=== PATIENT | male | born 1960 | race Caucasian/White ===

== ENCOUNTER → 2020-04-05 10:37 | Outpatient (BNVA) | payer OTHER, SELFPAY | PROVIDERS: PCP Internal Medicine; Referring Provider Internal Medicine; Visit Provider Internal Medicine Gastroenterology | DX: Z76.89 Persons encountering health services in other specified circumstances (principal) ==

== ENCOUNTER → 2020-06-30 15:49 | Outpatient (BNVA) | payer OTHER, SELFPAY | PROVIDERS: PCP Internal Medicine; Visit Provider Internal Medicine Gastroenterology ==

== ENCOUNTER 2020-07-12 06:58 | Outpatient (REF) | payer OTHER, SELFPAY | END 2020-07-12 06:59 | disposition home or self-care (01) | LOC: HO.LAB 06:58 | PROVIDERS: Visit Provider Internal Medicine | DX: Z20.822 Contact with and (suspected) exposure to COVID-19 (principal) | CPT/HCPCS: 36415; C9803; U0003; U0005 ==

== ENCOUNTER → 2020-09-10 09:32 | Outpatient (BNVA) | payer OTHER, SELFPAY | PROVIDERS: PCP Internal Medicine; Visit Provider Internal Medicine Cardiovascular Disease ==

== ENCOUNTER → 2020-09-28 07:09 | Outpatient (REF) | payer OTHER, SELFPAY ==
--- NOTE | ~2020-09-28 | NM_ITS ---
Lexiscan Myocardial perfusion study Indication: Coronary disease, atrial fibrillation, chest pain, assess for ischemia Technique: The patient was brought in for a Lexiscan perfusion study on 09/28/2020 and was injected 0.4 mg of Lexiscan intravenously. Within a minute of this injection 35 mCi of sestamibi was given intravenously. Images were obtained using the SPECT gamma camera interlaced with the gating device. Images were obtained in supine position. Resting perfusion study was performed on 09/29/2020. Patient was administered 35 mCi of sestamibi intravenously at rest. Images were then obtained in supine position. Total DLP 90mGy-cm. Images were processed with the software and compared side to side in short axis, horizontal long axis and vertical long axis views. Findings: Raw acquisition was reviewed. The stress perfusion study showed no significant perfusion abnormality. Both uncorrected as well as CT attenuation corrected images were reviewed. The gated study shows normal LV systolic function with calculated LVEF of 71%. LV cavity is normal in size. The gated study shows normal wall thickening and contraction of segments. Resting study shows mildly diminished tracer uptake in the basal to mid inferior septum but that improves with CT attenuation correction and hence suggesting diaphragmatic attenuation artifact. Gating at rest reveals normal wall motion with ejection fraction at 68%. The findings are consistent with no reversible or fixed perfusion abnormality. NM/NM calvin perf SPECT rest & str Impression: 1. Myocardial perfusion imaging study shows likely normal perfusion. No definitive evidence of any ischemia or infarction. 2. Gated LVEF is 71% during stress and 68% during rest. 3. Transient ischemic dilatation not present. EKG component of the test reported separately.
--- NOTE | 2020-09-28 07:14 | CA_ITS ---
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 The visually estimated ejection fraction is between 60-65%. - There is moderate septal asymmetric hypertrophy. - There is mild calcification of the aortic valve. - No obvious valvular pathology seen on this study. Findings Left Ventricle Normal left ventricular cavity size. The left ventricular systolic function is normal. The visually estimated ejection fraction is between 60-65%. There is no evidence of regional wall motion abnormalities. There is paradoxical septal motion consistent with a left bundle branch block. E/E prime ratio is <8, consistent with normal filling pressures. Evidence suggests grade I (mild) diastolic dysfunction. There is moderate septal asymmetric hypertrophy. Right Ventricle Normal right ventricular cavity size and systolic function. Atria Top normal atrial size. The right atrium is normal in size. Aortic Valve There is mild calcification of the aortic valve. There is no aortic valve stenosis. There is no aortic valve regurgitation. Mitral Valve The mitral valve appears normal. There is trace mitral valve regurgitation. There is no mitral valve stenosis. Pulmonic Valve The pulmonic valve was not well visualized. Tricuspid Valve Normal tricuspid valve structure. There is trace tricuspid valve regurgitation. The pulmonary artery systolic pressure is normal. Great Vessels The aortic annulus, sinuses of valsalva, and asc aorta are normal in size. Venous The inferior vena cava is normal in size and collapses greater than 50% with inspiration. Pericardium/Pleural There is no evidence of pericardial effusion. Prior Study Comparison No significant change compared to prior study dated: 11/14/2017. Recommendations, Care & Conclusions No obvious valvular pathology seen on this study. Measurements 2D Linear Measurements IVSd: 1.73 0.6-0.9/0.6-1.0 cm LVIDd: 3.71 3.9-5.3/4.2-5.9 cm LVIDs: 2.37 2.0-3.6 cm LVPWd: 1.74 0.7-1.1 cm LA Diam: 3.10 2.7-3.8/3.0-4.0 cm LV Mass: 331.84 67-162/88-224 g Mitral Valve MV Pk E: 0.55 MV PK A: 0.91 MV Decel Time: 127.00 E/A: 0.60 E'Lateral: 8.99 E'Medial: 5.03 E/E' Med: 10.90 E/E' Lat: 6.10 PHT: 37.00 MVA PHT: 5.95 Decel Alfalfa: 4.32 Aortic Valve AoV Pk Eduardo: 1.32 AoV Mn Eduardo: 0.95 AoV VTI: 0.26 AoV Pk Grad: 7.00 Aov Mn Grad: 4.00 LVOT LVOT Pk Eduardo: 1.01 LVOT Mn Eduardo: 0.68 LVOT VTI: 0.24 LVOT Pk Grad: 4.00 LVOT Mn Grad: 2.00 Diastolic Function MV Pk E: 0.55 MV Pk A: 0.91 E/A: 0.60 E'Medial: 5.03 E/E' Med: 10.90 E' Laterial: 8.99 E/E' Lat: 6.10 Tricuspid Valve TR Pk Eduardo: 2.15 TR Pk Grad: 18.00 Updated in Other Vendor System with Status of Final Steven Willingham MD electronically signed on 09/29/2020 4:28:00 PM with status of Final
--- NOTE | 2020-09-28 07:14 | CA_ITS ---
Acquisition Time: 2020-09-28 08:20:33 Total Exercise Time: 00:02:00 Test Indications: Angina Pectoris Medications: Protocol: LEXISCAN Max HR: 101 BPM 62% of Pred: 161 BPM Max BP: 124/080 mmHG Max Work Load: 1.0 METS Pharmacological stress test using Lexiscan while sitting. Denies any anginal sx. EKG with LBBB, non-diagnostic for ischemia. Sx of lighheadedness reversed with Aminophyline 75 mg IV. Nuclear images to follow. Normotensive response to test. Test reviewed with Dr. Willingham. Referred By: Chay Guzmán Overread By: Rosie Moore NP
== END ==
LOC: HO.CARD 07:09
PROVIDERS: Visit Provider Internal Medicine Cardiovascular Disease
DX: I20.8 Other forms of angina pectoris (principal)
CPT/HCPCS: 78452; 93005; 93017; 93306; A9500; J0280; J2785

== ENCOUNTER → 2020-09-28 09:55 | Outpatient (REF) | payer OTHER, SELFPAY | LOC: HO.NUCMED 09:55 | PROVIDERS: PCP Internal Medicine; Visit Provider Internal Medicine Cardiovascular Disease | DX: Z13.89 Encounter for screening for other disorder (principal) ==

== ENCOUNTER → 2020-10-11 10:15 | Outpatient (BNVA) | payer OTHER, SELFPAY | PROVIDERS: PCP Internal Medicine; Referring Provider Internal Medicine; Visit Provider Internal Medicine Cardiovascular Disease ==

== ENCOUNTER → 2020-10-29 13:39 | Outpatient (REF) | payer OTHER, SELFPAY ==
--- NOTE | 2020-10-29 13:42 | HM_ITS ---
INDICATION FOR TEST: Paroxysmal atrial fibrillation. ENROLLMENT PERIOD: 10/29/2020 to 11/09/2020 for total period of 11 days. INTERPRETATION: Baseline rhythm was normal sinus rhythm. There were no episodes of atrial fibrillation noted. Baseline bundle-branch block noted. The patient reported no symptoms. CONCLUSION: 1. Baseline normal sinus rhythm with no arrhythmias. 2. No patient reported events. Chay Guzmán MD NRS/MODL / [id number]
== END ==
LOC: HO.CARD 13:39
PROVIDERS: Visit Provider Internal Medicine Cardiovascular Disease
DX: I48.0 Paroxysmal atrial fibrillation (principal)
CPT/HCPCS: 93270

== ENCOUNTER 2020-10-30 04:23 | Inpatient (IN) | payer OTHER, SELFPAY ==
[2020-10-30] VITALS (12 sets, daily range): BP systolic 110–148; BP diastolic 63–93; PULSE 67–86; RESP 16–20; TEMP 36.1–36.8; O2SAT 96–98; BMI 30.4
--- NOTE | ~2020-10-30 | CT_ITS ---
EXAMINATION: CT ABDOMEN AND PELVIS WITH CONTRAST CLINICAL INFORMATION: Abdominal pain, history of Crohn's COMPARISON: 01/12/2020 TECHNIQUE: Multidetector volumetric images were obtained from the superior aspect of the liver through the pubic symphysis following administration 85 mL of Omnipaque 350 intravenous contrast. Sagittal and coronal reformatted images were obtained on the technologist's workstation. Oral contrast: No This CT examination was performed using dose optimization techniques as appropriate, variously including the following: *Automated exposure control *Adjustment of mA and/or kV according to patient size (this includes techniques or standardized protocols for targeted exams where dose is matched to indication/reason for exam; i.e. extremities or head) *Use of iterative reconstruction technique DLP: 699 mGy-cm FINDINGS: LUNG BASES: The visualized lung bases are unremarkable. Coronary artery calcifications are present. LIVER, GALLBLADDER, AND BILIARY TREE: The liver is normal in size, shape, and attenuation. No suspicious hepatic lesion or biliary ductal dilatation is present. The gallbladder is unremarkable with no evidence of radiopaque gallstones, gallbladder wall thickening, or obvious pericholecystic inflammatory changes. PANCREAS: Unremarkable. SPLEEN: Unremarkable. ADRENAL GLANDS: Unremarkable. KIDNEYS AND URETERS: The kidneys are normal in size, shape, and attenuation. Small hypodensities in the right kidney favor cysts. No hydronephrosis, hydroureter, or obstructing calculi seen. No perinephric stranding. BLADDER: Unremarkable. GASTROINTESTINAL TRACT: There are multiple dilated fluid-filled loops of small bowel throughout the abdomen. These lead to a segment of fecalized small bowel in the right pelvis which is followed by abrupt luminal collapse. Appearance is consistent with small bowel obstruction which may be due to stricturing in the setting of Crohn's disease. Colonic diverticulosis is noted. The appendix is unremarkable. Small amount of free fluid is present in the pelvis. ABDOMINAL WALL: No significant hernia is appreciated. LYMPH NODES: Mildly prominent subcentimeter mesenteric lymph nodes are present, which may be reactive. VASCULAR: There is atherosclerotic calcification along the aorta. PELVIC VISCERA: The prostate gland is enlarged, measuring 5.3 cm in transverse diameter. OSSEOUS STRUCTURES: Mild degenerative changes noted in the spine. CT/CT abdomen pelvis w con IMPRESSION: 1. Small bowel obstruction with transition point in the right pelvis. This may be secondary to stricturing in the setting of Crohn's disease. 2. Coronary artery calcifications. Correlation with cardiac risk factors is recommended.
--- NOTE | 2020-10-30 04:39 | PC.NURSE ---
IV established, labs obtained. Awaiting primary MD pitts.
[2020-10-30 04:45] LABS: Basophils Percent Auto 0.1 % (0-2); Eosinophils Percent Auto 0.1 % (0-4); Hematocrit 43.7 % (42-52); Hemoglobin 15.2 g/dl (14.0-18.0); Imm Gran Abs Auto 0.04 X10*3/uL (0.00-0.03); Imm Gran Pct Auto 0.3 % (0.0-0.4); Lymphocytes Absolute Auto 0.9 X10*3/uL (1.2-4.9); Lymphocytes Percent Auto 6.6 % (20-40); MANUAL DIFF FLAG NO; Mean Corpuscular HGB Conc 34.8 g/dl (31.0-36.0); Mean Corpuscular Hemoglobin 32.5 pg (27.0-33.0); Mean Corpuscular Volume 93.4 fL (80-98); Mean Platelet Volume 8.9 fL (9.4-12.4); Monocytes Absolute Auto 0.7 X10*3/uL (0.1-1.2); Monocytes Percent Auto 5.4 % (2-11); Neutrophils Absolute Auto 11.7 X10*3/uL (2.0-8.3); Neutrophils Percent Auto 87.5 % (45-73); Platelet Count 241 X10*3/uL (160-400); Red Blood Count 4.68 X10*6/uL (4.60-5.80); Red Cell Distribution Width 12.4 % (11.0-16.0); White Blood Count 13.4 X10*3/uL (4.8-10.8)
[2020-10-30 05:15] LABS: Alanine Aminotransferase 27 U/L (0-40); Albumin Level 4.5 g/dL (3.5-5.0); Alkaline Phosphatase 64 U/L (39-117); Anion Gap 15 (12-20); Aspartate Amino Transferase 24 U/L (5-37); Bilirubin Total 1.2 mg/dL (0.0-1.0); Blood Urea Nitrogen 19 mg/dL (9-16); Calcium 9.3 mg/dL (8.4-10.2); Carbon Dioxide 24 mmol/L (22-29); Chloride 104 mmol/L (96-108); Creatinine Clr Calc Pharmacy 112.9; Estimated Glomerular Filt Rate > 60; Glucose Random 125 mg/dL (60-115); Lipase 25 U/L (8-78); Potassium 3.8 mmol/L (3.3-5.1); Sodium 139 mmol/L (135-145); Total Protein 7.2 g/dL (6.5-8.0)
[2020-10-30] MEDS: ondansetron HCL 4 MG/2 ML VIAL IVPUSH ×2 (05:24→10:37)
[2020-10-30] MEDS: Morphine Sulfate 4 MG/ML CARTRIDGE IVPUSH (05:24)
--- NOTE | 2020-10-30 05:25 | PC.NURSE ---
Pt medicated per MAR.
--- NOTE | 2020-10-30 05:44 | PC.NURSE ---
Med Rec complete at this time.
--- NOTE | 2020-10-30 06:00 | PC.NURSE ---
at bedside for primary eval.
--- NOTE | 2020-10-30 06:05 | ED.ABDPAIN ---
HPI - Abdominal Pain General Chief Complaint: Abdominal Pain Stated Complaint: crohns disease Time Seen by Provider: 10/30/20 04:36 Source: patient Mode of arrival: ambulatory History of Present Illness HPI narrative: 60-year-old male with history of Crohn's for who presents with having eaten fried fish dinner and then developed abdominal discomfort with multiple episodes of nausea and vomiting and states that he is no longer passing flatus and feels distended. Otherwise, he denies any fever or chills as well as denies any urinary symptoms, shortness of breath, chest pain. Patient states that his Crohn's has been relatively well controlled with the weekly Humira shots. Related Data Home Medications Medication Instructions Recorded Confirmed metoprolol succinate 100 mg PO QAM 10/30/20 10/30/20 metoprolol succinate [Toprol XL] 50 mg PO BEDTIME 10/30/20 10/30/20 Previous Rx's Medication Instructions Recorded nitroglycerin 0.4 mg sublingual 0.4 mg SUBLINGUAL Q5M PRN #25 tab 05/24/20 tablet adalimumab 40 mg/0.4 mL 40 mg SUBCUT QWEEK #4 ea 06/02/20 subcutaneous pen kit omeprazole 40 mg capsule,delayed 40 mg PO DAILY #90 cap 08/20/20 release zolpidem 10 mg tablet 10 mg PO BEDTIME PRN 30 Days #30 09/08/20 tab amlodipine 5 mg tablet 5 mg PO DAILY #30 tab 10/11/20 promethazine 25 mg tablet 25 mg PO DAILY PRN #30 tab 10/25/20 tramadol 50 mg tablet 50 mg PO BID 30 Days #60 tab 10/25/20 atorvastatin 80 mg tablet 80 mg PO DAILY #90 tab 10/27/20 Allergies Allergy/AdvReac Type Severity Reaction Status Date / Time No Known Allergies Allergy Mild none Verified 05/04/20 09:42 Review of Systems Review of Systems Pertinent positives and negatives as stated in HPI 10 point review of systems is otherwise negative. Physical Exam Vital Signs: Vital Signs: Last Vital Signs Temp 97.8 F 10/30/20 04:30 Pulse 78 10/30/20 05:26 Resp 20 10/30/20 05:26 BP 120/78 10/30/20 05:26 Pulse Ox 96 10/30/20 04:30 Body Mass Index 30.4 VITAL SIGNS: Reviewed. GENERAL: Well developed, well nourished, in no acute distress. HEAD: Normocephalic/atraumatic, EYES: PERRLA, EOMI EARS: Ext canals without abnormality NOSE: Nares patent bilateral OROPHARYNX: no oral lesions noted, posterior pharynx clear NECK: Supple, no adenopathy LUNGS: Normal breath sounds. No adventitious sounds or accessory muscle use. SpO2<96> CARDIOVASCULAR: Regular rate and rhythm without noted murmurs ABDOMEN: Soft, mild tenderness on palpation without rebound, non-distended with bowel sounds. NEUROLOGIC: Alert and oriented x 4. Course Course Course Narrative: This is a 60-year-old male with history and clinic mentation consistent with SBO secondary to Crohn flare. Review of all investigations demonstrates a leukocytosis which was treated with antibiotics, IV fluids, pain medication, lactate and blood cultures. At this time there is no evidence of sepsis. On re-evaluation patient has had good resolution of his pain and CT findings are consistent with SBO. Discussed this case with the inpatient hospitalist team who is agreeable for admission. MDM - Abdominal Pain Lab Data Result diagrams: 10/30/20 04:39 10/30/20 04:39 Labs: Lab Results 10/30/20 10/30/20 10/30/20 Range/Units 04:39 04:39 04:39 WBC 13.4 H (4.8-10.8) X10*3/uL RBC 4.68 (4.60-5.80) X10*6/uL Hgb 15.2 (14.0-18.0) g/dl Hct 43.7 (42-52) % MCV 93.4 (80-98) fL MCH 32.5 (27.0-33.0) pg MCHC 34.8 (31.0-36.0) g/dl RDW 12.4 (11.0-16.0) % Plt Count 241 (160-400) X10*3/uL MPV 8.9 L (9.4-12.4) fL Immature Gran % (Auto) 0.3 (0.0-0.4) % Neut % (Auto) 87.5 H (45-73) % Lymph % (Auto) 6.6 L (20-40) % [place] % (Auto) 5.4 (2-11) % Eos % (Auto) 0.1 (0-4) % Baso % (Auto) 0.1 (0-2) % Lymph # (Auto) 0.9 L (1.2-4.9) X10*3/uL [place] # (Auto) 0.7 (0.1-1.2) X10*3/uL Eos # (Auto) 0.0 (0.0-0.4) X10*3/uL Baso # (Auto) 0.0 (0.0-0.2) X10*3/uL Abs Immat Gran (auto) 0.04 H (0.00-0.03) X10*3/uL Absolute Neuts (auto) 11.7 H (2.0-8.3) X10*3/uL Absolute Nucleated RBC 0.000 (0.0-0.012) X10*3/uL Nucleated RBC % (auto) 0.0 (0.0-0.2) /100WBC Hold Blue Top SEE NOTE Sodium 139 (135-145) mmol/L Potassium 3.8 (3.3-5.1) mmol/L Chloride 104 (96-108) mmol/L Carbon Dioxide 24 (22-29) mmol/L Anion Gap 15 (12-20) BUN 19 H (9-16) mg/dL Creatinine 0.77 (0.5-1.4) mg/dL Estim Creat Clear Calc 112.9 Estimated GFR > 60 Random Glucose 125 H (60-115) mg/dL Lactic Acid (0.5-2.0) mmol/L Calcium 9.3 (8.4-10.2) mg/dL Total Bilirubin 1.2 H (0.0-1.0) mg/dL AST 24 (5-37) U/L ALT 27 (0-40) U/L Alkaline Phosphatase 64 (39-117) U/L Total Protein 7.2 (6.5-8.0) g/dL Albumin 4.5 (3.5-5.0) g/dL Lipase 25 (8-78) U/L COVID-19 (BOGDAN) (Negative) COVID-19 Clin Com 10/30/20 10/30/20 Range/Units 06:33 06:33 WBC (4.8-10.8) X10*3/uL RBC (4.60-5.80) X10*6/uL Hgb (14.0-18.0) g/dl Hct (42-52) % MCV (80-98) fL MCH (27.0-33.0) pg MCHC (31.0-36.0) g/dl RDW (11.0-16.0) % Plt Count (160-400) X10*3/uL MPV (9.4-12.4) fL Immature Gran % (Auto) (0.0-0.4) % Neut % (Auto) (45-73) % Lymph % (Auto) (20-40) % [place] % (Auto) (2-11) % Eos % (Auto) (0-4) % Baso % (Auto) (0-2) % Lymph # (Auto) (1.2-4.9) X10*3/uL [place] # (Auto) (0.1-1.2) X10*3/uL Eos # (Auto) (0.0-0.4) X10*3/uL Baso # (Auto) (0.0-0.2) X10*3/uL Abs Immat Gran (auto) (0.00-0.03) X10*3/uL Absolute Neuts (auto) (2.0-8.3) X10*3/uL Absolute Nucleated RBC (0.0-0.012) X10*3/uL Nucleated RBC % (auto) (0.0-0.2) /100WBC Hold Blue Top Sodium (135-145) mmol/L Potassium (3.3-5.1) mmol/L Chloride (96-108) mmol/L Carbon Dioxide (22-29) mmol/L Anion Gap (12-20) BUN (9-16) mg/dL Creatinine (0.5-1.4) mg/dL Estim Creat Clear Calc Estimated GFR Random Glucose (60-115) mg/dL Lactic Acid 1.5 (0.5-2.0) mmol/L Calcium (8.4-10.2) mg/dL Total Bilirubin (0.0-1.0) mg/dL AST (5-37) U/L ALT (0-40) U/L Alkaline Phosphatase (39-117) U/L Total Protein (6.5-8.0) g/dL Albumin (3.5-5.0) g/dL Lipase (8-78) U/L COVID-19 (BOGDAN) Negative (Negative) COVID-19 Clin Com See Note ECG Data Attestation: I personally reviewed and interpreted this ECG as follows: Prior ECG tracings: available for review (08/07/2019 no acute changes on comparison) Interpretation: Normal sinus rhythm, HR -80, LBBB, no evidence of acute ischemia Discharge Plan Discharge Clinical Impression: SBO (small bowel obstruction), Crohn's disease Patient Disposition: Admitted As Inpatient [facility] Past Medical History Source: nursing notes reviewed Medical History CAD (coronary artery disease) Crohn's disease Crohn's disease GERD without esophagitis History of paroxysmal atrial tachycardia Hyperlipidemia Hypertension LBBB (left bundle branch block) Paroxysmal atrial fibrillation Surgical History History of colonoscopy Hx of endoscopy Stented coronary artery Family History Family History Father Family history unknown Mother Hx of Crohn's disease Social History Social History Alcohol intake: never Smoking Status: Never smoker Advance Directives: No Advance Directives Information Provided: No
[2020-10-30] MEDS: 0.9 % Sodium Chloride 1,000 ML 999 ML IV (06:08)
--- NOTE | 2020-10-30 06:08 | ECG_ITS ---
Test Reason : ABD PAIN Blood Pressure : / mmHG Vent. Rate : 080 BPM Atrial Rate : 080 BPM P-R Int : 194 ms QRS Dur : 172 ms QT Int : 436 ms P-R-T Axes : 045 -22 135 degrees QTc Int : 502 ms Normal sinus rhythm Possible Left atrial enlargement Left bundle branch block Abnormal ECG When compared with ECG of 07-AUG-2019 09:24, No significant change was found Referred By: Heidi Terry Electronically Signed By:SARAH PARADA MD
--- NOTE | 2020-10-30 06:15 | PC.NURSE ---
EKG obtained by this RN. Pt off to CT on hospital bed.
--- NOTE | 2020-10-30 06:25 | PC.NURSE ---
Pt returns from CT, converting technician at bedside for BCX and lactic.
[2020-10-30] MEDS: iohexoL 350 MG/ML 100 ML INFUS..BTL 85 ML IV (06:26)
[2020-10-30] MEDS: Piperacillin Sodium/Tazobactam 3.375 GM in 0.9 % Sodium Chloride 50 ML IV (06:44)
--- NOTE | 2020-10-30 06:46 | PC.NURSE ---
Zosyn infusing per MAR, awaiting CT results.
[2020-10-30 06:55] LABS: COVID-19 Test Negative (Negative)
[2020-10-30 07:01] LABS: Lactic Acid 1.5 mmol/L (0.5-2.0)
--- NOTE | 2020-10-30 07:45 | PC.NURSE ---
PT REFUSING NG TUBE. STATES 'I WILL HAVE A HEART ATTACK'.
[2020-10-30 08:20] LABS: C Reactive Protein 0.47 mg/dL (< or = 0.50); Magnesium 1.9 mg/dL (1.6-2.6)
--- NOTE | 2020-10-30 09:24 | PM.IMHP ---
History of Present Illness Date of Service: 10/30/20 Chief Complaint: Abdominal discomfort, distention This is a 60-year-old male patient of Dr. Oscra Blanton [PCP] and Dr. Donya Cain [GI] with Crohn's disease, usually well controlled on weekly Humira injections, but with history of several admissions in the past for small bowel obstruction related to stricture. He was in his usual state of health until he had a fried fish dinner from [employer] last night. Afterwards he developed abdominal discomfort and distention with nausea and several episodes of nonbloody, nonbilious emesis, typical of his prior episodes of SBO. He had a normal nonbloody bowel movement yesterday morning. He denies fever, chills, shortness of breath, or chest pain. Medical history notable for atrial fibrillation on beta-giancarlo and not on anticoagulation due to history of GI bleeding, coronary artery disease status post 2 coronary stents, left bundle-branch block, and hypertension. In the ED, CT of the abdomen and pelvis showed small bowel obstruction with transition point in the right pelvis, and reactive mesenteric lymph nodes. He was given IV fluids and piperacillin/tazobactam. Review of Systems Review of Systems: Yes all other systems are reviewed and are negative [facility] Medical History CAD (coronary artery disease) Crohn's disease Crohn's disease GERD without esophagitis History of paroxysmal atrial tachycardia Hyperlipidemia Hypertension LBBB (left bundle branch block) Paroxysmal atrial fibrillation Family History Father Family history unknown Mother Hx of Crohn's disease Surgical History History of colonoscopy Hx of endoscopy Stented coronary artery Social History Alcohol intake: never Smoking Status: Never smoker Advance Directives: No Advance Directives Information Provided: No Meds Allergies Allergy/AdvReac Type Severity Reaction Status Date / Time No Known Allergies Allergy Mild none Verified 05/04/20 09:42 Active Medications: Current Medications Generic Name Dose Route Start Last Admin Trade Name Freq PRN Reason Stop Dose Admin Amlodipine Besylate 5 mg 10/30/20 09:00 Amlodipine Besylate 5 Mg Tablet PO DAILY [facility] Protocol Atorvastatin Calcium 80 mg 10/30/20 09:00 Atorvastatin Calcium 80 Mg Tablet PO DAILY [facility] Methylprednisolone Sodium Succinate 40 mg 10/30/20 09:00 Methylprednisolone Sod Succ 40 Mg/Ml Vial IVPUSH Q12H [facility] Metoprolol Succinate 50 mg 10/30/20 21:00 Metoprolol Succinate Er 50 Mg Tab.Er.24h PO BEDTIME [facility] Protocol Metoprolol Succinate 100 mg 10/30/20 09:00 Metoprolol Succinate Er 100 Mg Tab.Er.24h PO DAILY [facility] Protocol Nitroglycerin 0.4 mg 10/30/20 08:00 Nitroglycerin 0.4 Mg Tab.Subl SUBLINGUAL Q5M PRN chest pain Non-Formulary Medication 40 mg 10/30/20 08:00 Adalimumab [Humira(Cf) Pen] SUBCUT Q7D [facility] Omeprazole 40 mg 10/30/20 08:30 Omeprazole 40 Mg Capsule.Dr PO DAILY@0600 [facility] Promethazine HCl 25 mg 10/30/20 08:00 Promethazine Hcl 25 Mg Tablet PO DAILY PRN for nausea/vomiting Zolpidem Tartrate 5 mg 10/30/20 08:00 Zolpidem Tartrate 5 Mg Tablet PO BEDTIME PRN sleep Home Medications Medication Instructions Recorded Confirmed Last Taken Type metoprolol succinate 100 mg PO QAM 10/30/20 10/30/20 10/29/20 09:00 History metoprolol succinate [Toprol XL] 50 mg PO BEDTIME 10/30/20 10/30/20 10/29/20 18:00 History Physical Exam Vital Signs and Narrative: Vital Signs: Last Vital Signs Temp 97.8 F 10/30/20 04:30 Pulse 86 10/30/20 07:51 Resp 16 10/30/20 07:51 BP 110/63 10/30/20 07:51 Pulse Ox 98 10/30/20 07:51 Body Mass Index 30.4 Gen: in no acute distress, well-nourished HEENT: sclera anicteric, moist mucus membranes, no ulcers Neck: supple, no lymphadenopathy Lungs: clear to auscultation bilaterally Heart: regular rate and rhythm, no murmurs Abd: mildly distended but nontender, no bowel sounds audible Ext: no edema Skin: warm/well-perfused Neuro: alert and oriented x3, no focal findings Psych: appropriate affect Results Labs CBC and Chem 7: 10/30/20 04:39 10/30/20 04:39 Labs: Laboratory Results - last 24 hr 10/30/20 10/30/20 10/30/20 04:39 04:39 04:39 MCV 93.4 MCH 32.5 MCHC 34.8 RDW 12.4 Plt Count 241 MPV 8.9 L Immature Gran % (Auto) 0.3 Neut % (Auto) 87.5 H Lymph % (Auto) 6.6 L [place] % (Auto) 5.4 Eos % (Auto) 0.1 Baso % (Auto) 0.1 Lymph # (Auto) 0.9 L [place] # (Auto) 0.7 Eos # (Auto) 0.0 Baso # (Auto) 0.0 Abs Immat Gran (auto) 0.04 H Absolute Neuts (auto) 11.7 H Absolute Nucleated RBC 0.000 Nucleated RBC % (auto) 0.0 Hold Blue Top SEE NOTE Anion Gap 15 Estim Creat Clear Calc 112.9 Estimated GFR > 60 Random Glucose 125 H Lactic Acid Calcium 9.3 Magnesium 1.9 Total Bilirubin 1.2 H AST 24 ALT 27 Alkaline Phosphatase 64 C-Reactive Protein 0.47 Total Protein 7.2 Albumin 4.5 Lipase 25 COVID-19 (BOGDAN) COVID-19 Clin Com 10/30/20 10/30/20 06:33 06:33 MCV MCH MCHC RDW Plt Count MPV Immature Gran % (Auto) Neut % (Auto) Lymph % (Auto) [place] % (Auto) Eos % (Auto) Baso % (Auto) Lymph # (Auto) [place] # (Auto) Eos # (Auto) Baso # (Auto) Abs Immat Gran (auto) Absolute Neuts (auto) Absolute Nucleated RBC Nucleated RBC % (auto) Hold Blue Top Anion Gap Estim Creat Clear Calc Estimated GFR Random Glucose Lactic Acid 1.5 Calcium Magnesium Total Bilirubin AST ALT Alkaline Phosphatase C-Reactive Protein Total Protein Albumin Lipase COVID-19 (BOGDAN) Negative COVID-19 Clin Com See Note Imaging Radiologist's Impressions: Impressions Abdomen/Pelvis CT 10/30/20 06:04 IMPRESSION: 1. Small bowel obstruction with transition point in the right pelvis. This may be secondary to stricturing in the setting of Crohn's disease. 2. Coronary artery calcifications. Correlation with cardiac risk factors is recommended. Assessment and Plan (1) SBO (small bowel obstruction): Status: Acute (2) Crohn's disease: Status: Acute 60-year-old male with Crohn's disease on weekly Humira injections presenting with acute onset of nausea, vomiting, abdominal distension with small-bowel obstruction likely due to stricture in setting of Crohn's flare. # SBO - admit to med/surg. patient declines NG tube. Surgery + GI consults. give IV fluids and replete electrolytes as necessary # Crohn's flare - IV steroids, GI consult as above. I don't think he needs antibiotics at this time. # AF - continue metoprolol. not on AC due to hx GI bleed with AC. # CAD - continue metoprolol + atorvastatin # HTN - continue metoprolol + amlodipine # GERD - continue PPI # VTE ppx - LMWH # code - FULL
[2020-10-30] MEDS: Enoxaparin Sodium 40 MG/0.4 ML SYRINGE SUBCUT (10:04)
[2020-10-30] MEDS: methylPREDNISolone Sod Succ 40 MG/ML VIAL IVPUSH ×2 (10:05→20:37)
[2020-10-30] MEDS: Dextrose 5 % and 0.45 % NaCl 1,000 ML 100 ML IVCONT ×2 (10:06→20:53)
[2020-10-30] MEDS: Morphine Sulfate 2 MG/ML CARTRIDGE IVPUSH (10:37)
[2020-10-30] MEDS: Metoprolol Succinate ER 100 MG TAB.ER.24H PO (10:38)
[2020-10-30] MEDS: Omeprazole 40 MG CAPSULE.DR PO (10:41)
[2020-10-30] MEDS: amLODIPine Besylate 5 MG TABLET PO (10:41)
[2020-10-30] MEDS: Atorvastatin Calcium 80 MG TABLET PO (10:42)
--- NOTE | 2020-10-30 16:37 | P.CNGI_ITS ---
History of Present Illness Data of Consult Service Date: 10/31/20 Requesting physician: Kole Aguilar Primary Care Provider: Unknown Physician HPI Reason for consult: SBO and crohns disease 60-year-old male w/ hx of CAD< GERD, LBBB, a-fib and Crohn's disease,(Dx 2012) who I am seeing for assessment for crohns disease and SBO--apparently has fibrostentoic disease Patient has had crohns disease for many years and is on humira q1wk after having multiple admissions for SBO and crohns flare ups with sub therapeutic adalimumab levels. He was well night before admission. He ate some fried food and shortly after noted abdominal distention, with nausea and several episodes of nonbloody, nonb ilious emesis which resembled prior attacks of SBO. He denies fever, chills, shortness of breath, or chest pain. He says on average he gets one attack like this every 8-12 months. Since the humira increase he has felt his background symptoms are much better and he rarely takes tramadol or anti nausea medication. Not taking nsaids. CT of the abdomen and pelvis showed small bowel obstruction with transition point in the right pelvis, and reactive mesenteric lymph nodes. He was given IV fluids and piperacillin/tazobactam. Today: feels much better, passing gas and stool, no nausea or vomiting, feels back to baseline OTHER DATA: Adalimumab trough 11 (which is good) MRI abd/pelv 03/08/20 showed thickening of distal small bowel. Area of dilation and angulation. Area of right lower quadrant involving terminal ileum. Skip lesions of small bowel. MR enterography-- 11/07/19 which demonstrated multiple scattered areas of small intestinal inflammation. Compared to prior testing there were 4 more areas of active inflammation. There were no areas of stenosis. colonoscopy 2018-- Active Crohn's disease with an ulcerated stricture in the region of the distal ileum. Review of Systems Review of Systems: Pertinent positives and negatives as stated in HPI 10 point review of systems is otherwise negative. Yes all other systems are reviewed and are negative Constitutional: Constitutional: Denies chills and Denies fever(s) ENT: Denies vertigo and Denies dizziness Cardiovascular: Cardiovascular: Denies chest pain Respiratory: Respiratory: Denies cough and Denies wheezing Genitourinary: Genitourinary: Denies dysuria and Denies nocturia Musculoskeletal: Musculoskeletal: Reports no additional musculoskeletal com plaints Neurologic: Denies vertigo and Denies dizziness Psychiatric: Psychiatric: Reports no additional psychiatric complaints Hematologic/Lymphatic: Hematologic/Lymphatic: Reports no additional hematologic/lymphatic complaints Allergic/Immunologic: Allergic/Immunologic: Denies wheezing PMFSH Past Medical History Medical History CAD (coronary artery disease) Crohn's disease Crohn's disease GERD without esophagitis History of paroxysmal atrial tachycardia Hyperlipidemia Hypertension LBBB (left bundle branch block) Paroxysmal atrial fibrillation Family History Family History Father Family history unknown Mother Hx of Crohn's disease Surgical History Surgical History History of colonoscopy Hx of endoscopy Stented coronary artery Social History Social History Household Members: Friend(s) Household Members Other:: 1 Housing: House Alcohol intake: never Smoking Status: Never smoker Meds Allergies Allergy/AdvReac Type Severity Reaction Status Date / Time No Known Allergies Allergy Mild none Verified 05/04/20 09:42 Active Medications: Current Medications Generic Name Dose Route Start Last Admin Trade Name Freq PRN Reason Stop Dose Admin Acetaminophen 650 mg 10/30/20 09:19 Acetaminophen 325 Mg Tablet PO Q6H PRN Pain, Mild (Pain Scale 1-3) Amlodipine Besylate 5 mg 10/30/20 09:00 10/30/20 10:41 Amlodipine Besylate 5 Mg Tablet PO 5 mg DAILY MY Administration Protocol Atorvastatin Calcium 80 mg 10/30/20 09:00 10/30/20 10:42 Atorvastatin Calcium 80 Mg Tablet PO 80 mg DAILY MY Administration Enoxaparin Sodium 40 mg 10/30/20 10:00 10/30/20 10:04 Enoxaparin Sodium 40 Mg/0.4 Ml Syringe SUBCUT 40 mg Q24H MY Administration Dextrose/Sodium Chloride 1,000 mls @ 100 mls/hr 10/30/20 09:30 10/30/20 10:06 D51/2ns IVCONT 100 mls/hr .Q10H MY Administration Methylprednisolone Sodium Succinate 40 mg 10/30/20 09:00 10/30/20 10:05 Methylprednisolone Sod Succ 40 Mg/Ml Vial IVPUSH 40 mg Q12H MY Administration Metoprolol Succinate 50 mg 10/30/20 21:00 Metoprolol Succinate Er 50 Mg Tab.Er.24h PO BEDTIME REPLACED BY [facility] Protocol Metoprolol Succinate 100 mg 10/30/20 09:00 10/30/20 10:38 Metoprolol Succinate Er 100 Mg Tab.Er.24h PO 100 mg DAILY REPLACED BY [facility] Administration Protocol Morphine Sulfate 2 mg 10/30/20 10:17 10/30/20 10:37 Morphine Sulfate 2 Mg/Ml Cartridge IVPUSH 2 mg Q2H PRN Administration pain,severe Nitroglycerin 0.4 mg 10/30/20 08:00 Nitroglycerin 0.4 Mg Tab.Subl SUBLINGUAL Q5M PRN chest pain Non-Formulary Medication 40 mg 10/30/20 08:00 Adalimumab [Humira(Cf) Pen] SUBCUT Q7D REPLACED BY [facility] Omeprazole 40 mg 10/30/20 08:30 10/30/20 10:41 Omeprazole 40 Mg Capsule.Dr PO 40 mg DAILY@0600 REPLACED BY [facility] Administration Ondansetron HCl 4 mg 10/30/20 09:19 10/30/20 10:37 Ondansetron Hcl 4 Mg/2 Ml Vial IVPUSH 4 mg Q8H PRN Administration Nausea and Vomiting Promethazine HCl 25 mg 10/30/20 08:00 Promethazine Hcl 25 Mg Tablet PO DAILY PRN for nausea/vomiting Sodium Chloride 3 ml 10/30/20 16:00 0.9 % Sodium Chloride Flush 3 Ml Syringe IVFLUSH QSHIFT REPLACED BY [facility] Zolpidem Tartrate 5 mg 10/30/20 08:00 Zolpidem Tartrate 5 Mg Tablet PO BEDTIME PRN sleep Home Medications Medication Instructions Recorded Confirmed Last Taken Type metoprolol succinate 100 mg PO QAM 10/30/20 10/30/20 10/29/20 09:00 History metoprolol succinate [Toprol XL] 50 mg PO BEDTIME 10/30/20 10/30/20 10/29/20 18:00 History Physical Exam Vital Signs: Vital Signs: Last Vital Signs Temp 98 F 10/30/20 15:31 Pulse 74 10/30/20 15:31 Resp 16 10/30/20 15:31 BP 130/81 10/30/20 15:31 Pulse Ox 96 10/30/20 15:31 Body Mass Index 30.4 Const: General: cooperative, healthy appearing and no acute distress Orientation/consciousness: patient oriented x3 HENMT: Head: Yes normocephalic and Yes atraumatic Eyes: General: appearance normal, both eyes and all related structures Neck: Neck: Yes normal visual inspection Resp: Effort & Inspection: normal respiratory effort Auscultation: clear to auscultation bilaterally Cardio: Rate: regular rate Rhythm: regular rhythm GI: Other: Slightly round, bowel sounds active, no palpable masses, moderate right mid abdominal tenderness Skin: Other: Normal color, warm and dry Neuro: General: patient oriented x3 and moves all extremities Extrem: General: Yes normal to inspection Psych: Mental Status: mental status grossly normal Results Labs CBC & Chem 7: 10/31/20 07:46 10/31/20 07:46 Labs: Short CBC 10/30/20 Range/Units 04:39 WBC 13.4 H (4.8-10.8) X10*3/uL Hgb 15.2 (14.0-18.0) g/dl Hct 43.7 (42-52) % Plt Count 241 (160-400) X10*3/uL BMP 10/30/20 04:39 Sodium 139 Potassium 3.8 Chloride 104 Carbon Dioxide 24 BUN 19 H Creatinine 0.77 Calcium 9.3 Liver Function 10/30/20 Range/Units 04:39 Total Bilirubin 1.2 H (0.0-1.0) mg/dL AST 24 (5-37) U/L ALT 27 (0-40) U/L Alkaline Phosphatase 64 (39-117) U/L Albumin 4.5 (3.5-5.0) g/dL CT personally reviewed-renal cysts, patchy atherosclerosis, hyperattenuated small bowel, TI thickening -possible inflammation vs fibrotic scar Assessment and Plan (1) Crohn's disease: Status: Acute (2) SBO (small bowel obstruction): Status: Acute /1/ Crohns disease, possibly with sub optimal control and partial response to anti TNF. Hard to discern from imaging whether he really has fibrotic or inflammatory stricturing or both, but regardless he feels back to baseline today. On my read he certainly has stricturing at the terminal ileum with gen hyperattenuated bowel loops. PLAN: 1/ He feels back to baseline today, if manages regular diet then can go home, without steroids, advised on low fiber diet and chewing food thoroughly. 2/ Repeat imaging with MRe in 6-8 weeks if hyper-enhancement then change class as this would imply TNF class failure and go with entyvio. If stricture, then might consider repeat colonoscopy with balloon dilation vs surgical referral for resection vs stricturoplasty Procedures Date of Service Date of Service: 10/31/20
--- NOTE | 2020-10-30 17:41 | P.CONGS_ITS ---
History of Present Illness Consult details Consult date: 10/30/20 Reason for consult: other (Crohn's disease, small-bowel obstruction) Requesting physician: Kole Aguilar Narrative: This is a 60-year-old gentleman with a history of Crohn's disease and intermittent episodes of small-bowel obstruction related to it, who was feeling well until late yesterday. He reports that he went for a long bike ride and then had fish and chips for supper. Shortly afterward, he began to experience crampy abdominal pain and then developed nausea and vomiting. The symptoms persisted through the night and ultimately he presented to the emergency room f or further evaluation. White blood count was noted to be elevated at 13.4. CT scan of the abdomen and pelvis was obtained and was consistent with small-bowel obstruction potentially secondary to Crohn's disease. Fecalization of the proximal small bowel was noted. He does not report fever or chills. He generally moves his bowels daily. Stools are soft and formed and may be thin in caliber. He does not report any rectal bleeding. 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 Cani. He states that his Crohn's disease has been under better control over recent months since Dr. Cain recommended a change in his Humira administration Review of Systems Constitutional: Constitutional: Denies chills and Denies fever(s) ENT: Denies vertigo and Denies dizziness Cardiovascular: Cardiovascular: Denies chest pain Comments: Recent admi ssion for palpitations which were controlled with the change in his medication regimen Respiratory: Respiratory: Denies cough and Denies wheezing Genitourinary: Genitourinary: Denies dysuria and Denies nocturia Neurologic: Denies vertigo and Denies dizziness Hematologic/Lymphatic: Hematologic/Lymphatic: Reports no additional hem atologic/lymphatic complaints Allergic/Immunologic: Allergic/Immunologic: Denies wheezing PMFSH Past Medical History Medical History CAD (coronary artery disease) Crohn's disease Crohn's disease GERD without esophagitis History of paroxysmal atrial tachycardia Hyperlipidemia Hypertension LBBB (left bundle branch block) Paroxysmal atrial fibrillation Family History Family History Father Family history unknown Mother Hx of Crohn's disease Surgical History Surgical History History of colonoscopy Hx of endoscopy Stented coronary artery Social History Social History Alcohol intake: never Smoking Status: Never smoker Use of substances other than those prescribed or required for medical reasons: No Advance Directives: No Advance Directives Information Provided: No Meds Allergies Allergy/AdvReac Type Severity Reaction Status Date / Time No Known Allergies Allergy Mild none Verified 05/04/20 09:42 Active Medications: Current Medications Generic Name Dose Route Start Last Admin Trade Name Freq PRN Reason Stop Dose Admin Acetaminophen 650 mg 10/30/20 09:19 Acetaminophen 325 Mg Tablet PO Q6H PRN Pain, Mild (Pain Scale 1-3) Amlodipine Besylate 5 mg 10/30/20 09:00 10/30/20 10:41 Amlodipine Besylate 5 Mg Tablet PO 5 mg DAILY MY Administration Protocol Atorvastatin Calcium 80 mg 10/30/20 09:00 10/30/20 10:42 Atorvastatin Calcium 80 Mg Tablet PO 80 mg DAILY MY Administration Enoxaparin Sodium 40 mg 10/30/20 10:00 10/30/20 10:04 Enoxaparin Sodium 40 Mg/0.4 Ml Syringe SUBCUT 40 mg Q24H MY Administration Dextrose/Sodium Chloride 1,000 mls @ 100 mls/hr 10/30/20 09:30 10/30/20 10:06 D51/2ns IVCONT 100 mls/hr .Q10H MY Administration Methylprednisolone Sodium Succinate 40 mg 10/30/20 09:00 10/30/20 10:05 Methylprednisolone Sod Succ 40 Mg/Ml Vial IVPUSH 40 mg Q12H MY Administration Metoprolol Succinate 50 mg 10/30/20 21:00 Metoprolol Succinate Er 50 Mg Tab.Er.24h PO BEDTIME MY Protocol Metoprolol Succinate 100 mg 10/30/20 09:00 10/30/20 10:38 Metoprolol Succinate Er 100 Mg Tab.Er.24h PO 100 mg DAILY MY Administration Protocol Morphine Sulfate 2 mg 10/30/20 10:17 10/30/20 10:37 Morphine Sulfate 2 Mg/Ml Cartridge IVPUSH 2 mg Q2H PRN Administration pain,severe Nitroglycerin 0.4 mg 10/30/20 08:00 Nitroglycerin 0.4 Mg Tab.Subl SUBLINGUAL Q5M PRN chest pain Non-Formulary Medication 40 mg 10/30/20 08:00 Adalimumab [Humira(Cf) Pen] SUBCUT Q7D [facility] Omeprazole 40 mg 10/30/20 08:30 10/30/20 10:41 Omeprazole 40 Mg Capsule.Dr PO 40 mg DAILY@0600 [facility] Administration Ondansetron HCl 4 mg 10/30/20 09:19 10/30/20 10:37 Ondansetron Hcl 4 Mg/2 Ml Vial IVPUSH 4 mg Q8H PRN Administration Nausea and Vomiting Promethazine HCl 25 mg 10/30/20 08:00 Promethazine Hcl 25 Mg Tablet PO DAILY PRN for nausea/vomiting Sodium Chloride 3 ml 10/30/20 16:00 0.9 % Sodium Chloride Flush 3 Ml Syringe IVFLUSH QSHIFT [facility] Zolpidem Tartrate 5 mg 10/30/20 08:00 Zolpidem Tartrate 5 Mg Tablet PO BEDTIME PRN sleep Home Medications Medication Instructions Recorded Confirmed Last Taken Type metoprolol succinate 100 mg PO QAM 10/30/20 10/30/20 10/29/20 09:00 History metoprolol succinate [Toprol XL] 50 mg PO BEDTIME 10/30/20 10/30/20 10/29/20 18:00 History Physical Exam Vital Signs: Vital Signs: Last Vital Signs Temp 98 F 10/30/20 15:31 Pulse 74 10/30/20 15:31 Resp 16 10/30/20 15:31 BP 130/81 10/30/20 15:31 Pulse Ox 96 10/30/20 15:31 Body Mass Index 30.4 Const: General: cooperative, healthy appearing and no acute distress HENMT: Head: Yes normocephalic and Yes atraumatic Eyes: General: appearance normal, both eyes and all related structures Resp: Effort & Inspection: normal respiratory effort Auscultation: clear to auscultation bilaterally Cardio: Rate: regular rate Rhythm: regular rhythm GI: Other: Slightly round, bowel sounds active, no palpable masses, moderate right mid abdominal tenderness Skin: Other: Normal color, warm and dry Extrem: General: Yes normal to inspection Psych: Mental Status: mental status grossly normal Results Labs Result diagrams: 10/30/20 04:39 10/30/20 04:39 Labs: Abnormal lab results 10/30/20 10/30/20 Range/Units 04:39 04:39 WBC 13.4 H (4.8-10.8) X10*3/uL MPV 8.9 L (9.4-12.4) fL Neut % (Auto) 87.5 H (45-73) % Lymph % (Auto) 6.6 L (20-40) % Lymph # (Auto) 0.9 L (1.2-4.9) X10*3/uL Abs Immat Gran (auto) 0.04 H (0.00-0.03) X10*3/uL Absolute Neuts (auto) 11.7 H (2.0-8.3) X10*3/uL BUN 19 H (9-16) mg/dL Random Glucose 125 H (60-115) mg/dL Total Bilirubin 1.2 H (0.0-1.0) mg/dL Short CBC 10/30/20 Range/Units 04:39 WBC 13.4 H (4.8-10.8) X10*3/uL Hgb 15.2 (14.0-18.0) g/dl Hct 43.7 (42-52) % Plt Count 241 (160-400) X10*3/uL BMP 10/30/20 04:39 Sodium 139 Potassium 3.8 Chloride 104 Carbon Dioxide 24 BUN 19 H Creatinine 0.77 Calcium 9.3 Liver Function 10/30/20 Range/Units 04:39 Total Bilirubin 1.2 H (0.0-1.0) mg/dL AST 24 (5-37) U/L ALT 27 (0-40) U/L Alkaline Phosphatase 64 (39-117) U/L Albumin 4.5 (3.5-5.0) g/dL All other labs normal. Assessment and Plan (1) SBO (small bowel obstruction): Status: Acute (2) Crohn's disease: Status: Acute 60-year-old male presenting with small-bowel obstruction secondary to Crohn's disease. He has had these episodes in the past and has responded to c onservative management with bowel rest, IV hydration and steroids. There is no acute indication for surgical exploration. He has been admitted to the hospitalist service. GI consultation is pending. General surgery will follow along. Procedures Date of Service Date of Service: 10/30/20
[2020-10-30] MEDS: Metoprolol Succinate ER 50 MG TAB.ER.24H PO (20:37)
--- NOTE | 2020-10-30 20:46 | PC.NURSE ---
P patient refuses sequentials I Dr. Evans notified E encouraged ambulation
[2020-10-30] MEDS: Zolpidem Tartrate 5 MG TABLET PO (20:51)
[2020-10-31 03:06] VITALS: BP 127/72; PULSE 64; RESP 16; TEMP 36.1; O2SAT 93
[2020-10-31] MEDS: Dextrose 5 % and 0.45 % NaCl 1,000 ML 100 ML IVCONT (05:03)
[2020-10-31] MEDS: Omeprazole 40 MG CAPSULE.DR PO (05:03)
[2020-10-31 08:00] VITALS: BP 145/79; PULSE 65; RESP 14; TEMP 36.6; O2SAT 96
[2020-10-31 08:22] LABS: Hematocrit 44.6 % (42-52); Hemoglobin 14.8 g/dl (14.0-18.0); Mean Corpuscular HGB Conc 33.2 g/dl (31.0-36.0); Mean Corpuscular Hemoglobin 31.3 pg (27.0-33.0); Mean Corpuscular Volume 94.3 fL (80-98); Platelet Count 273 X10*3/uL (160-400); Red Blood Count 4.73 X10*6/uL (4.60-5.80); Red Cell Distribution Width 12.4 % (11.0-16.0); White Blood Count 6.9 X10*3/uL (4.8-10.8)
[2020-10-31 08:42] LABS: Anion Gap 13 (12-20); Blood Urea Nitrogen 13 mg/dL (9-16); Calcium 9.2 mg/dL (8.4-10.2); Carbon Dioxide 27 mmol/L (22-29); Chloride 105 mmol/L (96-108); Creatinine Clr Calc Pharmacy 117.5; Estimated Glomerular Filt Rate > 60; Glucose Random 144 mg/dL (60-115); Magnesium 2.2 mg/dL (1.6-2.6); Potassium 3.9 mmol/L (3.3-5.1); Sodium 141 mmol/L (135-145)
[2020-10-31] MEDS: Enoxaparin Sodium 40 MG/0.4 ML SYRINGE SUBCUT (10:01)
[2020-10-31] MEDS: Metoprolol Succinate ER 100 MG TAB.ER.24H PO (10:01)
[2020-10-31] MEDS: methylPREDNISolone Sod Succ 40 MG/ML VIAL IVPUSH (10:01)
[2020-10-31] MEDS: amLODIPine Besylate 5 MG TABLET PO (10:01)
[2020-10-31] MEDS: Atorvastatin Calcium 80 MG TABLET PO (10:01)
--- NOTE | 2020-10-31 11:09 | PM.PNGS ---
Subjective Subjective Date of Service: 10/31/20 Interval history: Feels well today. He had a bowel movement and is passing flatus. Has been ambulating. Wants to go home. Physical Exam Vital Signs: Vital Signs: Last Vital Signs Temp 97.8 F 10/31/20 08:00 Pulse 65 10/31/20 08:00 Resp 14 10/31/20 08:00 BP 145/79 H 10/31/20 08:00 Pulse Ox 96 10/31/20 08:00 Body Mass Index 30.4 Const: Other: Alert, appears comfortable, in no distress Resp: Effort & Inspection: normal respiratory effort Auscultation: clear to auscultation bilaterally Cardio: Rate: regular rate Rhythm: regular rhythm GI: Other: Soft, very mildly tender diffusely, nondistended, bowel sounds active Skin: Other: Normal color, warm and dry Progress Note: A&P Assessment and plan (1) SBO (small bowel obstruction): Status: Acute (2) Crohn's disease: Status: Acute Assessment and Plan: 60-year-old male presenting with small-bowel obstruction secondary to Crohn's disease with focal luminal narrowing in the small intestine. The obstruction appears to be resolving. Will begin a clear liquid diet and will advance to low residue later today if he tolerates clear liquids. May be ready for discharge later today if he is able to tolerate the low residue diet. Fall Risk Details Current Medications: Current Medications Generic Name Dose Route Start Last Admin Trade Name Freq PRN Reason Stop Dose Admin Acetaminophen 650 mg 10/30/20 09:19 Acetaminophen 325 Mg Tablet PO Q6H PRN Pain, Mild (Pain Scale 1-3) Amlodipine Besylate 5 mg 10/30/20 09:00 10/31/20 10:01 Amlodipine Besylate 5 Mg Tablet PO 5 mg DAILY MY Administration Protocol Atorvastatin Calcium 80 mg 10/30/20 09:00 10/31/20 10:01 Atorvastatin Calcium 80 Mg Tablet PO 80 mg DAILY MY Administration Enoxaparin Sodium 40 mg 10/30/20 10:00 10/31/20 10:01 Enoxaparin Sodium 40 Mg/0.4 Ml Syringe SUBCUT 40 mg Q24H MY Administration Dextrose/Sodium Chloride 1,000 mls @ 100 mls/hr 10/30/20 09:30 10/31/20 05:03 D51/2ns IVCONT 100 mls/hr .Q10H MY Administration Methylprednisolone Sodium Succinate 40 mg 10/30/20 09:00 10/31/20 10:01 Methylprednisolone Sod Succ 40 Mg/Ml Vial IVPUSH 40 mg Q12H MY Administration Metoprolol Succinate 50 mg 10/30/20 21:00 10/30/20 20:37 Metoprolol Succinate Er 50 Mg Tab.Er.24h PO 50 mg BEDTIME MY Administration Protocol Metoprolol Succinate 100 mg 10/30/20 09:00 10/31/20 10:01 Metoprolol Succinate Er 100 Mg Tab.Er.24h PO 100 mg DAILY MY Administration Protocol Morphine Sulfate 2 mg 10/30/20 10:17 10/30/20 10:37 Morphine Sulfate 2 Mg/Ml Cartridge IVPUSH 2 mg Q2H PRN Administration pain,severe Nitroglycerin 0.4 mg 10/30/20 08:00 Nitroglycerin 0.4 Mg Tab.Subl SUBLINGUAL Q5M PRN chest pain Non-Formulary Medication 40 mg 10/30/20 08:00 Adalimumab [Humira(Cf) Pen] SUBCUT Q7D [facility] Omeprazole 40 mg 10/30/20 08:30 10/31/20 05:03 Omeprazole 40 Mg Capsule.Dr PO 40 mg DAILY@0600 [facility] Administration Ondansetron HCl 4 mg 10/30/20 09:19 10/30/20 10:37 Ondansetron Hcl 4 Mg/2 Ml Vial IVPUSH 4 mg Q8H PRN Administration Nausea and Vomiting Promethazine HCl 25 mg 10/30/20 08:00 Promethazine Hcl 25 Mg Tablet PO DAILY PRN for nausea/vomiting Sodium Chloride 3 ml 10/30/20 16:00 10/31/20 07:08 0.9 % Sodium Chloride Flush 3 Ml Syringe IVFLUSH Not Given QSHIFT [facility] Zolpidem Tartrate 5 mg 10/30/20 08:00 10/30/20 20:51 Zolpidem Tartrate 5 Mg Tablet PO 5 mg BEDTIME PRN Administration sleep Time Spent With Patient Time: Total time spent is greater than 50% in coordination of care (as documented) at patient's floor/unit and/or counseling patient: Time with patient: less than 15 minutes Procedures Date of Service Date of Service: 10/31/20
[2020-10-31 12:00] VITALS: BP 128/80; PULSE 67; RESP 20; TEMP 36.9; O2SAT 96
--- NOTE | 2020-10-31 13:38 | P.DS_ITS ---
DS: Providers Provider Date of Service: 10/31/20 Date of admission: 10/30/20 11:48 Primary care physician: Oscar Blanton MD Consults: 10/30/20 07:59 Consult to Gastroenterology Routine Consulting Provider: Krissy Hadley Reason for consultation: Crohn's flare 10/30/20 08:04 Consult to General Surgery [place]ine [place] [facility] [place] Reason for consultation: SBO/Crohn's stricture DS: Diagnosis Discharge Diagnosis (1) SBO (small bowel obstruction): Status: Acute (2) Crohn's disease: Status: Acute (3) Stricture of small intestine: Status: Acute DS: Medications Discharge Medications Home Medications: Home Medications Medication Instructions Recorded Confirmed metoprolol succinate 100 mg PO QAM 10/30/20 10/30/20 metoprolol succinate [Toprol XL] 50 mg PO BEDTIME 10/30/20 10/30/20 Previous Rx's Medication Instructions Recorded nitroglycerin 0.4 mg sublingual 0.4 mg SUBLINGUAL Q5M PRN #25 tab 05/24/20 tablet adalimumab 40 mg/0.4 mL 40 mg SUBCUT QWEEK #4 ea 06/02/20 subcutaneous pen kit omeprazole 40 mg capsule,delayed 40 mg PO DAILY #90 cap 08/20/20 release zolpidem 10 mg tablet 10 mg PO BEDTIME PRN 30 Days #30 09/08/20 tab amlodipine 5 mg tablet 5 mg PO DAILY #30 tab 10/11/20 promethazine 25 mg tablet 25 mg PO DAILY PRN #30 tab 10/25/20 tramadol 50 mg tablet 50 mg PO BID 30 Days #60 tab 10/25/20 atorvastatin 80 mg tablet 80 mg PO DAILY #90 tab 10/27/20 DS: Summary Hospital Course Hospital Course: From my admission history and physical, 10/30/2020: This is a 60-year-old male patient of Dr. Oscar Blanton [PCP] and Dr. Donya Cain [GI] with Crohn's disease, usually well controlled on weekly Humira injections, but with history of several admissions in the past for small bowel obstruction related to stricture. He was in his usual state of health until he had a fried fish dinner from [employer] last night. Afterwards he developed abdominal discomfort and distention with nausea and several episodes of nonbloody, nonbilious emesis, typical of his prior episodes of SBO. He had a normal nonbloody bowel movement yesterday morning. He denies fever, chills, shortness of breath, or chest pain. Medical history notable for atrial fibrillation on beta-giancarlo and not on anticoagulation due to history of GI bleeding, coronary artery disease status post 2 coronary stents, left bundle- branch block, and hypertension. In the ED, CT of the abdomen and pelvis showed small bowel obstruction with transition point in the right pelvis, and reactive mesenteric lymph nodes. He was given IV fluids and piperacillin/tazobactam. The patient was made NPO and admitted to the medical-surgical floor. He was given IV fluids. Antibiotics were not continued. CRP was low. General surgery and Gastroenterology were consulted. His bowel function returned quite rapidly and he was advanced to a solid diet without issues. He was treated with steroids but these were deemed unnecessary at discharge. He will follow up with his gastroenterology clinic in 6-8 weeks with MR enterography. Consideration could be given to changing immunosuppressive class change and repeat colonoscopy with balloon dilation of the structure versus surgical referral for resection or stricturoplasty. Time Spent with Patient Time attestation: Total time spent providing and/or coordinating discharge services: 35 Discharge coordination time: Greater than 30 minutes Quality: Stroke Does the patient have a stroke diagnosis?: No Physical Exam Vital Signs: Vital Signs: Last Vital Signs Temp 98.4 F 10/31/20 12:00 Pulse 67 10/31/20 12:00 Resp 20 10/31/20 12:00 BP 128/80 10/31/20 12:00 Pulse Ox 96 10/31/20 12:00 Body Mass Index 30.4 Gen: in no acute distress HEENT: sclera anicteric, moist mucus membranes Neck: supple Lungs: clear to auscultation bilaterally Heart: regular rate and rhythm, no murmurs Abd: soft, non-tender, non-distended, normoactive bowel sounds Ext: no edema Skin: warm/well-perfused Neuro: alert and oriented x3, no focal findings Psych: appropriate affect DS: Data Data Completed and Pending Completed studies during hospitalization [Text1]: Laboratory Results WBC 6.9 X10*3/uL (4.8-10.8) 10/31/20 07:46 RBC 4.73 X10*6/uL (4.60-5.80) 10/31/20 07:46 Hgb 14.8 g/dl (14.0-18.0) 10/31/20 07:46 Hct 44.6 % (42-52) 10/31/20 07:46 MCV 94.3 fL (80-98) 10/31/20 07:46 MCH 31.3 pg (27.0-33.0) 10/31/20 07:46 MCHC 33.2 g/dl (31.0-36.0) 10/31/20 07:46 RDW 12.4 % (11.0-16.0) 10/31/20 07:46 Plt Count 273 X10*3/uL (160-400) 10/31/20 07:46 MPV 9.0 fL (9.4-12.4) L 10/31/20 07:46 Immature Gran % (Auto) 0.3 % (0.0-0.4) 10/30/20 04:39 Neut % (Auto) 87.5 % (45-73) H 10/30/20 04:39 Lymph % (Auto) 6.6 % (20-40) L 10/30/20 04:39 Giles % (Auto) 5.4 % (2-11) 10/30/20 04:39 Eos % (Auto) 0.1 % (0-4) 10/30/20 04:39 Baso % (Auto) 0.1 % (0-2) 10/30/20 04:39 Lymph # (Auto) 0.9 X10*3/uL (1.2-4.9) L 10/30/20 04:39 Giles # (Auto) 0.7 X10*3/uL (0.1-1.2) 10/30/20 04:39 Eos # (Auto) 0.0 X10*3/uL (0.0-0.4) 10/30/20 04:39 Baso # (Auto) 0.0 X10*3/uL (0.0-0.2) 10/30/20 04:39 Abs Immat Gran (auto) 0.04 X10*3/uL (0.00-0.03) H 10/30/20 04:39 Absolute Neuts (auto) 11.7 X10*3/uL (2.0-8.3) H 10/30/20 04:39 Absolute Nucleated RBC 0.000 X10*3/uL (0.0-0.012) 10/31/20 07:46 Nucleated RBC % (auto) 0.0 /100WBC (0.0-0.2) 10/31/20 07:46 Hold Blue Top SEE NOTE 10/30/20 04:39 Sodium 141 mmol/L (135-145) 10/31/20 07:46 Potassium 3.9 mmol/L (3.3-5.1) 10/31/20 07:46 Chloride 105 mmol/L (96-108) 10/31/20 07:46 Carbon Dioxide 27 mmol/L (22-29) 10/31/20 07:46 Anion Gap 13 (12-20) 10/31/20 07:46 BUN 13 mg/dL (9-16) 10/31/20 07:46 Creatinine 0.74 mg/dL (0.5-1.4) 10/31/20 07:46 Estim Creat Clear Calc 117.5 10/31/20 07:46 Estimated GFR > 60 10/31/20 07:46 Random Glucose 144 mg/dL (60-115) H 10/31/20 07:46 Lactic Acid 1.5 mmol/L (0.5-2.0) 10/30/20 06:33 Calcium 9.2 mg/dL (8.4-10.2) 10/31/20 07:46 Magnesium 2.2 mg/dL (1.6-2.6) 10/31/20 07:46 Total Bilirubin 1.2 mg/dL (0.0-1.0) H 10/30/20 04:39 AST 24 U/L (5-37) 10/30/20 04:39 ALT 27 U/L (0-40) 10/30/20 04:39 Alkaline Phosphatase 64 U/L (39-117) 10/30/20 04:39 C-Reactive Protein 0.47 mg/dL (< or = 0.50) 10/30/20 04:39 Total Protein 7.2 g/dL (6.5-8.0) 10/30/20 04:39 Albumin 4.5 g/dL (3.5-5.0) 10/30/20 04:39 Lipase 25 U/L (8-78) 10/30/20 04:39 COVID-19 (BOGDAN) Negative (Negative) 10/30/20 06:33 COVID-19 Clin Com See Note 10/30/20 06:33 Impressions Abdomen/Pelvis CT 10/30/20 06:04 IMPRESSION: 1. Small bowel obstruction with transition point in the right pelvis. This may be secondary to stricturing in the setting of Crohn's disease. 2. Coronary artery calcifications. Correlation with cardiac risk factors is recommended. Discharge Plan Discharge Patient Disposition: Home, Self-Care Discharge Diagnosis: small bowel obstruction, ileal stricture, Crohn's disease Referrals: Krissy Hadley MD [Physician] - 1 Week Oscar Blanton MD [Physician] - 1 Week Discharge Medications: Continued nitroglycerin 0.4 mg tablet, sublingual 0.4 mg sublingual Q5M PRN (Reason: chest pain) Qty: 25 RF: 3 adalimumab [Humira(CF) Pen] 40 mg/0.4 mL pen injector kit 40 mg subcut QWEEK Qty: 4 RF: 6 omeprazole 40 mg capsule,delayed release(DR/EC) 40 mg PO DAILY Qty: 90 RF: 8 zolpidem 10 mg tablet 10 mg PO BEDTIME PRN (Reason: sleep) 30 Days Qty: 30 RF: 5 tramadol 50 mg tablet 50 mg PO BID 30 Days Qty: 60 RF: 0 promethazine 25 mg tablet 25 mg PO DAILY PRN (Reason: for nausea/vomiting) Qty: 30 RF: 0 atorvastatin 80 mg tablet 80 mg PO DAILY Qty: 90 RF: 1 metoprolol succinate [Toprol XL] 50 mg tablet extended release 24 hr 50 mg PO BEDTIME RF: 0 metoprolol succinate 100 mg tablet extended release 24 hr 100 mg PO QAM RF: 0 amlodipine 5 mg tablet 5 mg PO DAILY Qty: 30 RF: 2 Discharge Orders: Discharge Order (Routine); Ordered 10/31/20 Ordered By: Kole Aguilar Diet: other Activity on Discharge: As tolerated Stand Alone Forms: Patient Portal Discharge page Care Plan Goals: avoid bowel obstruction control Crohn's disease Health Concerns: ileal stricture from Crohn's Disease Plan of Treatment: low-fiber diet; chew food thoroughly continue Humira injections follow up with GI in 1-2 weeks [Dr Hadley covering for Dr Cain while she is on leave] see your primary care doctor in 2 weeks Assessment: as above Patient Instructions: Crohn Disease (DC)
--- NOTE | 2020-10-31 14:20 | MHC.CM.PN ---
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 HE HAS NO VNA /NO DME SERVICES, [facility] IS A AND [facility], HE USES THEIR OUTPATIENT SERVICES IE [facility] , PODIET[facility] , HE DOES NTO [place] THEIR PHARMACY. DISCHARGE PLAN HOME NO SERVICES AND MARCIN ORDERED PCP DR MONA VIRGEN CONFIRMED SELF RESUMPTION OF HIS FOLLOW UP,WITH GI DR CASTANEDA AND CARDIOLOGY DR [facility]
--- NOTE | 2020-10-31 15:08 | PC.NURSE ---
LATE ENTRY: 1300: PT TOLERATED CLEAR LIQUID DIET FOR BREAKFAST AND REGULAR FOR LUNCH. DENIES N/V OR ABDOMINAL PAIN
== END 2020-10-31 14:45 | disposition home or self-care (01) | DRG 245 ==
LOC: HO.ED 07:22 → HO.EDOVER 12:25 → HO.S3 19:01
PROVIDERS: Admitting Provider Family Medicine; Emergency Provider Student in an Organized Health Care Education/Training Program; Visit Provider Family Medicine
DX: K50.912 Crohn's disease, unspecified, with intestinal obstruction (principal); I25.10 Atherosclerotic heart disease of native coronary artery without angina pectoris; I48.0 Paroxysmal atrial fibrillation; Z20.822 Contact with and (suspected) exposure to COVID-19; Z95.5 Presence of coronary angioplasty implant and graft; Z79.899 Other long term (current) drug therapy
CPT/HCPCS: 36415; 74177; 80048; 80053; 83605; 83690; 83735; 85025; 85027; 86140; 87040; 87635; 93005; 93270; 96365; 96375; 99285; J1650; J2270; J2405; J2543; J2920; Q9967

== ENCOUNTER 2020-12-07 09:09 | Outpatient (REF) | payer OTHER, SELFPAY ==
--- NOTE | ~2020-12-07 | MR_ITS ---
EXAMINATION: MRI ABDOMEN AND PELVIS WITH AND WITHOUT CONTRAST: MR ENTEROGRAPHY CLINICAL INFORMATION: Unspecified intestinal obstruction. Crohn's disease. COMPARISON: No pertinent priors currently available. TECHNIQUE: 1500 cc Breeza enteral contrast small bowel with stratified was given. Routine MRI sequences through the abdomen and pelvis were obtained on a high-field 1.5 Gisselle MRI before and after the uneventful administration of 10 mL of Gadavist gadolinium-based IV contrast. FINDINGS: STOMACH: Stomach is collapsed with wall thickening likely due to underdistention. No abnormal hyperenhancement seen. SMALL BOWEL: The small bowel is only partially distended. There are several segments of abnormal bowel wall thickening and hyperenhancement, each of which were abnormal on the prior study 10/30/2020 as well.. There is a 5 cm segment of terminal ileum where stratified mucosal hyperenhancement, thickened to 1.2 cm. More proximally, also in the right lower quadrant, there are 2 additional discontiguous segments of involved small bowel each approximately 3 cm in length with severe wall thickening and stratified mucosal hyperenhancement. There are 2 additional adjacent the discontiguous segments of abnormal bowel wall thickening and enhancement within the anterior pelvis, approximately 3 cm and 5 cm in length, also with stratified mucosal enhancement and wall thickening to 9 mm. There is some hyperenhancement of the appendix is well although it is normal in caliber and there is no definite wall thickening. Several prominent right lower quadrant lymph nodes are present, likely reactive. No interloop abscess or fistula. On the prior CT scan, small bowel was abnormally dilated up to 3 cm, with no residual or persistent abnormal dilation seen. COLON: The rectosigmoid colon is collapsed with wall thickening most likely due to underdistention. No definite focal colonic abnormality seen. LUNG BASES: Lung bases are clear. LIVER: Liver enhances normally. No focal lesion seen. Hepatic and portal veins enhance normally. GALL BLADDER AND BILIARY TREE: Tiny gallstone likely present. No gallbladder wall thickening or pericholecystic fluid. SPLEEN: Normal. Normal size. No focal lesion. PANCREAS: Normal. ADRENAL GLANDS: Normal. No adrenal mass. KIDNEYS AND URETERS: Bilateral well-circumscribed T2 bright nonenhancing simple cysts are present; no imaging follow-up recommended. No suspicious renal mass. No hydronephrosis. LYMPHOVASCULAR STRUCTURES: Normal caliber aorta. IVC patent. No pathologically enlarged abdominal or retroperitoneal lymphadenopathy by CT size criteria PELVIS: Prostate is enlarged measuring 5 x 5.3 cm. Seminal vesicles are symmetric. OSSEOUS STRUCTURES: Multilevel degenerative changes of the thoracolumbar spine. There is diastases of the rectus abdominis with a small fat-containing umbilical hernia. MR/MR abdomen wo/w con IMPRESSION: Multiple segments of abnormal small bowel wall thickening and hyperenhancement consistent with active Crohn's disease. See conde images. No interloop abscess or fistula seen. The dilated small bowel seen on recent CT scan 10/30/2020 has improved.
== END 2020-12-07 09:10 | disposition home or self-care (01) ==
LOC: HO.MRI 09:09
PROVIDERS: Visit Provider Internal Medicine Gastroenterology
DX: K56.609 Unspecified intestinal obstruction, unspecified as to partial versus complete obstruction (principal); K50.90 Crohn's disease, unspecified, without complications
CPT/HCPCS: 72197; 74183; A9585

== ENCOUNTER 2020-12-20 07:38 | Outpatient (REF) | payer OTHER, SELFPAY | END 2020-12-20 07:39 | disposition home or self-care (01) | LOC: HO.LAB 07:38 | PROVIDERS: Absent Provider Internal Medicine Gastroenterology; PCP Internal Medicine; Visit Provider Internal Medicine Gastroenterology | DX: K50.90 Crohn's disease, unspecified, without complications (principal) | CPT/HCPCS: 36415; 86481 ==

== ENCOUNTER 2021-01-04 09:39 | Outpatient (REF) | payer OTHER, SELFPAY ==
[2021-01-06 21:26] LABS: TS Negative Control Passed; TS Panel A 0; TS Panel B 0; TS Positive Control Passed; TSpotTB Negative (SeeBelow)
== END 2021-01-04 09:40 | disposition home or self-care (01) ==
LOC: HO.MDS 09:39
PROVIDERS: PCP Internal Medicine; Visit Provider Internal Medicine Gastroenterology
DX: K50.90 Crohn's disease, unspecified, without complications (principal)
CPT/HCPCS: 36415; 86481; 96365; J3380

== ENCOUNTER 2021-01-18 07:14 | Outpatient (REF) | payer OTHER, SELFPAY | END 2021-01-18 07:15 | disposition home or self-care (01) | LOC: HO.MDS 07:14 | PROVIDERS: PCP Internal Medicine; Visit Provider Internal Medicine Gastroenterology | DX: K50.90 Crohn's disease, unspecified, without complications (principal) | CPT/HCPCS: 96365; J3380 ==

== ENCOUNTER 2021-02-15 09:43 | Outpatient (REF) | payer OTHER, SELFPAY | END 2021-02-15 09:44 | disposition home or self-care (01) | LOC: HO.MDS 09:43 | PROVIDERS: PCP Internal Medicine; Visit Provider Internal Medicine Gastroenterology | DX: M50.90 Cervical disc disorder, unspecified, unspecified cervical region (principal) | CPT/HCPCS: 96365; J3380 ==

== ENCOUNTER 2021-02-18 09:36 | Outpatient (REF) | payer OTHER, SELFPAY ==
[2021-02-18 11:09] LABS: MANUAL DIFF FLAG NO
[2021-02-18 11:15] LABS: Basophils Percent Auto 0.3 % (0-2); Eosinophils Absolute Auto 0.1 X10*3/uL (0.0-0.4); Eosinophils Percent Auto 0.7 % (0-4); Hematocrit 41.4 % (42-52); Hemoglobin 14.2 g/dl (14.0-18.0); Imm Gran Abs Auto 0.01 X10*3/uL (0.00-0.03); Imm Gran Pct Auto 0.1 % (0.0-0.4); Lymphocytes Absolute Auto 2.5 X10*3/uL (1.2-4.9); Lymphocytes Percent Auto 34.6 % (20-40); Mean Corpuscular HGB Conc 34.3 g/dl (31.0-36.0); Mean Corpuscular Hemoglobin 32.1 pg (27.0-33.0); Mean Corpuscular Volume 93.5 fL (80-98); Mean Platelet Volume 8.5 fL (9.4-12.4); Monocytes Absolute Auto 0.7 X10*3/uL (0.1-1.2); Monocytes Percent Auto 10.1 % (2-11); Neutrophils Absolute Auto 3.9 X10*3/uL (2.0-8.3); Neutrophils Percent Auto 54.2 % (45-73); Platelet Count 246 X10*3/uL (160-400); Red Blood Count 4.43 X10*6/uL (4.60-5.80); Red Cell Distribution Width 12.4 % (11.0-16.0); White Blood Count 7.1 X10*3/uL (4.8-10.8)
[2021-02-18 11:32] LABS: Alanine Aminotransferase 22 U/L (0-40); Albumin Level 4.5 g/dL (3.5-5.0); Alkaline Phosphatase 63 U/L (39-117); Anion Gap 9 (12-20); Aspartate Amino Transferase 19 U/L (5-37); Bilirubin Total 1.1 mg/dL (0.0-1.0); Blood Urea Nitrogen 14 mg/dL (9-16); C Reactive Protein 0.41 mg/dL (< or = 0.50); Calcium 9.4 mg/dL (8.4-10.2); Carbon Dioxide 29 mmol/L (22-29); Chloride 107 mmol/L (96-108); Estimated Glomerular Filt Rate > 60; Glucose Random 107 mg/dL (60-115); Iron 58 mcg/dL (45-160); Percent Iron Saturation 19 % (15-50); Potassium 4.3 mmol/L (3.3-5.1); Sodium 141 mmol/L (135-145); Total Iron Binding Capacity 310 mcg/dL (228-428); Total Protein 7.3 g/dL (6.5-8.0); Unsaturated Iron Binding 252 ug/dL
[2021-02-18 11:49] LABS: Ferritin 68 ng/mL (20-250); Vitamin D 25-OH Total 35.6 ng/mL (>30)
[2021-02-18 12:39] LABS: Folate 10.5 ng/mL (> or = 4.0); Vitamin B12 487 pg/mL (200-900)
[2021-02-22 06:02] LABS: Zinc 89 mcg/dL (60-130)
[2021-02-24 02:31] LABS: Vitamin C 0.9 mg/dL (0.2-2.1)
[2021-02-25 13:57] LABS: Vitamin B6 12.4 ng/mL (2.1-21.7)
== END 2021-02-18 09:37 | disposition home or self-care (01) ==
LOC: HO.LAB 09:36
PROVIDERS: PCP Internal Medicine; Visit Provider Internal Medicine Gastroenterology
DX: K50.90 Crohn's disease, unspecified, without complications (principal); K56.699 Other intestinal obstruction unspecified as to partial versus complete obstruction; K75.81 Nonalcoholic steatohepatitis (NASH)
CPT/HCPCS: 36415; 80053; 82180; 82306; 82607; 82728; 82746; 83540; 84207; 84630; 85025; 86140

== ENCOUNTER 2021-02-21 13:50 | Outpatient (REF) | payer OTHER, SELFPAY ==
[2021-02-25 00:42] LABS: Calprotectin, Fecal 553 mcg/g
== END 2021-02-21 13:51 | disposition home or self-care (01) ==
LOC: HO.LNP 13:50
PROVIDERS: Visit Provider Internal Medicine Gastroenterology
DX: K50.90 Crohn's disease, unspecified, without complications (principal)
CPT/HCPCS: 83993

== ENCOUNTER → 2021-03-10 09:20 | Outpatient (BNVA) | payer OTHER, SELFPAY | PROVIDERS: PCP Internal Medicine; Visit Provider Internal Medicine Cardiovascular Disease ==

== ENCOUNTER 2021-04-12 09:49 | Outpatient (REF) | payer OTHER, SELFPAY | END 2021-04-12 09:50 | disposition home or self-care (01) | LOC: HO.MDS 09:49 | PROVIDERS: PCP Internal Medicine; Visit Provider Internal Medicine Gastroenterology | DX: K50.90 Crohn's disease, unspecified, without complications (principal) | CPT/HCPCS: 96365; J3380 ==

== ENCOUNTER → 2021-05-09 10:36 | Outpatient (BNVA) | payer OTHER, SELFPAY | PROVIDERS: PCP Internal Medicine; Visit Provider Internal Medicine ==

== ENCOUNTER → 2021-05-20 08:03 | Outpatient (BNVA) | payer OTHER, SELFPAY | PROVIDERS: PCP Internal Medicine; Visit Provider Internal Medicine ==

== ENCOUNTER 2021-06-07 13:45 | Outpatient (REF) | payer OTHER, SELFPAY | END 2021-06-07 13:46 | disposition home or self-care (01) | LOC: HO.MDS 13:45 | PROVIDERS: PCP Internal Medicine; Visit Provider Internal Medicine Gastroenterology | DX: K50.90 Crohn's disease, unspecified, without complications (principal) | CPT/HCPCS: 96365; J3380 ==

== ENCOUNTER → 2021-06-20 08:02 | Outpatient (BNVA) | payer OTHER, SELFPAY | PROVIDERS: PCP Internal Medicine; Visit Provider Internal Medicine ==

== ENCOUNTER 2021-07-18 06:54 | Outpatient (REF) | payer OTHER, SELFPAY ==
--- NOTE | ~2021-07-18 | XR_ITS ---
EXAMINATION: XR KNEE, LEFT CLINICAL INFORMATION: Left knee pain no injury COMPARISON: None TECHNIQUE: AP upright and crosstable lateral view of the left knee FINDINGS: Bones and soft tissues are normal. No fracture or joint effusion. Alignment is anatomic. Joint spaces are well maintained. No abnormal soft tissue calcification. XR/XR knee LT 2V IMPRESSION: Normal left knee.
--- NOTE | ~2021-07-18 | US_ITS ---
EXAMINATION: ULTRASOUND EXTREMITY NONVASCULAR CLINICAL INFORMATION: Left knee effusion. COMPARISON: None TECHNIQUE: Limited imaging to the popliteal fossa was performed. FINDINGS: There is a large complex cystic and solid area in the popliteal fossa with no color flow visualized. Findings are suggestive of complex Dixon's cyst. It measures 8.0 x 8.3 x 2.2 cm. US/US extremity nonvascular IMPRESSION: Complex Dixon's cyst measuring 8.0 x 8.3 x 2.2 cm.
[2021-07-18 07:04] LABS: MANUAL DIFF FLAG NO
[2021-07-18 07:26] LABS: Basophils Percent Auto 0.2 % (0-2); Eosinophils Absolute Auto 0.1 X10*3/uL (0.0-0.4); Eosinophils Percent Auto 0.6 % (0-4); Hemoglobin 12.4 g/dl (14.0-18.0); Imm Gran Abs Auto 0.02 X10*3/uL (0.00-0.03); Imm Gran Pct Auto 0.2 % (0.0-0.4); Lymphocytes Absolute Auto 2.8 X10*3/uL (1.2-4.9); Lymphocytes Percent Auto 32.1 % (20-40); Mean Corpuscular HGB Conc 32.6 g/dl (31.0-36.0); Mean Platelet Volume 8.5 fL (9.4-12.4); Monocytes Percent Auto 11.5 % (2-11); Neutrophils Absolute Auto 4.8 x10*3/uL (2.0-8.3); Neutrophils Percent Auto 55.4 % (45-73); Platelet Count 397 X10*3/uL (160-400); Red Blood Count 4.13 X10*6/uL (4.60-5.80); Red Cell Distribution Width 12.5 % (11.0-16.0); White Blood Count 8.7 X10*3/uL (4.8-10.8)
[2021-07-18 08:05] LABS: Chloride 102 mmol/L (96-108)
[2021-07-18 08:06] LABS: Anion Gap 12 (12-20); Carbon Dioxide 30 mmol/L (22-29)
[2021-07-18 08:07] LABS: Alanine Aminotransferase 20 U/L (0-40); Albumin Level 3.9 g/dL (3.5-5.0); Alkaline Phosphatase 62 U/L (39-117); Aspartate Amino Transferase 17 U/L (5-37); Bilirubin Total 0.9 mg/dL (0.0-1.0); Blood Urea Nitrogen 14 mg/dL (9-16); C Reactive Protein 13.54 mg/dL (< or = 0.50); Calcium 9.5 mg/dL (8.4-10.2); Cholesterol 126 mg/dL; Estimated Glomerular Filt Rate > 60; Glucose Random 99 mg/dL (60-115); HDL Cholesterol 24 mg/dL; LDL Cholesterol Calculated 82 mg/dl; Potassium 4.2 mmol/L (3.3-5.1); Sodium 140 mmol/L (135-145); Triglycerides 101 mg/dL
[2021-07-18 08:11] LABS: Prostate Specific Antigen Scr 3.52 ng/mL (<0.05-4.0); Thyroid Stimulating Hormone 1.48 uIU/mL (0.32-4.0)
[2021-07-18 10:31] LABS: Erythrocyte Sedimentation Rate 86 MM/HR (0-15)
== END 2021-07-18 06:55 | disposition home or self-care (01) ==
LOC: HO.LAB 06:54
PROVIDERS: Internal Medicine Gastroenterology; Absent Provider Internal Medicine; PCP Internal Medicine; Visit Provider Internal Medicine
DX: Z00.00 Encounter for general adult medical examination without abnormal findings (principal); Z12.5 Encounter for screening for malignant neoplasm of prostate; M25.462 Effusion, left knee; M25.562 Pain in left knee; G89.4 Chronic pain syndrome; R10.9 Unspecified abdominal pain; K50.90 Crohn's disease, unspecified, without complications
CPT/HCPCS: 36415; 73560; 76882; 80053; 80061; 84153; 84443; 85025; 85652; 86140

== ENCOUNTER 2021-08-08 10:20 | Outpatient (REF) | payer OTHER, SELFPAY | END 2021-08-08 10:21 | disposition home or self-care (01) | LOC: HO.MDS 10:20 | PROVIDERS: PCP Internal Medicine; Visit Provider Internal Medicine Gastroenterology | DX: K50.90 Crohn's disease, unspecified, without complications (principal) | CPT/HCPCS: 96365; J3380 ==

== ENCOUNTER 2021-08-25 21:35 | Emergency (ER) | payer OTHER, SELFPAY ==
--- NOTE | ~2021-08-25 | XR_ITS ---
EXAMINATION: XR KNEE, RIGHT CLINICAL INFORMATION: Knee pain COMPARISON: 10/09/2018 TECHNIQUE: Four views of the right knee. FINDINGS: No fracture or subluxation. Mild tricompartmental joint space narrowing with small marginal osteophytes. No joint effusion. Enthesophyte formation of the talus. XR/XR knee RT 4V IMPRESSION: No acute abnormality. Mild tricompartmental degenerative change.
[2021-08-25 22:07] VITALS: BP 134/81; PULSE 79; RESP 18; TEMP 37.1; O2SAT 98; BMI 28.8
--- NOTE | 2021-08-26 02:26 | ED.GENADULT ---
HPI - General Adult General Chief complaint: Extremity Injury, Lower Stated complaint: rt knee swollen, pain Time Seen by Provider: 08/26/21 01:44 Source: patient Mode of arrival: ambulatory History of Present Illness HPI narrative: 61-year-old male with presentation for right knee pain and recently had fluid removed from the knee but denies any redness and denies any fevers or chills. He states he has not fallen and that he was recently treated with the left knee with a steroid shot. He denies any shortness of breath. Related Data Home Medications Medication Instructions Recorded Confirmed vedolizumab 300 mg intravenous 300 mg IV Q8W 02/18/21 08/08/21 solution (Entyvio) Previous Rx's Medication Instructions Recorded nitroglycerin 0.4 mg sublingual 0.4 mg SUBLINGUAL Q5M PRN #25 tab 05/24/20 tablet omeprazole 40 mg capsule,delayed 40 mg PO DAILY #90 cap 08/20/20 release atorvastatin 80 mg tablet 80 mg PO DAILY #90 tab 12/07/20 metoprolol succinate 50 mg 50 mg PO BEDTIME 90 Days #90 tab 04/05/21 tablet,extended release 24 hr (Toprol XL) zolpidem 10 mg tablet 10 mg PO BEDTIME PRN 30 Days #30 04/29/21 tab amlodipine 5 mg tablet 5 mg PO DAILY #30 tab 07/06/21 tramadol 50 mg tablet 50 mg PO BID 30 Days #60 tab 08/08/21 metoprolol succinate 100 mg 100 mg PO QAM #90 tab 08/22/21 tablet,extended release 24 hr promethazine 25 mg tablet 25 mg PO DAILY PRN #30 tab 08/25/21 ketorolac 10 mg tablet 10 mg PO Q6H PRN 5 Days #20 tab 08/26/21 Allergies Allergy/AdvReac Type Severity Reaction Status Date / Time No Known Allergies Allergy Mild none Verified 08/25/21 22:07 Review of Systems Review of Systems: Pertinent positives and negatives as stated in HPI 10 point review of systems otherwise negative. [facility] Past Medical History Source: nursing notes reviewed Medical History CAD (coronary artery disease) Chronic abdominal pain Chronic pain syndrome Crohn's disease Crohn's disease GERD without esophagitis History of paroxysmal atrial tachycardia Hyperlipidemia Hyperlipidemia Hypertension LBBB (left bundle branch block) Obesity Obesity Paroxysmal atrial fibrillation Stricture of small intestine Swelling of knee joint, left Surgical History History of colonoscopy Hx of endoscopy Stented coronary artery Family History Family History Father Family history unknown Mother Hx of Crohn's disease Social History Social History Household Members: Friend(s) Household Members Other:: 1 Housing: House Do you presently have visiting nurse or other home services: No Alcohol intake: never Patient Tobacco Use Status: Former Tobacco user Tobacco use type: Cigarette e-Cigarette/Vaping Use: Never Used Second Hand Smoke Exposure: No Advance Directives: No service: Yes Current occupational status: employed Cognitive needs: No Hearing needs: No Vision needs: No Physical Exam ED Vital Signs: Vital Signs - 24 hr 08/25/21 22:07 Temperature 98.7 F Pulse Rate 79 Respiratory Rate 18 Blood Pressure 134/81 Pulse Oximetry 98 BMI result Body Mass Index 28.8 VITAL SIGNS: Reviewed. GENERAL: Well developed, well nourished, in no acute distress. HEAD: Normocephalic/atraumatic EYES: PERRLA, EOMI EARS: Ext canals without abnormality OROPHARYNX: no oral lesions noted, posterior pharynx clear LUNGS: Normal breath sounds. No adventitious sounds or accessory muscle use. SpO2<98> CARDIOVASCULAR: Regular rate and rhythm without noted murmurs, no JVD or lower extremity edema. ABDOMEN: Soft, non-tender, non-distended with bowel sounds. MUSCULOSKELETAL: No tenderness, deformities, or effusions noted on gross inspection. EXTREMITIES: No cyanosis, clubbing or edema; RIGHT KNEE: No erythema or effusion noted. SKIN: Inspection of the skin reveals no rashes NEUROLOGIC: Alert and oriented x 4. Strength and sensation to light touch were grossly intact x 4. Course Course Course Narrative: 61-year-old male with history and clinical presentation consistent with osteoarthritis and on review of x-ray evidence of tricompartmental degenerative changes. On review of right knee effusion fluid there is no obvious evidence of infection and the knee joint is not warm or red. Patient received combination analgesics with good decrease in pain and was discharged home in stable condition. Discharge Plan Discharge Clinical Impression: Tricompartment osteoarthritis of right knee Patient Disposition: Home, Self-Care Instructions: Osteoarthritis (ED) Additional Instructions: 1. Tylenol 1000 mg, orally, every 6 hours as needed for pain control. Do not exceed 4000 mg within 24 hours. 2. Please follow-up with your primary care provider tomorrow morning by calling the office. Return to the ER for worsening symptoms. Prescriptions: New ketorolac 10 mg tablet 10 mg PO Q6H PRN (Reason: pain) 5 Days Qty: 20 0RF No Action nitroglycerin 0.4 mg tablet, sublingual 0.4 mg sublingual Q5M PRN (Reason: chest pain) Qty: 25 3RF Rx Instructions: every 5 min as needed for chest pain, do not exceed 3 doses per episode omeprazole 40 mg capsule,delayed release(DR/EC) 40 mg PO DAILY Qty: 90 8RF atorvastatin 80 mg tablet 80 mg PO DAILY Qty: 90 1RF metoprolol succinate [Toprol XL] 50 mg tablet extended release 24 hr 50 mg PO BEDTIME 90 Days Qty: 90 3RF zolpidem 10 mg tablet 10 mg PO BEDTIME PRN (Reason: sleep) 30 Days Qty: 30 5RF amlodipine 5 mg tablet 5 mg PO DAILY Qty: 30 2RF metoprolol succinate 100 mg tablet extended release 24 hr 100 mg PO QAM Qty: 90 3RF promethazine 25 mg tablet 25 mg PO DAILY PRN (Reason: for nausea/vomiting) Qty: 30 0RF Entyvio 300 mg recon soln 300 mg IV Q8W 0RF Rx Instructions: administer over 30 mins tramadol 50 mg tablet 50 mg PO BID 30 Days Qty: 60 0RF Rx Instructions: Fill date 08/16/21 Referrals: Oscar Blanton MD [Primary Care Provider] - 2 days
[2021-08-26 02:40] VITALS: BP 124/80; PULSE 77; RESP 19; O2SAT 98
[2021-08-26] MEDS: Ketorolac Tromethamine 15 MG/ML VIAL IM (02:41)
[2021-08-26] MEDS: Acetaminophen 325 MG TABLET 975 MG PO (02:41)
== END 2021-08-26 02:59 | disposition home or self-care (01) ==
PROVIDERS: Emergency Provider Student in an Organized Health Care Education/Training Program; PCP Internal Medicine
DX: M17.11 Unilateral primary osteoarthritis, right knee (principal); M25.561 Pain in right knee; I10 Essential (primary) hypertension
CPT/HCPCS: 20610; 73564; 96372; 99283; 99284; J1885; J3300

== ENCOUNTER → 2021-09-05 08:05 | Outpatient (BNVA) | payer OTHER, SELFPAY | PROVIDERS: PCP Internal Medicine; Referring Provider Internal Medicine; Visit Provider Internal Medicine Gastroenterology | DX: Z13.89 Encounter for screening for other disorder (principal) ==

== ENCOUNTER 2021-09-06 11:33 | Outpatient (REF) | payer OTHER, SELFPAY ==
[2021-09-06 12:04] LABS: MANUAL DIFF FLAG NO
[2021-09-06 12:22] LABS: Basophils Percent Auto 0.4 % (0-2); Eosinophils Absolute Auto 0.1 X10*3/uL (0.0-0.4); Hematocrit 41.1 % (42.0-52.0); Hemoglobin 13.4 g/dl (14.0-18.0); Imm Gran Abs Auto 0.02 X10*3/uL (0.00-0.03); Imm Gran Pct Auto 0.3 % (0.0-0.4); Lymphocytes Absolute Auto 2.2 X10*3/uL (1.2-4.9); Lymphocytes Percent Auto 28.6 % (20-40); Mean Corpuscular HGB Conc 32.6 g/dl (31.0-36.0); Mean Corpuscular Hemoglobin 30.5 pg (27.0-33.0); Mean Corpuscular Volume 93.4 fL (80.0-98.0); Mean Platelet Volume 8.3 fL (9.4-12.4); Monocytes Absolute Auto 0.5 X10*3/uL (0.1-1.2); Monocytes Percent Auto 6.1 % (2-11); Neutrophils Absolute Auto 4.9 x10*3/uL (2.0-8.3); Neutrophils Percent Auto 63.6 % (45-73); Platelet Count 294 X10*3/uL (160-400); Red Cell Distribution Width 13.5 % (11.0-16.0); White Blood Count 7.8 X10*3/uL (4.8-10.8)
[2021-09-06 13:21] LABS: Alanine Aminotransferase 24 U/L (0-40); Albumin Level 4.1 g/dL (3.5-5.0); Alkaline Phosphatase 76 U/L (39-117); Anion Gap 12 (12-20); Aspartate Amino Transferase 16 U/L (5-37); Bilirubin Total 0.5 mg/dL (0.0-1.0); Blood Urea Nitrogen 15 mg/dL (9-16); Calcium 9.4 mg/dL (8.4-10.2); Carbon Dioxide 27 mmol/L (22-29); Chloride 105 mmol/L (96-108); Estimated Glomerular Filt Rate > 60; Glucose Random 130 mg/dL (60-115); Sodium 140 mmol/L (135-145); Total Protein 7.3 g/dL (6.5-8.0)
[2021-09-06 13:32] LABS: Ferritin 120 ng/mL (20-250); Vitamin D 25-OH Total 36.1 ng/mL (>30)
[2021-09-06 13:40] LABS: Folate 9.8 ng/mL (> or = 4.0); Vitamin B12 508 pg/mL (200-900)
[2021-09-09 10:46] LABS: Vitamin C 0.6 mg/dL (0.2-2.1)
[2021-09-10 17:51] LABS: Nicotinamide <20 ng/mL; Vit B3 - Nicotinic Acid <20 ng/mL
[2021-09-10 19:52] LABS: Calprotectin, Fecal 633 mcg/g
[2021-09-11 07:11] LABS: Vitamin B6 4.1 ng/mL (2.1-21.7)
[2021-09-11 16:16] LABS: Zinc 73 mcg/dL (60-130)
[2021-09-11 19:36] LABS: Vitamin B5 (Pantothenic Acid) <40 ng/mL (<275)
[2021-09-13 10:52] LABS: Alpha-Tocopherol 9.5 mg/L (5.7-19.9)
[2021-09-14 00:11] LABS: Vitamin A 35 mcg/dL (38-98)
[2021-09-16 12:10] LABS: Vitamin K1 369 pg/mL (130-1500)
== END 2021-09-06 11:34 | disposition home or self-care (01) ==
LOC: HO.LAB 11:33
PROVIDERS: Internal Medicine Gastroenterology; PCP Internal Medicine; Visit Provider Internal Medicine Gastroenterology
DX: R10.9 Unspecified abdominal pain (principal); K50.90 Crohn's disease, unspecified, without complications; K75.81 Nonalcoholic steatohepatitis (NASH); G89.29 Other chronic pain; Z79.899 Other long term (current) drug therapy
CPT/HCPCS: 36415; 80053; 80280; 82180; 82306; 82542; 82607; 82728; 82746; 83993; 84207; 84446; 84590; 84591; 84597; 84630; 85025; 86140

== ENCOUNTER → 2021-09-09 09:11 | Outpatient (BNVA) | payer OTHER, SELFPAY | PROVIDERS: PCP Internal Medicine; Visit Provider Internal Medicine | DX: Z13.89 Encounter for screening for other disorder (principal) ==

== ENCOUNTER 2021-10-03 09:43 | Outpatient (REF) | payer OTHER, SELFPAY | END 2021-10-03 09:44 | disposition home or self-care (01) | LOC: HO.MDS 09:43 | PROVIDERS: PCP Internal Medicine; Visit Provider Internal Medicine Gastroenterology | DX: Z53.8 Procedure and treatment not carried out for other reasons (principal); K50.90 Crohn's disease, unspecified, without complications | CPT/HCPCS: J3380 ==

== ENCOUNTER → 2021-10-07 08:42 | Outpatient (BNVA) | payer OTHER, SELFPAY | PROVIDERS: PCP Internal Medicine; Visit Provider Internal Medicine | DX: Z13.89 Encounter for screening for other disorder (principal) ==

== ENCOUNTER 2021-10-11 07:39 | Outpatient (REF) | payer OTHER, SELFPAY ==
[2021-10-14 14:41] LABS: TS Negative Control Passed; TS Panel A 0; TS Panel B 0; TS Positive Control Passed; TSpotTB Negative (Negative)
== END 2021-10-11 07:40 | disposition home or self-care (01) ==
LOC: HO.MDS 07:39
PROVIDERS: Visit Provider Internal Medicine Gastroenterology
DX: K50.90 Crohn's disease, unspecified, without complications (principal)
CPT/HCPCS: 36415; 80280; 82542; 86481; 96365; 96375; J3380

== ENCOUNTER → 2021-10-31 09:59 | Outpatient (BNVA) | payer OTHER, SELFPAY | PROVIDERS: PCP Internal Medicine; Visit Provider Internal Medicine | DX: I25.10 Atherosclerotic heart disease of native coronary artery without angina pectoris (principal) ==

== ENCOUNTER 2021-11-04 09:08 | Outpatient (REF) | payer OTHER, SELFPAY ==
--- NOTE | ~2021-11-04 | MR_ITS ---
EXAMINATION: MRI ABDOMEN AND PELVIS WITHOUT CONTRAST: MR ENTEROGRAPHY CLINICAL INFORMATION: Reason for Exam K50.90 - Crohn's disease, unspecified, without complications COMPARISON: 12/07/2020 and 03/08/2020 TECHNIQUE: 1500 cc Breeza enteral contrast small bowel with stratified was given. Routine MRI sequences through the abdomen and pelvis were obtained. Patient refused IV contrast. FINDINGS: STOMACH: Stomach is collapsed with wall thickening most likely due to underdistention. SMALL BOWEL: The small bowel is only partially distended. There is no abnormal dilatation. No small bowel obstruction. There are few segments of abnormal distal small bowel wall thickening abnormal on the prior study as well. Hyperenhancement cannot be assessed due to the lack of intravenous contrast. COLON: The colon is collapsed with wall thickening most likely due to underdistention. Evidence of sigmoid diverticulosis. LUNG BASES: No pleural or pericardial effusion. LIVER: Liver enhances normally. No focal lesion seen. Hepatic and portal veins enhance normally. GALL BLADDER AND BILIARY TREE: Tiny gallstone likely present. No gallbladder wall thickening or pericholecystic fluid. SPLEEN: Not enlarged. PANCREAS: No ductal dilatation. ADRENAL GLANDS: No adrenal masses. KIDNEYS AND URETERS: Bilateral well-circumscribed T2 bright nonenhancing simple cysts are present; no suspicious features. No hydronephrosis. LYMPHOVASCULAR STRUCTURES: Normal caliber abdominal aorta. Prominent right lower quadrant mesenteric lymph nodes likely on a reactive basis. PELVIS: Enlarged prostate gland. MR/MR abdomen wo/w con IMPRESSION: Multiple segments of abnormal small bowel wall thickening unchanged compared to the prior examination. Evaluation is limited by the lack of intravenous contrast refused by the patient. No evidence of abscess or free fluid.
== END 2021-11-04 09:09 | disposition home or self-care (01) ==
LOC: HO.MRI 09:08
PROVIDERS: Visit Provider Internal Medicine Gastroenterology
DX: K50.90 Crohn's disease, unspecified, without complications (principal); K56.699 Other intestinal obstruction unspecified as to partial versus complete obstruction
CPT/HCPCS: 72197; 74183

== ENCOUNTER → 2021-11-11 11:12 | Outpatient (REF) | payer OTHER, SELFPAY ==
--- NOTE | 2021-11-11 11:15 | HM_ITS ---
Conclusion: 1. Patient was monitored for total period of 3 days and 7 hours 2. Baseline was normal sinus rhythm with average heart of 84 beats per minute 3. No significant pauses or bradycardia noted 4. Multiple short episodes of supraventricular runs, longest lasting 15 beats, all of which are irregular may suggest short burst of atrial fibrillation. No sustained episodes of atrial fibrillation 5. Total of 7089 PACs accounting for 1.09% of total beats accounting for occasional PACs 6. Patient reported about 10 events all of which correlated either with PACs or PVC or sinus tachycardia. No symptoms with episodes of supraventricular runs MTDD
== END ==
LOC: HO.CARD 11:12
PROVIDERS: PCP Internal Medicine; Visit Provider Internal Medicine Cardiovascular Disease
DX: I48.0 Paroxysmal atrial fibrillation (principal)
CPT/HCPCS: 93242

== ENCOUNTER 2021-12-13 07:50 | Outpatient (REF) | payer OTHER, SELFPAY ==
[2021-12-16 00:53] LABS: TS Negative Control Passed; TS Panel A 0; TS Panel B 0; TS Positive Control Passed; TSpotTB Negative (Negative)
== END 2021-12-13 07:51 | disposition home or self-care (01) ==
LOC: HO.MDS 07:50
PROVIDERS: Visit Provider Internal Medicine Gastroenterology
DX: K50.90 Crohn's disease, unspecified, without complications (principal)
CPT/HCPCS: 36415; 86481; 96365; J3380

== ENCOUNTER 2022-01-10 07:50 | Outpatient (REF) | payer OTHER, SELFPAY | END 2022-01-10 07:51 | disposition home or self-care (01) | LOC: HO.MDS 07:50 | PROVIDERS: Visit Provider Internal Medicine Pulmonary Disease | DX: K50.90 Crohn's disease, unspecified, without complications (principal) | CPT/HCPCS: 96365; J3380 ==

== ENCOUNTER → 2022-02-02 10:30 | Outpatient (BNVA) | payer OTHER, SELFPAY | PROVIDERS: PCP Internal Medicine; Referring Provider Internal Medicine; Visit Provider Internal Medicine Cardiovascular Disease | DX: R09.89 Other specified symptoms and signs involving the circulatory and respiratory systems (principal); I25.10 Atherosclerotic heart disease of native coronary artery without angina pectoris; I48.0 Paroxysmal atrial fibrillation | CPT/HCPCS: 93005 ==

== ENCOUNTER 2022-02-07 07:50 | Outpatient (REF) | payer OTHER, SELFPAY | END 2022-02-07 07:51 | disposition home or self-care (01) | LOC: HO.MDS 07:50 | PROVIDERS: Visit Provider Internal Medicine Pulmonary Disease | DX: K50.90 Crohn's disease, unspecified, without complications (principal) | CPT/HCPCS: 96365; J3380 ==

== ENCOUNTER 2022-03-08 07:48 | Outpatient (REF) | payer OTHER, SELFPAY ==
[2022-03-11 01:02] LABS: TS Negative Control Passed; TS Panel A 2; TS Panel B 1; TS Positive Control Passed; TSpotTB Negative (Negative)
== END 2022-03-08 07:49 | disposition home or self-care (01) ==
LOC: HO.MDS 07:48
PROVIDERS: Visit Provider Internal Medicine Gastroenterology
DX: K50.90 Crohn's disease, unspecified, without complications (principal)
CPT/HCPCS: 36415; 86481; 96365; J3380

== ENCOUNTER 2022-04-10 09:22 | Outpatient (REF) | payer OTHER, SELFPAY ==
[2022-04-10 09:46] LABS: MANUAL DIFF FLAG NO
[2022-04-10 09:53] LABS: Basophils Percent Auto 0.5 % (0-2); Eosinophils Absolute Auto 0.1 X10*3/uL (0.0-0.4); Eosinophils Percent Auto 1.9 % (0-4); Hematocrit 42.5 % (42.0-52.0); Hemoglobin 14.2 g/dl (14.0-18.0); Imm Gran Abs Auto 0.02 X10*3/uL (0.00-0.03); Imm Gran Pct Auto 0.3 % (0.0-0.4); Lymphocytes Absolute Auto 1.9 X10*3/uL (1.2-4.9); Lymphocytes Percent Auto 30.3 % (20-40); Mean Corpuscular HGB Conc 33.4 g/dl (31.0-36.0); Mean Corpuscular Hemoglobin 30.9 pg (27.0-33.0); Mean Corpuscular Volume 92.6 fL (80.0-98.0); Mean Platelet Volume 8.5 fL (9.4-12.4); Monocytes Absolute Auto 0.7 X10*3/uL (0.1-1.2); Monocytes Percent Auto 10.3 % (2-11); Neutrophils Absolute Auto 3.6 x10*3/uL (2.0-8.3); Neutrophils Percent Auto 56.7 % (45-73); Platelet Count 263 X10*3/uL (160-400); Red Blood Count 4.59 X10*6/uL (4.60-5.80); White Blood Count 6.4 X10*3/uL (4.8-10.8)
[2022-04-10 10:31] LABS: Alanine Aminotransferase 22 U/L (0-40); Albumin Level 4.1 g/dL (3.5-5.0); Alkaline Phosphatase 69 U/L (39-117); Anion Gap 11 (12-20); Aspartate Amino Transferase 16 U/L (5-37); Bilirubin Total 0.5 mg/dL (0.0-1.0); Blood Urea Nitrogen 12 mg/dL (9-16); Carbon Dioxide 27 mmol/L (22-29); Chloride 105 mmol/L (96-108); Estimated Glomerular Filt Rate > 60; Glucose Random 103 mg/dL (60-115); Potassium 4.2 mmol/L (3.3-5.1); Sodium 139 mmol/L (135-145); Total Protein 6.9 g/dL (6.5-8.0)
[2022-04-15 19:02] LABS: Lactoferrin, Fecal, Quant. 45.23 mcg/mL (<7.25)
== END 2022-04-10 09:23 | disposition home or self-care (01) ==
LOC: HO.LAB 09:22
PROVIDERS: PCP Internal Medicine; Visit Provider Internal Medicine Gastroenterology
DX: K50.90 Crohn's disease, unspecified, without complications (principal); K75.81 Nonalcoholic steatohepatitis (NASH)
CPT/HCPCS: 80053; 80280; 83520; 83631; 85025

== ENCOUNTER 2022-05-01 09:03 | Outpatient (REF) | payer OTHER, SELFPAY ==
--- NOTE | ~2022-05-01 | MR_ITS ---
EXAMINATION: MR ABDOMEN AND PELVIS WITH AND WITHOUT CONTRAST CLINICAL INFORMATION: Crohn's disease COMPARISON: Previous CT of the abdomen and pelvis October 2020 and MR of the abdomen November 2020 TECHNIQUE: Sagittal axial and coronal sequences through the abdomen and pelvis with and without contrast. Patient was administered 3 bottles of oral recent contrast and 9 mL intravenous Gadavist contrast. FINDINGS: Normal stomach. Mild narrowing, wall thickening, edema and enhancement of the terminal ileum with mild dilatation of the more proximal bowel. Some stranding of the surrounding fat. Adjacent small bowel mesentery lymph nodes. Additional areas of mild wall thickening and edema and mucosal enhancement of the more proximal small bowel in the right lower quadrant for example axial image 21 and in the pelvis axial image 71 series 22 post contrast. Findings are suggestive of active inflammatory bowel disease. Findings are similar to November 2020 exam. Mild diverticulosis of the colon. Large bowel is otherwise normal. The stomach is normal. The appendix is normal. No perirectal changes. Small umbilical hernia containing fat. Small, small bowel mesentery lymph nodes. No enlarged lymph nodes. No ascites. Normal vascular structures. Lung bases are clear. Small liver cysts. Question small gallstone or polyp in the gallbladder. No intra or extrahepatic biliary duct dilatation. Normal pancreas. Normal spleen. Small right renal cyst. Kidneys are otherwise normal. Prostate gland is slightly enlarged and protrudes into the base of the bladder. Bladder is otherwise normal. Small umbilical hernia containing fat. The small bilateral inguinal hernias containing fat as well. Bony structures are unremarkable. MR/MR abdomen wo/w con IMPRESSION: 1. Findings suggestive of active inflammatory bowel disease involving the terminal ileum and lesions involving the more proximal small bowel. Findings are similar to November 2020 exam. 2. Mild diverticulosis of the colon. No evidence of diverticulitis. 3. No abscess. No ascites. 4. Small umbilical hernia containing fat. Small bilateral inguinal hernias containing fat as well. 5. Question small gallstone or polyp in the gallbladder. No intra or extrahepatic biliary duct dilatation.
== END 2022-05-01 09:04 | disposition home or self-care (01) ==
LOC: HO.MRI 09:03
PROVIDERS: Visit Provider Internal Medicine Gastroenterology
DX: K50.90 Crohn's disease, unspecified, without complications (principal)
CPT/HCPCS: 72197; 74183; A9585

== ENCOUNTER → 2022-06-02 08:17 | Outpatient (BNVA) | payer OTHER, SELFPAY | PROVIDERS: PCP Internal Medicine; Visit Provider Internal Medicine | DX: Z79.899 Other long term (current) drug therapy (principal) ==

== ENCOUNTER → 2022-07-21 08:09 | Outpatient (BNVA) | payer OTHER, SELFPAY | PROVIDERS: PCP Internal Medicine; Visit Provider Internal Medicine | DX: Z13.89 Encounter for screening for other disorder (principal) ==

== ENCOUNTER 2022-08-15 22:24 | Inpatient (IN) | payer OTHER, SELFPAY ==
--- NOTE | ~2022-08-15 | CT_ITS ---
EXAMINATION: CT ABDOMEN AND PELVIS WITH CONTRAST CLINICAL INFORMATION: Diffuse abdominal pain with history of obstruction COMPARISON: MRI abdomen pelvis 05/01/2022, CT abdomen pelvis 10/30/2020 TECHNIQUE: Multidetector volumetric images were obtained from the superior aspect of the liver through the pubic symphysis following administration 85 mL of Omnipaque 350 intravenous contrast. Sagittal and coronal reformatted images were obtained on the technologist's workstation. Oral contrast: No This CT examination was performed using dose optimization techniques as appropriate, variously including the following: *Automated exposure control *Adjustment of mA and/or kV according to patient size (this includes techniques or standardized protocols for targeted exams where dose is matched to indication/reason for exam; i.e. extremities or head) *Use of iterative reconstruction technique DLP: 598 mGy-cm FINDINGS: LUNG BASES: Basilar atelectasis is present. Coronary calcification is seen. LIVER, GALLBLADDER, AND BILIARY TREE: The liver is enlarged measuring 20.3 cm in cephalocaudad dimension and most likely demonstrates decreased attenuation. A tiny hepatic cyst is present (5:52). No worrisome solid focal hepatic lesion or biliary ductal dilatation is present. The gallbladder is unremarkable with no evidence of radiopaque gallstones, gallbladder wall thickening, or obvious pericholecystic inflammatory changes. PANCREAS: Unremarkable. SPLEEN: Unremarkable. ADRENAL GLANDS: Unremarkable. KIDNEYS AND URETERS: The kidneys are normal in size, shape, and attenuation. Benign right Bosniak class I renal cysts are present and unchanged with need no additional imaging or follow-up. No hydronephrosis, hydroureter, or calculi seen. No perinephric stranding. BLADDER: Unremarkable. GASTROINTESTINAL TRACT: There is thickening of the terminal ileum without obstruction. There is a loop of distal ileum which is severely edematous and narrowed and the bowel distal to this is decompressed (5:23). Immediately prior to this transition, the small bowel is dilated with marked fecalization. Similar findings were present on the 10/30/2020 study but the degree of small bowel dilatation appears slightly greater on the current study. The appendix is normal. The colon is unremarkable aside from scattered colonic diverticula without diverticulitis ABDOMINAL WALL: No significant hernia is appreciated. Bilateral small inguinal hernias containing only fat. LYMPH NODES: No retroperitoneal lymphadenopathy. VASCULAR: Calcific atherosclerotic changes seen in the aorta and iliofemoral vessels without aneurysm. PELVIC VISCERA: There is moderate BPH. Seminal vesicles appear normal. OSSEOUS STRUCTURES: Unremarkable. CT/CT abdomen pelvis w IV con IMPRESSION: 1. There is a loop of distal ileum which is severely edematous and narrowed and the bowel distal to this is decompressed. Immediately prior to this, the small bowel is dilated with marked fecalization. Similar findings were present on the 10/30/2020 study but the degree of small bowel dilatation appears slightly greater on the current study. 2. Colonic diverticulosis without diverticulitis Fleischner guidelines were followed.
--- NOTE | ~2022-08-15 | XR_ITS ---
EXAMINATION: XR CHEST CLINICAL INFORMATION: Post nasogastric tube placement COMPARISON: 02/22/2019 TECHNIQUE: Frontal view of the chest was obtained. FINDINGS: Enteric tube terminates in the stomach. Normal symmetric lung volumes. No parenchymal consolidation. No pleural effusion. No pneumothorax. Cardiomediastinal silhouette and pulmonary vascularity are within normal limits. No acute osseous abnormalities. XR/XR chest 1V IMPRESSION: Enteric tube terminates in the stomach.
[2022-08-15 22:26] VITALS: BP 151/93; PULSE 80; RESP 18; TEMP 36.4; O2SAT 94; BMI 31.1
[2022-08-15 22:43] LABS: MANUAL DIFF FLAG NO
[2022-08-15 22:47] LABS: Basophils Percent Auto 0.3 % (0-2); Eosinophils Absolute Auto 0.1 X10*3/uL (0.0-0.4); Eosinophils Percent Auto 0.7 % (0-4); Hematocrit 44.1 % (42.0-52.0); Hemoglobin 14.8 g/dl (14.0-18.0); Imm Gran Abs Auto 0.02 X10*3/uL (0.00-0.03); Imm Gran Pct Auto 0.2 % (0.0-0.4); Lymphocytes Absolute Auto 1.7 X10*3/uL (1.2-4.9); Lymphocytes Percent Auto 14.9 % (20-40); Mean Corpuscular HGB Conc 33.6 g/dl (31.0-36.0); Mean Corpuscular Hemoglobin 30.9 pg (27.0-33.0); Mean Corpuscular Volume 92.1 fL (80.0-98.0); Mean Platelet Volume 8.7 fL (9.4-12.4); Monocytes Absolute Auto 0.8 X10*3/uL (0.1-1.2); Monocytes Percent Auto 6.6 % (2-11); Neutrophils Absolute Auto 8.8 x10*3/uL (2.0-8.3); Neutrophils Percent Auto 77.3 % (45-73); Platelet Count 234 X10*3/uL (160-400); Red Blood Count 4.79 X10*6/uL (4.60-5.80); Red Cell Distribution Width 13.2 % (11.0-16.0); White Blood Count 11.4 X10*3/uL (4.8-10.8)
[2022-08-15 22:48] LABS: Appearance Urine Clear; Color Urine Yellow; Glucose Urine UA Negative (Negative); Leukocyte Esterase Urine Negative (Negative); Nitrite Urine Negative (Negative); PH 5.5 (5.0-9.0); Urine Blood Negative (Negative); Urine Ketones Negative (Negative); Urine Protein Negative (Neg-Trace)
[2022-08-15 23:03] LABS: Alanine Aminotransferase 22 U/L (0-40); Albumin Level 4.3 g/dL (3.5-5.0); Alkaline Phosphatase 65 U/L (39-117); Anion Gap 13 (12-20); Aspartate Amino Transferase 21 U/L (5-37); Bilirubin Direct 0.2 mg/dL (0.0-0.5); Bilirubin Total 0.9 mg/dL (0.0-1.0); Blood Urea Nitrogen 13 mg/dL (9-16); Carbon Dioxide 28 mmol/L (22-29); Chloride 105 mmol/L (96-108); Creatinine Clr Calc Pharmacy 94.3; Estimated Glomerular Filt Rate > 60; Glucose Random 107 mg/dL (60-115); Lipase 22 U/L (8-78); Potassium 3.9 mmol/L (3.3-5.1); Sodium 142 mmol/L (135-145)
[2022-08-15 23:16] LABS: COVID-19 Test Negative (Negative); IDNOW Serial# 9DB6401D
--- NOTE | 2022-08-15 23:31 | ED.ABDPAIN ---
HPI - Abdominal Pain General Chief Complaint: Abdominal Pain <RUFINO Priest Last Filed: 08/16/22 01:16> Stated Complaint: Abdominal pain <RUFINO Priest Last Filed: 08/16/22 01:16> Time Seen by Provider: 08/15/22 23:24 <RUFINO Priest Last Filed: 08/16/22 01:16> Source: patient <RUFINO Priest Last Filed: 08/16/22 01:16> Mode of arrival: ambulatory <RUFINO Priest Last Filed: 08/16/22 01:16> Limitations: no limitations <RUFINO Priest Last Filed: 08/16/22 01:16> History of Present Illness HPI narrative: This is a 62-year-old male history of Crohn's disease, recurrent small-bowel obstructions, left bundle-branch block, coronary artery disease, paroxysmal atrial fibrillation, hypertension presenting to the emergency department with sudden-onset nausea, vomiting, abdominal distension, diffuse abdominal pain, inability to pass stool or flat this x2 hours. Patient tells me that this feels like the time he had a bowel obstruction. He tells me he is followed by Dr. [facility]. He tells me this has not happened to him in a while. Patient denies fevers, chills, chest pain, shortness of breath, headache, vision changes, dizziness. Denies hematemesis or hematochezia. <RUFINO Priest Last Filed: 08/16/22 01:16> Related Data Home Medications: Home Medications Medication Instructions Recorded Confirmed vedolizumab 300 mg intravenous 300 mg IV Q4W 02/02/22 07/21/22 solution (Entyvio) Previous Rx's Medication Instructions Recorded omeprazole 40 mg capsule,delayed 40 mg PO DAILY #90 caps 10/19/21 release nitroglycerin 0.4 mg sublingual 0.4 mg sublingual Q5M PRN chest 01/09/22 tablet pain #25 tabs isosorbide mononitrate 30 mg 30 mg PO DAILY #90 tabs 03/21/22 tablet,extended release 24 hr zolpidem 10 mg tablet 10 mg PO BEDTIME PRN sleep 30 days 05/15/22 #30 tabs tramadol 50 mg tablet 50 mg PO BID pain 30 days #60 tabs 07/21/22 amlodipine 2.5 mg tablet 2.5 mg PO DAILY #90 tabs 07/24/22 atorvastatin 80 mg tablet 80 mg PO DAILY #90 tabs 07/24/22 metoprolol succinate 50 mg 50 mg PO BID 90 days #180 tabs 07/28/22 tablet,extended release 24 hr (Toprol XL) promethazine 25 mg tablet 25 mg PO DAILY PRN for 08/10/22 nausea/vomiting #30 tabs <RUFINO Priest Last Filed: 08/16/22 01:16> Allergies/Adverse Reactions: Allergies Allergy/AdvReac Type Severity Reaction Status Date / Time No Known Allergies Allergy Mild none Verified 07/21/22 08:19 <RUFINO Priest Last Filed: 08/16/22 01:16> Review of Systems Review of Systems Constitutional : No Weight loss, No Fever, No Chills, No Fatigue, No Malaise ENT/Mouth : No sore throat, No Rhinorrhea Eyes: No Eye Pain, No Swelling, No Redness Cardiovascular : No Chest Pain, No SOB, No Dyspnea on Exertion, No Orthopnea, No Edema, No Palpitations Respiratory : No Cough, No Sputum, No Wheezing Gastrointestinal : + Nausea, + Vomiting, No Diarrhea, No Constipation, + abdominal Pain, No Hematochezia, No Melena Genitourinary : No Dysuria, No Urinary Frequency, No Hematuria, Musculoskeletal : No joint pain, No Myalgias, No Joint Swelling Skin : No Skin Lesions, No rash Neuro : No Weakness, No Numbness, No Dizziness, No Headache Psych : No Anxiety/Panic, No Depression All other systems reviewed and are negative <RUFINO Priest Last Filed: 08/16/22 01:16> Yes all other systems are reviewed and are negative <RUFINO Priest Last Filed: 08/16/22 01:16> [facility] Past Medical History Attestation statement: The following information was validated with the patient. <RUFINO Priest Last Filed: 08/16/22 01:16> Source: old records reviewed and nursing notes reviewed <RUFINO Priest - Last Filed: 08/16/22 01:16> Medical History: Medical History CAD (coronary artery disease) Chronic abdominal pain Chronic pain syndrome Crohn's disease Crohn's disease GERD without esophagitis History of paroxysmal atrial tachycardia Hyperlipidemia Hyperlipidemia Hypertension LBBB (left bundle branch block) Obesity Obesity Paroxysmal atrial fibrillation Stricture of small intestine Swelling of knee joint, left <RUFINO Priest - Last Filed: 08/16/22 01:16> Surgical History: Surgical History History of colonoscopy Hx of endoscopy Stented coronary artery <RUFINO Priest - Last Filed: 08/16/22 01:16> Family History Family History: Family History Father Family history unknown Mother Hx of Crohn's disease <RUFINO Priest - Last Filed: 08/16/22 01:16> Social History Social History: Social History Household Members: Friend(s) Household Members Other:: 1 Housing: House Do you presently have visiting nurse or other home services: No Alcohol intake: never Patient Tobacco Use Status: Never used Tobacco e-Cigarette/Vaping Use: Never Used Second Hand Smoke Exposure: No Advance Directives: No Advance Directives Information Provided: Yes service: Yes Current occupational status: employed Cognitive needs: No Hearing needs: No Vision needs: No <RUFINO Priest - Last Filed: 08/16/22 01:16> Physical Exam ED Vital Signs: Vital Signs - 24 hr 08/15/22 22:26 08/16/22 00:37 Temperature 97.6 F 98.1 F Pulse Rate 80 80 Respiratory Rate 18 17 Blood Pressure 151/93 H 145/92 H Pulse Oximetry 94 95 Oxygen Delivery Method Room Air Room Air BMI result Body Mass Index 31.1 Vital signs stable <RUFINO Priest Last Filed: 08/16/22 01:16> Vital Signs - 24 hr 08/15/22 22:26 03/08/23 00:37 Temperature 97.6 F 98.1 F Pulse Rate 80 80 Respiratory Rate 18 17 Blood Pressure 151/93 H 145/92 H Pulse Oximetry 94 95 Oxygen Delivery Method Room Air Room Air BMI result Body Mass Index 31.1 <Reg Astudillo MD - Last Filed: 08/16/22 05:56> Appearance: Alert.? Oriented X3.? No acute distress.? Head: Normocephalic, atraumatic, no step-offs or deformities Eyes: Pupils equal, round and reactive to light.? ENT: Pharynx normal.? Neck: Normal inspection.? Neck supple.? CVS: Normal heart rate and rhythm.? Pulses normal.? Respiratory: No respiratory distress.? Breath sounds normal.? Abdomen: Soft and distended abdomen diffusely tender, hypoactive bowel sounds throughout..? Skin: Skin warm and dry.? Normal skin color.? Normal skin turgor.? Extremities: No lower extremity edema.? No calf ttp. 5/5 strength to bilateral upper and lower extremities Neuro: Oriented X 3.? No motor deficit.? No sensory deficit. CN 2-12 intact <RUFINO Priest - Last Filed: 08/16/22 01:16> Course Reevaluation(s) Reevaluation #1: CBC with slight leukocytosis likely secondary to inflammatory process. I do not suspect infection. Chemistry with no acute electrolyte abnormalities requiring intervention. Normal lipase. UA clean without infection. CT of the abdomen pelvis pending. <RUFINO Priest - Last Filed: 08/16/22 01:16> Time: 23:35 <RUFINO Priest - Last Filed: 08/16/22 01:16> Reevaluation #2: CT of the abdomen and pelvis demonstrating loop of distal ileum which is severely edematous and narrowed and the bowel distal to this is decompressed. Discussed CT results with Dr. Amato who recommends NGT, if patient is agreeable. Initially patient was adamant that he did not want 1, will discuss this with patient. He also recommends patient be admitted to Medicine. He tells me that he also feels as though GI should follow this case well patient is in the hospital. <RUFINO Priest - Last Filed: 08/16/22 01:16> Time: 01:11 <RUFINO Priest - Last Filed: 08/16/22 01:16> Reevaluation #3: Patient will be admitted to the hospitalist team. Dr. Wsaserman <RUFINO Priest - Last Filed: 08/16/22 01:16> Time: 01:13 <RUFINO Priest - Last Filed: 08/16/22 01:16> Medical Decision Making Medical Decision Making [facility] Narrative: 2330 This is a 62-year-old male presenting with acute onset diffuse abdominal pain, abdominal distension, difficulty passing stool and flat, nausea and vomiting, history of Crohn's disease and bowel obstructions. You symptoms started about 2 hours ago. Physical examination with a distended abdomen diffusely tender, hypoactive bowel sounds throughout. Likely bowel obstruction. Unlikely acute abdomen, SBP, appendicitis, cholecystitis, diverticulitis. Plan at this time imaging, urine, basic labs. Will give morphine for pain Zofran for nausea and vomiting. CT of the abdomen and pelvis ordered. <RUFINO Priest - Last Filed: 08/16/22 01:16> 2330 This is a 62-year-old male presenting with acute onset diffuse abdominal pain, abdominal distension, difficulty passing stool and flat, nausea and vomiting, history of Crohn's disease and bowel obstructions. You symptoms started about 2 hours ago. Physical examination with a distended abdomen diffusely tender, hypoactive bowel sounds throughout. Likely bowel obstruction. Unlikely acute abdomen, SBP, appendicitis, cholecystitis, diverticulitis. Plan at this time imaging, urine, basic labs. Will give morphine for pain Zofran for nausea and vomiting. CT of the abdomen and pelvis ordered. CT scan showed small bowel obstruction with long edematous small bowel distal ileum segment case discussed with surgeon Dr. Amato and GI advised for medical treatment NG tube was placed and about 500 cc gastric contents were drained patient felt much better case discussed with hospitalist for admission patient had a bowel movement in the ER <Reg Astudillo MD - Last Filed: 08/16/22 05:56> Differential Diagnosis Differential Diagnoses: The differential diagnosis associated with the presentation includes <RUFINO Priest - Last Filed: 08/16/22 01:16> Likely bowel obstruction. Unlikely acute abdomen, SBP, appendicitis, cholecystitis, diverticulitis. <RUFINO Priest - Last Filed: 08/16/22 01:16> Admission/Observation Consideration of admission/observation: Escalation of care including admission/observation considered <RUFINO Priest - Last Filed: 08/16/22 01:16> Likely <RUFINO Priest - Last Filed: 08/16/22 01:16> Consult Healthcare Provider Management of the patient was discussed with: Hospitalist <Reg Astudillo MD - Last Filed: 08/16/22 05:56> Lab Data MDM Lab Attestation statement: I reviewed the patient's lab results. <RUFINO Priest - Last Filed: 08/16/22 01:16> Result Diagrams: 08/15/22 22:38 08/15/22 22:38 <RUFINO Priest - Last Filed: 08/16/22 01:16> Labs: Lab Results 08/15/22 08/15/22 08/15/22 Range/Units 22:38 22:38 22:38 WBC 11.4 H (4.8-10.8) X10*3/uL RBC 4.79 (4.60-5.80) X10*6/uL Hgb 14.8 (14.0-18.0) g/dl Hct 44.1 (42.0-52.0) % MCV 92.1 (80.0-98.0) fL MCH 30.9 (27.0-33.0) pg MCHC 33.6 (31.0-36.0) g/dl RDW 13.2 (11.0-16.0) % Plt Count 234 (160-400) X10*3/uL MPV 8.7 L (9.4-12.4) fL Immature Gran % (Auto) 0.2 (0.0-0.4) % Neut % (Auto) 77.3 H (45-73) % Lymph % (Auto) 14.9 L (20-40) % [place] % (Auto) 6.6 (2-11) % Eos % (Auto) 0.7 (0-4) % Baso % (Auto) 0.3 (0-2) % Lymph # (Auto) 1.7 (1.2-4.9) X10*3/uL [place] # (Auto) 0.8 (0.1-1.2) X10*3/uL Eos # (Auto) 0.1 (0.0-0.4) X10*3/uL Baso # (Auto) 0.0 (0.0-0.2) X10*3/uL Abs Immat Gran (auto) 0.02 (0.00-0.03) X10*3/uL Absolute Neuts (auto) 8.8 H (2.0-8.3) x10*3/uL Absolute Nucleated RBC 0.000 (0.0-0.012) X10*3/uL Nucleated RBC % (auto) 0.0 (0.0-0.2) /100WBC Sodium 142 (135-145) mmol/L Potassium 3.9 (3.3-5.1) mmol/L Chloride 105 (96-108) mmol/L Carbon Dioxide 28 (22-29) mmol/L Anion Gap 13 (12-20) BUN 13 (9-16) mg/dL Creatinine 0.91 (0.5-1.4) mg/dL Estim Creat Clear Calc 94.3 Estimated GFR > 60 Random Glucose 107 (60-115) mg/dL Calcium 9.0 (8.4-10.2) mg/dL Total Bilirubin 0.9 (0.0-1.0) mg/dL Direct Bilirubin 0.2 (0.0-0.5) mg/dL AST 21 (5-37) U/L ALT 22 (0-40) U/L Alkaline Phosphatase 65 (39-117) U/L C-Reactive Protein 1.06 H (< or = 0.50) mg/dL Total Protein 7.0 (6.5-8.0) g/dL Albumin 4.3 (3.5-5.0) g/dL Lipase 22 (8-78) U/L Urine Color Urine Appearance Urine pH (5.0-9.0) Ur Specific [place] (1.005-1.025) Urine Protein (Neg-Trace) mg/dL Urine Glucose (UA) (Negative) mg/dL Urine Ketones (Negative) mg/dL Urine Blood (Negative) Urine Nitrite (Negative) Ur Leukocyte Esterase (Negative) COVID-19 (BOGDAN) Negative (Negative) COVID-19 Clin Com See Note 08/15/22 Range/Units 22:38 WBC (4.8-10.8) X10*3/uL RBC (4.60-5.80) X10*6/uL Hgb (14.0-18.0) g/dl Hct (42.0-52.0) % MCV (80.0-98.0) fL MCH (27.0-33.0) pg MCHC (31.0-36.0) g/dl RDW (11.0-16.0) % Plt Count (160-400) X10*3/uL MPV (9.4-12.4) fL Immature Gran % (Auto) (0.0-0.4) % Neut % (Auto) (45-73) % Lymph % (Auto) (20-40) % [place] % (Auto) (2-11) % Eos % (Auto) (0-4) % Baso % (Auto) (0-2) % Lymph # (Auto) (1.2-4.9) X10*3/uL [place] # (Auto) (0.1-1.2) X10*3/uL Eos # (Auto) (0.0-0.4) X10*3/uL Baso # (Auto) (0.0-0.2) X10*3/uL Abs Immat Gran (auto) (0.00-0.03) X10*3/uL Absolute Neuts (auto) (2.0-8.3) x10*3/uL Absolute Nucleated RBC (0.0-0.012) X10*3/uL Nucleated RBC % (auto) (0.0-0.2) /100WBC Sodium (135-145) mmol/L Potassium (3.3-5.1) mmol/L Chloride (96-108) mmol/L Carbon Dioxide (22-29) mmol/L Anion Gap (12-20) BUN (9-16) mg/dL Creatinine (0.5-1.4) mg/dL Estim Creat Clear Calc Estimated GFR Random Glucose (60-115) mg/dL Calcium (8.4-10.2) mg/dL Total Bilirubin (0.0-1.0) mg/dL Direct Bilirubin (0.0-0.5) mg/dL AST (5-37) U/L ALT (0-40) U/L Alkaline Phosphatase (39-117) U/L C-Reactive Protein (< or = 0.50) mg/dL Total Protein (6.5-8.0) g/dL Albumin (3.5-5.0) g/dL Lipase (8-78) U/L Urine Color Yellow Urine Appearance Clear Urine pH 5.5 (5.0-9.0) Ur Specific [place] 1.020 (1.005-1.025) Urine Protein Negative (Neg-Trace) mg/dL Urine Glucose (UA) Negative (Negative) mg/dL Urine Ketones Negative (Negative) mg/dL Urine Blood Negative (Negative) Urine Nitrite Negative (Negative) Ur Leukocyte Esterase Negative (Negative) COVID-19 (BOGDAN) (Negative) COVID-19 Clin Com <RUFINO Priest - Last Filed: 08/16/22 01:16> Lab Results 08/15/22 08/15/22 08/15/22 Range/Units 22:38 22:38 22:38 WBC 11.4 H (4.8-10.8) X10*3/uL RBC 4.79 (4.60-5.80) X10*6/uL Hgb 14.8 (14.0-18.0) g/dl Hct 44.1 (42.0-52.0) % MCV 92.1 (80.0-98.0) fL MCH 30.9 (27.0-33.0) pg MCHC 33.6 (31.0-36.0) g/dl RDW 13.2 (11.0-16.0) % Plt Count 234 (160-400) X10*3/uL MPV 8.7 L (9.4-12.4) fL Immature Gran % (Auto) 0.2 (0.0-0.4) % Neut % (Auto) 77.3 H (45-73) % Lymph % (Auto) 14.9 L (20-40) % [place] % (Auto) 6.6 (2-11) % Eos % (Auto) 0.7 (0-4) % Baso % (Auto) 0.3 (0-2) % Lymph # (Auto) 1.7 (1.2-4.9) X10*3/uL [place] # (Auto) 0.8 (0.1-1.2) X10*3/uL Eos # (Auto) 0.1 (0.0-0.4) X10*3/uL Baso # (Auto) 0.0 (0.0-0.2) X10*3/uL Abs Immat Gran (auto) 0.02 (0.00-0.03) X10*3/uL Absolute Neuts (auto) 8.8 H (2.0-8.3) x10*3/uL Absolute Nucleated RBC 0.000 (0.0-0.012) X10*3/uL Nucleated RBC % (auto) 0.0 (0.0-0.2) /100WBC Sodium 142 (135-145) mmol/L Potassium 3.9 (3.3-5.1) mmol/L Chloride 105 (96-108) mmol/L Carbon Dioxide 28 (22-29) mmol/L Anion Gap 13 (12-20) BUN 13 (9-16) mg/dL Creatinine 0.91 (0.5-1.4) mg/dL Estim Creat Clear Calc 94.3 Estimated GFR > 60 Random Glucose 107 (60-115) mg/dL Calcium 9.0 (8.4-10.2) mg/dL Total Bilirubin 0.9 (0.0-1.0) mg/dL Direct Bilirubin 0.2 (0.0-0.5) mg/dL AST 21 (5-37) U/L ALT 22 (0-40) U/L Alkaline Phosphatase 65 (39-117) U/L C-Reactive Protein 1.06 H (< or = 0.50) mg/dL Total Protein 7.0 (6.5-8.0) g/dL Albumin 4.3 (3.5-5.0) g/dL Lipase 22 (8-78) U/L Urine Color Urine Appearance Urine pH (5.0-9.0) Ur Specific [place] (1.005-1.025) Urine Protein (Neg-Trace) mg/dL Urine Glucose (UA) (Negative) mg/dL Urine Ketones (Negative) mg/dL Urine Blood (Negative) Urine Nitrite (Negative) Ur Leukocyte Esterase (Negative) COVID-19 (BOGDAN) Negative (Negative) COVID-19 Clin Com See Note 08/15/22 Range/Units 22:38 WBC (4.8-10.8) X10*3/uL RBC (4.60-5.80) X10*6/uL Hgb (14.0-18.0) g/dl Hct (42.0-52.0) % MCV (80.0-98.0) fL MCH (27.0-33.0) pg MCHC (31.0-36.0) g/dl RDW (11.0-16.0) % Plt Count (160-400) X10*3/uL MPV (9.4-12.4) fL Immature Gran % (Auto) (0.0-0.4) % Neut % (Auto) (45-73) % Lymph % (Auto) (20-40) % [place] % (Auto) (2-11) % Eos % (Auto) (0-4) % Baso % (Auto) (0-2) % Lymph # (Auto) (1.2-4.9) X10*3/uL [place] # (Auto) (0.1-1.2) X10*3/uL Eos # (Auto) (0.0-0.4) X10*3/uL Baso # (Auto) (0.0-0.2) X10*3/uL Abs Immat Gran (auto) (0.00-0.03) X10*3/uL Absolute Neuts (auto) (2.0-8.3) x10*3/uL Absolute Nucleated RBC (0.0-0.012) X10*3/uL Nucleated RBC % (auto) (0.0-0.2) /100WBC Sodium (135-145) mmol/L Potassium (3.3-5.1) mmol/L Chloride (96-108) mmol/L Carbon Dioxide (22-29) mmol/L Anion Gap (12-20) BUN (9-16) mg/dL Creatinine (0.5-1.4) mg/dL Estim Creat Clear Calc Estimated GFR Random Glucose (60-115) mg/dL Calcium (8.4-10.2) mg/dL Total Bilirubin (0.0-1.0) mg/dL Direct Bilirubin (0.0-0.5) mg/dL AST (5-37) U/L ALT (0-40) U/L Alkaline Phosphatase (39-117) U/L C-Reactive Protein (< or = 0.50) mg/dL Total Protein (6.5-8.0) g/dL Albumin (3.5-5.0) g/dL Lipase (8-78) U/L Urine Color Yellow Urine Appearance Clear Urine pH 5.5 (5.0-9.0) Ur Specific [place] 1.020 (1.005-1.025) Urine Protein Negative (Neg-Trace) mg/dL Urine Glucose (UA) Negative (Negative) mg/dL Urine Ketones Negative (Negative) mg/dL Urine Blood Negative (Negative) Urine Nitrite Negative (Negative) Ur Leukocyte Esterase Negative (Negative) COVID-19 (BOGDAN) (Negative) COVID-19 Clin Com <Reg Astudillo MD - Last Filed: 08/16/22 05:56> Radiology Impression Discussion of test interpretation with radiology: I have reviewed the radiologist's reading. <RUFINO Priest - Last Filed: 08/16/22 01:16> Core Measures AMI core measures followed: Yes <RUFINO Priest - Last Filed: 08/16/22 01:16> Measure exclusions: not indicated <RUFINO Priest - Last Filed: 08/16/22 01:16> Medications Administered Generic Name Dose Route Start Last Admin Trade Name Freq PRN Reason Stop Dose Admin Dextrose/Sodium Chloride 1,000 mls @ 100 mls/hr 08/16/22 03:15 08/16/22 03:59 D51/2ns IVCONT 100 mls/hr .Q10H MY Administration Discontinued Medications Generic Name Dose Route Start Last Admin Trade Name Freq PRN Reason Stop Dose Admin Diphenhydramine HCl 25 mg 08/16/22 01:39 08/16/22 01:47 Diphenhydramine Hcl 50 Mg/Ml Vial IVPUSH 08/16/22 01:40 25 mg ONCE ONE Administration Fentanyl 25 mcg 08/16/22 01:38 08/16/22 01:47 Fentanyl Citrate/Pf 100 Mcg/2 Ml Vial IVPUSH 08/16/22 01:39 25 mcg ONCE ONE Administration Protocol Sodium Chloride 1,000 mls @ 999 mls/hr 08/15/22 23:57 08/16/22 03:18 Ns IV 08/16/22 00:57 Infused .Q1H1M ONE Infusion Iohexol 85 ml 08/15/22 23:51 08/15/22 23:51 Iohexol 350 Mg/Ml 100 Ml Infus..Btl IV 08/15/22 23:52 85 ml ONCE ONE Administration Metoclopramide HCl 10 mg 08/16/22 01:39 08/16/22 01:48 Metoclopramide Hcl 10 Mg/2 Ml Vial IVPUSH 08/16/22 01:40 10 mg ONCE ONE Administration Morphine Sulfate 4 mg 08/15/22 23:32 08/15/22 23:47 Morphine Sulfate 4 Mg/Ml Cartridge IVPUSH 08/15/22 23:33 4 mg ONCE ONE Administration Protocol Morphine Sulfate 4 mg 08/16/22 04:02 08/16/22 04:16 Morphine Sulfate 4 Mg/Ml Cartridge IVPUSH 08/16/22 04:03 4 mg ONCE ONE Administration Protocol Ondansetron HCl 4 mg 08/15/22 23:32 08/15/22 23:47 Ondansetron Hcl 4 Mg/2 Ml Vial IVPUSH 08/15/22 23:33 4 mg ONCE ONE Administration <RUFINO Priest - Last Filed: 08/16/22 01:16> Medications Administered Generic Name Dose Route Start Last Admin Trade Name Freq PRN Reason Stop Dose Admin Dextrose/Sodium Chloride 1,000 mls @ 100 mls/hr 08/16/22 03:15 08/16/22 03:59 D51/2ns IVCONT 100 mls/hr .Q10H MY Administration Discontinued Medications Generic Name Dose Route Start Last Admin Trade Name Freq PRN Reason Stop Dose Admin Diphenhydramine HCl 25 mg 08/16/22 01:39 08/16/22 01:47 Diphenhydramine Hcl 50 Mg/Ml Vial IVPUSH 08/16/22 01:40 25 mg ONCE ONE Administration Fentanyl 25 mcg 08/16/22 01:38 08/16/22 01:47 Fentanyl Citrate/Pf 100 Mcg/2 Ml Vial IVPUSH 08/16/22 01:39 25 mcg ONCE ONE Administration Protocol Sodium Chloride 1,000 mls @ 999 mls/hr 08/15/22 23:57 08/16/22 03:18 Ns IV 08/16/22 00:57 Infused .Q1H1M ONE Infusion Iohexol 85 ml 08/15/22 23:51 08/15/22 23:51 Iohexol 350 Mg/Ml 100 Ml Infus..Btl IV 08/15/22 23:52 85 ml ONCE ONE Administration Metoclopramide HCl 10 mg 08/16/22 01:39 08/16/22 01:48 Metoclopramide Hcl 10 Mg/2 Ml Vial IVPUSH 08/16/22 01:40 10 mg ONCE ONE Administration Morphine Sulfate 4 mg 08/15/22 23:32 08/15/22 23:47 Morphine Sulfate 4 Mg/Ml Cartridge IVPUSH 08/15/22 23:33 4 mg ONCE ONE Administration Protocol Morphine Sulfate 4 mg 08/16/22 04:02 08/16/22 04:16 Morphine Sulfate 4 Mg/Ml Cartridge IVPUSH 08/16/22 04:03 4 mg ONCE ONE Administration Protocol Ondansetron HCl 4 mg 08/15/22 23:32 08/15/22 23:47 Ondansetron Hcl 4 Mg/2 Ml Vial IVPUSH 08/15/22 23:33 4 mg ONCE ONE Administration <Reg Astudillo MD - Last Filed: 08/16/22 05:56> Critical Care Time Critical Care Time Critical Care Time: Yes <RUFINO Priest - Last Filed: 08/16/22 01:16> Total Critical Care Time: 35 <RUFINO Priest - Last Filed: 08/16/22 01:16> Attestation: I attest to this time spent taking care of the patient, obtaining history, physical, reviewing labs, imaging, speaking to my attending, speaking to specialist. <RUFINO Priest - Last Filed: 08/16/22 01:16> Discharge Plan Discharge Clinical Impression: Partial obstruction of small intestine, Crohn's disease <RUFINO Priest - Last Filed: 08/16/22 01:16> Patient Disposition: Admitted As Inpatient <RUFINO Priest - Last Filed: 08/16/22 01:16>
[2022-08-15] MEDS: Morphine Sulfate 4 MG/ML CARTRIDGE IVPUSH (23:47)
[2022-08-15] MEDS: ondansetron HCL 4 MG/2 ML VIAL IVPUSH (23:47)
[2022-08-15] MEDS: iohexoL 350 MG/ML 100 ML INFUS..BTL 85 ML IV (23:51)
[2022-08-16] VITALS (7 sets, daily range): BP systolic 138–172; BP diastolic 67–100; PULSE 80–100; RESP 14–18; TEMP 36.4–37; O2SAT 92–97
--- NOTE | 2022-08-16 01:28 | PC.NURSE ---
pt assessed, pt declined NGT reporting its too uncomfortable
[2022-08-16] MEDS: 0.9 % Sodium Chloride 1,000 ML 999 ML IV (01:42)
[2022-08-16] MEDS: fentaNYL citrate/PF 100 MCG/2 ML VIAL 25 MCG IVPUSH (01:47)
[2022-08-16] MEDS: diphenhydrAMINE HCL 50 MG/ML VIAL 25 MG IVPUSH (01:47)
[2022-08-16] MEDS: Metoclopramide HCl 10 MG/2 ML VIAL IVPUSH (01:48)
--- NOTE | 2022-08-16 03:15 | PC.NURSE ---
NGT placed by doctor
--- NOTE | 2022-08-16 03:20 | P.HPHOSP_ITS ---
History of Present Illness Date of Service: 08/16/22 Chief Complaint: Abd pain 62-year-old male with a past medical history of hypertension, hyperlipidemia, CAD, chronic pain syndrome, Crohn's disease, history of recurrent small-bowel obstructions, history of small intestinal stricture, LBBB, obesity, GERD present ed to the hospital today with a chief complaint of abdominal pain. Patient mentioned that his symptoms started about 2 hours prior to coming to the ER. Has acute onset of abdominal pain, diffuse in nature, nonradiating, associated nausea and vomiting. Has multiple episodes of vomiting. Denies any blood in the vomitus. Denies any chest pain palpitations lightheadedness or dizziness. Denies passing gas. Episode appears to be is similar to the prior episodes of small-bowel obstruction. Denies any fever chills cough or sputum production. Denies any urinary symptoms. Review of all other systems is negative except mentioned above ER course: Per ER physician, patient noted to have diffuse abdominal tenderness; CT abdomen pelvis was done which showed small-bowel and inflammation; spoke to General surgery -> who reviewed the CT scan mentioned that no acute surgical int ervention needed, suggested conservative management with NG tube and admission to the medicine service. ER team also spoke to Dr. Wale sanchez from Gastroenterology- did not suggest steroids unless the ESR CRP is significantly elevated. Recommended conservative management an NG tube. After sometime in the ER patient has had a bowel movement. Patient has had NG tube placed. Admitted to the hospital for further management home [facility] Medical History CAD (coronary artery disease) Chronic abdominal pain Chronic pain syndrome Crohn's disease Crohn's disease GERD without esophagitis History of paroxysmal atrial tachycardia Hyperlipidemia Hyperlipidemia Hypertension LBBB (left bundle branch block) Obesity Obesity Paroxysmal atrial fibrillation Stricture of small intestine Swelling of knee joint, left Family History Father Family history unknown Mother Hx of Crohn's disease Surgical History History of colonoscopy Hx of endoscopy Stented coronary artery Social History Household Members: Friend(s) Household Members Other:: 1 Housing: House Do you presently have visiting nurse or other home services: No Alcohol intake: never Patient Tobacco Use Status: Never used Tobacco e-Cigarette/Vaping Use: Never Used Second Hand Smoke Exposure: No Advance Directives Date on File: 08/16/22 service: Yes Current occupational status: employed Cognitive needs: No Hearing needs: No Vision needs: No Meds Allergies Allergy/AdvReac Type Severity Reaction Status Date / Time No Known Allergies Allergy Mild none Verified 07/21/22 08:19 Active Medications: Current Medications Pharmacy Consult (Consult Rx Perform Med Rec) 1 each MISCELLANE ONCE PRN PRN Reason: Consult order Home Medications Medication Instructions Recorded Confirmed Last Taken Type vedolizumab 300 mg intravenous 300 mg IV Q4W 02/02/22 08/16/22 Unknown History solution (Entyvio) Physical Exam Vital Signs and Narrative: Vital Signs: Last Vital Signs Temp 98.1 F 08/16/22 00:37 Pulse 80 08/16/22 00:37 Resp 17 08/16/22 00:37 BP 145/92 H 08/16/22 00:37 Pulse Ox 95 08/16/22 00:37 O2 Del Method 08/16/22 00:37 BMI result Body Mass Index 31.1 Gen: Appears be in no acute distress HEENT: NCAT, Moist mucosa. Pulmonary: Vesicular breath sounds, fair air entry CVS: Normal S1-S2 Abdomen: BS+, Soft, mildly tender diffusely; no guarding no rigidity Extremities: Warm well perfused Neuro: Alert and awake. Results Labs 08/15/22 22:38 08/15/22 22:38 Labs: Laboratory Results - last 24 hr 08/15/22 08/15/22 08/15/22 22:38 22:38 22:38 MCV 92.1 MCH 30.9 MCHC 33.6 RDW 13.2 Plt Count 234 MPV 8.7 L Immature Gran % (Auto) 0.2 Neut % (Auto) 77.3 H Lymph % (Auto) 14.[address] [place] % (Auto) 6.6 Eos % (Auto) 0.7 Baso % (Auto) 0.3 Lymph # (Auto) 1.7 [place] # (Auto) 0.8 Eos # (Auto) 0.1 Baso # (Auto) 0.0 Abs Immat Gran (auto) 0.02 Absolute Neuts (auto) 8.8 H Absolute Nucleated RBC 0.000 Nucleated RBC % (auto) 0.0 Anion Gap 13 Estim Creat Clear Calc 94.3 Estimated GFR > 60 Random Glucose 107 Calcium 9.0 Total Bilirubin 0.9 Direct Bilirubin 0.2 AST 21 ALT 22 Alkaline Phosphatase 65 Total Protein 7.0 Albumin 4.3 Lipase 22 Urine Color Urine Appearance Urine pH Ur Specific [place] Urine Protein Urine Glucose (UA) Urine Ketones Urine Blood Urine Nitrite Ur Leukocyte Esterase COVID-19 (BOGDAN) Negative COVID-19 Clin Com See Note 08/15/22 22:38 MCV MCH MCHC RDW Plt Count MPV Immature Gran % (Auto) Neut % (Auto) Lymph % (Auto) [place] % (Auto) Eos % (Auto) Baso % (Auto) Lymph # (Auto) [place] # (Auto) Eos # (Auto) Baso # (Auto) Abs Immat Gran (auto) Absolute Neuts (auto) Absolute Nucleated RBC Nucleated RBC % (auto) Anion Gap Estim Creat Clear Calc Estimated GFR Random Glucose Calcium Total Bilirubin Direct Bilirubin AST ALT Alkaline Phosphatase Total Protein Albumin Lipase Urine Color Yellow Urine Appearance Clear Urine pH 5.5 Ur Specific [place] 1.020 Urine Protein Negative Urine Glucose (UA) Negative Urine Ketones Negative Urine Blood Negative Urine Nitrite Negative Ur Leukocyte Esterase Negative COVID-19 (BOGDAN) COVID-19 Clin Com Imaging Radiologist's Impressions: Impressions Abdomen/Pelvis CT 08/15/22 23:52 IMPRESSION: 1. There is a loop of distal ileum which is severely edematous and narrowed and the bowel distal to this is decompressed. Immediately prior to this, the small bowel is dilated with marked fecalization. Similar findings were present on the 10/30/2020 study but the degree of small bowel dilatation appears slightly greater on the current study. 2. Colonic diverticulosis without diverticulitis Fleischner guidelines were followed. Assessment and Plan (1) Abdominal pain: Status: Acute Plan 62-year-old male with a past medical history of hypertension, hyperlipidemia, CAD, chronic pain syndrome, Crohn's disease, history of recurrent small-bowel obstructions, history of small intestinal stricture, LBBB, obesity, GERD presented to the hospital today with a chief complaint of abdominal pain. Noted to have findings concerning for significant small-bowel inflammation/edema- suspected possible obstruction. Admitted to the hospital for further management. Abdominal pain/nausea/vomiting: CT abdomen showed There is a loop of distal ileum which is severely edematous and narrowed and the bowel distal to this is decompressed. Immediately prior to this, the small bowel is dilated with marked fecalization. Similar findings were present on the 10/30/2020 study but the degree of small bowel dilatation appears slightly greater on the current study. Suspected partial small bowel obstruction Patient had NG tube placed in the ER and also reportedly has an episode of bowel movement. General surgery was aware-suggested admission to the medicine service for conservative management, after reviewing the CT scan did not suggest any acute surgical intervention. Gastroenterology was consulted-recommended to obtain ESR and CRP and is significantly elevated may consider steroids. For now recommended conservative management with NG tube placement. Strict NPO Gentle IV fluids Pain control History of HTN/HLD/CAD: Hold home home medications given strict NPO as mentioned above. Monitor vitals History of AFib: Patient had a score was 2. 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 Over suggested to discuss with his fur tinter if any absolute contraindications. DVT prophylaxis: [facility] Code status: Full code Time Spent With Patient Time: Total time managing care of this patient today ____ minutes. Quality Stroke Does the patient have a stroke diagnosis?: No VTE Prior VTE?: No VTE Risk Level:: Medical - moderate - high VTE Device Contraindication: Treatment Not Indicated VTE Drug Contraindication: N/A - Med Ordered
[2022-08-16] MEDS: Dextrose 5 % and 0.45 % NaCl 1,000 ML 100 ML IVCONT ×3 (03:59→20:45)
[2022-08-16 04:02] LABS: C Reactive Protein 1.06 mg/dL (< or = 0.50)
[2022-08-16] MEDS: Morphine Sulfate 4 MG/ML CARTRIDGE IVPUSH ×4 (04:16→20:44)
[2022-08-16 04:24] LABS: Erythrocyte Sedimentation Rate 10 MM/HR (0-15)
--- NOTE | 2022-08-16 06:40 | PM.CNGS ---
History of Present Illness Consult details Consult date: 08/16/22 Reason for consult: abdominal pain Narrative: The patient is a 62-year-old gentleman with a history of Crohn's disease in the care of Dr. Leonie bañuelos in Gastroenterology. The patient has had almost 2 years of Crohn's-free symptoms until the past couple days when he was concerned he had a blockage due to abdominal bloating, pain and vomiting. ?The patient's past medical history includes atrial fibrillation, hypertension, Crohn's disease with recurrent partial obstructions, coronary artery disease. When the patient is examined, he is hiccuping and reports that he has been vomiting around the nasogastric tube. This was reported to the nursing staff to be addressed. Review of Systems Review of Systems: Yes all other systems are reviewed and are negative PMFSH Past Medical History Medical History CAD (coronary artery disease) Chronic abdominal pain Chronic pain syndrome Crohn's disease Crohn's disease GERD without esophagitis History of paroxysmal atrial tachycardia Hyperlipidemia Hyperlipidemia Hypertension LBBB (left bundle branch block) Obesity Obesity Paroxysmal atrial fibrillation Stricture of small intestine Swelling of knee joint, left Family History Family History Father Family history unknown Mother Hx of Crohn's disease Surgical History Surgical History History of colonoscopy Hx of endoscopy Stented coronary artery Social History Social History Household Members: Friend(s) Household Members Other:: 1 Housing: House Do you presently have visiting nurse or other home services: No Alcohol intake: never Patient Tobacco Use Status: Never used Tobacco e-Cigarette/Vaping Use: Never Used Second Hand Smoke Exposure: No Advance Directives: No Advance Directives Information Provided: Yes service: Yes Current occupational status: employed Cognitive needs: No Hearing needs: No Vision needs: No Meds Allergies Allergy/AdvReac Type Severity Reaction Status Date / Time No Known Allergies Allergy Mild none Verified 07/21/22 08:19 Active Medications: Current Medications Acetaminophen (Acetaminophen Supp 650 Mg Supp.Rect) 650 mg [place] Q6H PRN PRN Reason: Pain, Mild (Pain Scale 1-3) Heparin Sodium (Porcine) (Heparin Sodium,Porcine 5,000 Unit/Ml Vial) 5,000 unit SUBCUT Q8H [facility] Hydromorphone HCl (Hydromorphone Hcl 0.5 Mg/0.5 Ml Syringe) 0.5 mg IVPUSH Q4H PRN; Protocol PRN Reason: Pain, Severe (Pain Scale 7-10) Dextrose/Sodium Chloride (D51/2ns) 1,000 mls @ 100 mls/hr IVCONT .Q10H [facility] Last Admin: 08/16/22 03:59 Dose: 100 mls/hr Pharmacy Consult (Consult Rx Perform Med Rec) 1 each MISCELLANE ONCE PRN PRN Reason: Consult order Sodium Chloride (0.9 % Sodium Chloride Flush 3 Ml Syringe) 3 ml IVFLUSH QSHIFT [facility] Home Medications Medication Instructions Recorded Confirmed Last Taken Type vedolizumab 300 mg intravenous 300 mg IV Q4W 02/02/22 07/21/22 Unknown History solution (Entyvio) Physical Exam Vital Signs: Vital Signs: Last Vital Signs Temp 97.6 F 08/16/22 04:24 Pulse 95 08/16/22 04:24 Resp 15 08/16/22 04:24 BP 151/89 H 08/16/22 04:24 Pulse Ox 92 08/16/22 04:24 O2 Del Method 08/16/22 04:24 BMI result Body Mass Index 31.1 On exam, the patient is nontoxic but is uncomfortable and unable to speak in full sentences due to hiccups. He is in no respiratory distress Abdomen is obese and soft with no rebound, rigidity or guarding. Diffuse tenderness is noted but no hernias are appreciated. Results Labs 08/15/22 22:38 08/15/22 22:38 Labs: Abnormal lab results 08/15/22 08/15/22 Range/Units 22:38 22:38 WBC 11.4 H (4.8-10.8) X10*3/uL MPV 8.7 L (9.4-12.4) fL Neut % (Auto) 77.3 H (45-73) % Lymph % (Auto) 14.9 L (20-40) % Absolute Neuts (auto) 8.8 H (2.0-8.3) x10*3/uL C-Reactive Protein 1.06 H (< or = 0.50) mg/dL Short CBC 08/15/22 Range/Units 22:38 WBC 11.4 H (4.8-10.8) X10*3/uL Hgb 14.8 (14.0-18.0) g/dl Hct 44.1 (42.0-52.0) % Plt Count 234 (160-400) X10*3/uL BMP 08/15/22 22:38 Sodium 142 Potassium 3.9 Chloride 105 Carbon Dioxide 28 BUN 13 Creatinine 0.91 Calcium 9.0 Liver Function 08/15/22 Range/Units 22:38 Total Bilirubin 0.9 (0.0-1.0) mg/dL Direct Bilirubin 0.2 (0.0-0.5) mg/dL AST 21 (5-37) U/L ALT 22 (0-40) U/L Alkaline Phosphatase 65 (39-117) U/L Albumin 4.3 (3.5-5.0) g/dL Urine 08/15/22 Range/Units 22:38 Urine Color Yellow Urine Appearance Clear Urine pH 5.5 (5.0-9.0) Ur Specific [place] 1.020 (1.005-1.025) Urine Protein Negative (Neg-Trace) mg/dL Urine Glucose (UA) Negative (Negative) mg/dL All other labs normal. Imaging Abdomen CT scan report/results: report reviewed and image reviewed CT scan - pelvis: report reviewed and image reviewed Assessment and Plan (1) Partial obstruction of small intestine: Status: Acute (2) Crohn's disease: Status: Acute (3) Obesity: Status: Acute (4) Stricture of small intestine: Status: Acute (5) CAD (coronary artery disease): Status: Acute (6) Paroxysmal atrial fibrillation: Status: Acute Plan No acute surgical intervention required at this time. Please reposition nasogastric tube since the patient is having hiccups and vomiting around the nasogastric tube. Continue bowel rest. We had a brief discussion regarding surgical intervention and that is not curative and that typically, medical management is endorsed. The patient acknowledged that he would prefer to avoid an operation but notes that he isn't thinking straight due to being up all night and he asked me to come by later when he was not experiencing hiccups. Await input from Gastroenterology. Time Spent With Patient Time: Total time managing care of this patient today ____ minutes. Procedures Date of Service Date of Service: 08/16/22
[2022-08-16] MEDS: HYDROmorphone HCl 0.5 MG/0.5 ML SYRINGE IVPUSH ×2 (06:43→10:52)
[2022-08-16] MEDS: LORazepam 2 MG/ML VIAL 0.5 MG IVPUSH (06:43)
[2022-08-16 06:50] LABS: Alanine Aminotransferase 21 U/L (0-40); Albumin Level 4.3 g/dL (3.5-5.0); Alkaline Phosphatase 67 U/L (39-117); Anion Gap 16 (12-20); Aspartate Amino Transferase 18 U/L (5-37); Bilirubin Total 1.2 mg/dL (0.0-1.0); Blood Urea Nitrogen 10 mg/dL (9-16); Calcium 9.1 mg/dL (8.4-10.2); Carbon Dioxide 24 mmol/L (22-29); Chloride 107 mmol/L (96-108); Creatinine Clr Calc Pharmacy 124.4; Estimated Glomerular Filt Rate > 60; Glucose Random 111 mg/dL (60-115); Potassium 3.8 mmol/L (3.3-5.1); Sodium 143 mmol/L (135-145); Total Protein 6.8 g/dL (6.5-8.0)
[2022-08-16] MEDS: Heparin Sodium,Porcine 5,000 UNIT/ML VIAL 5000 UNIT SUBCUT ×3 (07:14→20:43)
[2022-08-16] MEDS: 0.9 % Sodium Chloride Flush 3 ML SYRINGE IVFLUSH ×2 (07:15→20:45)
--- NOTE | 2022-08-16 07:33 | PC.NURSE ---
Called floor for patient report, told RN will call back.
--- NOTE | 2022-08-16 07:45 | PC.NURSE ---
Floor called for report for a second time, again told RN will call back.
--- NOTE | 2022-08-16 08:35 | PHA.MEDREC ---
Pharmacy Consult ? Medication Reconciliation Pharmacy has completed the medication reconciliation.
--- NOTE | 2022-08-16 10:43 | PM.EVENT ---
Event Note Date of Service: 08/16/22 Event Note: The patient was seen and evaluated this morning Reported vomiting this morning NG tube in place, on continuous suction Keep NPO Metoprolol IV for blood pressure and rate control Surgery team following Continue IVF Time Spent With Patient Time: Total time managing care of this patient today ____ minutes.
[2022-08-16] MEDS: ondansetron HCL 4 MG/2 ML VIAL IVPUSH ×2 (10:52→17:52)
[2022-08-16] MEDS: Throat Lozenge, Medicated LOZENGE 1 LOZENGE MUCOUS MEM (10:56)
--- NOTE | 2022-08-16 11:40 | P.CNGI_ITS ---
History of Present Illness Data of Consult Service Date: 08/16/22 Requesting physician: Lizbeth Rutledge Primary Care Provider: Unknown Physician HPI Reason for consult: SBO 62-year-old male with a past medical history of hypertension, hyperlipidemia, CAD, chronic pain syndrome, Crohn's disease, history of recurrent small-bowel obstructions, history of small intestinal stricture, LBBB, GERD who I am seeing for assessment of SBO. HE presented to the ED initially with sudden onset diffusr abdominal pain 10/10 with nausea and non bloody emesis. THere were no relieving or exacerbating factors. He has not been passing stool or gas. No fever or chills, no urine sx. symptoms are similar to prior episodes of bowel obstruction. He had been on Enyvio q 4 weeks with home infusions with only occasional breakthru sx, had been on humira before that which was stopped due to non response. CT revealed distended small bowel with inflammed terminal ileum, and he had NGT placed due to emesis. Right now he feels pain free, has no nausea and is requesting removal of NGT> Review of Systems Review of Systems: Constitutional : No Weight loss, No Fever, No Chills ENT/Mouth : No sore throat, No Rhinorrhea Eyes: No Swelling, No Redness Cardiovascular : No Chest Pain, No SOB, No Edema Respiratory : No Cough, No Sputum, No Wheezing Gastrointestinal : see HPI Genitourinary : NO Dysuria, No Urinary Frequency, No Hematuria, No Urgency Musculoskeletal : No joint pain, No Myalgias, No Joint Swelling Skin : No Skin Lesions, No rash Neuro : No Weakness, No Numbness, No Dizziness, No Headache Psych : No Anxiety/Panic, No Depression Heme/Lymph: No Bruising, No Lymphadenopathy Endocrine : No Polyuria, No Polydipsia All other systems reviewed and are negative. [facility] Past Medical History Medical History CAD (coronary artery disease) Chronic abdominal pain Chronic pain syndrome Crohn's disease Crohn's disease GERD without esophagitis History of paroxysmal atrial tachycardia Hyperlipidemia Hyperlipidemia Hypertension LBBB (left bundle branch block) Obesity Obesity Paroxysmal atrial fibrillation Stricture of small intestine Swelling of knee joint, left Family History Family History Father Family history unknown Mother Hx of Crohn's disease Surgical History Surgical History History of colonoscopy Hx of endoscopy Stented coronary artery Social History Social History Household Members: Friend(s) Household Members Other:: 1 Housing: House Do you presently have visiting nurse or other home services: No Alcohol intake: never Patient Tobacco Use Status: Never used Tobacco e-Cigarette/Vaping Use: Never Used Second Hand Smoke Exposure: No Advance Directives Date on File: 08/16/22 service: Yes Current occupational status: employed Cognitive needs: No Hearing needs: No Vision needs: No Meds Allergies Allergy/AdvReac Type Severity Reaction Status Date / Time No Known Allergies Allergy Mild none Verified 07/21/22 08:19 Active Medications: Current Medications Acetaminophen (Acetaminophen Supp 650 Mg Supp.Rect) 650 mg [place] Q6H PRN PRN Reason: Pain, Mild (Pain Scale 1-3) Benzocaine (Throat Lozenge, Medicated Lozenge) 1 lozenge MUCOUS MEM Q2H PRN PRN Reason: Sore Throat Last Admin: 08/16/22 10:56 Dose: 1 lozenge Heparin Sodium (Porcine) (Heparin Sodium,Porcine 5,000 Unit/Ml Vial) 5,000 unit SUBCUT Q8H [facility] Last Admin: 08/16/22 07:14 Dose: 5,000 unit Hydromorphone HCl (Hydromorphone Hcl 0.5 Mg/0.5 Ml Syringe) 0.5 mg IVPUSH Q4H PRN; Protocol PRN Reason: Pain, Severe (Pain Scale 7-10) Last Admin: 08/16/22 10:52 Dose: 0.5 mg Dextrose/Sodium Chloride (D51/2ns) 1,000 mls @ 100 mls/hr IVCONT .Q10H MY Last Admin: 08/16/22 09:39 Dose: 100 mls/hr Metoprolol Tartrate (Metoprolol Tartrate 5 Mg/5 Ml Vial) 5 mg IVPUSH Q6H [facility] Ondansetron HCl (Ondansetron Hcl 4 Mg/2 Ml Vial) 4 mg IVPUSH Q6H PRN PRN Reason: Nausea and Vomiting Last Admin: 08/16/22 10:52 Dose: 4 mg Pharmacy Consult (Consult Rx Perform Med Rec) 1 each MISCELLANE ONCE PRN PRN Reason: Consult order Sodium Chloride (0.9 % Sodium Chloride Flush 3 Ml Syringe) 3 ml IVFLUSH QSHIFT [facility] Last Admin: 08/16/22 07:15 Dose: 3 ml Home Medications Medication Instructions Recorded Confirmed Last Taken Type vedolizumab 300 mg intravenous 300 mg IV Q4W 02/02/22 08/16/22 Unknown History solution (Entyvio) Physical Exam Vital Signs: Vital Signs: Last Vital Signs Temp 98.4 F 08/16/22 08:00 Pulse 100 08/16/22 08:00 Resp 18 08/16/22 08:00 BP 172/93 H 08/16/22 08:00 Pulse Ox 97 08/16/22 08:00 O2 Del Method 08/16/22 08:00 BMI result Body Mass Index 31.1 EXAM: GENERAL: The patient is well developed and nontoxic. VITAL SIGNS:see workflow HEENT: Nonicteric sclerae, PERRLA, EOMI. Oropharynx clear. Moist mucous membranes. Conjunctivae appear well perfused. No thyroid mass. CHEST: Chest wall is nontender. HEART: Regular rate and rhythm without murmurs. LUNGS: Clear to auscultation bilaterally. ABDOMEN: Soft, reduced bowel sounds, nontender, no organomegaly.no flank tenderness SKIN: No rash, no excessive bruising, petechiae, or purpura. NEUROLOGIC: Cranial nerves II-XII intact without motor/sensory deficit. psych- nml affect Results Labs 08/15/22 22:38 08/16/22 05:39 Labs: Short CBC 08/15/22 Range/Units 22:38 WBC 11.4 H (4.8-10.8) X10*3/uL Hgb 14.8 (14.0-18.0) g/dl Hct 44.1 (42.0-52.0) % Plt Count 234 (160-400) X10*3/uL BMP 08/15/22 08/16/22 22:38 05:39 Sodium 142 143 Potassium 3.9 3.8 Chloride 105 107 Carbon Dioxide 28 24 BUN 13 10 Creatinine 0.91 0.69 Calcium 9.0 9.1 Liver Function 08/15/22 08/16/22 Range/Units 22:38 05:39 Total Bilirubin 0.9 1.2 H (0.0-1.0) mg/dL Direct Bilirubin 0.2 (0.0-0.5) mg/dL AST 21 18 (5-37) U/L ALT 22 21 (0-40) U/L Alkaline Phosphatase 65 67 (39-117) U/L Albumin 4.3 4.3 (3.5-5.0) g/dL Urine 08/15/22 Range/Units 22:38 Urine Color Yellow Urine Appearance Clear Urine pH 5.5 (5.0-9.0) Ur Specific [place] 1.020 (1.005-1.025) Urine Protein Negative (Neg-Trace) mg/dL Urine Glucose (UA) Negative (Negative) mg/dL Imaging CT scan - abdomen: Attestation: I personally reviewed and interpreted this imaging study as follows: My impression: inflammed edematous TI, dilated proximal small bowel Assessment and Plan (1) Partial obstruction of small intestine: Status: Acute (2) Crohn's disease: Qualifiers: Gastrointestinal tract location: small intestine Digestive disease complication type: with intestinal obstruction Qualified Code(s): K50.012 - Crohn's disease of small intestine with intestinal obstruction Status: Acute Plan 1/ Small bowel obstruction, which seems to be due to active crohns disease. DDX: fibrotic stricture PLAN: 1/ Solumedrol 20 mg q 8 h for 2-48 hr with IV flagyl 2/ can transition to PO pred once moves bowels and able to take PO, 3/ plan for o/p skyrizi and stop entyvio 4/ if has diarrhea send for c diff, stool panel Time Spent With Patient Time: Total time managing care of this patient today ____ minutes. Procedures Date of Service Date of Service: 08/16/22
--- NOTE | 2022-08-16 12:27 | MHC.CM.PN ---
PATIENT IS INDEPENDENT NO DME OR [facility] SERVICES SISTERELIE IS THE HCP. COPY REQUESTED. COVID VACCINATED. CURRENTLY BEING FOLLOWED FOR SBO. PCP IS REPORTEDLY MONA [facility] PLAN IS HOME- SELF CARE
[2022-08-16] MEDS: Isosorbide Mononitrate 30 MG TAB.ER.24H PO (12:41)
[2022-08-16] MEDS: methylPREDNISolone Sod Succ 40 MG/ML VIAL 20 MG IVPUSH ×2 (12:41→20:43)
[2022-08-16] MEDS: Metoprolol Succinate ER 50 MG TAB.ER.24H PO ×2 (12:41→20:43)
[2022-08-16] MEDS: metroNIDAZOLE/NS 500 MG/100 ML PIGGYBACK 100 MG IV ×2 (12:41→20:44)
[2022-08-16] MEDS: Zolpidem Tartrate 5 MG TABLET 10 MG PO (20:43)
[2022-08-17] MEDS: Morphine Sulfate 4 MG/ML CARTRIDGE IVPUSH ×2 (02:16→05:31)
[2022-08-17 03:08] VITALS: BP 148/88; PULSE 73; RESP 18; TEMP 36.8; O2SAT 94
[2022-08-17] MEDS: methylPREDNISolone Sod Succ 40 MG/ML VIAL 20 MG IVPUSH ×3 (04:36→20:40)
[2022-08-17] MEDS: metroNIDAZOLE/NS 500 MG/100 ML PIGGYBACK 100 MG IV ×3 (04:37→20:40)
[2022-08-17] MEDS: Heparin Sodium,Porcine 5,000 UNIT/ML VIAL 5000 UNIT SUBCUT ×3 (04:42→21:13)
--- NOTE | 2022-08-17 06:45 | PM.PNGS ---
Subjective Subjective Date of Service: 08/17/22 Patient reports: feels better Interval history: The patient is seen in follow-up surgical consultation regarding a Crohn's flare. In conversation with Dr. Hadley, there appears to be inflammation, consequently, a steroid pulse and change to the biologic agents is in order. Patient reports that he is doing better, passing gas and had a bowel movement yesterday. He denies chest pain, difficulty breathing or shortness of breath but notes that his anxiety is bothering him and he has requested a discussion with someone regarding medication for anxiety. This is deferred to the primary service. Physical Exam Vital Signs: Vital Signs: Last Vital Signs Temp 98.3 F 08/17/22 03:08 Pulse 73 08/17/22 03:08 Resp 18 08/17/22 03:08 BP 148/88 H 08/17/22 03:08 Pulse Ox 94 08/17/22 03:08 O2 Del Method 08/17/22 03:08 BMI result Body Mass Index 31.1 The patient is nontoxic Sclera are anicteric He is in no respiratory distress Abdomen is nontender it is less distended there is vague, diffuse discomfort but no peritoneal sign. No hernias are noted. Objective Data Active Medications Acetaminophen (Acetaminophen Supp 650 Mg Supp.Rect) 650 mg [place] Q6H PRN PRN Reason: Pain, Mild (Pain Scale 1-3) Benzocaine (Throat Lozenge, Medicated Lozenge) 1 lozenge MUCOUS MEM Q2H PRN PRN Reason: Sore Throat Last Admin: 08/16/22 10:56 Dose: 1 lozenge Documented By: LEONOR Heparin Sodium (Porcine) (Heparin Sodium,Porcine 5,000 Unit/Ml Vial) 5,000 unit SUBCUT Q8H [facility] Last Admin: 08/17/22 04:42 Dose: 5,000 unit Documented By: LESLIE Dextrose/Sodium Chloride (D51/2ns) 1,000 mls @ 100 mls/hr IVCONT .Q10H [facility] Last Admin: 08/16/22 20:45 Dose: 100 mls/hr Documented By: LESLIE Metronidazole (Flagyl) 500 mg in 100 mls @ 100 mls/hr IV Q8H [facility] Last Infusion: 08/17/22 05:38 Dose: 0 mls/hr Documented By: LESLIE Isosorbide Mononitrate (Isosorbide Mononitrate 30 Mg Tab.Er.24h) 30 mg PO DAILY [facility]; Protocol Last Admin: 08/16/22 12:41 Dose: 30 mg Documented By: ELIAS Methylprednisolone Sodium Succinate (Methylprednisolone Sod Succ 40 Mg/Ml Vial) 20 mg IVPUSH Q8H [facility] Last Admin: 08/17/22 04:36 Dose: 20 mg Documented By: LESLIE Metoprolol Succinate (Metoprolol Succinate Er 50 Mg Tab.Er.24h) 50 mg PO BID [facility]; Protocol Last Admin: 08/16/22 20:43 Dose: 50 mg Documented By: LESLIE Morphine Sulfate (Morphine Sulfate 4 Mg/Ml Cartridge) 4 mg IVPUSH Q3H PRN; Protocol PRN Reason: Pain, Severe (Pain Scale 7-10) Last Admin: 08/17/22 05:31 Dose: 4 mg Documented By: LESLIE Naloxone HCl (Naloxone Hcl Nasal 4 Mg [place]) 4 mg NOSTRILALT ONCE PRN PRN Reason: Opiate Reversal Ondansetron HCl (Ondansetron Hcl 4 Mg/2 Ml Vial) 4 mg IVPUSH Q6H PRN PRN Reason: Nausea and Vomiting Last Admin: 08/16/22 17:52 Dose: 4 mg Documented By: ROCKY Pharmacy Consult (Consult Rx Perform Med Rec) 1 each MISCELLANE ONCE PRN PRN Reason: Consult order Sodium Chloride (0.9 % Sodium Chloride Flush 3 Ml Syringe) [facility] Last Admin: 08/16/22 20:45 Dose: 3 ml Documented By: LESLIE Zolpidem Tartrate (Zolpidem Tartrate 5 Mg Tablet) 10 mg PO BEDTIME PRN PRN Reason: Insomnia Last Admin: 08/16/22 20:43 Dose: 10 mg Documented By: LESLIE Labs 08/15/22 22:38 08/16/22 05:39 Labs: Laboratory Results - last 24 hr 08/16/22 05:39 Anion Gap 16 Estim Creat Clear Calc 124.4 Estimated GFR > 60 Random Glucose 111 Calcium 9.1 Total Bilirubin 1.2 H AST 18 ALT 21 Alkaline Phosphatase 67 Total Protein 6.8 Albumin 4.3 Procedures Date of Service Date of Service: 08/17/22 Progress Note: A&P Assessment and plan (1) Partial obstruction of small intestine: Status: Acute (2) Crohn's disease: Status: Acute (3) Obesity: Status: Acute (4) Chronic abdominal pain: Status: Acute (5) CAD (coronary artery disease): Status: Acute (6) Paroxysmal atrial fibrillation: Status: Acute Plan The patient reports flatus, consequently I have written an order to DC the NG. I would keep the patient on ice chips for now until we have more clinical evidence that the steroid dose is helping. At this time, there is no evidence of a fibrotic stricture and need for operative intervention. In conversation with Dr. Hadley, we will need to follow the patient. If the patient fails medical management, either MR enterography or a small-bowel follow-through to assess the small bowel for planning operative intervention would be in order. Obviously, this would be only if the patient fails medical management. Call with surgical questions. Will follow intermittently. Time Spent With Patient Time: Total time managing care of this patient today ____ minutes. Quality Stroke Does the patient have a stroke diagnosis?: No VTE Prior VTE?: No VTE Risk Level:: Medical - moderate - high VTE Device Contraindication: Treatment Not Indicated VTE Drug Contraindication: N/A - Med Ordered
[2022-08-17 06:46] LABS: Hematocrit 42.2 % (42.0-52.0); Hemoglobin 14.2 g/dl (14.0-18.0); Mean Corpuscular HGB Conc 33.6 g/dl (31.0-36.0); Mean Corpuscular Hemoglobin 30.5 pg (27.0-33.0); Mean Corpuscular Volume 90.8 fL (80.0-98.0); Mean Platelet Volume 8.9 fL (9.4-12.4); Platelet Count 256 X10*3/uL (160-400); Red Blood Count 4.65 X10*6/uL (4.60-5.80); Red Cell Distribution Width 13.2 % (11.0-16.0); White Blood Count 5.6 X10*3/uL (4.8-10.8)
[2022-08-17 06:59] LABS: Anion Gap 13 (12-20); Blood Urea Nitrogen 11 mg/dL (9-16); Calcium 8.4 mg/dL (8.4-10.2); Carbon Dioxide 28 mmol/L (22-29); Chloride 104 mmol/L (96-108); Creatinine Clr Calc Pharmacy 120.9; Estimated Glomerular Filt Rate > 60; Glucose Random 133 mg/dL (60-115); Potassium 3.8 mmol/L (3.3-5.1); Sodium 141 mmol/L (135-145)
[2022-08-17] MEDS: Dextrose 5 % and 0.45 % NaCl 1,000 ML 100 ML IVCONT ×2 (07:34→20:00)
--- NOTE | 2022-08-17 07:38 | PC.NURSE ---
NG tube discontinued per Dr Amato. Pt tolerated well.
[2022-08-17 08:00] VITALS: BP 141/80; PULSE 77; RESP 18; TEMP 36.6
[2022-08-17] MEDS: Isosorbide Mononitrate 30 MG TAB.ER.24H PO (09:01)
[2022-08-17] MEDS: Metoprolol Succinate ER 50 MG TAB.ER.24H PO ×2 (09:02→20:40)
[2022-08-17] MEDS: amLODIPine Besylate 2.5 MG TABLET PO (11:05)
[2022-08-17] MEDS: traMADoL HCL 50 MG TABLET PO ×2 (11:05→17:15)
[2022-08-17] MEDS: LORazepam 0.5 MG TABLET PO (11:07)
--- NOTE | 2022-08-17 14:58 | MHC.CM.PN ---
NG TUBE IS OUT. CURRENTLY ON ICE CHIPS EVENTUAL PLAN - HOME SELF CARE
--- NOTE | 2022-08-17 15:19 | P.PNIM_ITS ---
Subjective Subjective Date of Service: 08/17/22 Interval History: Feels better ready NG tube out Passing gas as Tolerating ice chips No other overnight events Review of Systems Review of Systems: Yes all other systems are reviewed and are negative Physical Exam Vital Signs: Vital Signs: Last Vital Signs Temp 97.8 F 08/17/22 08:00 Pulse 77 08/17/22 08:00 Resp 18 08/17/22 08:00 BP 141/80 H 08/17/22 08:00 Pulse Ox 94 08/17/22 03:08 O2 Del Method 08/17/22 03:08 BMI result Body Mass Index 31.1 Const: Other: Constitutional : Awake, interactive, not in distress Neck : Normal inspection, Supple Cardiovascular : RRR, no JVP, no lower extremity edema Respiratory : good bilateral air entry, no crackles, wheezes or rhonchi Gastrointestinal: soft, lax, decreased bowel sounds, generalized mild tenderness Skin : Warm, Dry Neurological : Alert & oriented x3, No focal deficit Objective Data Active Medications Acetaminophen (Acetaminophen Supp 650 Mg Supp.Rect) 650 mg [place] Q6H PRN PRN Reason: Pain, Mild (Pain Scale 1-3) Amlodipine Besylate (Amlodipine Besylate 2.5 Mg Tablet) 2.5 mg PO DAILY [facility]; Protocol Last Admin: 08/17/22 11:05 Dose: 2.5 mg Documented By: JULIO Atorvastatin Calcium (Atorvastatin Calcium 80 Mg Tablet) 80 mg PO BEDTIME [facility] Benzocaine (Throat Lozenge, Medicated Lozenge) 1 lozenge MUCOUS MEM Q2H PRN PRN Reason: Sore Throat Last Admin: 08/16/22 10:56 Dose: 1 lozenge Documented By: LEONOR Heparin Sodium (Porcine) (Heparin Sodium,Porcine 5,000 Unit/Ml Vial) 5,000 unit SUBCUT Q8H [facility] Last Admin: 08/17/22 13:12 Dose: 5,000 unit Documented By: JULIO Dextrose/Sodium Chloride (D51/2ns) 1,000 mls @ 100 mls/hr IVCONT .Q10H [facility] Last Infusion: 08/17/22 14:02 Dose: 0 mls/hr Documented By: JULIO Metronidazole (Flagyl) 500 mg in 100 mls @ 100 mls/hr IV Q8H [facility] Last Infusion: 08/17/22 14:18 Dose: 0 mls/hr Documented By: JULIO Isosorbide Mononitrate (Isosorbide Mononitrate 30 Mg Tab.Er.24h) 30 mg PO DAILY [facility]; Protocol Last Admin: 08/17/22 09:01 Dose: 30 mg Documented By: JULIO Lorazepam (Lorazepam 0.5 Mg Tablet) 0.5 mg PO Q8H PRN PRN Reason: anxiety/restlessness Last Admin: 08/17/22 11:07 Dose: 0.5 mg Documented By: JULIO Methylprednisolone Sodium Succinate (Methylprednisolone Sod Succ 40 Mg/Ml Vial) 20 mg IVPUSH Q8H [facility] Last Admin: 08/17/22 13:12 Dose: 20 mg Documented By: JULIO Metoprolol Succinate (Metoprolol Succinate Er 50 Mg Tab.Er.24h) 50 mg PO BID [facility]; Protocol Last Admin: 08/17/22 09:02 Dose: 50 mg Documented By: JULIO Morphine Sulfate (Morphine Sulfate 4 Mg/Ml Cartridge) 2 mg IVPUSH Q3H PRN; Protocol PRN Reason: Pain, Severe (Pain Scale 7-10) Naloxone HCl (Naloxone Hcl Nasal 4 Mg [place]) 4 mg NOSTRILALT ONCE PRN PRN Reason: Opiate Reversal Nitroglycerin (Nitroglycerin 0.4 Mg Tab.Subl) 0.4 mg SUBLINGUAL Q5M PRN PRN Reason: chest pain Omeprazole (Omeprazole 40 Mg Capsule.Dr) 40 mg PO DAILY@0630 [facility] Ondansetron HCl (Ondansetron Hcl 4 Mg/2 Ml Vial) 4 mg IVPUSH Q6H PRN PRN Reason: Nausea and Vomiting Last Admin: 08/16/22 17:52 Dose: 4 mg Documented By: ROCKY Pharmacy Consult (Consult Rx Perform Med Rec) 1 each MISCELLANE ONCE PRN PRN Reason: Consult order Sodium Chloride (0.9 % Sodium Chloride Flush 3 Ml Syringe) 3 ml IVFLUSH QSHIFT [facility] Last Admin: 08/17/22 15:11 Dose: Not Given Documented By: JULIO Non-Admin Reason: IV Running Tramadol HCl (Tramadol Hcl 50 Mg Tablet) 50 mg PO Q8H [facility] Last Admin: 08/17/22 11:05 Dose: 50 mg Documented By: JULIO Zolpidem Tartrate (Zolpidem Tartrate 5 Mg Tablet) 10 mg PO BEDTIME PRN PRN Reason: Insomnia Last Admin: 08/16/22 20:43 Dose: 10 mg Documented By: LESLIE Labs 08/17/22 05:42 08/17/22 05:42 Labs: Laboratory Results - last 24 hr 08/17/22 08/17/22 05:42 05:42 MCV 90.8 MCH 30.5 MCHC 33.6 RDW 13.2 Plt Count 256 MPV 8.9 L Absolute Nucleated RBC 0.000 Nucleated RBC % (auto) 0.0 Anion Gap 13 Estim Creat Clear Calc 120.9 Estimated GFR > 60 Random Glucose 133 H Calcium 8.4 D Assessment and Plan (1) Partial obstruction of small intestine: Status: Acute (2) Exacerbation of Crohn's disease: Status: Acute Plan 62-year-old male with a past medical history of hypertension, hyperlipidemia, CAD, chronic pain syndrome, Crohn's disease, history of recurrent small-bowel obstructions, history of small intestinal stricture, LBBB, obesity, GERD presented to the hospital today with a chief complaint of abdominal pain. Noted to have findings concerning for significant small-bowel inflammation/edema- suspected possible obstruction. Admitted to the hospital for further management. Small-bowel obstruction 2/2 Crohn's disease exacerbation Improving NG tube removed , passing gas Start liquid diet General surgery input appreciated, conservative management Gastroenterology input appreciated, long taper of steroids over a month Continue IV steroids Continue IV Flagyl Gentle IV fluids Pain control History of HTN/HLD/CAD: Restart home medications History of AFib Has been following with Cardiology as outpatient, and the rouge miller has had discussions about anticoagulation, patient was reluctant to started anticoagulation DVT prophylaxis: SQH The patient will need overnight hospital stay to continue treatment for small bowel obstruction Time Spent With Patient Time: Total time managing care of this patient today ____ minutes. Quality Stroke Does the patient have a stroke diagnosis?: No VTE Prior VTE?: No VTE Risk Level:: Medical - moderate - high VTE Device Contraindication: Treatment Not Indicated VTE Drug Contraindication: N/A - Med Ordered
[2022-08-17 16:00] VITALS: BP 131/69; PULSE 70; RESP 18; TEMP 37; O2SAT 95
[2022-08-17 20:00] VITALS: BP 138/81; PULSE 66; RESP 18; TEMP 36.7; O2SAT 93
[2022-08-17] MEDS: Atorvastatin Calcium 80 MG TABLET PO (20:39)
[2022-08-17] MEDS: Zolpidem Tartrate 5 MG TABLET 10 MG PO (20:40)
[2022-08-17] MEDS: 0.9 % Sodium Chloride Flush 3 ML SYRINGE IVFLUSH (20:41)
[2022-08-18 03:25] VITALS: BP 126/61; PULSE 68; RESP 18; TEMP 36.6; O2SAT 97
[2022-08-18] MEDS: methylPREDNISolone Sod Succ 40 MG/ML VIAL 20 MG IVPUSH ×2 (05:30→12:47)
[2022-08-18] MEDS: Omeprazole 40 MG CAPSULE.DR PO (05:30)
[2022-08-18] MEDS: Heparin Sodium,Porcine 5,000 UNIT/ML VIAL 5000 UNIT SUBCUT (05:30)
[2022-08-18] MEDS: metroNIDAZOLE/NS 500 MG/100 ML PIGGYBACK 100 MG IV ×2 (05:32→12:47)
[2022-08-18 06:25] LABS: Hematocrit 40.5 % (42.0-52.0); Mean Corpuscular HGB Conc 34.6 g/dl (31.0-36.0); Mean Corpuscular Hemoglobin 31.4 pg (27.0-33.0); Mean Corpuscular Volume 90.8 fL (80.0-98.0); Mean Platelet Volume 8.8 fL (9.4-12.4); Platelet Count 269 X10*3/uL (160-400); Red Blood Count 4.46 X10*6/uL (4.60-5.80); Red Cell Distribution Width 12.9 % (11.0-16.0); White Blood Count 7.9 X10*3/uL (4.8-10.8)
[2022-08-18 06:50] LABS: Anion Gap 14 (12-20); Blood Urea Nitrogen 15 mg/dL (9-16); Calcium 8.7 mg/dL (8.4-10.2); Carbon Dioxide 24 mmol/L (22-29); Chloride 106 mmol/L (96-108); Creatinine Clr Calc Pharmacy 126.2; Estimated Glomerular Filt Rate > 60; Glucose Random 130 mg/dL (60-115); Potassium 3.8 mmol/L (3.3-5.1); Sodium 140 mmol/L (135-145)
--- NOTE | 2022-08-18 07:14 | PM.PNGS ---
Subjective Subjective Date of Service: 08/18/22 Patient reports: feels better, tolerating liquids well, flatus, bowel movement and nausea Interval history: , the patient reports interval improvement since his nasogastric tube was removed yesterday. He is passing gas, denies any abdominal pain, chest pain, difficulty breathing or shortness of breath. He does endorse some nausea. He is tolerating clear liquids with no vomiting. Physical Exam Vital Signs: Vital Signs: Last Vital Signs Temp 97.8 F 08/18/22 03:25 Pulse 68 08/18/22 03:25 Resp 18 08/18/22 03:25 BP 126/61 08/18/22 03:25 Pulse Ox 97 08/18/22 03:25 O2 Del Method 08/18/22 03:25 BMI result Body Mass Index 31.1 On exam he is nontoxic He is in good spirits Sclera remain anicteric He is in no acute respiratory distress His abdomen is soft and nontender with no rebound, rigidity, guarding or other peritoneal sign. His abdominal tenderness that he presented with is completely resolved. Rectal is deferred Objective Data Active Medications Acetaminophen (Acetaminophen Supp 650 Mg Supp.Rect) 650 mg [place] Q6H PRN PRN Reason: Pain, Mild (Pain Scale 1-3) Amlodipine Besylate (Amlodipine Besylate 2.5 Mg Tablet) 2.5 mg PO DAILY [facility]; Protocol Last Admin: 08/17/22 11:05 Dose: 2.5 mg Documented By: JULIO Atorvastatin Calcium (Atorvastatin Calcium 80 Mg Tablet) 80 mg PO BEDTIME [facility] Last Admin: 08/17/22 20:39 Dose: 80 mg Documented By: LESLIE Benzocaine (Throat Lozenge, Medicated Lozenge) 1 lozenge MUCOUS [place] Q2H PRN PRN Reason: Sore Throat Last Admin: 08/16/22 10:56 Dose: 1 lozenge Documented By: LEONOR Heparin Sodium (Porcine) (Heparin Sodium,Porcine 5,000 Unit/Ml Vial) 5,000 unit SUBCUT Q8H [facility] Last Admin: 08/18/22 05:30 Dose: 5,000 unit Documented By: LESLIE Metronidazole (Flagyl) 500 mg in 100 mls @ 100 mls/hr IV Q8H [facility] Last Infusion: 08/18/22 06:35 Dose: 0 mls/hr Documented By: LESLIE Isosorbide Mononitrate (Isosorbide Mononitrate 30 Mg Tab.Er.24h) 30 mg PO DAILY [facility]; Protocol Last Admin: 08/17/22 09:01 Dose: 30 mg Documented By: JULIO Lorazepam (Lorazepam 0.5 Mg Tablet) 0.5 mg PO Q8H PRN PRN Reason: anxiety/restlessness Last Admin: 08/17/22 11:07 Dose: 0.5 mg Documented By: JULIO Methylprednisolone Sodium Succinate (Methylprednisolone Sod Succ 40 Mg/Ml Vial) 20 mg IVPUSH Q8H [facility] Last Admin: 08/18/22 05:30 Dose: 20 mg Documented By: LESLIE Metoprolol Succinate (Metoprolol Succinate Er 50 Mg Tab.Er.24h) 50 mg PO BID [facility]; Protocol Last Admin: 08/17/22 20:40 Dose: 50 mg Documented By: LESLIE Morphine Sulfate (Morphine Sulfate 4 Mg/Ml Cartridge) 2 mg IVPUSH Q3H PRN; Protocol PRN Reason: Pain, Severe (Pain Scale 7-10) Naloxone HCl (Naloxone Hcl Nasal 4 Mg [place]) 4 mg NOSTRILALT ONCE PRN PRN Reason: Opiate Reversal Nitroglycerin (Nitroglycerin 0.4 Mg Tab.Subl) 0.4 mg SUBLINGUAL Q5M PRN PRN Reason: chest pain Omeprazole (Omeprazole 40 Mg Capsule.Dr) 40 mg PO DAILY@0630 [facility] Last Admin: 08/18/22 05:30 Dose: 40 mg Documented By: LESLIE Ondansetron HCl (Ondansetron Hcl 4 Mg/2 Ml Vial) 4 mg IVPUSH Q6H PRN PRN Reason: Nausea and Vomiting Last Admin: 08/16/22 17:52 Dose: 4 mg Documented By: ROCKY Pharmacy Consult (Consult Rx Perform Med Rec) 1 each MISCELLANE ONCE PRN PRN Reason: Consult order Sodium Chloride (0.9 % Sodium Chloride Flush 3 Ml Syringe) 3 ml IVFLUSH QSHIFT [facility] Last Admin: 08/17/22 20:41 Dose: 3 ml Documented By: LESLIE Tramadol HCl (Tramadol Hcl 50 Mg Tablet) 50 mg PO Q8H [facility] Last Admin: 08/18/22 02:30 Dose: Not Given Documented By: LESLIE Non-Admin Reason: Patient Refused Zolpidem Tartrate (Zolpidem Tartrate 5 Mg Tablet) 10 mg PO BEDTIME PRN PRN Reason: Insomnia Last Admin: 08/17/22 20:40 Dose: 10 mg Documented By: LESLIE Labs 08/18/22 05:37 08/18/22 05:37 Labs: Laboratory Results - last 24 hr 08/18/22 08/18/22 05:37 05:37 MCV 90.8 MCH 31.4 MCHC 34.6 RDW 12.9 Plt Count 269 MPV 8.8 L Absolute Nucleated RBC 0.000 Nucleated RBC % (auto) 0.0 Anion Gap 14 Estim Creat Clear Calc 126.2 Estimated GFR > 60 Random Glucose 130 H Calcium 8.7 Procedures Date of Service Date of Service: 08/18/22 Progress Note: A&P Assessment and plan (1) Exacerbation of Crohn's disease: Status: Acute (2) Partial obstruction of small intestine: Status: Acute (3) Crohn's disease: Status: Acute (4) Obesity: Status: Acute (5) Chronic pain syndrome: Status: Acute (6) Hyperlipidemia: Status: Acute Plan The patient remains surgically stable. Will sign off. Diet advancement as per GI. Follow up with GI regarding new Crohn's regime. I do not see any need for imaging and colonoscopy is deferred to GI. Would consider outpatient colorectal surgery consultation, if the patient is interested, however we reviewed that Crohn's is a chronic medical disease and that surgery is not curative. Patient declined colorectal follow-up at this time. Time Spent With Patient Time: Total time managing care of this patient today ____ minutes. Quality Stroke Does the patient have a stroke diagnosis?: No VTE Prior VTE?: No VTE Risk Level:: Medical - moderate - high VTE Device Contraindication: Treatment Not Indicated VTE Drug Contraindication: N/A - Med Ordered
[2022-08-18 08:00] VITALS: BP 139/62; PULSE 74; RESP 18; TEMP 36.8; O2SAT 97
[2022-08-18] MEDS: Isosorbide Mononitrate 30 MG TAB.ER.24H PO (08:44)
[2022-08-18] MEDS: Metoprolol Succinate ER 50 MG TAB.ER.24H PO (08:44)
[2022-08-18] MEDS: amLODIPine Besylate 2.5 MG TABLET PO (08:44)
[2022-08-18] MEDS: 0.9 % Sodium Chloride Flush 3 ML SYRINGE IVFLUSH (08:45)
[2022-08-18] MEDS: traMADoL HCL 50 MG TABLET PO (09:39)
--- NOTE | 2022-08-18 13:26 | PM.DS ---
DS: Providers Provider Date of Service: 08/18/22 Date of admission: 08/16/22 03:15 Primary care physician: Oscar Blanton MD Consults: 08/16/22 01:10 Consult to General Surgery Stat Consulting Provider: Leroy Amato Reason for consultation: Crohn's disease question stricture 08/16/22 03:15 Consult to Gastroenterology Routine Consulting Provider: Nicole Schwartz Reason for consultation: abd pain; hx crohns Consult to General Surgery Routine Consulting Provider: [facility] [place] [facility] Reason for consultation: Abd pain DS: Diagnosis Discharge Diagnosis (1) Exacerbation of Crohn's disease: Status: Acute (2) Partial obstruction of small intestine: Status: Acute DS: Summary Hospital Course Hospital Course: Admission note HPI 62-year-old male with a past medical history of hypertension, hyperlipidemia, CAD, chronic pain syndrome, Crohn's disease, history of recurrent small-bowel obstructions, history of small intestinal stricture, LBBB, obesity, GERD presented to the hospital today with a chief complaint of abdominal pain.? Patient mentioned that his symptoms started about 2 hours prior to coming to the ER.? Has acute onset of abdominal pain, diffuse in nature, nonradiating, associated nausea and vomiting.? Has multiple episodes of vomiting.? Denies any blood in the vomitus.?Denies any chest pain palpitations lightheadedness or dizziness.? Denies passing gas.?Episode appears to be is similar to the prior episodes of small-bowel obstruction.?Denies any fever chills cough or sputum production.? Per ER physician, patient noted to have diffuse abdominal tenderness; CT abdomen pelvis was done which showed small-bowel and inflammation; spoke to General surgery -> who reviewed the CT scan mentioned that no acute surgical intervention needed, suggested conservative management with NG tube and admission to the medicine service.? ER team also spoke to Dr. Wale sanchez from Gastroenterology-did not suggest steroids unless the ESR CRP is significantly elevated.? Recommended conservative management an NG tube.? After sometime in the ER patient has had a bowel movement.? Patient has had NG tube placed.? Admitted to the hospital for further management home Hospital course The patient was admitted to the hospital for treatment of small-bowel obstruction secondary to Crohn's disease exacerbation as shown on CT scan of the abdomen done in the emergency. NG tube was placed by surgery team who did not feel any need for intervention and suggested conservative management. The patient was started on IV fluid, bowel rest, IV Flagyl and steroids as he was evaluated by machine clothing worker who recommended long Ling of steroids upon discharge. The patient pain started to improve as the NG tube was removed and he was able to tolerate diet as it was advanced to regular during the hospital stay with no reported abdominal pain, nausea or vomiting as the patient was able to pass stool. Advance your diet slowly over the next few days, drink plenty of fluids Continue Flagyl for 4 more days Continue prednisone tapering dose over the next 5 weeks To follow-up as outpatient with Gastroenterology Time Spent with Patient Time attestation: Total time managing care of this patient today ____ minutes. Discharge coordination time: Greater than 30 minutes Quality: Safe Use of Opioids Does Pt have an Active Cancer Diagnosis on the Problem List?: No Quality: Stroke Does the patient have a stroke diagnosis?: No Physical Exam Vital Signs: Vital Signs: Last Vital Signs Temp 98.2 F 08/18/22 08:00 Pulse 74 08/18/22 08:00 Resp 18 08/18/22 08:00 BP 139/62 08/18/22 08:00 Pulse Ox 97 08/18/22 08:00 O2 Del Method 08/18/22 03:25 BMI result Body Mass Index 31.1 Const: Other: Constitutional : Awake, interactive, not in distress Neck : Normal inspection, Supple Cardiovascular : RRR, no JVP, no lower extremity edema Respiratory : good bilateral air entry, no crackles, wheezes or rhonchi Gastrointestinal: soft, lax, Normal bowel sounds, Non tender Skin : Warm, Dry Neurological : Alert & oriented x3, No focal deficit , CN 2-12 within normal DS: Data Data Completed and Pending Labs on day of discharge: Laboratory Results - last 24 hr 08/18/22 08/18/22 05:37 05:37 WBC 7.9 RBC 4.46 L Hgb 14.0 Hct 40.5 L MCV 90.8 MCH 31.4 MCHC 34.6 RDW 12.9 Plt Count 269 MPV 8.8 L Absolute Nucleated RBC 0.000 Nucleated RBC % (auto) 0.0 Sodium 140 Potassium 3.8 Chloride 106 Carbon Dioxide 24 Anion Gap 14 BUN 15 Creatinine 0.68 Estim Creat Clear Calc 126.2 Estimated GFR > 60 Random Glucose 130 H Calcium 8.[address] scan - abdomen: Radiologist's impression: ITS Impressions Abdomen/Pelvis CT 08/15/22 23:52 IMPRESSION: 1. There is a loop of distal ileum which is severely edematous and narrowed and the bowel distal to this is decompressed. Immediately prior to this, the small bowel is dilated with marked fecalization. Similar findings were present on the 10/30/2020 study but the degree of small bowel dilatation appears slightly greater on the current study. 2. Colonic diverticulosis without diverticulitis Fleischner guidelines were followed. Chest X-Ray 08/16/22 04:23 IMPRESSION: Enteric tube terminates in the stomach. Discharge Plan Discharge Anticipated Discharge Date/Time: 08/18/22 13:15 Patient Disposition: Home Health Service Discharge Diagnosis: Small-bowel obstruction Crohn's disease exacerbation Referrals: Oscar Blanton MD [Primary Care Provider] - 1 Week Discharge Medications: New metronidazole 500 mg tablet 500 mg PO Q8H Qty: 12 0RF prednisone 10 mg tablet See Taper PO DIRECTED Qty: 75 0RF Taper: Prednisone 40 mg daily for 7 Days and 0 Hour 30 mg daily for 7 Days and 0 Hour 20 mg daily for 7 Days and 0 Hour 10 mg daily for 7 Days and 0 Hour 5 mg daily for 7 Days and 0 Hour Rx Instructions: see taper instructions Continued omeprazole 40 mg capsule,delayed release(DR/EC) 40 mg PO DAILY Qty: 90 8RF nitroglycerin 0.4 mg tablet, sublingual 0.4 mg sublingual Q5M PRN (Reason: chest pain) Qty: 25 1RF Rx Instructions: every 5 min as needed for chest pain, do not exceed 3 doses per episode isosorbide mononitrate 30 mg tablet extended release 24 hr 30 mg PO DAILY Qty: 90 3RF zolpidem 10 mg tablet 10 mg PO BEDTIME PRN (Reason: sleep) 30 Days Qty: 30 5RF atorvastatin 80 mg tablet 80 mg PO DAILY Qty: 90 3RF amlodipine 2.5 mg tablet 2.5 mg PO DAILY Qty: 90 3RF metoprolol succinate [Toprol XL] 50 mg tablet extended release 24 hr 50 mg PO BID 90 Days Qty: 180 2RF promethazine 25 mg tablet 25 mg PO DAILY PRN (Reason: for nausea/vomiting) Qty: 30 2RF Entyvio 300 mg recon soln 300 mg IV Q4W Rx Instructions: administer over 30 mins tramadol 50 mg tablet 50 mg PO BID 30 Days Qty: 60 1RF Rx Instructions: Partial Fill upon patient request. Fill date 08/02/22 Discharge Orders: Discharge Order (Routine); Ordered 08/18/22 Ordered By: Lizbeth Rutledge Diet: Advance to usual diet Activity on Discharge: As tolerated Stand Alone Forms: Patient Portal Discharge page Care Plan Goals: Read below Health Concerns: Read below Plan of Treatment: Read below Assessment: You were admitted to the hospital for evaluation of abdominal pain. Found to have an evidence of intestinal obstruction secondary to Crohn's disease exacerbation. Treated with IV fluids, antibiotics and steroids with good response over the course of hospital stay as you were evaluated by Gastroenterology and surgery teams who recommended no intervention as your diet was advanced gradually with good tolerance. Advance your diet slowly over the next few days, drink plenty of fluids Continue Flagyl for 4 more days Continue prednisone tapering dose over the next 5 weeks To follow-up as outpatient with Gastroenterology
--- NOTE | 2022-08-18 13:49 | MHC.CM.PN ---
pt dcd home no skilled servceis ordered by
--- NOTE | 2022-08-18 14:11 | MHC.CM.PN ---
PT MEDICALLY CLEARED FOR D/C HOME SELF-CARE, PT TO ARRANGE TRANSPORT
== END 2022-08-18 14:10 | disposition home or self-care (01) | DRG 245 ==
LOC: HO.ED 08-16 01:16 → HO.EDOVER 08-16 03:23 → HO.S3 08-16 06:39
PROVIDERS: Admitting Provider Hospitalist; Emergency Provider Internal Medicine; PCP Internal Medicine; Visit Provider Student in an Organized Health Care Education/Training Program
DX: K50.012 Crohn's disease of small intestine with intestinal obstruction (principal); E66.9 Obesity, unspecified; I48.0 Paroxysmal atrial fibrillation; E78.5 Hyperlipidemia, unspecified; I25.10 Atherosclerotic heart disease of native coronary artery without angina pectoris; Z68.31 Body mass index [BMI] 31.0-31.9, adult; Z79.899 Other long term (current) drug therapy
CPT/HCPCS: 36415; 71045; 74177; 80048; 80053; 81003; 82248; 83690; 85025; 85027; 85652; 86140; 87635; 99285; J1170; J1200; J1643; J2060; J2270; J2405; J2765; J2920; J3010; Q9967

== ENCOUNTER → 2022-09-11 08:23 | Outpatient (BNVA) | payer OTHER, SELFPAY | PROVIDERS: PCP Internal Medicine; Visit Provider Nurse Practitioner Family | DX: Z13.89 Encounter for screening for other disorder (principal) ==

== ENCOUNTER → 2022-09-22 08:42 | Outpatient (REF) | payer OTHER, SELFPAY ==
--- NOTE | 2022-09-22 08:44 | CA_ITS ---
Transthoracic Echocardiogram Patient (Last, First, Middle): Jeremias Montelongo P Gender: Male Date of : 1960 Age: 62 Procedure Date: 09/22/2022 Procedure Type: Transthoracic Echocardiogram Location: OP Height: 172.72 cm Weight: 89.81 kg BSA: 2.04 m2 Heart Rate: bpm BP: 120 / 78 mmHg Sustainable Products Marketing Manager: TO Referring MD: Chay Guzmán MD Chief Radiation Therapist: Chay Guzmán MD Symptoms: I44.7 - Left bundle-branch block, unspecified Study Quality: Fair ECG Rhythm: Sinus Conclusions: - 1. Low normal LV ejection fraction 50-55% with grade 1 diastolic dysfunction with moderate asymmetric septal hypertrophy 2. Fibrocalcific aortic valve noted with trivial aortic regurgitation 3. Normal RV systolic pressure 4. Mildly dilated ascending aorta at 4 cm 5. No pericardial effusion Findings Left Ventricle Normal left ventricular cavity size. There is normal left ventricular wall thickness. The left ventricular systolic function is low normal. The visually estimated ejection fraction is between 50-55%. There is paradoxical septal motion consistent with a left bundle branch block. Spectral Doppler is indicative of an impaired relaxation filling pattern. E/E prime ratio is <8, consistent with normal filling pressures. Evidence suggests grade I (mild) diastolic dysfunction. There is moderate septal asymmetric hypertrophy. Right Ventricle Normal right ventricular cavity size and systolic function. Atria The left atrium is likely dilated. There is no evidence of interatrial shunt. The right atrium is normal in size. Aortic Valve There is mild calcification of the aortic valve. There is mild thickening of the aortic valve. There is no aortic valve stenosis. There is trace (trivial) aortic valve regurgitation. Mitral Valve There is mild anterior and posterior mitral leaflet thickening. There is mild mitral annular calcification. There is trace mitral valve regurgitation. There is no mitral valve stenosis. Pulmonic Valve The pulmonic valve is likely normal. Tricuspid Valve Normal tricuspid valve structure. There is trace tricuspid valve regurgitation. The right ventricular systolic pressure is normal. The right ventricular systolic pressure is 21 mmHg. Normal right atrial pressure. There is no evidence of pulmonary hypertension. Great Vessels The pulmonary artery was not well visualized. There is mild dilatation of the ascending aorta measuring 4.00 cm. Venous The inferior vena cava is normal in size and collapses greater than 50% with inspiration. Pericardium/Pleural There is no evidence of pericardial effusion. Prior Study Comparison Changes noted compared to prior study dated: 09/28/2020. LV ejection fraction is reduced Measurements 2D Linear Measurements IVSd: 1.94 0.6-0.9/0.6-1.0 cm LVIDd: 5.19 3.9-5.3/4.2-5.9 cm LVIDd Index: 2.54 2.4-3.2/2.2-3.1 cm/m2 LVIDs: 2.94 2.0-3.6 cm LVPWd: 1.02 0.7-1.1 cm LA Diam: 3.30 2.7-3.8/3.0-4.0 cm LAIDs Index: 1.62 1.5-2.3 cm/m2 LV Mass: 417.61 67-162/88-224 g LV Mass Index: 204.71 43-95/49-115 g/m2 LVOT Diam: 2.10 3.0+(-)1.3 cm 2D Systolic Function EF 4C: 53.60 >55% EF 2C: 51.50 >55% EF BiP: 53.60 >55% Mitral Valve MV Pk E: 0.45 MV PK A: 0.65 MV Decel Time: 185.00 E/A: 0.70 E'Lateral: 7.51 E'Medial: 4.46 E/E' Med: 10.20 E/E' Lat: 6.00 PHT: 54.00 MVA PHT: 4.07 Decel [place]: 2.46 Aortic Valve AoV Pk Eduardo: 1.35 AoV Mn Eduardo: 0.99 AoV VTI: 0.26 AoV Pk Grad: 7.00 Aov Mn Grad: 4.00 ANGI Cont.VTI: 3.34 LVOT LVOT Pk Eduardo: 1.24 LVOT Mn Eduardo: 0.92 LVOT VTI: 0.25 LVOT Pk Grad: 6.00 LVOT Mn Grad: 4.00 LVOT Diam: 2.10 LVOT Area: 3.46 Diastolic Function MV Pk E: 0.45 MV Pk A: 0.65 E/A: 0.70 E'Medial: 4.46 E/E' Med: 10.20 E' Laterial: 7.51 E/E' Lat: 6.00 Right Ventricle TAPSE (mm): 24.30 TVS' Eduardo: 10.30 Tricuspid Valve TR Pk Eduardo: 2.10 TR Pk Grad: 18.00 RA Press: 3.00 RVSP: 21.00 Great Vessels Aorta Sinus of Valsalva: 3.88 2.0-3.5 cm Ao Asc: 4.00 2.1-3.4 cm Updated in Other Vendor System with Status of Final Chay Guzmán MD electronically signed on 09/23/2022 11:54:26 AM with status of Final
== END ==
LOC: HO.CARD 08:42
PROVIDERS: PCP Internal Medicine; Visit Provider Internal Medicine Cardiovascular Disease
DX: I44.7 Left bundle-branch block, unspecified (principal)
CPT/HCPCS: 93306

== ENCOUNTER → 2022-10-09 08:31 | Outpatient (BNVA) | payer OTHER, SELFPAY | PROVIDERS: PCP Internal Medicine; Visit Provider Internal Medicine | DX: Z13.89 Encounter for screening for other disorder (principal) ==

== ENCOUNTER 2022-12-14 07:27 | Day surgery (SDC) | payer OTHER, SELFPAY ==
[2022-12-14 08:09] VITALS: BMI 31.5
--- NOTE | 2022-12-14 08:38 | HO.ANESPROP2 ---
HPI - Anesthesia Eval Consult details Narrative: 62 M for colonoscopy denies chest pain , funtional status greater than 4 mets CAD, LBBB cardiac stents x2 PMFSH Active Problems Active Problems: All Active Problems (Updated 08/26/22 @ 00:02 by Heron Ruiz) Abdominal pain (Acute) Exacerbation of Crohn's disease (Acute) Labile blood pressure (Acute) Right knee pain (Acute) Swelling of knee joint, left (Acute) Obesity (Acute) Physical exam (Acute) Exertional angina (Acute) LBBB (left bundle branch block) (Acute) Hypertension (Acute) GERD without esophagitis (Acute) Past Medical History Medical History CAD (coronary artery disease) Chronic abdominal pain Chronic pain syndrome Crohn's disease Crohn's disease GERD without esophagitis History of paroxysmal atrial tachycardia Hyperlipidemia Hyperlipidemia Hypertension LBBB (left bundle branch block) Obesity Obesity Paroxysmal atrial fibrillation Stricture of small intestine Swelling of knee joint, left Functional capacity: independent ambulation Family History Family History Father Family history unknown Mother Hx of Crohn's disease Family history of problems with anesthesia: No Surgical History Surgical History History of colonoscopy Hx of endoscopy Stented coronary artery History of Problems with Anesthesia: No Social History Social History Household Members: Friend(s) Household Members Other:: 1 Housing: House Are you a primary companion caregiver to a significant other at home: No Do you presently have visiting nurse or other home services: No Alcohol intake: never Patient Tobacco Use Status: Never used Tobacco e-Cigarette/Vaping Use: Never Used Second Hand Smoke Exposure: No Advance Directives Date on File: 08/16/22 service: Yes Current occupational status: employed Cognitive needs: No Hearing needs: No Vision needs: No Meds Allergies Allergy/AdvReac Type Severity Reaction Status Date / Time No Known Allergies Allergy Mild none Verified 10/09/22 10:23 Active Medications: Current Medications Lactated Ringer's (Lr) 1,000 mls @ 100 mls/hr IVCONT .Q10H MY Last Admin: 12/14/22 08:23 Dose: 100 mls/hr Home Medications Medication Instructions Recorded Confirmed Last Taken Type risankizumab-rzaa 150 mg/mL 150 mg subcut Q12W 10/09/22 10/09/22 Unknown History subcutaneous pen injector (Husseinyrizi) duloxetine 30 mg capsule,delayed 30 mg PO DAILY 10/13/22 Unknown History release hydroxyzine HCl 25 mg tablet 25 mg PO DAILY PRN 10/13/22 Unknown History Exam Exam Date and Time: December 14, 2022 0838 Height,Weight and Vital Signs: Height 5 ft 8 in Weight 93.894 kg Narrative Narrative: ? Transthoracic Echocardiogram Procedure Date:? 09/22/2022 Procedure Type:? Transthoracic Echocardiogram Symptoms:? I44.7 - Left bundle-branch block, unspecified ?? ? Conclusions: - 1. Low normal LV ejection fraction 50-55% with grade 1 ? diastolic dysfunction with moderate asymmetric septal hypertrophy 2. Fibrocalcific aortic valve noted with trivial aortic? regurgitation? 3. Normal RV systolic pressure ? 4. Mildly dilated ascending aorta at 4 cm? 5. No pericardial effusion ? ? Airway Mallampati Class: IV Neck ROM: Full Loose/Missing/Broken Teeth: Yes Assessment and Plan Assessment Anesthesia Assessment: Anesthesia Plan Discussed and Chart Reviewed Final Anesthetic Review Family History of Problems with Anesthesia: No History of Problems with Anesthesia: No NPO: Yes ASA Class: III Final Preanesthetic Review: Meds/Allgs Chart Reviewed, Consent Obtained/Reviewed and Anes Risks/Benef Reviewed Patient Risk: High Procedure Risk: Intermediate Anesthetic Plan Anesthetic Plan: MAC: and Agree w/ Assess. and Plan Disposition: Standard PACU
--- NOTE | 2022-12-14 09:03 | MHC.SHP ---
Pre-Procedural Eval Section A Date of Service: 12/14/22 Section B Chief Complaint: Crohn's disease, unspecified, without complication Relevant Family History (Specify if Yes): No Relevant Social History: None Present Medications: see Short Stay Collaborative assessment Medical History: Significant History (CAD (coronary artery disease) Chronic abdominal pain Chronic pain syndrome Crohn's disease Crohn's disease GERD without esophagitis History of paroxysmal atrial tachycardia Hyperlipidemia Hyperlipidemia Hypertension LBBB (left bundle branch block) Obesity Obesity Paroxysmal atrial fibrillation Stric) History of Previous Operations: Relevant previous surgery/procedure and date(s) (History of colonoscopy Hx of endoscopy Stented coronary artery) Allergies: Allergies Allergy/AdvReac Type Severity Reaction Status Date / Time No Known Allergies Allergy Mild none Verified 10/09/22 10:23 Review of Systems Sugical H&P ROS: Negative: Constitution, Cardiovascular, Respiratory, Neurological, Psychiatric, Hem-Onc, Allergic/Immunologic, Gastrointestinal, Genitourinary, Musculoskeletal, Integumentary, Endocrine and Eyes/Ears/Nose/Throat Exam Surgical H&P Exam: Normal: HEENT, Normal: Heart, Normal: Lungs, Normal: Extremities, Normal: Abdomen, Normal: Skin and Normal: Neurological Plan Diagnosis/Plan: Unchanged I have reviewed the history and physical and performed a pertinent physical examination on my patient. No changes have occurred unless specified. Time Spent With Patient Time: Total time managing care of this patient today ____ minutes.
--- NOTE | 2022-12-14 10:06 | W.PM.OPN ---
Operative Note Operative Note Date of Service: 12/14/22 Narrative: Operative Information Procedure Description: Colonoscopy Indication: crohns Anesthesia: MAC COLONOSCOPY Instrument: Olympus variable stiffness pediatric scope 190L Colonoscopy Monitoring: Vital signs and clinical assessment, continuous EKG monitoring, Pulse oximetry, Carbon Dioxide monitoring and blood pressure monitoring were done throughout the procedure. Colon withdrawal time was 25 minutes. Procedure: The patient was placed in the left lateral decubitis position and pre-procedure medications were administered. After a digital rectal examination of the ano-rectum, the video colonoscope was inserted into the rectum and advanced through the colon to the cecum/TI. The colonoscope was slowly withdrawn in a retrograde panoramic fashion and the colon mucosa was carefully examined including a retroflexed view of the rectum. Findings and interventions are described below. Procedure Difficulty: moderate Findings: Chromoendoscopy with methylene was performed ileocecal stricture noted- dilated with balloon from 15-18 mm and biopsies taken from TI, some erosions and irregular mucosa noted. The stricture area was injected with 40 mg Kenalog around the edges. Cecum:normal, random bx taken Ascending Colon: normal, random bx taken Transverse Colon -normal, random bx taken Descending Colon: 5-7 mm sessile polyp removed with cold forceps , random bx taken Sigmoid Colon: Moderate diverticulosis, random bx taken Rectum: Retroflexion with small internal hemorrhoids, grade I, , random bx taken Anorectum - normal Colon preparation: [place] Bowel Preparation Scale Right colon; 2 Transverse colon: 3 Left colon; 3 (0 = Unprepared colon segment with mucosa not seen due to solid stool that cannot be cleared. 1 = Portion of mucosa of the colon segment seen, but other areas of the colon segment not well seen due to staining, residual stool and/or opaque liquid. 2 = Minor amount of residual staining, small fragments of stool and/or opaque liquid, but mucosa of colon segment seen well. 3 = Entire mucosa of colon segment seen well with no residual staining, small fragments of stool or opaque liquid) Impression and Post Procedure Diagnosis: ileocecal stricture polyp internal hemorrhoids diverticular disease Plan: low fiber diet leaflet Avoid straining at stool, epsom salts and sitz bath, anusol supps or cream Repeat Colonoscopy in 1-2 years or earlier if clinically indicated Above findings were reviewed with the patient and relevant handouts were provided if indicated.
[2022-12-14 10:12] VITALS: BP 115/73; PULSE 85; RESP 16; TEMP 36.6; O2SAT 97
[2022-12-14 10:27] VITALS: BP 122/81; PULSE 82; RESP 20; TEMP 36.3; O2SAT 96
== END 2022-12-14 10:51 | disposition home or self-care (01) ==
PROVIDERS: PCP Internal Medicine; Visit Provider Internal Medicine Gastroenterology
PROC: 0DJD8ZZ Inspection of Lower Intestinal Tract, Via Natural or Artificial Opening Endoscopic (ICD-10-PCS; CPT 45378; principal; 2022-12-14 09:20)
DX: Z12.11 Encounter for screening for malignant neoplasm of colon (principal); D12.4 Benign neoplasm of descending colon; K56.699 Other intestinal obstruction unspecified as to partial versus complete obstruction; K57.30 Diverticulosis of large intestine without perforation or abscess without bleeding; K64.0 First degree hemorrhoids; K50.90 Crohn's disease, unspecified, without complications; I10 Essential (primary) hypertension; I48.0 Paroxysmal atrial fibrillation
CPT/HCPCS: 45386; 45381; 45380; 88305; C1726; J3010; J3301; Q9968

== ENCOUNTER → 2022-12-15 07:56 | Outpatient (BNVA) | payer OTHER, SELFPAY | PROVIDERS: PCP Internal Medicine; Visit Provider Internal Medicine ==

== ENCOUNTER 2023-02-09 08:33 | Outpatient (AMB) | payer OTHER, SELFPAY ==
--- NOTE | 2023-02-09 08:44 | A.OFFVIS_ITS ---
Intake Vital Signs 02/09/23 08:45 Height 5 ft 8 in Weight 211 lb BMI 32.1 BP 124/82 Blood Pressure Location Lt brachial Position Sitting Respiration 14 Pulse 82 Pulse Source Pulse Oximeter Pulse Oximetry (%) 94 Oxygen Delivery Method Room Air Intake Visit Reasons: PILL COUNT Allergies No Known Allergies Allergy (Mild, Verified 02/09/23 08:44) none Medication List - Last Reconciled 02/09/23 by Sofia Sutherland LPN amlodipine 2.5 mg PO DAILY atorvastatin 80 mg PO DAILY budesonide ER 3 mg PO DAILY duloxetine 30 mg PO DAILY hydroxyzine HCl 25 mg PO DAILY PRN isosorbide mononitrate ER 30 mg PO DAILY metoprolol succinate ER (Toprol XL) 50 mg PO BID 90 days nitroglycerin 0.4 mg sublingual Q5M PRN omeprazole 40 mg PO DAILY promethazine 25 mg PO DAILY PRN risankizumab-rzaa (Skyrizi) 150 mg subcut Q12W risankizumab-rzaa (Skyrizi) 360 mg (2.4 mL) subcut .8 weeks 56 days tramadol 50 mg PO BID 30 days zolpidem 10 mg PO BEDTIME PRN 30 days HPI PILL COUNT HPI Details 62-year-old male presenting today for a pill count. 22 pills were expected, 21 were presented. He states that his Crohn's disease symptoms are stable. He is still experiencing mild abdominal pain. He he was placed on low-dose steroid therapy by Dr. Hadley with good relief. He has a follow-up with Dr. Hadley on 03/02/23. He is not currently taking calcium/Vit D supplements daily.?He states that he has been physically active at home. [facility] Medical History CAD (coronary artery disease) Chronic abdominal pain Chronic pain syndrome Crohn's disease Crohn's disease GERD without esophagitis History of paroxysmal atrial tachycardia Hyperlipidemia Hyperlipidemia Hypertension LBBB (left bundle branch block) Obesity Obesity Paroxysmal atrial fibrillation Stricture of small intestine Swelling of knee joint, left Surgical History History of colonoscopy Hx of endoscopy Stented coronary artery Family History Father Family history unknown Mother Hx of Crohn's disease Social History Household Members: Friend(s) Household Members Other:: 1 Housing: House Are you a primary medical care evaluation specialist to a significant other at home: No Do you presently have visiting nurse or other home services: No Alcohol intake: never Patient Tobacco Use Status: Never used Tobacco e-Cigarette/Vaping Use: Never Used Second Hand Smoke Exposure: No Advance Directives Date on File: 08/16/22 service: Yes Current occupational status: employed Cognitive needs: No Hearing needs: No Vision needs: No Review of Systems Const All systems reviewed & are unremarkable except as noted in HPI and below Physical Exam Vital Signs: Last Vital Signs Pulse 82 02/09/23 08:45 Resp 14 02/09/23 08:45 BP 124/82 02/09/23 08:45 Pulse Ox 94 02/09/23 08:45 Oxygen Delivery Method Room Air 02/09/23 08:45 BMI result Body Mass Index 32.1 General: Appears afebrile. Alert and oriented. Mood and affect appropriate. Follows and participates in conversation appropriately. Respiratory effort is unlabored. Able to transition from sit to stand unassisted. Ambulates with bilaterally normal heel strike and toe off. Results Reviewed Results Reviewed: No imaging is available for review. Assessment & Plan Assessment & Plan (1) Abdominal pain: Code(s): R10.9 - Unspecified abdominal pain Plan 1. Pill count and Mass Pat was consistent. He is not due for refill today so he will call us in 6 weeks when he is ready for his next refill. Patient will follow up end of April for pill count.? 2. I recommended performing gentle exercises for about 15?20 minutes at home every day. Also recommended to start taking vitamin-D and calcium supplements in setting of risk of osteoporosis from chronic steroid therapy. Scribed for Dr. Figueredo by Matias Galaviz, registered medical transcriptionist, on 02/09/2023. I, Dr. Figueredo, have personally reviewed and agree with the information entered by the scribe. Coding Level of Care Code Est Pt Level 3 (76734) Diagnoses Abdominal pain R10.9
[2023-02-09 08:45] VITALS: BP 124/82; PULSE 82; RESP 14; O2SAT 94; BMI 32.1
== END 2023-02-09 09:03 | disposition home or self-care (01) ==
PROVIDERS: PCP Internal Medicine; Visit Provider Internal Medicine
DX: K50.90 Crohn's disease, unspecified, without complications (principal); Z79.891 Long term (current) use of opiate analgesic
CPT/HCPCS: 99213

== ENCOUNTER → 2023-02-09 08:33 | Outpatient (BNVA) | payer OTHER, SELFPAY | PROVIDERS: PCP Internal Medicine; Visit Provider Internal Medicine ==

== ENCOUNTER 2023-02-20 09:46 | Outpatient (AMB) | payer OTHER, SELFPAY ==
--- NOTE | 2023-02-20 09:51 | MHC.OFFVIS ---
Intake Vital Signs 02/20/23 09:52 Height 5 ft 8 in Weight 213 lb 13.574 oz BMI 32.5 BP 126/84 Blood Pressure Location Lt brachial Position Sitting Pulse 69 Intake Visit Reasons: 6 month f/u Intake Note: 6 month follow-up with ekg feeling good [employer] Shift Lead Required: No Allergies No Known Allergies Allergy (Mild, Verified 02/09/23 08:44) none Medication List - Last Reconciled 02/20/23 by Chay Guzmán MD amlodipine 2.5 mg PO DAILY atorvastatin 80 mg PO DAILY budesonide ER 3 mg PO DAILY duloxetine 30 mg PO DAILY hydroxyzine HCl 25 mg PO DAILY PRN isosorbide mononitrate ER 30 mg PO DAILY metoprolol succinate ER (Toprol XL) 50 mg PO BID 90 days nitroglycerin 0.4 mg sublingual Q5M PRN omeprazole 40 mg PO DAILY promethazine 25 mg PO DAILY PRN risankizumab-rzaa (Skyrizi) 150 mg subcut Q12W risankizumab-rzaa (Skyrizi) 360 mg (2.4 mL) subcut .8 weeks 56 days tramadol 50 mg PO BID 30 days zolpidem 10 mg PO BEDTIME PRN 30 days HPI HPI Comments History of Present Illness Details Jose comes for follow-up. He has gained some weight and is not exercising as much. Denies any exertional chest discomfort similar to his angina. Denies any prolonged irregular heartbeat or palpitations. His Crohn's disease has been under control and has had no significant diarrhea or bloody diarrhea. Takes all his medications regularly. No lightheadedness, syncope. No heart failure symptoms. No recent lipid panel. [facility] Medical History CAD (coronary artery disease) Paroxysmal atrial fibrillation Obesity Swelling of knee joint, left Obesity Chronic pain syndrome Chronic abdominal pain Hyperlipidemia Stricture of small intestine Crohn's disease LBBB (left bundle branch block) Hypertension Hyperlipidemia GERD without esophagitis History of paroxysmal atrial tachycardia Crohn's disease Surgical History Stented coronary artery Hx of endoscopy History of colonoscopy Family History Father Family history unknown Mother Hx of Crohn's disease Social History Household Members: Friend(s) Household Members Other:: 1 Housing: House Are you a primary healthcare administrative assistant to a significant other at home: No Do you presently have visiting nurse or other home services: No Alcohol intake: never Patient Tobacco Use Status: Never used Tobacco e-Cigarette/Vaping Use: Never Used Second Hand Smoke Exposure: No Advance Directives Date on File: 08/16/22 service: Yes Current occupational status: employed Cognitive needs: No Hearing needs: No Vision needs: No Review of Systems Const Denies chills, Denies fatigue, Denies fever(s), Denies frequent falls, Denies weakness, Denies weight gain and Denies weight loss ENT Denies dizziness Card Denies chest pain, Denies leg edema, Denies lightheadedness, Denies palpitations, Denies dyspnea, Denies dyspnea on exertion, Denies orthopnea and Denies other (loss of consciousness) Resp Denies cough, Denies dyspnea and Denies dyspnea on exertion GI Denies hematochezia and Denies change in stool character Musc Denies abnormal gait, Denies muscle weakness, Denies numbness, Denies radiating pain into limb and Denies tingling Neuro Denies abnormal gait, Denies dizziness, Denies frequent falls, Denies numbness, Denies tingling and Denies weakness Endo Denies fatigue and Denies palpitations Physical Exam Vital Signs: Last Vital Signs Pulse 69 02/20/23 09:52 BP 126/84 02/20/23 09:52 BMI result Body Mass Index 32.5 Const General: cooperative, comfortable, no acute distress, alert, awake and anxious Nutritional Appearance: obese Orientation/consciousness: patient oriented x3 Limitations: no limitations Neck Neck: Yes trachea midline, Yes supple and Yes no JVD Resp Effort & Inspection: normal respiratory effort Auscultation: clear to auscultation bilaterally Cardio Jugular venous distension: no JVD Palpation: normal PMI Rate: regular rate Rhythm: regular rhythm Heart sounds: S1 normal heart sound present and S2 normal heart sound present Skin General skin exam: no rashes or lesions noted Neuro General: patient oriented x3 and no focal motor deficits Extrem General: Yes no clubbing, cyanosis or edema Psych Appearance: grossly normal Office Procedures EKG Details: EKG shows normal sinus rhythm with left bundle-branch block, unchanged from [id number], Complete Assessment & Plan Assessment & Plan (1) CAD (coronary artery disease): Code(s): I25.10 - Atherosclerotic heart disease of [place] coronary artery without angina pectoris Plan: Patient with prior CAD and stenting. Currently not on any antiplatelet therapy as he is concerned about bleeding. Discussed with the more risk of stroke as well as myocardial infarction. Continue current dual antianginal therapy which has helped his anginal symptoms. Blood pressure is currently well optimized. Continue statin therapy with target goal LDL less than 70 mg/dL. Advised to monitor blood blood pressure at home maintain a log. Advised lipid panel near future. (2) Paroxysmal atrial fibrillation: Code(s): I48.0 - Paroxysmal atrial fibrillation Plan: Paroxysmal atrial fibrillation, has remained suppressed. No recurrent episodes. CHADSVASc score of 2. Discussed with him about use of oral anticoagulation agent as his Crohn's disease as remained stable. However he is very concerned about it. Discussed about Watchman device and he said he might be more open to discussing Watchman device. He wants to think about it and he will call me. Will refer him if he is willing to undergo Watchman device evaluation. (3) LBBB (left bundle branch block): Code(s): I44.7 - Left bundle-branch block, unspecified Plan: Left bundle-branch block which has remained stable. Noted low normal LV systolic function. No interventions required per se for the same. (4) Enlarged thoracic aorta: Code(s): I77.89 - Other specified disorders of arteries and arterioles Plan: Mild thoracic aortic aneurysm which has remained stable. Continue aggressive medical therapy. Continue aggressive control blood pressure. Blood pressure is currently well optimized. Advised to monitor the same. Advised to avoid sudden strenuous isometric exercise. Follow-up echocardiogram on annual basis. Will follow up in the clinic in 7 months time after an echocardiogram. Thank you for allowing me to partake in his care Orders: Orders CA echo transthoracic complete 7 Months I77.89 - Other specified disorders of arteries and arterioles Coding Level of Care Code Est Pt Level 4 (02545) Diagnoses CAD (coronary artery disease) I25.10 Paroxysmal atrial fibrillation I48.0 LBBB (left bundle branch block) I44.7 Enlarged thoracic aorta I77.89 CPT Codes EKG - CPT: 04708-[id number], Complete ([id number])
[2023-02-20 09:52] VITALS: BP 126/84; PULSE 69; BMI 32.5
== END 2023-02-20 10:14 | disposition home or self-care (01) ==
PROVIDERS: PCP Internal Medicine; Referring Provider Internal Medicine; Visit Provider Internal Medicine Cardiovascular Disease
DX: I25.10 Atherosclerotic heart disease of native coronary artery without angina pectoris (principal); I48.0 Paroxysmal atrial fibrillation; I44.7 Left bundle-branch block, unspecified; I77.89 Other specified disorders of arteries and arterioles
CPT/HCPCS: 93010; 99214

== ENCOUNTER → 2023-02-20 09:46 | Outpatient (BNVA) | payer OTHER, SELFPAY | PROVIDERS: PCP Internal Medicine; Referring Provider Internal Medicine; Visit Provider Internal Medicine Cardiovascular Disease | DX: I25.10 Atherosclerotic heart disease of native coronary artery without angina pectoris (principal); I48.0 Paroxysmal atrial fibrillation; I44.7 Left bundle-branch block, unspecified; I77.89 Other specified disorders of arteries and arterioles; Z79.899 Other long term (current) drug therapy | CPT/HCPCS: 93005 ==

== ENCOUNTER 2023-04-30 09:03 | Outpatient (AMB) | payer OTHER, SELFPAY ==
--- NOTE | 2023-04-30 09:07 | MHC.OFFVIS ---
Intake Vital Signs 04/30/23 09:09 Height 5 ft 8 in Weight 221 lb BMI 33.6 Blood Pressure Location Lt brachial Position Sitting Respiration 12 Pulse 101 H Pulse Source Pulse Oximeter Pulse Oximetry (%) 97 Oxygen Delivery Method Room Air Intake Visit Reasons: PILL COUNT/CONFIRMED Intake Note: BP taken manually, Pt states he is stressed as his cousin is going on hospice. Pt has a BP machine at home, and will notify his PCP if it stays elevated Allergies No Known Allergies Allergy (Mild, Verified 02/09/23 08:44) none HPI PILL COUNT/CONFIRMED HPI Details 63-year-old male who presents today to the office for a pill count. 34 pills were expected, and 33 pills were presented.He states that his abdominal pain is bothersome but well controlled on the current dose of tramadol. His blood pressure reading was 150/100 mmHg today in the office. He is taking amlodipine. He has been following up with his sql database administrator. He has a blood pressure monitoring machine at home. His brother was diagnosed with throat cancer a few years ago. He developed pneumonia recently and was placed on a feeding tube. [facility] Medical History CAD (coronary artery disease) Paroxysmal atrial fibrillation Obesity Swelling of knee joint, left Obesity Chronic pain syndrome Chronic abdominal pain Hyperlipidemia Stricture of small intestine Crohn's disease LBBB (left bundle branch block) Hypertension Hyperlipidemia GERD without esophagitis History of paroxysmal atrial tachycardia Crohn's disease Surgical History Stented coronary artery Hx of endoscopy History of colonoscopy Family History Father Family history unknown Mother Hx of Crohn's disease Household Members: Friend(s) Household Members Other:: 1 Housing: House Are you a primary child caregiver to a significant other at home: No Do you presently have visiting nurse or other home services: No Alcohol intake: never Patient Tobacco Use Status: Never used Tobacco e-Cigarette/Vaping Use: Never Used Second Hand Smoke Exposure: No Advance Directives Date on File: 08/16/22 service: Yes Current occupational status: employed Cognitive needs: No Hearing needs: No Vision needs: No Review of Systems Const All systems reviewed & are unremarkable except as noted in HPI and below Physical Exam Vital Signs: Last Vital Signs Pulse 101 H 04/30/23 09:09 Resp 12 04/30/23 09:09 Pulse Ox 97 04/30/23 09:09 Oxygen Delivery Method Room Air 04/30/23 09:09 BMI result Body Mass Index 33.6 General: Appears afebrile. Alert and oriented. Mood and affect appropriate. Follows and participates in conversation appropriately. Respiratory effort is unlabored. Able to transition from sit to stand unassisted. Ambulates with bilaterally normal heel strike and toe off. Results Reviewed Results Reviewed: No imaging is available for review. Assessment & Plan Assessment & Plan (1) Hypertension: Code(s): I10 - Essential (primary) hypertension (2) Abdominal pain: Code(s): R10.9 - Unspecified abdominal pain Qualifiers: Abdominal location: generalized Qualified Code(s): R10.84 - Generalized abdominal pain Plan Pill count was consistent. Refill Tramadol 50 mg BID starting 05/17/23 with 1 refill. Patient will follow up in two months for pill count and refill. We discussed optimizing blood pressure and he will follow up with his sql database administrator as needed. Scribed for Dr. Figueredo by Matias Galaviz, medical device engineer, on 04/30/2023. I, Dr. Figueredo, have personally reviewed and agree with the information entered by the scribe. Medications: Changed From tramadol Partial Fill upon patient request. 50 mg PO BID 30 days 60 tabs 1RF pain K50.90 - Crohn's disease, unspecified, without complications To tramadol Partial Fill upon patient request. Fill date 05/17/23 50 mg PO BID 60 tabs 1RF pain 30 days K50.90 - Crohn's disease, unspecified, without complications Coding Level of Care Code Est Pt Level 4 (61453) Diagnoses Hypertension I10 Generalized abdominal pain R10.84 Abdominal location: generalized
[2023-04-30 09:09] VITALS: PULSE 101; RESP 12; O2SAT 97; BMI 33.6
== END 2023-04-30 09:32 | disposition home or self-care (01) ==
PROVIDERS: PCP Internal Medicine; Visit Provider Internal Medicine
DX: R10.84 Generalized abdominal pain (principal); I10 Essential (primary) hypertension; Z79.891 Long term (current) use of opiate analgesic
CPT/HCPCS: 99214

== ENCOUNTER → 2023-04-30 09:03 | Outpatient (BNVA) | payer OTHER, SELFPAY | PROVIDERS: PCP Internal Medicine; Visit Provider Internal Medicine ==

== ENCOUNTER 2023-05-11 08:36 | Outpatient (AMB) | payer OTHER, SELFPAY ==
--- NOTE | 2023-05-11 08:36 | MHC.OFFVIS ---
Intake Intake Visit Reasons: 2 month follow up Intake Note: Jeremias presents as a telehealth for a 2 month follow up . CC: States he is not having any GI concerns just not feeling well today. Allergies No Known Allergies Allergy (Mild, Verified 05/11/23 08:37) none HPI 2 month follow up HPI Details 63-year-old male w/ hx of CAD< GERD, LBBB, a-fib and Crohn's disease,(Dx 2012) who I am seeing for f/u for crohns disease and SBO--w/ fibrostentoic disease RECAP: He had been seen as inpatient 10/2020 for obstruction, prior had also been seeing Dr werner Patient has had crohns disease for many years and is on humira q1wk after having multiple admissions for SBO and crohns flare ups with sub therapeutic adalimumab levels. He was well night before admission. He ate some fried food and shortly after noted abdominal distention, with nausea and several episodes of nonbloody, nonbilious emesis which resembled prior attacks of SBO. He denies fever, chills, shortness of breath, or chest pain. He said on average he gets one attack like this every 8-12 months. Since the humira increase he has felt his background symptoms are much better and he rarely takes tramadol or anti nausea medication. Not taking nsaids. CT of the abdomen and pelvis showed small bowel obstruction with transition point in the right pelvis, and reactive mesenteric lymph nodes.? He was given IV fluids and piperacillin/tazobactam. He is non smoker. OTHER DATA: Adalimumab trough 11 (which is good) MRI abd/pelv 03/08/20 showed thickening of distal small bowel. Area of dilation and angulation. Area of right lower quadrant involving terminal ileum. Skip lesions of small bowel. MR enterography-- 11/07/19 which demonstrated multiple scattered areas of small intestinal inflammation. Compared to prior testing there were 4 more areas of active inflammation. There were no areas of stenosis. colonoscopy 2017-- Active Crohn's disease with an ulcerated stricture in the region of the distal ileum. Given his ongoing sx and imaging results my concern was that he had crohns which was not really controlled by humira and that he was not responsive to anti TNFs He was switched to entyvio eventually increased freq to q 4 weeks due to symptoms and low entyvio level and MRe 10/2021 with small bowel thickening unchanged to prior imaging (eval was limited as they couldnt get IV access) This has now been changed to skyriszi because he had another exacerbation of crohns with ongoing inflammation noted on imaging 08/2022 I performed colonoscopy 12/2022 ileocecal stricture--s/p dilation and kenalog injection polyp--adenoma internal hemorrhoids diverticular disease RECAP: he has been doing v good since colonoscopy --he feels the dilation helped for at least 3 months he can have pain in epigastrium x 2 episodes, stomach was hard as a rock and it hurt bad, but now pain free appetite is good weight is stable taking skyrizi he is still on budesonide A/P:Crohns disease with ongoing sx, now on skyrizi s/p dilation of stricture, few bouts of epigastric pain PLAN: 1/ stop budesonide 2/ offered rept colo w/ dilation but he wants to hold on this 3/ EGD for assessment, might need US as well to r/o gallstones etc PFSH Medical History CAD (coronary artery disease) Paroxysmal atrial fibrillation Obesity Swelling of knee joint, left Obesity Chronic pain syndrome Chronic abdominal pain Hyperlipidemia Stricture of small intestine Crohn's disease LBBB (left bundle branch block) Hypertension Hyperlipidemia GERD without esophagitis History of paroxysmal atrial tachycardia Crohn's disease Surgical History Stented coronary artery Hx of endoscopy History of colonoscopy Family History Father Family history unknown Mother Hx of Crohn's disease Social History Household Members: Friend(s) Household Members Other:: 1 Housing: House Are you a primary animal care giver to a significant other at home: No Do you presently have visiting nurse or other home services: No Alcohol intake: never Patient Tobacco Use Status: Never used Tobacco e-Cigarette/Vaping Use: Never Used Second Hand Smoke Exposure: No Advance Directives Date on File: 08/16/22 service: Yes Current occupational status: employed Cognitive needs: No Hearing needs: No Vision needs: No Assessment & Plan Assessment & Plan (1) Exacerbation of Crohn's disease: Code(s): K50.90 - Crohn's disease, unspecified, without complications Plan see above Telehealth Telehealth Location of provider rendering services: practice address Location of patient: address on file Patient Identification confirmed using: Name, : Yes Telehealth method: voice only Patient verbally consented to treatment: Yes Patient verbally consented to billing insurance company: Yes Patient informed of any privacy concerns related to visit: Yes Minutes spent on Phone/Video with Pt.: 9 Coding Level of Care Code Tele [facility] Pt Level 3 (10576) Diagnoses Exacerbation of Crohn's disease K50.90
== END 2023-05-11 13:11 | disposition home or self-care (01) ==
LOC: HO.HGI 08:36
PROVIDERS: PCP Internal Medicine; Visit Provider Internal Medicine Gastroenterology
DX: K50.90 Crohn's disease, unspecified, without complications (principal)
CPT/HCPCS: 99212

== ENCOUNTER → 2023-05-11 08:36 | Outpatient (BNVA) | payer OTHER, SELFPAY | PROVIDERS: PCP Internal Medicine; Visit Provider Internal Medicine Gastroenterology ==

== ENCOUNTER 2023-05-29 09:44 | Outpatient (AMB) | payer OTHER, SELFPAY ==
[2023-05-29 09:46] VITALS: BP 140/86; PULSE 73; O2SAT 96; BMI 32.8
--- NOTE | 2023-05-29 09:46 | MHC.PC.OV ---
Vital Signs 05/29/23 09:46 Height 5 ft 8 in Weight 216 lb BMI 32.8 BP 140/86 H Blood Pressure Location Lt brachial Position Sitting Pulse 73 Pulse Source Pulse Oximeter Pulse Oximetry (%) 96 Oxygen Delivery Method Room Air Intake Visit Reasons: Annual exam Head Of Physics Required: No Hand Mounter: Not Required per policy Accompanied by: Self / Same As Patient Allergies No Known Allergies Allergy (Mild, Verified 05/29/23 09:47) none Medication List - Last Reconciled 05/29/23 by Oscar Blanton MD amlodipine 2.5 mg PO DAILY atorvastatin 80 mg PO DAILY budesonide ER 3 mg PO DAILY duloxetine 30 mg PO DAILY hydroxyzine HCl 25 mg PO DAILY PRN metoprolol succinate ER 50 mg PO BID nitroglycerin 0.4 mg sublingual Q5M PRN omeprazole 40 mg PO DAILY promethazine 25 mg PO DAILY PRN risankizumab-rzaa (Skyrizi) 360 mg (2.4 mL) subcut .8 weeks 56 days tramadol 50 mg PO BID 30 days zolpidem 10 mg PO BEDTIME PRN 30 days Tobacco use date assessed: 08/28/22 Dental Screening Dental Screen Date: 05/29/23 Did you have a dental visit in the last 12 months?: Yes Did you have a dental problem in the last 6 months where you did not have access to dental care?: No Was dental information given to patient?: Patient has dentist HPI Annual exam HPI Details HTN CAD Crohn's disease; doing well PFSH Medical History (Updated 05/29/23 @ 10:20 by Oscar Blanton MD) Crohn's disease CAD (coronary artery disease) Paroxysmal atrial fibrillation Obesity Swelling of knee joint, left Obesity Chronic pain syndrome Chronic abdominal pain Hyperlipidemia Stricture of small intestine LBBB (left bundle branch block) Hypertension Hyperlipidemia GERD without esophagitis History of paroxysmal atrial tachycardia Crohn's disease Surgical History Stented coronary artery Hx of endoscopy History of colonoscopy Family History Father Family history unknown Mother Hx of Crohn's disease Social History Household Members: Friend(s) Household Members Other:: 1 Housing: House Are you a primary client care specialist to a significant other at home: No Do you presently have visiting nurse or other home services: No Alcohol intake: never Patient Tobacco Use Status: Never used Tobacco e-Cigarette/Vaping Use: Never Used Second Hand Smoke Exposure: No Advance Directives Date on File: 08/16/22 service: Yes Current occupational status: employed Cognitive needs: No Hearing needs: No Vision needs: No Questionnaire PHQ-9 Over the last 2 weeks, how often have you been bothered by any of the following problems? 1. Little interest or pleasure in doing things: not at all 2. Feeling down, depressed, or hopeless: several days 3. Trouble falling or staying asleep, or sleeping too much: not at all 4. Feeling tired or having little energy: not at all 5. Poor appetite or overeating: not at all 6. Feeling bad about yourself - or that you are a failure or have let yourself or your family down: not at all 7. Trouble concentrating on things, such as reading the newspaper or watching television: not at all 8. Moving or speaking so slowly that other people could have noticed. Or the opposite - being so fidgety or restless that you have been moving around a lot more than usual: not at all 9. Thoughts that you would be better off or of hurting yourself in some way: not at all Total score: 1 Depression Screening Interpretation: Negative Depression Screening Done: Yes 84675 - PHQ-9 Billing: Yes Source: Developed by Drs. Satish Gaston, Erika Lara, aDno Art and colleagues, with an educational corrie from [employer]. Thrive Questionnaire Date Thrive assessed: 08/28/22 NICOLÁS-7 AMB Questionnaire NICOLÁS-7 Date NICOLÁS - 7 assessed: 08/28/22 Source: Developed by Drs. Satish Gaston, Erika Lara, Dano Art and colleagues, with an educational corrie from [employer]. Review of Systems Const Denies chills, Denies fatigue, Denies headache(s) and Denies weight loss Eyes Denies change in vision, Denies diplopia and Denies eye pain ENT Denies vertigo, Denies dizziness, Denies headache(s) and Denies nasal discharge Card Denies chest pain, Denies rapid heart rate and Denies dyspnea on exertion Resp Denies chest congestion, Denies cough, Denies pain with cough and Denies dyspnea on exertion GI Denies abdominal pain, Denies hematochezia and Denies change in bowel habits Musc Denies myalgias, Denies arthralgias and Denies joint swelling Skin/Breast Denies lesions and Denies unusual bruising Neuro Denies vertigo, Denies dizziness, Denies headache(s) and Denies focal weakness Endo Denies fatigue Physical exam (Primary Care) Vital Signs: Last Vital Signs Pulse 73 05/29/23 09:46 BP 140/86 H 05/29/23 09:46 Pulse Ox 96 05/29/23 09:46 Oxygen Delivery Method Room Air 05/29/23 09:46 BMI result Body Mass Index 32.8 Tobacco/Smoking Status: Tobacco use Status Tobacco use date assessed 08/28/22 05/29/23 09:47 Patient Tobacco Use Status Never used Tobacco 05/29/23 09:47 Tobacco use type 03/01/22 09:40 e-Cigarette/Vaping Use Never Used 05/29/23 09:47 PHQ-9: PHQ-9 Score PHQ-9: Total score 1 05/29/23 09:47 Depression Screening Interpretation: Negative Thrive Assessment: Date of Thrive Assessment Date Thrive assessed 08/28/22 05/29/23 09:47 Const General: cooperative, healthy appearing and no acute distress Orientation/consciousness: oriented to person, oriented to place and oriented to time [facility] Head: Yes normal to inspection, Yes normocephalic and Yes atraumatic Mouth: Normal oral and palatal mucosa present and tongue normal Throat: Yes posterior oropharynx normal and Yes uvula midline Eyes General: appearance normal, both eyes and all related structures Neck Neck: Yes normal visual inspection, Yes full ROM and Yes no lymphadenopathy Thyroid: Thyroid normal Carotids: normal carotid upstroke Chest Chest palpation & inspection: normal inspection of the chest Resp Effort & Inspection: normal respiratory effort and able to speak in complete sentences Auscultation: clear to auscultation bilaterally Cardio Jugular venous distension: no JVD Palpation: normal PMI Rate: regular rate Rhythm: regular rhythm Heart sounds: S1 normal heart sound present and S2 normal heart sound present GI Inspection: Yes normal to inspection Palpation (GI): Soft to palpation and No hepatosplenomegaly present Auscultation: normal bowel sounds General: Yes no CVA tenderness Back/Spine/Pelvis Back: no CVA tenderness Skin General skin exam: no rashes or lesions noted Neuro General: oriented to person, oriented to place and oriented to time Extrem General: Yes normal to inspection and Yes full ROM Assessment and Plan Assessment & Plan (1) Physical exam: Code(s): Z00.00 - Encounter for general adult medical examination without abnormal findings Plan: stable; do labs (2) Hypertension: Code(s): I10 - Essential (primary) hypertension Plan: stable; same rx (3) CAD (coronary artery disease): Code(s): I25.10 - Atherosclerotic heart disease of [place] coronary artery without angina pectoris Plan: per cardiology (4) Crohn's disease: Code(s): K50.90 - Crohn's disease, unspecified, without complications Plan: per gi Orders: Orders Thyroid Stimulating Hormone Today E03.9 - Hypothyroidism, unspecified Complete Blood Count Auto Diff Today D64.9 - Anemia, unspecified Lipid Panel Today E78.5 - Hyperlipidemia, unspecified Comprehensive [place]. Panel Fast Today N28.9 - Disorder of kidney and ureter, unspecified Coding Level of Care Code Est Pt Prev Care 40-64y(04693) Diagnoses Physical exam Z00.00 Hypertension I10 CAD (coronary artery disease) I25.10 Crohn's disease K50.90
== END 2023-05-29 10:18 | disposition home or self-care (01) ==
PROVIDERS: Visit Provider Internal Medicine
DX: Z00.00 Encounter for general adult medical examination without abnormal findings (principal); I10 Essential (primary) hypertension; I25.10 Atherosclerotic heart disease of native coronary artery without angina pectoris; K50.90 Crohn's disease, unspecified, without complications
CPT/HCPCS: 99396

== ENCOUNTER 2023-05-30 07:55 | Outpatient (REF) | payer OTHER, SELFPAY ==
[2023-05-30 08:15] LABS: MANUAL DIFF FLAG NO
[2023-05-30 09:08] LABS: Basophils Percent Auto 0.6 % (0-2); Eosinophils Absolute Auto 0.1 X10*3/uL (0.0-0.4); Eosinophils Percent Auto 1.2 % (0-4); Hematocrit 43.2 % (42.0-52.0); Hemoglobin 14.6 g/dl (14.0-18.0); Imm Gran Abs Auto 0.02 X10*3/uL (0.00-0.03); Imm Gran Pct Auto 0.3 % (0.0-0.4); Lymphocytes Absolute Auto 2.4 X10*3/uL (1.2-4.9); Lymphocytes Percent Auto 34.3 % (20-40); Mean Corpuscular HGB Conc 33.8 g/dl (31.0-36.0); Mean Corpuscular Hemoglobin 31.3 pg (27.0-33.0); Mean Corpuscular Volume 92.7 fL (80.0-98.0); Mean Platelet Volume 8.8 fL (9.4-12.4); Monocytes Absolute Auto 0.8 X10*3/uL (0.1-1.2); Neutrophils Absolute Auto 3.7 x10*3/uL (2.0-8.3); Neutrophils Percent Auto 52.6 % (45-73); Platelet Count 249 X10*3/uL (160-400); Red Blood Count 4.66 X10*6/uL (4.60-5.80); Red Cell Distribution Width 12.4 % (11.0-16.0); White Blood Count 6.9 X10*3/uL (4.8-10.8)
[2023-05-30 09:42] LABS: Alanine Aminotransferase 23 U/L (0-40); Albumin Level 3.8 g/dL (3.5-5.0); Alkaline Phosphatase 63 U/L (39-117); Anion Gap 14 (12-20); Aspartate Amino Transferase 19 U/L (5-37); Bilirubin Total 0.6 mg/dL (0.0-1.0); Blood Urea Nitrogen 18 mg/dL (9-16); Calcium 8.9 mg/dL (8.4-10.2); Carbon Dioxide 28 mmol/L (22-29); Chloride 107 mmol/L (96-108); Cholesterol 147 mg/dL (<200); Estimated Glomerular Filt Rate > 60; Glucose Fasting 92 mg/dL (60-99); HDL Cholesterol 33 mg/dL (>40); LDL Cholesterol Calculated 85 mg/dL (<100); Potassium 3.5 mmol/L (3.3-5.1); Sodium 145 mmol/L (135-145); Total Protein 7.1 g/dL (6.5-8.0); Triglycerides 145 mg/dL (<150)
== END 2023-05-30 07:56 | disposition home or self-care (01) ==
LOC: HO.LAB 07:55
PROVIDERS: PCP Internal Medicine; Visit Provider Internal Medicine
DX: E78.5 Hyperlipidemia, unspecified (principal); E03.9 Hypothyroidism, unspecified; D64.9 Anemia, unspecified; N28.9 Disorder of kidney and ureter, unspecified
CPT/HCPCS: 36415; 80053; 80061; 84443; 85025

== ENCOUNTER 2023-06-22 09:16 | Outpatient (AMB) | payer OTHER, SELFPAY ==
--- NOTE | 2023-06-22 09:27 | MHC.OFFVIS ---
Intake Vital Signs 06/22/23 09:28 Height 5 ft 8 in Weight 216 lb BMI 32.8 BP 154/99 H Blood Pressure Location Rt brachial Position Sitting Respiration 12 Pulse 99 Pulse Source Pulse Oximeter Pulse Oximetry (%) 95 Oxygen Delivery Method Room Air Intake Visit Reasons: Medication Count/ Random UDS/confirmed Intake Note: Pt states he last took Tramadol 06/21/23 @ 11pm Allergies No Known Allergies Allergy (Mild, Verified 06/22/23 09:32) none Medication List - Last Reconciled 06/22/23 by Sofia Sutherland LPN amlodipine 2.5 mg PO DAILY atorvastatin 80 mg PO DAILY budesonide ER 3 mg PO DAILY duloxetine 30 mg PO DAILY hydroxyzine HCl 25 mg PO DAILY PRN metoprolol succinate ER 50 mg PO BID nitroglycerin 0.4 mg sublingual Q5M PRN omeprazole 40 mg PO DAILY promethazine 25 mg PO DAILY PRN risankizumab-rzaa (Skyrizi) 360 mg (2.4 mL) subcut .8 weeks 56 days tramadol 50 mg PO BID 30 days zolpidem 10 mg PO BEDTIME PRN 30 days HPI Medication Count/ Random UDS/confirmed HPI Details 63-year-old male who presents today to the office for a medication count. 44 pills were expected, and 42 pills were presented. He reports abdominal pain and tightness. It happened 2-3 times a day. He has difficulty lying down. He is due for his endoscopy that is scheduled on 10/04/2023. [facility] Medical History (Updated 05/29/23 @ 10:20 by Oscar Blanton MD) Crohn's disease CAD (coronary artery disease) Paroxysmal atrial fibrillation Obesity Swelling of knee joint, left Obesity Chronic pain syndrome Chronic abdominal pain Hyperlipidemia Stricture of small intestine LBBB (left bundle branch block) Hypertension Hyperlipidemia GERD without esophagitis History of paroxysmal atrial tachycardia Crohn's disease Surgical History Stented coronary artery Hx of endoscopy History of colonoscopy Family History Father Family history unknown Mother Hx of Crohn's disease Social History Household Members: Friend(s) Household Members Other:: 1 Housing: House Are you a primary pediatric critical care nurse to a significant other at home: No Do you presently have visiting nurse or other home services: No Alcohol intake: never Patient Tobacco Use Status: Never used Tobacco e-Cigarette/Vaping Use: Never Used Second Hand Smoke Exposure: No Advance Directives Date on File: 08/16/22 service: Yes Current occupational status: employed Cognitive needs: No Hearing needs: No Vision needs: No Review of Systems Const All systems reviewed & are unremarkable except as noted in HPI and below Physical Exam Vital Signs: Last Vital Signs Pulse 99 06/22/23 09:28 Resp 12 06/22/23 09:28 BP 154/99 H 06/22/23 09:28 Pulse Ox 95 06/22/23 09:28 Oxygen Delivery Method Room Air 06/22/23 09:28 BMI result Body Mass Index 32.8 General: Appears afebrile. Alert and oriented. Mood and affect appropriate. Follows and participates in conversation appropriately. Respiratory effort is unlabored. Able to transition from sit to stand unassisted. Ambulates with bilaterally normal heel strike and toe off. Results Reviewed Results Reviewed: No imaging is available for review. Assessment & Plan Assessment & Plan (1) Crohn's disease: Code(s): K50.90 - Crohn's disease, unspecified, without complications (2) Abdominal pain: Code(s): R10.9 - Unspecified abdominal pain Qualifiers: Abdominal location: generalized Qualified Code(s): R10.84 - Generalized abdominal pain Plan Pill count was consistent. Refill Tramadol 50 mg BID starting 07/14/23. Patient will follow up in August 2023 for pill count and refill. Scribed for Dr. Figueredo by Matias Galaviz, medical records field technician, on 06/22/2023. I, Dr. Figueredo, have personally reviewed and agree with the information entered by the scribe. Medications: Changed From tramadol Partial Fill upon patient request. Fill date 05/17/23 50 mg PO BID 30 days 60 tabs 1RF pain K50.90 - Crohn's disease, unspecified, without complications To tramadol Partial Fill upon patient request. Fill date 07/14/23 50 mg PO BID 60 tabs 1RF pain 30 days K50.90 - Crohn's disease, unspecified, without complications Coding Level of Care Code Est Pt Level 3 (38978) Diagnoses Crohn's disease K50.90 Generalized abdominal pain R10.84 Abdominal location: generalized
[2023-06-22 09:28] VITALS: BP 154/99; PULSE 99; RESP 12; O2SAT 95; BMI 32.8
== END 2023-06-22 09:41 | disposition home or self-care (01) ==
PROVIDERS: PCP Internal Medicine; Visit Provider Internal Medicine
DX: K50.90 Crohn's disease, unspecified, without complications (principal); R10.84 Generalized abdominal pain
CPT/HCPCS: 99213

== ENCOUNTER → 2023-06-22 09:16 | Outpatient (BNVA) | payer OTHER, SELFPAY | PROVIDERS: PCP Internal Medicine; Visit Provider Internal Medicine ==

== ENCOUNTER 2023-07-24 22:46 | Emergency (ER) | payer OTHER, SELFPAY ==
--- NOTE | ~2023-07-24 | CT_ITS ---
EXAMINATION: CT ABDOMEN AND PELVIS WITH CONTRAST CLINICAL INFORMATION: Abdominal pain. Nausea and vomiting. COMPARISON: 08/15/2022 TECHNIQUE: Multidetector volumetric images were obtained from the superior aspect of the liver through the pubic symphysis following administration 85 mL of Omnipaque 350 intravenous contrast. Sagittal and coronal reformatted images were obtained on the technologist's workstation. Oral contrast: No This CT examination was performed using dose optimization techniques as appropriate, variously including the following: *Automated exposure control *Adjustment of mA and/or kV according to patient size (this includes techniques or standardized protocols for targeted exams where dose is matched to indication/reason for exam; i.e. extremities or head) *Use of iterative reconstruction technique DLP: 747 mGy-cm FINDINGS: LUNG BASES: There is minimal scarring or subsegmental atelectasis at the lung bases. LIVER, GALLBLADDER, AND BILIARY TREE: There are scattered subcentimeter hepatic hypodensities similar to previous likely small cysts. There is no intrahepatic biliary duct dilatation. The gallbladder is unremarkable with no evidence of radiopaque gallstones, gallbladder wall thickening, or obvious pericholecystic inflammatory changes. PANCREAS: Unremarkable. SPLEEN: Unremarkable. ADRENAL GLANDS: Unremarkable. KIDNEYS AND URETERS: The kidneys are normal in size, shape, and attenuation. No hydronephrosis, hydroureter, or calculi seen. No perinephric stranding. There are a few subcentimeter right renal hypodensities likely cysts. BLADDER: Unremarkable. GASTROINTESTINAL TRACT: There are prominent fluid-filled mid to distal small bowel loops with multifocal areas of thickening. There are a few diverticula of the descending colon without diverticulitis. The appendix is visualized and is within normal limits. ABDOMINAL WALL: There is a minimal umbilical hernia containing fat. There are small inguinal hernias containing fat. LYMPH NODES: Normal. VASCULAR: There is atherosclerotic plaque of the abdominal aorta and proximal branches. PELVIC VISCERA: The prostate gland is enlarged measuring 5.8 x 5.4 x 5.3 cm. There is minimal free fluid within the pelvis. OSSEOUS STRUCTURES: Unremarkable. CT/CT abdomen pelvis w IV con IMPRESSION: Prominent fluid-filled mid to distal small bowel loops with multifocal areas of thickening suggestive of enteritis. Minimal free fluid within the pelvis. There are a few diverticula of the descending colon without diverticulitis. Enlarged prostate gland. Fleischner guidelines were followed.
[2023-07-24 22:57] VITALS: BP 160/100; PULSE 80; O2SAT 97
[2023-07-24 23:02] VITALS: BP 150/98; PULSE 85; RESP 18; TEMP 36.3; O2SAT 97; BMI 31.9
--- NOTE | 2023-07-24 23:26 | MHC.EDTECH ---
Patient not able to give urine sample at this time .
[2023-07-24 23:28] LABS: Basophils Percent Auto 0.2 % (0-2); Eosinophils Percent Auto 0.1 % (0-4); Hematocrit 46.4 % (42.0-52.0); Hemoglobin 16.1 g/dl (14.0-18.0); Imm Gran Abs Auto 0.06 X10*3/uL (0.00-0.03); Imm Gran Pct Auto 0.4 % (0.0-0.4); Lymphocytes Absolute Auto 1.4 X10*3/uL (1.2-4.9); Lymphocytes Percent Auto 8.7 % (20-40); MANUAL DIFF FLAG NO; Mean Corpuscular HGB Conc 34.7 g/dl (31.0-36.0); Mean Corpuscular Hemoglobin 31.3 pg (27.0-33.0); Mean Corpuscular Volume 90.1 fL (80.0-98.0); Mean Platelet Volume 8.6 fL (9.4-12.4); Monocytes Absolute Auto 1.3 X10*3/uL (0.1-1.2); Neutrophils Absolute Auto 13.4 x10*3/uL (2.0-8.3); Neutrophils Percent Auto 82.6 % (45-73); Platelet Count 276 X10*3/uL (160-400); Red Blood Count 5.15 X10*6/uL (4.60-5.80); Red Cell Distribution Width 12.8 % (11.0-16.0); White Blood Count 16.2 X10*3/uL (4.8-10.8)
[2023-07-25 01:04] LABS: Alanine Aminotransferase 27 U/L (0-40); Albumin Level 4.5 g/dL (3.5-5.0); Alkaline Phosphatase 70 U/L (39-117); Anion Gap 15 (12-20); Aspartate Amino Transferase 21 U/L (5-37); Bilirubin Direct 0.3 mg/dL (0.0-0.5); Bilirubin Total 0.9 mg/dL (0.0-1.0); Blood Urea Nitrogen 16 mg/dL (9-16); Calcium 9.4 mg/dL (8.4-10.2); Carbon Dioxide 21 mmol/L (22-29); Chloride 107 mmol/L (96-108); Creatinine Clr Calc Pharmacy 115.8; Estimated Glomerular Filt Rate > 60; Glucose Random 120 mg/dL (60-115); Lipase 19 U/L (8-78); Potassium 3.7 mmol/L (3.3-5.1); Sodium 139 mmol/L (135-145); Total Protein 7.9 g/dL (6.5-8.0)
[2023-07-25 01:35] VITALS: BP 152/95; PULSE 78; RESP 18; TEMP 36.8; O2SAT 98
[2023-07-25 02:06] VITALS: BP 137/91; PULSE 83; RESP 18; TEMP 36.7; O2SAT 95
--- NOTE | 2023-07-25 02:12 | PC.NURSE ---
Pt aox4 reporting upper abd pain, 5/10, with N/V that started about an prior to arrival. Pt reports having 3 vomiting episodes stating I think I put too much butter on my potatoes and I ate too fast . Reports hx of Chron's disease. Pending physician eval.
--- NOTE | 2023-07-25 02:43 | MHC.EDTECH ---
Hourly rounds and vitals completed,Covid,and Flu swabs obtained and sent to lab.
--- NOTE | 2023-07-25 02:50 | MHC.EDTECH ---
Patient ambulated to the bathroom with a steady gait, urine sample obtained and sent to lab.
[2023-07-25 03:00] LABS: COVID-19 Test Negative (Negative); IDNOW Serial# 08D9AD1C; IDNOW Serial# 152EDE1D; Influenza A Negative (Negative); Influenza B2 Negative (Negative)
--- NOTE | 2023-07-25 03:04 | ED_ITS ---
HPI - Abdominal Pain General Chief Complaint: Abdominal Pain Stated Complaint: N/V, ABD PAIN,PT. FEELS LIKE ITS CHRONS FLARE UP Time Seen by Provider: 07/24/23 22:50 Source: patient Mode of arrival: ambulatory History of Present Illness HPI narrative: 63-year-old male with history and clinical presentation of Crohn's disorder, currently on medication and states that this evening he ate and then began developing abdominal discomfort with associated nausea and vomiting but denies any fevers or chills and reports he continues to pass flatus and denies any diarrheal episodes. Related Data Home Medications Medication Instructions Recorded Confirmed duloxetine 30 mg capsule,delayed 30 mg PO DAILY 10/13/22 06/22/23 release hydroxyzine HCl 25 mg tablet 25 mg PO DAILY PRN 10/13/22 06/22/23 Previous Rx's Medication Instructions Recorded nitroglycerin 0.4 mg sublingual 0.4 mg sublingual Q5M PRN chest 01/09/22 tablet pain #25 tabs budesonide 3 mg 3 mg PO DAILY #90 ea 10/09/22 capsule,delayed,extended release omeprazole 40 mg capsule,delayed 40 mg PO DAILY #90 caps 01/02/23 release risankizumab-rzaa 360 mg/2.4 mL 360 mg (2.4 mL) subcut .8 weeks 56 01/17/23 (150 mg/mL) subcut wearable days #2.4 mL injector (Skyrizi) metoprolol succinate 50 mg 50 mg PO BID #180 tabs 03/15/23 tablet,extended release 24 hr zolpidem 10 mg tablet 10 mg PO BEDTIME PRN sleep 30 days 04/09/23 #30 tabs promethazine 25 mg tablet 25 mg PO DAILY PRN for 05/14/23 nausea/vomiting #30 tabs amlodipine 2.5 mg tablet 2.5 mg PO DAILY #90 tabs 06/12/23 atorvastatin 80 mg tablet 80 mg PO DAILY #90 tabs 06/12/23 tramadol 50 mg tablet 50 mg PO BID pain 30 days #60 tabs 06/22/23 budesonide 3 mg 9 mg (3 x 3 mg) PO QAM 1 month #90 07/25/23 capsule,delayed,extended release ea Allergies Allergy/AdvReac Type Severity Reaction Status Date / Time No Known Allergies Allergy Mild none Verified 06/22/23 09:32 Review of Systems Review of Systems Pertinent positives and negatives as stated in HPI PMFSH Past Medical History Source: nursing notes reviewed Medical History Crohn's disease CAD (coronary artery disease) Paroxysmal atrial fibrillation Obesity Swelling of knee joint, left Obesity Chronic pain syndrome Chronic abdominal pain Hyperlipidemia Stricture of small intestine LBBB (left bundle branch block) Hypertension Hyperlipidemia GERD without esophagitis History of paroxysmal atrial tachycardia Crohn's disease Surgical History Stented coronary artery Hx of endoscopy History of colonoscopy Family History Family History Father Family history unknown Mother Hx of Crohn's disease Social History Social History Household Members: Friend(s) Household Members Other:: 1 Housing: House Are you a primary career portals teacher to a significant other at home: No Do you presently have visiting nurse or other home services: No Alcohol intake: never Patient Tobacco Use Status: Never used Tobacco Smoked in Last 30 Days: No e-Cigarette/Vaping Use: Never Used Second Hand Smoke Exposure: No Use of substances other than those prescribed or required for medical reasons: No Advance Directives: Yes Advance Directives Information Provided: Yes Advance Directives on File: No Advance Directives Date on File: 08/16/22 service: Yes Current occupational status: employed Cognitive needs: No Hearing needs: No Vision needs: No Physical Exam ED Vital Signs: Vital Signs - 24 hr 07/24/23 23:02 07/25/23 01:35 07/25/23 02:06 Temperature 97.4 F 98.2 F 98.1 F Pulse Rate 85 78 83 Respiratory Rate 18 18 18 Blood Pressure 150/98 H 152/95 H 137/91 H Pulse Oximetry 97 98 95 Oxygen Delivery Method Room Air Room Air 07/25/23 04:06 07/25/23 06:06 Temperature 98.5 F 99.3 F Pulse Rate 84 90 Respiratory Rate 18 18 Blood Pressure 142/89 H 137/89 Pulse Oximetry 95 96 Oxygen Delivery Method Room Air Room Air BMI result Body Mass Index 31.9 VITAL SIGNS: Reviewed. GENERAL: Well developed, well nourished, in no acute distress. HEAD: Normocephalic/atraumatic EYES: PERRLA, EOMI EARS: Ext canals without abnormality NOSE: Nares patent bilateral OROPHARYNX: no oral lesions noted, posterior pharynx clear NECK: Supple, no adenopathy LUNGS: Normal breath sounds. No adventitious sounds or accessory muscle use. SpO2<95> CARDIOVASCULAR: Regular rate and rhythm without noted murmurs ABDOMEN: Soft, mild discomfort in mid abdomen, non-distended with bowel sounds. MUSCULOSKELETAL: No tenderness, deformities, or effusions noted on gross inspection. EXTREMITIES: No cyanosis, clubbing or edema. SKIN: Inspection of the skin reveals no rashes NEUROLOGIC: Alert and oriented x 4. Strength and sensation to light touch were grossly intact x 4. Medical Decision Making Medical Decision Making [facility] Narrative: 0238: 63-year-old male with history and clinical presentation, DDX: SBO secondary to Crohn's, possible Crohn's flare, viral illness Reviewed all investigations and hematologic indices indicate a non infectious reactive leukocytosis as patient is afebrile and there is no evidence of anemia or thrombocytopenia. Chemistry indices do not demonstrated an TIERNEY and there is no electrolyte or liver enzyme derangements. Initial lactate was greater than 2 but repeat is within normal limits, patient received 500 cc of IV fluids. Urinalysis negative for UTI. Viral testing negative for COVID-19/influenza. CT scan demonstrated prominent fluid-filled small bowel loops with multifocal areas of thickening, but since this CT scan was taken patient has had a bowel movement and reports that he feels much better and repeat abdominal exam is benign 0618: I discussed the case with Dr. Schwartz, who recommends Entocort 9 mg once daily for 30 days and follow-up with Dr. Hadley. Patient is tolerating oral intake, continues to feel well is discharged home. Differential Diagnosis Differential Diagnoses: The differential diagnosis associated with the presentation includes Please see the discussion above Admission/Observation Consideration of admission/observation: Escalation of care including admission/observation considered Please see the discussion above Consult Healthcare Provider Management of the patient was discussed with: Peer Educator Please see the discussion above Lab Data [facility] Lab Attestation statement: I reviewed the patient's lab results. Please see the discussion above 07/24/23 23:23 07/24/23 23:23 Labs: Lab Results 07/24/23 07/25/23 07/25/23 Range/Units 23:23 02:38 02:50 WBC 16.2 H (4.8-10.8) X10*3/uL RBC 5.15 (4.60-5.80) X10*6/uL Hgb 16.1 (14.0-18.0) g/dl Hct 46.4 (42.0-52.0) % MCV 90.1 (80.0-98.0) fL MCH 31.3 (27.0-33.0) pg MCHC 34.7 (31.0-36.0) g/dl RDW 12.8 (11.0-16.0) % Plt Count 276 (160-400) X10*3/uL MPV 8.6 L (9.4-12.4) fL Immature Gran % (Auto) 0.4 (0.0-0.4) % Neut % (Auto) 82.6 H (45-73) % Lymph % (Auto) 8.7 L (20-40) % [place] % (Auto) 8.0 (2-11) % Eos % (Auto) 0.1 (0-4) % Baso % (Auto) 0.2 (0-2) % Lymph # (Auto) 1.4 (1.2-4.9) X10*3/uL [place] # (Auto) 1.3 H (0.1-1.2) X10*3/uL Eos # (Auto) 0.0 (0.0-0.4) X10*3/uL Baso # (Auto) 0.0 (0.0-0.2) X10*3/uL Abs Immat Gran (auto) 0.06 H (0.00-0.03) X10*3/uL Absolute Neuts (auto) 13.4 H (2.0-8.3) x10*3/uL Absolute Nucleated RBC 0.000 (0.0-0.012) X10*3/uL Nucleated RBC % (auto) 0.0 (0.0-0.2) /100WBC Sodium 139 (135-145) mmol/L Potassium 3.7 (3.3-5.1) mmol/L Chloride 107 (96-108) mmol/L Carbon Dioxide 21 L (22-29) mmol/L Anion Gap 15 (12-20) BUN 16 (9-16) mg/dL Creatinine 0.74 (0.5-1.4) mg/dL Estim Creat Clear Calc 115.8 Estimated GFR > 60 Random Glucose 120 H (60-115) mg/dL Lactic Acid (0.5-2.0) mmol/L Lactic Acid F/U @ 2Hr (0.5-2.0) mmol/L Calcium 9.4 (8.4-10.2) mg/dL Total Bilirubin 0.9 (0.0-1.0) mg/dL Direct Bilirubin 0.3 (0.0-0.5) mg/dL AST 21 (5-37) U/L ALT 27 (0-40) U/L Alkaline Phosphatase 70 (39-117) U/L Total Protein 7.9 (6.5-8.0) g/dL Albumin 4.5 (3.5-5.0) g/dL Lipase 19 (8-78) U/L Urine Color Yellow Urine Appearance Clear Urine pH 7.5 (5.0-9.0) Ur Specific [place] 1.015 (1.005-1.025) Urine Protein Trace (Neg-Trace) mg/dL Urine Glucose (UA) Negative (Negative) mg/dL Urine Ketones Negative (Negative) mg/dL Urine Blood Negative (Negative) Urine Nitrite Negative (Negative) Ur Leukocyte Esterase Negative (Negative) Urine RBC 0-2 (0-2) /HPF Urine WBC 0-5 (0-5) /HPF Ur Squamous Epith Cells 0-2 (0-2) /HPF Urine Bacteria None Seen (None Seen) Hyaline Casts 0-2 (0-2) /LPF COVID-19 (BOGDAN) Negative (Negative) COVID-19 Clin Com See Note Influenza Type A (BHAVESH) Negative (Negative) Influenza Type B (BHAVESH) Negative (Negative) Influenza A & B Note See Note 07/25/23 07/25/23 Range/Units 03:16 06:03 WBC (4.8-10.8) X10*3/uL RBC (4.60-5.80) X10*6/uL Hgb (14.0-18.0) g/dl Hct (42.0-52.0) % MCV (80.0-98.0) fL MCH (27.0-33.0) pg MCHC (31.0-36.0) g/dl RDW (11.0-16.0) % Plt Count (160-400) X10*3/uL MPV (9.4-12.4) fL Immature Gran % (Auto) (0.0-0.4) % Neut % (Auto) (45-73) % Lymph % (Auto) (20-40) % [place] % (Auto) (2-11) % Eos % (Auto) (0-4) % Baso % (Auto) (0-2) % Lymph # (Auto) (1.2-4.9) X10*3/uL [place] # (Auto) (0.1-1.2) X10*3/uL Eos # (Auto) (0.0-0.4) X10*3/uL Baso # (Auto) (0.0-0.2) X10*3/uL Abs Immat Gran (auto) (0.00-0.03) X10*3/uL Absolute Neuts (auto) (2.0-8.3) x10*3/uL Absolute Nucleated RBC (0.0-0.012) X10*3/uL Nucleated RBC % (auto) (0.0-0.2) /100WBC Sodium (135-145) mmol/L Potassium (3.3-5.1) mmol/L Chloride (96-108) mmol/L Carbon Dioxide (22-29) mmol/L Anion Gap (12-20) BUN (9-16) mg/dL Creatinine (0.5-1.4) mg/dL Estim Creat Clear Calc Estimated GFR Random Glucose (60-115) mg/dL Lactic Acid 2.2 H* (0.5-2.0) mmol/L Lactic Acid F/U @ 2Hr 1.8 (0.5-2.0) mmol/L Calcium (8.4-10.2) mg/dL Total Bilirubin (0.0-1.0) mg/dL Direct Bilirubin (0.0-0.5) mg/dL AST (5-37) U/L ALT (0-40) U/L Alkaline Phosphatase (39-117) U/L Total Protein (6.5-8.0) g/dL Albumin (3.5-5.0) g/dL Lipase (8-78) U/L Urine Color Urine Appearance Urine pH (5.0-9.0) Ur Specific [place] (1.005-1.025) Urine Protein (Neg-Trace) mg/dL Urine Glucose (UA) (Negative) mg/dL Urine Ketones (Negative) mg/dL Urine Blood (Negative) Urine Nitrite (Negative) Ur Leukocyte Esterase (Negative) Urine RBC (0-2) /HPF Urine WBC (0-5) /HPF Ur Squamous Epith Cells (0-2) /HPF Urine Bacteria (None Seen) Hyaline Casts (0-2) /LPF COVID-19 (BOGDAN) (Negative) COVID-19 Clin Com Influenza Type A (BHAVESH) (Negative) Influenza Type B (BHAVESH) (Negative) Influenza A & B Note Radiology Impression Discussion of test interpretation with radiology: I have reviewed the radiologist's reading. Radiologist Impression: Please see the discussion above External Record Review External record reviewed: Office record, Outpatient record, Prior outpatient labs and Prior outpatient radiology Chronic Conditions Crohn's disease Medications Administered Discontinued Medications Generic Name Dose Route Start Last Admin Trade Name Freq PRN Reason Stop Dose Admin Sodium Chloride 500 mls @ 999 mls/hr 07/25/23 04:00 07/25/23 04:21 Ns IV 07/25/23 04:30 Infused .Q31M MY Infusion Iohexol 85 ml 07/25/23 04:07 07/25/23 04:08 Iohexol 350 Mg/Ml 100 Ml Infus..Btl IV 07/25/23 04:08 85 ml ONCE ONE Administration Critical Care Time Critical Care Time Critical Care Time: Yes Total Critical Care Time: 60 Attestation: I personally attest to this time spent taking care of the patient. Discharge Plan Discharge Clinical Impression: Crohn's disease (regional enteritis) Patient Disposition: Home, Self-Care Instructions: Crohn Disease (ED) Additional Instructions: 1. Resume all home medications as prescribed. 2. Please complete the course of steroids as prescribed and follow-up with Dr. Hadley at your earliest convenience. Return to the emergency room for any worsening of your symptoms. Prescriptions: New budesonide 3 mg capsule,delayed,extend.release 9 mg PO QAM 30 Days Qty: 90 0RF No Action nitroglycerin 0.4 mg tablet, sublingual 0.4 mg sublingual Q5M PRN (Reason: chest pain) Qty: 25 1RF Rx Instructions: every 5 min as needed for chest pain, do not exceed 3 doses per episode duloxetine 30 mg capsule,delayed release(DR/EC) 30 mg PO DAILY hydroxyzine HCl 25 mg tablet 25 mg PO DAILY PRN omeprazole 40 mg capsule,delayed release(DR/EC) 40 mg PO DAILY Qty: 90 8RF Skyrizi 360 mg/2.4 mL (150 mg/mL) wearable injector 360 mg subcut .8 weeks 56 Days Qty: 2.4 4RF metoprolol succinate 50 mg tablet extended release 24 hr 50 mg PO BID Qty: 180 3RF zolpidem 10 mg tablet 10 mg PO BEDTIME PRN (Reason: sleep) 30 Days Qty: 30 5RF promethazine 25 mg tablet 25 mg PO DAILY PRN (Reason: for nausea/vomiting) Qty: 30 2RF atorvastatin 80 mg tablet 80 mg PO DAILY Qty: 90 3RF amlodipine 2.5 mg tablet 2.5 mg PO DAILY Qty: 90 3RF budesonide 3 mg capsule,delayed,extend.release 3 mg PO DAILY Qty: 90 1RF tramadol 50 mg tablet 50 mg PO BID 30 Days Qty: 60 1RF Rx Instructions: Partial Fill upon patient request. Fill date 07/14/23 Referrals: Krissy Hadley MD [Physician] -
[2023-07-25 03:05] LABS: Color Urine Yellow; Glucose Urine UA Negative (Negative); Leukocyte Esterase Urine Negative (Negative); Nitrite Urine Negative (Negative); PH 7.5 (5.0-9.0); Specific Gravity - Urine 1.015 (1.005-1.025); Urine Blood Negative (Negative); Urine Ketones Negative (Negative); Urine Protein Trace mg/dL (Neg-Trace)
[2023-07-25 03:06] LABS: Appearance Urine Clear
[2023-07-25 03:22] LABS: Bacteria Urine None Seen (None Seen); Hyaline Casts Urine 0-2 /LPF (0-2); RBC Urine 0-2 /HPF (0-2); Squamous Epithelial Cell Urine 0-2 /HPF (0-2); WBC Urine 0-5 /HPF (0-5)
[2023-07-25 03:45] LABS: Lactic Acid 2.2 mmol/L (0.5-2.0)
[2023-07-25] MEDS: 0.9 % Sodium Chloride 500 ML 999 ML IV (03:50)
[2023-07-25 04:06] VITALS: BP 142/89; PULSE 84; RESP 18; TEMP 36.9; O2SAT 95
[2023-07-25] MEDS: iohexoL 350 MG/ML 100 ML INFUS..BTL 85 ML IV (04:08)
--- NOTE | 2023-07-25 04:09 | MHC.EDTECH ---
Hourly rounds and vitals completed,patient is resting at this time.
[2023-07-25 05:21] LABS: Reflex Lactate? Lactic Acid Added
[2023-07-25 06:06] VITALS: BP 137/89; PULSE 90; RESP 18; TEMP 37.4; O2SAT 96
--- NOTE | 2023-07-25 06:06 | MHC.EDTECH ---
Hourly rounds and vitals completed,repeat Lactic drawn and sent to lab.
[2023-07-25 06:16] LABS: ~Lactic Acid-LAB USE ONLY 1.8 mmol/L (0.5-2.0)
== END 2023-07-25 07:18 | disposition home or self-care (01) ==
PROVIDERS: Emergency Medicine; Emergency Provider Student in an Organized Health Care Education/Training Program
DX: K50.90 Crohn's disease, unspecified, without complications (principal); I10 Essential (primary) hypertension; E78.5 Hyperlipidemia, unspecified; I48.0 Paroxysmal atrial fibrillation; Z11.52 Encounter for screening for COVID-19; Z79.02 Long term (current) use of antithrombotics/antiplatelets; Z79.899 Other long term (current) drug therapy
CPT/HCPCS: 36415; 74177; 80053; 81001; 82248; 83605; 83690; 85025; 87040; 87502; 87635; 96360; 99285; Q9967

== ENCOUNTER 2023-08-17 08:57 | Outpatient (AMB) | payer OTHER, SELFPAY ==
[2023-08-17 09:05] VITALS: BP 144/93; PULSE 73; RESP 12; O2SAT 97; BMI 32.7
--- NOTE | 2023-08-17 09:05 | A.OFFVIS_ITS ---
Intake Vital Signs 08/17/23 09:05 Height 5 ft 8 in Weight 215 lb BMI 32.7 BP 144/93 H Blood Pressure Location Lt brachial Position Sitting Respiration 12 Pulse 73 Pulse Source Pulse Oximeter Pulse Oximetry (%) 97 Oxygen Delivery Method Room Air Intake Visit Reasons: PILL COUNT Intake Note: Pt states he last took tramadol 08/17/23 @ 5am Allergies No Known Allergies Allergy (Mild, Verified 08/17/23 09:07) none Medication List - Last Reconciled 08/17/23 by Sofia Sutherland LPN amlodipine 2.5 mg PO DAILY atorvastatin 80 mg PO DAILY budesonide ER 9 mg (3 x 3 mg) PO QAM 1 month budesonide ER 3 mg PO DAILY duloxetine 30 mg PO DAILY hydroxyzine HCl 25 mg PO DAILY PRN metoprolol succinate ER 50 mg PO BID nitroglycerin 0.4 mg sublingual Q5M PRN omeprazole 40 mg PO DAILY promethazine 25 mg PO DAILY PRN risankizumab-rzaa (Skyrizi) 360 mg (2.4 mL) subcut .8 weeks 56 days tramadol 50 mg PO BID 30 days zolpidem 10 mg PO BEDTIME PRN 30 days HPI PILL COUNT HPI Details 63-year-old male who presents today to t he office for a pill count. 50 pills were expected, and 49 pills wer e presented. Since our last meeting, he was hospitalized for a bout of bowel obstruction that was managed conservatively in the hospital via NG tube placement. Since then he has continued to have significant discomfort. He continues to take tramadol as directed and finds this helpful. However he does have concerns regarding the long-term side effects from tramadol since he has been taking it for 12 years already. He also appears to be anxious about his overall condition with respect to Crohn's disease and how it is affecting his life. He will visit Dr. Hadley for an endoscopy in the near future. [facility] Medical History Crohn's disease CAD (coronary artery disease) Paroxysmal atrial fibrillation Obesity Swelling of knee joint, left Obesity Chronic pain syndrome Chronic abdominal pain Hyperlipidemia Stricture of small intestine LBBB (left bundle branch block) Hypertension Hyperlipidemia GERD without esophagitis History of paroxysmal atrial tachycardia Crohn's disease Surgical History Stented coronary artery Hx of endoscopy History of colonoscopy Family History Father Family history unknown Mother Hx of Crohn's disease Social History Household Members: Friend(s) Household Members Other:: 1 Housing: House Are you a primary chronic care nurse to a significant other at home: No Do you presently have visiting nurse or other home services: No Alcohol intake: never Patient Tobacco Use Status: Never used Tobacco e-Cigarette/Vaping Use: Never Used Second Hand Smoke Exposure: No Advance Directives Date on File: 08/16/22 service: Yes Current occupational status: employed Cognitive needs: No Hearing needs: No Vision needs: No Review of Systems Const All systems reviewed & are unremarkable except as noted in HPI and below Physical Exam Vital Signs: Last Vital Signs Pulse 73 08/17/23 09:05 Resp 12 08/17/23 09:05 BP 144/93 H 08/17/23 09:05 Pulse Ox 97 08/17/23 09:05 Oxygen Delivery Method Room Air 08/17/23 09:05 BMI result Body Mass Index 32.7 General: Appears afebrile. Alert and oriented. Mood and affect appropriate. Follows and participates in conversation appropriately. Respiratory effort is unlabored. Able to transition from sit to stand unassisted. Ambulates with bilaterally normal heel strike and toe off. Results Reviewed Results Reviewed: No imaging is available for review. Assessment & Plan Assessment & Plan (1) Crohn's disease: Code(s): K50.90 - Crohn's disease, unspecified, without complications (2) Abdominal pain: Code(s): R10.9 - Unspecified abdominal pain Qualifiers: Abdominal location: generalized Qualified Code(s): R10.84 - Generalized abdominal pain Plan Pill count was consistent. Refill Tramadol 50 mg BID starting 09/11/23. Patient will follow up in two months for pill count and refill. Provided counseling and reassurance regarding his pain control situation. Advised him to follow-up as needed if he ever has any concerns regarding his medication or questions about interventional management. Scribed for Dr. Figueredo by Matias Galaviz, medical imaging technician, on 08/17/2023. I, Dr. Figueredo, have personally reviewed and agree with the information entered by the scribe. Medications: Changed From tramadol Partial Fill upon patient request. Fill date 07/14/23 50 mg PO BID 30 days 60 tabs 1RF pain K50.90 - Crohn's disease, unspecified, without complications To tramadol Partial Fill upon patient request. Fill date 09/11/23 50 mg PO BID 60 tabs 1RF pain 30 days K50.90 - Crohn's disease, unspecified, without complications Coding Level of Care Code Est Pt Level 3 (56651) Diagnoses Crohn's disease K50.90 Generalized abdominal pain R10.84 Abdominal location: generalized
== END 2023-08-17 09:38 | disposition home or self-care (01) ==
PROVIDERS: PCP Internal Medicine; Visit Provider Internal Medicine
DX: K50.90 Crohn's disease, unspecified, without complications (principal); R10.84 Generalized abdominal pain; Z79.891 Long term (current) use of opiate analgesic
CPT/HCPCS: 99213

== ENCOUNTER → 2023-08-17 08:57 | Outpatient (BNVA) | payer OTHER, SELFPAY | PROVIDERS: PCP Internal Medicine; Visit Provider Internal Medicine ==

== ENCOUNTER → 2023-09-19 09:41 | Outpatient (REF) | payer OTHER, SELFPAY ==
--- NOTE | 2023-09-19 09:47 | CA_ITS ---
Transthoracic Echocardiogram Patient (Last, First, Middle): Jeremias Montelongo P Gender: Male Date of : 1960 Age: 63 Procedure Date: 09/19/2023 Procedure Type: Transthoracic Echocardiogram Location: OP Height: 172.72 cm Weight: 95.26 kg BSA: 2.09 m2 Heart Rate: bpm BP: 130 / 90 mmHg Blanchard Grinder Operator: AUGUSTINA Referring MD: Chay Guzmán MD Agency Sales Director: Chay Guzmán MD Symptoms: I77.89 - Other specified disorders of arteries and arterioles Study Quality: Fair ECG Rhythm: Sinus Conclusions: - 1. Normal LV ejection fraction 55-60% with asymmetric septal hypertrophy 2. Calcific aortic valve changes noted with mild aortic regurgitation 3. Normal RV systolic pressure 4. Mildly dilated ascending aorta at 4 cm 5. No pericardial effusion Findings Left Ventricle Normal left ventricular size, thickness, and systolic function. The visually estimated ejection fraction is between 55-60%. There is paradoxical septal motion consistent with a left bundle branch block. There is no dynamic left ventricular outflow tract obstruction. Spectral Doppler is indicative of a normal filling pattern. There is moderate septal asymmetric hypertrophy. Right Ventricle Normal right ventricular cavity size and systolic function. Atria The left atrium is normal in size. There is lipomatous hypertrophy of the interatrial septum. There is no evidence of interatrial shunt. The right atrium is normal in size. Aortic Valve There is mild calcification of the aortic valve. There is moderate thickening of the aortic valve. There is no aortic valve stenosis. There is mild aortic valve regurgitation. Mitral Valve There is mild anterior and posterior mitral leaflet thickening. There is trace mitral valve regurgitation. There is no mitral valve stenosis. Pulmonic Valve The pulmonic valve is likely normal. Tricuspid Valve Normal tricuspid valve structure. There is trace tricuspid valve regurgitation. The right ventricular systolic pressure is normal. The right ventricular systolic pressure is 29 mmHg. Normal right atrial pressure. There is no evidence of pulmonary hypertension. Great Vessels There is mild dilatation of the ascending aorta measuring 4.00 cm. Venous The inferior vena cava is normal in size and collapses greater than 50% with inspiration. Pericardium/Pleural There is no evidence of pericardial effusion. Prior Study Comparison No significant change compared to prior study dated: 09/22/2022. Measurements 2D Linear Measurements IVSd: 1.55 0.6-0.9/0.6-1.0 cm LVIDd: 4.63 3.9-5.3/4.2-5.9 cm LVIDd Index: 2.22 2.4-3.2/2.2-3.1 cm/m2 LVIDs: 3.20 2.0-3.6 cm LVPWd: 1.02 0.7-1.1 cm LA Diam: 3.60 2.7-3.8/3.0-4.0 cm LAIDs Index: 1.72 1.5-2.3 cm/m2 LV Mass: 284.95 67-162/88-224 g LV Mass Index: 136.34 43-95/49-115 g/m2 LVOT Diam: 2.10 3.0+(-)1.3 cm 2D Systolic Function EF 4C: 55.70 >55% EF 2C: 57.60 >55% EF BiP: 57.20 >55% Mitral Valve MV Pk E: 0.62 MV PK A: 0.54 MV Decel Time: 297.00 E/A: 1.20 E'Lateral: 8.81 E'Medial: 5.77 E/E' Med: 10.80 E/E' Lat: 7.00 PHT: 87.00 MVA PHT: 2.53 Decel [place]: 2.09 Aortic Valve AoV Pk Eduardo: 1.24 AoV Mn Eduardo: 0.89 AoV VTI: 0.28 AoV Pk Grad: 6.00 Aov Mn Grad: 4.00 ANGI Cont.VTI: 2.82 LVOT LVOT Pk Eduardo: 1.01 LVOT Mn Eduardo: 0.64 LVOT VTI: 0.22 LVOT Pk Grad: 4.00 LVOT Mn Grad: 2.00 LVOT Diam: 2.10 LVOT Area: 3.46 Diastolic Function MV Pk E: 0.62 MV Pk A: 0.54 E/A: 1.20 E'Medial: 5.77 E/E' Med: 10.80 E' Laterial: 8.81 E/E' Lat: 7.00 Right Ventricle TAPSE (mm): 24.80 TVS' Eduardo: 8.81 Tricuspid Valve TR Pk Eduardo: 2.57 TR Pk Grad: 26.00 RA Press: 3.00 RVSP: 29.00 Great Vessels Aorta Sinus of Valsalva: 3.95 2.0-3.[address] [place]: 2.93 1.7-3.4 cm Ao Asc: 4.00 2.1-3.4 cm Updated in Other Vendor System with Status of Final Chay Guzmán MD electronically signed on 09/20/2023 2:24:29 PM with status of Final
== END ==
LOC: HO.CARD 09:41
PROVIDERS: PCP Internal Medicine; Visit Provider Internal Medicine Cardiovascular Disease
DX: I77.89 Other specified disorders of arteries and arterioles (principal)
CPT/HCPCS: 93306

== ENCOUNTER → 2023-09-19 09:47 | Outpatient (BNV) | payer OTHER, SELFPAY | PROVIDERS: PCP Internal Medicine; Visit Provider Internal Medicine Cardiovascular Disease | DX: I35.1 Nonrheumatic aortic (valve) insufficiency (principal) | CPT/HCPCS: 93306 ==

== ENCOUNTER 2023-10-04 06:47 | Day surgery (SDC) | payer OTHER, SELFPAY ==
[2023-10-02 11:47] VITALS: BMI 32.4
--- NOTE | 2023-10-03 09:59 | P.CONAN_ITS ---
HPI - Anesthesia Eval Consult details Narrative: 63yo M for Upper Endoscopy s/p colo 2022 Follows [facility] [place] cardiology for CAD s/p stents x 2. Stable at 02/2023 office visit. Recent echo ok [facility] Active Problems Active Problems: All Active Problems Enlarged thoracic aorta (Acute) Abdominal pain (Acute) Exacerbation of Crohn's disease (Acute) Labile blood pressure (Acute) Right knee pain (Acute) Obesity (Acute) Crohn's disease (Acute) Exertional angina (Acute) Physical exam (Acute) Paroxysmal atrial fibrillation (Acute) CAD (coronary artery disease) (Acute) Swelling of knee joint, left (Acute) LBBB (left bundle branch block) (Acute) Hypertension (Acute) GERD without esophagitis (Acute) Past Medical History Medical History Obesity Swelling of knee joint, left Chronic pain syndrome Chronic abdominal pain Hyperlipidemia Stricture of small intestine LBBB (left bundle branch block) CAD (coronary artery disease) Paroxysmal atrial fibrillation Hypertension GERD without esophagitis History of paroxysmal atrial tachycardia Crohn's disease Family History Family History Father Family history unknown Mother Hx of Crohn's disease Family history of problems with anesthesia: No Surgical History Surgical History Stented coronary artery Hx of endoscopy History of colonoscopy History of Problems with Anesthesia: No Social History Social History Household Members: Friend(s) Household Members Other:: 1 Housing: House Are you a primary healthcare administration internship to a significant other at home: No Do you presently have visiting nurse or other home services: No Alcohol intake: never Patient Tobacco Use Status: Former Tobacco user e-Cigarette/Vaping Use: Never Used Second Hand Smoke Exposure: No Advance Directives Date on File: 08/16/22 service: Yes Current occupational status: employed Cognitive needs: No Hearing needs: No Vision needs: No Meds Allergies Allergy/AdvReac Type Severity Reaction Status Date / Time No Known Allergies Allergy Mild none Verified 08/17/23 09:07 Home Medications ?Medication ?Instructions ?Recorded ?Confirmed ?Last Taken ?Type duloxetine 30 mg capsule,delayed 30 mg PO DAILY 10/13/22 10/02/23 Unknown History release hydroxyzine HCl 25 mg tablet 25 mg PO DAILY PRN Anxiety 10/13/22 10/02/23 Unknown History Exam Height,Weight and Vital Signs: Height 5 ft 8 in Weight 96.615 kg Pertinent Lab Results Pertinent Lab Results: Laboratory Tests 07/24/23 23:23 WBC 16.2 H Hgb 16.1 Hct 46.4 Plt Count 276 Sodium 139 Potassium 3.7 Chloride 107 Carbon Dioxide 21 L BUN 16 Creatinine 0.74 Narrative Narrative: EKG 02/2023 normal sinus rhythm with left bundle-branch block, unchanged ECHO 09/2023 Conclusions: - 1. Normal LV ejection fraction 55-60% with asymmetric septal hypertrophy 2. Calcific aortic valve changes noted with mild aortic regurgitation 3. Normal RV systolic pressure 4. Mildly dilated ascending aorta at 4 cm 5. No pericardial effusion Assessment and Plan Assessment Anesthesia Assessment: Chart Reviewed Final Anesthetic Review Family History of Problems with Anesthesia: No History of Problems with Anesthesia: No
[2023-10-04 07:34] VITALS: BP 145/95; PULSE 77; RESP 18; TEMP 36.6; O2SAT 96; BMI 32.7
[2023-10-04] MEDS: Lactated Ringers 1,000 ML 100 ML IVCONT (07:56)
--- NOTE | 2023-10-04 07:57 | P.CONAN_ITS ---
[facility] Active Problems Active Problems: All Active Problems Enlarged thoracic aorta (Acute) Abdominal pain (Acute) Exacerbation of Crohn's disease (Acute) Labile blood pressure (Acute) Right knee pain (Acute) Obesity (Acute) Crohn's disease (Acute) Exertional angina (Acute) Physical exam (Acute) Paroxysmal atrial fibrillation (Acute) CAD (coronary artery disease) (Acute) Swelling of knee joint, left (Acute) LBBB (left bundle branch block) (Acute) Hypertension (Acute) GERD without esophagitis (Acute) Past Medical History Medical History Obesity Swelling of knee joint, left Chronic pain syndrome Chronic abdominal pain Hyperlipidemia Stricture of small intestine LBBB (left bundle branch block) CAD (coronary artery disease) Paroxysmal atrial fibrillation Hypertension GERD without esophagitis History of paroxysmal atrial tachycardia Crohn's disease Functional capacity: independent ambulation Family History Family History Father Family history unknown Mother Hx of Crohn's disease Family history of problems with anesthesia: No Surgical History Surgical History Stented coronary artery Hx of endoscopy History of colonoscopy History of Problems with Anesthesia: No Social History Social History Household Members: Friend(s) Household Members Other:: 1 Housing: House Are you a primary ostomy care nurse to a significant other at home: No Do you presently have visiting nurse or other home services: No Alcohol intake: never Patient Tobacco Use Status: Former Tobacco user e-Cigarette/Vaping Use: Never Used Second Hand Smoke Exposure: No Have you been hit, kicked, punched, or otherwise hurt by someone within the past year? If so, by whom?: No Are you DNR?: No Advance Directives: No Advance Directives Information Provided: Yes Advance Directives on File: Yes Advance Directives Date on File: 08/16/22 Recently lost weight without trying: No Nutrition Risks: No Nutritional Risk service: Yes Current occupational status: employed Cognitive needs: No Hearing needs: No Vision needs: No Meds Allergies Allergy/AdvReac Type Severity Reaction Status Date / Time No Known Allergies Allergy Mild none Verified 08/17/23 09:07 Active Medications: Current Medications Lactated Ringer's (Lr) 1,000 mls @ 100 mls/hr IVCONT .Q10H MY Last Admin: 10/04/23 07:56 Dose: 100 mls/hr Home Medications ?Medication ?Instructions ?Recorded ?Confirmed ?Last Taken ?Type duloxetine 30 mg capsule,delayed 30 mg PO DAILY 10/13/22 10/02/23 Unknown History release hydroxyzine HCl 25 mg tablet 25 mg PO DAILY PRN Anxiety 10/13/22 10/02/23 Unknown History Exam Height,Weight and Vital Signs: Height 5 ft 8 in Weight 97.522 kg Last Vital Signs Temp 97.9 F 10/04/23 07:34 Pulse 77 10/04/23 07:34 Resp 18 10/04/23 07:34 BP 145/95 H 10/04/23 07:34 Pulse Ox 96 10/04/23 07:34 O2 Del Method Room Air 10/04/23 07:34 Airway Mallampati Class: III TM Dist: >3cm Neck ROM: Full Partial: Upper Adult Head Mouth w/Numbe Teeth: 2 1. Heart: RRR Lungs: CTA Assessment and Plan Assessment Anesthesia Assessment: Anesthesia Plan Discussed Final Anesthetic Review Family History of Problems with Anesthesia: No History of Problems with Anesthesia: No ASA Class: III Final Preanesthetic Review: Meds/Allgs Chart Reviewed, Consent Obtained/Reviewed and Anes Risks/Benef Reviewed Patient Risk: Low Procedure Risk: Low Anesthetic Plan Anesthetic Plan: MAC: Disposition: Standard PACU
--- NOTE | 2023-10-04 08:07 | MHC.SHP ---
Pre-Procedural Eval Section A - 24 Hr Update-Section A only Date of Service: 10/04/23 Section B - Complete if H&P > 30 days Chief Complaint: Epigastric pain Relevant Family History (Specify if Yes): No Relevant Social History: None Present Medications: see Short Stay Collaborative assessment Medical History: Significant History (Obesity Swelling of knee joint, left Chronic pain syndrome Chronic abdominal pain Hyperlipidemia Stricture of small intestine LBBB (left bundle branch block) CAD (coronary artery disease) Paroxysmal atrial fibrillation Hypertension GERD without esophagitis History of paroxysmal atrial tachycardia Cr) History of Previous Operations: Relevant previous surgery/procedure and date(s) (Stented coronary artery Hx of endoscopy History of colonoscopy) Allergies: Allergies Allergy/AdvReac Type Severity Reaction Status Date / Time No Known Allergies Allergy Mild none Verified 08/17/23 09:07 Review of Systems Sugical H&P ROS: Negative: Constitution, Cardiovascular, Respiratory, Neurological, Psychiatric, Hem-Onc, Allergic/Immunologic, Gastrointestinal, Genitourinary, Musculoskeletal, Integumentary, Endocrine and Eyes/Ears/Nose/Throat Exam Surgical H&P Exam: Normal: HEENT, Normal: Heart, Normal: Lungs, Normal: Extremities, Normal: Abdomen, Normal: Skin and Normal: Neurological Plan Diagnosis/Plan: Unchanged I have reviewed the history and physical and performed a pertinent physical examination on my patient. No changes have occurred unless specified. Time Spent With Patient Time: Total time managing care of this patient today ____ minutes.
--- NOTE | 2023-10-04 08:08 | W.PM.OPN ---
Operative Note Operative Note Date of Service: 10/04/23 Narrative: Procedure Description: EGD Indication: epigastric pain Anesthesia: MAC FLEXIBLE TRANSORAL UPPER GASTROINTESTINAL ENDOSCOPY UPPER ENDOSCOPY Consent: Indications for the procedure and potential complications of bleeding, perforation, reaction to medications and missed diagnosis were discussed with the patient and informed consent was obtained. Instrument: Olympus GIF H 190 J mid size upper endoscope Monitoring: Vital signs and clinical assessment, continuous EKG monitoring, Pulse oximetry, Carbon Dioxide monitoring and blood pressure monitoring were done throughout the procedure. Procedure: The patient was placed in the left lateral decubitis position and pre-procedure medications were administered and a bite block was placed. The endoscope was inserted into the mouth and advanced under direct vision to the third part of duodenum. A careful inspection was made as the upper endoscope was withdrawn including a retroflexed examination of the proximal stomach; Findings and interventions are described below. Findings: Larynx:normal Esophagus: GE junction at 38 cm, diaphragm hiatus at 40 cm, consistent with 2 cm sliding hiatal hernia, suspected short segement barretts bx taken Stomach: pallor and patchy erythema . Biopsies were obtained. Grade 2 flap valve on retroflexed examination of the cardia. Duodenum: Normal bulb and descending duodenum, bx taken Intervention: Biopsies as noted above, Impression/Findings: gastritis esophagitis hiatal hernia barretts esophagus PLAN: await bx, if neg then consider CTe vs capsule endoscopy GERD precautions
[2023-10-04 08:32] VITALS: BP 156/91; PULSE 89; RESP 16; TEMP 36.6; O2SAT 97
[2023-10-04 08:52] VITALS: BP 152/96; PULSE 82; RESP 18; TEMP 37; O2SAT 96
--- NOTE | 2023-10-04 10:31 | HO.POSTANES ---
Post Anesthesia Evaluation Post Anesthesia Evaluation Date of Service: 10/04/23 Vital Signs: Vital Signs Temp Pulse Resp BP Pulse Ox O2 Del Method 10/04/23 08:52 98.6 F 82 18 152/96 H 96 Room Air 10/04/23 08:32 97.8 F 89 16 156/91 H 97 Room Air 10/04/23 07:34 97.9 F 77 18 145/95 H 96 Room Air Anesthesia: Monitored Mental Status: Awake Pain Control: Satisfactory Nausea/Vomiting: None Hydration: Adequate Anesthesia-Related Issues: No Anes. Related Issues
== END 2023-10-04 09:11 | disposition home or self-care (01) ==
PROVIDERS: PCP Internal Medicine; Visit Provider Internal Medicine Gastroenterology
PROC: 0DJ08ZZ Inspection of Upper Intestinal Tract, Via Natural or Artificial Opening Endoscopic (ICD-10-PCS; CPT 43235; principal; 2023-10-04 08:20)
DX: K29.70 Gastritis, unspecified, without bleeding (principal); K20.80 Other esophagitis without bleeding; K22.70 Barrett's esophagus without dysplasia; K44.9 Diaphragmatic hernia without obstruction or gangrene; K50.90 Crohn's disease, unspecified, without complications; K21.9 Gastro-esophageal reflux disease without esophagitis; I10 Essential (primary) hypertension; G89.4 Chronic pain syndrome; R10.9 Unspecified abdominal pain; I44.7 Left bundle-branch block, unspecified; I25.10 Atherosclerotic heart disease of native coronary artery without angina pectoris; Z95.5 Presence of coronary angioplasty implant and graft; I48.0 Paroxysmal atrial fibrillation; E78.5 Hyperlipidemia, unspecified; Z79.899 Other long term (current) drug therapy; Z87.891 Personal history of nicotine dependence
CPT/HCPCS: 43239; 88305; 88313; 88342; J1596; J2704

== ENCOUNTER → 2023-10-04 06:47 | Outpatient (BNV) | payer OTHER, SELFPAY | PROVIDERS: PCP Internal Medicine; Visit Provider Internal Medicine Gastroenterology | DX: K29.70 Gastritis, unspecified, without bleeding (principal); K22.70 Barrett's esophagus without dysplasia; K20.90 Esophagitis, unspecified without bleeding | CPT/HCPCS: 43239 ==

== ENCOUNTER 2023-10-12 08:32 | Outpatient (AMB) | payer OTHER, SELFPAY ==
--- NOTE | 2023-10-12 08:58 | MHC.OFFVIS ---
Vital Signs 10/12/23 08:59 Height 5 ft 8 in Weight 216 lb BMI 32.8 BP 154/91 H Blood Pressure Location Lt brachial Position Sitting Respiration 14 Pulse 83 Pulse Source Pulse Oximeter Pulse Oximetry (%) 95 Oxygen Delivery Method Room Air Intake Visit Reasons: pill count Intake Note: Pt states he last took tramadol 10/12/23 @ 6am Allergies No Known Allergies Allergy (Mild, Verified 10/12/23 09:01) none Medication List - Last Reconciled 10/12/23 by Sofia Sutherland LPN amlodipine 2.5 mg PO DAILY atorvastatin 80 mg PO DAILY duloxetine 30 mg PO DAILY hydroxyzine HCl 25 mg PO DAILY PRN metoprolol succinate ER 50 mg PO BID nitroglycerin 0.4 mg sublingual Q5M PRN omeprazole 40 mg PO DAILY promethazine 25 mg PO DAILY PRN risankizumab-rzaa (Skyrizi) 360 mg (2.4 mL) subcut .8 weeks 56 days tramadol 50 mg PO BID 30 days zolpidem 10 mg PO BEDTIME PRN 30 days HPI HPI pill count: Details: 63-year-old male who presents today to the office for a pill count. 54 pills were expected, and 55 were presented. Continuous to have episodes of Crohn's flares associated with pain and discomfort. He had an endoscopy last week. He will again follow up next Sunday. He has intermittent knee pain, which is stable. [facility] Medical History Obesity Swelling of knee joint, left Chronic pain syndrome Chronic abdominal pain Hyperlipidemia Stricture of small intestine LBBB (left bundle branch block) CAD (coronary artery disease) Paroxysmal atrial fibrillation Hypertension GERD without esophagitis History of paroxysmal atrial tachycardia Crohn's disease Surgical History Stented coronary artery Hx of endoscopy History of colonoscopy Family History Father Family history unknown Mother Hx of Crohn's disease Social History Household Members: Friend(s) Household Members Other:: 1 Housing: House Are you a primary career manager to a significant other at home: No Do you presently have visiting nurse or other home services: No Alcohol intake: never Patient Tobacco Use Status: Former Tobacco user e-Cigarette/Vaping Use: Never Used Second Hand Smoke Exposure: No Advance Directives Date on File: 08/16/22 service: Yes Current occupational status: employed Cognitive needs: No Hearing needs: No Vision needs: No Review of Systems Const All systems reviewed & are unremarkable except as noted in HPI and below Physical Exam Vital Signs: Last Vital Signs Pulse 83 10/12/23 08:59 Resp 14 10/12/23 08:59 BP 154/91 H 10/12/23 08:59 Pulse Ox 95 10/12/23 08:59 Oxygen Delivery Method Room Air 10/12/23 08:59 BMI result Body Mass Index 32.8 General: Appears afebrile. Alert and oriented. Mood and affect appropriate. Follows and participates in conversation appropriately. Respiratory effort is unlabored. Able to transition from sit to stand unassisted. Ambulates with bilaterally normal heel strike and toe off. Results Reviewed Results Reviewed: No imaging is available for review. Assessment & Plan Assessment & Plan (1) Abdominal pain: Code(s): R10.9 - Unspecified abdominal pain Category: Medical Qualifiers: Abdominal location: generalized Qualified Code(s): R10.84 - Generalized abdominal pain Plan 54pills were expected and 55 were presented. Pill count was consistent. Refill Tramadol 50 mg BID starting 11/08/23. Patient will follow up in two months for pill count and refill. Scribed for Dr. Figueredo by Matias Galaviz, medical center director, on 10/12/2023. I, Dr. Figueredo, have personally reviewed and agree with the information entered by the scribe. Medications: Changed From tramadol Partial Fill upon patient request. Fill date 09/11/23 50 mg PO BID 30 days 60 tabs 1RF pain K50.90 - Crohn's disease, unspecified, without complications To tramadol Partial Fill upon patient request. Fill date 11/08/23 50 mg PO BID 60 tabs 1RF pain 30 days K50.90 - Crohn's disease, unspecified, without complications Coding Level of Care Code Est Pt Level 3 (06302) Diagnoses Generalized abdominal pain R10.84 Abdominal location: generalized
[2023-10-12 08:59] VITALS: BP 154/91; PULSE 83; RESP 14; O2SAT 95; BMI 32.8
== END 2023-10-12 09:12 | disposition home or self-care (01) ==
PROVIDERS: PCP Internal Medicine; Visit Provider Internal Medicine
DX: R10.84 Generalized abdominal pain (principal); Z79.891 Long term (current) use of opiate analgesic
CPT/HCPCS: 99213

== ENCOUNTER → 2023-10-12 08:32 | Outpatient (BNVA) | payer OTHER, SELFPAY | PROVIDERS: PCP Internal Medicine; Visit Provider Internal Medicine ==

== ENCOUNTER 2023-10-15 08:24 | Outpatient (AMB) | payer OTHER, SELFPAY ==
--- NOTE | 2023-10-15 08:24 | MHC.OFFVIS ---
Intake Visit Reasons: S/P EGD Intake Note: Jose presents in the office as a telehealth today. CC: Just to go over results of his last EGD. Allergies No Known Allergies Allergy (Mild, Verified 10/15/23 08:24) none HPI HPI S/P EGD: Details: 63-year-old male w/ hx of CAD< GERD, LBBB, a-fib and Crohn's disease,(Dx 2012) who I am seeing for f/u for crohns disease and SBO--w/ fibrostentoic disease RECAP: He had been seen as inpatient 10/2020 for obstruction, prior had also been seeing Dr werner Patient has had crohns disease for many years and is on humira q1wk after having multiple admissions for SBO and crohns flare ups with sub therapeutic adalimumab levels. He was well night before admission. He ate some fried food and shortly after noted abdominal distention, with nausea and several episodes of nonbloody, nonbilious emesis which resembled prior attacks of SBO. He denies fever, chills, shortness of breath, or chest pain. He said on average he gets one attack like this every 8-12 months. Since the humira increase he has felt his background symptoms are much better and he rarely takes tramadol or anti nausea medication. Not taking nsaids. CT of the abdomen and pelvis showed small bowel obstruction with transition point in the right pelvis, and reactive mesenteric lymph nodes. He was given IV fluids and piperacillin/tazobactam. He is non smoker. OTHER DATA: Adalimumab trough 11 (which is good) MRI abd/pelv 03/08/20 showed thickening of distal small bowel. Area of dilation and angulation. Area of right lower quadrant involving terminal ileum. Skip lesions of small bowel. MR enterography-- 11/07/19 which demonstrated multiple scattered areas of small intestinal inflammation. Compared to prior testing there were 4 more areas of active inflammation. There were no areas of stenosis. colonoscopy 2017-- Active Crohn's disease with an ulcerated stricture in the region of the distal ileum. Given his ongoing sx and imaging results my concern was that he had crohns which was not really controlled by humira and that he was not responsive to anti TNFs He was switched to entyvio eventually increased freq to q 4 weeks due to symptoms and low entyvio level and MRe 10/2021 with small bowel thickening unchanged to prior imaging (eval was limited as they couldnt get IV access) This has now been changed to skyriszi because he had another exacerbation of crohns with ongoing inflammation noted on imaging 08/2022 I performed colonoscopy 12/2022 ileocecal stricture--s/p dilation and kenalog injection polyp--adenoma internal hemorrhoids diverticular disease EGD: 10/02 gastritis esophagitis hiatal hernia barretts esophagus Path: barretts RECAP: he has been taking tums at night which helps still taking omeprazole he has few episodes of nausea and vomtiing he had an attack whilst in [place]--upper abdominal pain with cold sweats appetite is good he feels that the prev colonoscopy with dilation helped him the most EXAM: Relaxed A/P:Crohns disease with ongoing sx, now on skyrizi s/p dilation of stricture, few bouts of epigastric pain and nausea, ?sub acute obstruction, ongoing crohns flares, gallstones PLAN: 1/ US abdo 2/ Ct e 3/ depending on above can repeat colonoscopy with balloon dilaiton and kenalog 4/ change omeprazole to nexium [facility] Medical History Obesity Swelling of knee joint, left Chronic pain syndrome Chronic abdominal pain Hyperlipidemia Stricture of small intestine LBBB (left bundle branch block) CAD (coronary artery disease) Paroxysmal atrial fibrillation Hypertension GERD without esophagitis History of paroxysmal atrial tachycardia Crohn's disease Surgical History Stented coronary artery Hx of endoscopy History of colonoscopy Family History Father Family history unknown Mother Hx of Crohn's disease Social History Household Members: Friend(s) Household Members Other:: 1 Housing: House Are you a primary adult day care worker to a significant other at home: No Do you presently have visiting nurse or other home services: No Alcohol intake: never Patient Tobacco Use Status: Former Tobacco user e-Cigarette/Vaping Use: Never Used Second Hand Smoke Exposure: No Advance Directives Date on File: 08/16/22 service: Yes Current occupational status: employed Cognitive needs: No Hearing needs: No Vision needs: No Telehealth Telehealth Telehealth Platform: [employer] Location of provider rendering services: practice address Location of patient: address on file Patient Identification confirmed using: Name, : Yes Telehealth method: video Patient verbally consented to treatment: Yes Patient verbally consented to billing insurance company: Yes Patient informed of any privacy concerns related to visit: Yes Minutes spent on Phone/Video with Pt.: 9 Assessment & Plan Assessment & Plan (1) Upper abdominal pain: Code(s): R10.10 - Upper abdominal pain, unspecified Category: Medical Plan: see above Orders: Orders US abdomen complete Today R10.10 - Upper abdominal pain, unspecified Medications: New esomeprazole magnesium 40 mg PO DAILY 30 caps 3RF Discontinued omeprazole Discontinued Reason: Patient Completed Course 40 mg PO DAILY 90 caps 8RF Coding Level of Care Code Tele Est Pt Level 3 (78300) Diagnoses Upper abdominal pain R10.10
== END 2023-10-15 09:35 | disposition home or self-care (01) ==
LOC: HO.HGI 08:24
PROVIDERS: PCP Internal Medicine; Visit Provider Internal Medicine Gastroenterology
DX: R10.10 Upper abdominal pain, unspecified (principal)
CPT/HCPCS: 99213

== ENCOUNTER → 2023-10-15 08:24 | Outpatient (BNVA) | payer OTHER, SELFPAY | PROVIDERS: PCP Internal Medicine; Visit Provider Internal Medicine Gastroenterology ==

== ENCOUNTER 2023-10-24 07:38 | Outpatient (REF) | payer OTHER, SELFPAY ==
--- NOTE | ~2023-10-24 | US_ITS ---
EXAMINATION: US ABDOMEN COMPLETE CLINICAL INFORMATION: Upper abdominal pain, rule out gallstones, has Crohn's disease. COMPARISON: None available. TECHNIQUE: Real-time imaging of the abdominal viscera. Limited visualization due to bowel gas. FINDINGS: PANCREAS: Limited visualization of pancreatic tail and head. Imaged portion of pancreatic body is unremarkable. ABDOMINAL AORTA: Atherosclerosis. Abdominal aorta poorly visualized. INFERIOR VENA CAVA: Visualized portions are normal. LIVER: Increased hepatic parenchymal heterogeneity and echogenicity could be associated with hepatocellular disease/hepatic steatosis and substantially limits visualization. Correlation with liver function tests and clinical exam recommended to determine further management. GALLBLADDER: No gallstones. No gallbladder wall thickening. COMMON BILE DUCT: Normal in caliber measuring 1.0 cm in diameter. RIGHT KIDNEY: No hydronephrosis. No renal calculi. Limited visualization. A 1.2 cm mid pole cyst with benign features. There is no indication for follow-up imaging. A 0.8 cm upper pole cyst with benign features. There is no indication for follow-up imaging. The kidney measures 12.1 cm in maximum dimension. LEFT KIDNEY: No hydronephrosis. No renal calculi. Limited visualization. The kidney measures 13.2 cm in maximum dimension. SPLEEN: Splenomegaly. The spleen measures 13.0 cm in maximum dimension. FREE FLUID: None. US/US abdomen complete IMPRESSION: 1. Increased hepatic parenchymal heterogeneity and echogenicity could be associated with hepatocellular disease/hepatic steatosis and substantially limits visualization. Correlation with liver function tests and clinical exam recommended to determine further management. 2. Splenomegaly.
== END 2023-10-24 07:39 | disposition home or self-care (01) ==
LOC: HO.US 07:38
PROVIDERS: PCP Internal Medicine; Visit Provider Internal Medicine Gastroenterology
DX: R10.10 Upper abdominal pain, unspecified (principal)
CPT/HCPCS: 76700

== ENCOUNTER 2023-11-28 08:18 | Outpatient (AMB) | payer OTHER, SELFPAY ==
--- NOTE | 2023-11-28 08:28 | A.OFFVIS_ITS ---
Vital Signs 11/28/23 08:29 Height 5 ft 8 in Weight 213 lb 13.574 oz BMI 32.5 BP 124/80 Blood Pressure Location Lt brachial Position Sitting Pulse 67 Intake Visit Reasons: 8 mth f/up s/p 7 mth echo Intake Note: Follow-up after echo with ekg feeling good Mortgage Originator Required: No Allergies No Known Allergies Allergy (Mild, Verified 10/15/23 08:24) none Medication List - Last Reconciled 11/28/23 by Chay Guzmán MD amlodipine 2.5 mg PO DAILY atorvastatin 80 mg PO DAILY duloxetine 30 mg PO DAILY esomeprazole magnesium 40 mg PO DAILY hydroxyzine HCl 25 mg PO DAILY PRN metoprolol succinate ER 50 mg PO BID nitroglycerin 0.4 mg sublingual Q5M PRN promethazine 25 mg PO DAILY PRN risankizumab-rzaa (Skyrizi) 360 mg (2.4 mL) subcut .8 weeks 56 days tramadol 50 mg PO BID 30 days zolpidem 10 mg PO BEDTIME PRN 30 days HPI Comments Details: Jeremias Comes for follow-up. Continues to have issues with his Crohn's disease with symptoms related to it. No bleeding issues although. He said with the new medication has symptoms of better controlled. He denies any prolonged palpitation irregular heartbeat. Rides bike intermittently and denies any anginal sounding chest discomfort. No heart failure symptoms. Denies any orthostatic lightheadedness. Occasionally blood pressure is elevated but he does not measure them at home. Last LDL of 85 mg/dL. Echocardiogram shows normal LV ejection fraction with mildly dilated ascending aorta and mild aortic regurgitation. [facility] Medical History Obesity Swelling of knee joint, left Chronic pain syndrome Chronic abdominal pain Hyperlipidemia Stricture of small intestine LBBB (left bundle branch block) CAD (coronary artery disease) Paroxysmal atrial fibrillation Hypertension GERD without esophagitis History of paroxysmal atrial tachycardia Crohn's disease Surgical History Stented coronary artery Hx of endoscopy History of colonoscopy Family History Father Family history unknown Mother Hx of Crohn's disease Social History Household Members: Friend(s) Household Members Other:: 1 Housing: House Are you a primary client care coordinator to a significant other at home: No Do you presently have visiting nurse or other home services: No Alcohol intake: never Patient Tobacco Use Status: Former Tobacco user e-Cigarette/Vaping Use: Never Used Second Hand Smoke Exposure: No Advance Directives Date on File: 08/16/22 service: Yes Current occupational status: employed Cognitive needs: No Hearing needs: No Vision needs: No Review of Systems Const Denies chills, Denies fatigue, Denies fever(s), Denies frequent falls, Denies weakness, Denies weight gain and Denies weight loss ENT Denies dizziness Card Denies chest pain, Denies leg edema, Denies lightheadedness, Denies palpitat ions, Denies dyspnea, Denies dyspnea on exertion, Denies orthopnea and Denies other (loss of consciousness) Resp Denies cough, Denies dyspnea and Denies dyspnea on exertion GI Denies hematochezia and Denies change in stool character Musc Denies abnormal gait, Denies muscle weakness, Denies numbness, Denies radiating pain into limb and Denies tingling Neuro Denies abnormal gait, Denies dizziness, Denies frequent falls, Denies numbness, Denies tingling and Denies weakness Endo Denies fatigue and Denies palpitations Physical Exam Vital Signs: Last Vital Signs Pulse 67 11/28/23 08:29 BP 124/80 11/28/23 08:29 BMI result Body Mass Index 32.5 Const General: cooperative, comfortable, no acute distress, alert, awake and anxious Nutritional Appearance: obese Orientation/consciousness: patient oriented x3 Limitations: no limitations Neck Neck: Yes trachea midline, Yes supple and Yes no JVD Resp Effort & Inspection: normal respiratory effort Auscultation: clear to auscultation bilaterally Cardio Jugular venous distension: no JVD Palpation: normal PMI Rate: regular rate Rhythm: regular rhythm Heart sounds: S1 normal heart sound present and S2 normal heart sound present Skin General skin exam: no rashes or lesions noted Neuro General: patient oriented x3 and no focal motor deficits Extrem General: Yes no clubbing, cyanosis or edema Psych Appearance: grossly normal Office Procedures EKG Details: EKG shows normal sinus rhythm with left bundle-branch block, unchanged from before [id number], Complete Assessment & Plan Assessment & Plan (1) CAD (coronary artery disease): Comment: follows with [facility] Code(s): I25.10 - Atherosclerotic heart disease of resighini coronary artery without angina pectoris Category: Medical Plan: Stable CAD with remote stenting of the circumflex artery for acute coronary syndrome in 2010. No recurrent symptoms since then. Encouraged to continue to participate in physical activity as tolerated. LDL is not well optimized. Consider adding ezetimibe 10 mg to his regimen to target goal LDL closer to 60 mg/dL. Continue high-intensity statin therapy. Blood pressure is currently well optimized. Advised to monitor blood pressure intermittently at home manage her log. Low-salt diet was discussed.I think he should be able to tolerate a low-dose aspirin therapy although he is concerned about bleeding risk. Risk of thrombotic complications was discussed with him. (2) Paroxysmal atrial fibrillation: Code(s): I48.0 - Paroxysmal atrial fibrillation Category: Medical Plan: Paroxysmal atrial fibrillation without any obvious clinical recurrence. At this point time continue to avoid stimulants. Continue current therapy with metoprolol. Advised to call me with new symptoms. We discussed about oral anticoagulant therapy given his risk. We discussed about potentially trying an anticoagulant agent but he has not too keen on it. Discussed about Watchman device and provided him with literature. He will think about it. (3) LBBB (left bundle branch block): Code(s): I44.7 - Left bundle-branch block, unspecified Category: Medical Plan: Left bundle-branch block which has remained stable. No cardiomyopathic process. No other symptoms. Will continue monitor by annual EKG. (4) Enlarged thoracic aorta: Code(s): I77.89 - Other specified disorders of arteries and arterioles Category: Medical Plan: Mildly enlarged thoracic aorta which has remained stable. No interventions required from surgical perspective. Continue aggressive blood pressure control. Continue metoprolol therapy. Follow-up echocardiogram once a year. Will follow up in the clinic in 1 year's time. Coding Level of Care Code Est Pt Level 4 (70970) Diagnoses CAD (coronary artery disease) I25.10 Paroxysmal atrial fibrillation I48.0 LBBB (left bundle branch block) I44.7 Enlarged thoracic aorta I77.89 CPT Codes EKG - CPT: 37811-[id number], Complete ([id number])
[2023-11-28 08:29] VITALS: BP 124/80; PULSE 67; BMI 32.5
== END 2023-11-28 08:49 | disposition home or self-care (01) ==
PROVIDERS: PCP Internal Medicine; Visit Provider Internal Medicine Cardiovascular Disease
DX: I25.10 Atherosclerotic heart disease of native coronary artery without angina pectoris (principal); I48.0 Paroxysmal atrial fibrillation; I44.7 Left bundle-branch block, unspecified; I77.89 Other specified disorders of arteries and arterioles
CPT/HCPCS: 93010; 99214

== ENCOUNTER → 2023-11-28 08:18 | Outpatient (BNVA) | payer OTHER, SELFPAY | PROVIDERS: PCP Internal Medicine; Visit Provider Internal Medicine Cardiovascular Disease | DX: I25.10 Atherosclerotic heart disease of native coronary artery without angina pectoris (principal); I48.0 Paroxysmal atrial fibrillation; I44.7 Left bundle-branch block, unspecified; I77.89 Other specified disorders of arteries and arterioles; Z79.899 Other long term (current) drug therapy | CPT/HCPCS: 93005 ==

== ENCOUNTER 2023-12-10 09:05 | Outpatient (AMB) | payer BC, SELFPAY ==
--- NOTE | 2023-12-10 09:19 | MHC.OFFVIS ---
Intake Visit Reasons: PILL COUNT/ random UDS Intake Note: Patient last took Tramadol today 12/10/23 at 5am. Will also have random UDS done, aware that he needs to go to the lab on the first floor of this building today 12/10/23 before 12pm. 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 52 pills were expected, and 53 were presented. There are no changes in his pain symptoms. He states that initially he had some relief, but the pain returned to baseline. He reports nausea and pain and flare-up episodes of Crohn disease since last week. There are no changes in his medication. He is taking hydroxyzine for anxiety. He has been using CBD supplements and marijuana supplements for pain relief and anxiety. [facility] Medical History Obesity Swelling of knee joint, left Chronic pain syndrome Chronic abdominal pain Hyperlipidemia Stricture of small intestine LBBB (left bundle branch block) CAD (coronary artery disease) Paroxysmal atrial fibrillation Hypertension GERD without esophagitis History of paroxysmal atrial tachycardia Crohn's disease Surgical History Stented coronary artery Hx of endoscopy History of colonoscopy Family History Father Family history unknown Mother Hx of Crohn's disease Social History Household Members: Friend(s) Household Members Other:: 1 Housing: House Are you a primary animal care assistant to a significant other at home: No Do you presently have visiting nurse or other home services: No Alcohol intake: never Patient Tobacco Use Status: Former Tobacco user e-Cigarette/Vaping Use: Never Used Second Hand Smoke Exposure: No Advance Directives Date on File: 08/16/22 service: Yes Current occupational status: employed Cognitive needs: No Hearing needs: No Vision needs: No Review of Systems Const All systems reviewed & are unremarkable except as noted in HPI and below Physical Exam General: Appears afebrile. Alert and oriented. Mood and affect appropriate. Follows and participates in conversation appropriately. Respiratory effort is unlabored. Able to transition from sit to stand unassisted. Ambulates with bilaterally normal heel strike and toe off. Results Reviewed Results Reviewed: No imaging is available for review. Assessment & Plan Assessment & Plan (1) Abdominal pain: Code(s): R10.9 - Unspecified abdominal pain Category: Medical Qualifiers: Abdominal location: generalized Qualified Code(s): R10.84 - Generalized abdominal pain Plan 52 pills were expected and 53 were presented. Pill count was consistent. Random UDS performed today. Refill Tramadol 50 mg BID. Patient will follow up in two months for pill count and refill. Scribed for Dr. Figeuredo by Matias Galaviz, medical center director, on 12/10/2023. I, Dr. Figueredo, have personally reviewed and agree with the information entered by the scribe. Coding Level of Care Code Est Pt Level 4 (16355) Diagnoses Generalized abdominal pain R10.84 Abdominal location: generalized
== END 2023-12-10 09:26 | disposition home or self-care (01) ==
PROVIDERS: PCP Internal Medicine; Visit Provider Internal Medicine
DX: R10.84 Generalized abdominal pain (principal); Z79.891 Long term (current) use of opiate analgesic
CPT/HCPCS: 99214

== ENCOUNTER → 2023-12-10 09:05 | Outpatient (BNVA) | payer BC, SELFPAY | PROVIDERS: PCP Internal Medicine; Visit Provider Internal Medicine ==

== ENCOUNTER → 2024-02-18 08:54 | Outpatient (BNVA) | payer BC, SELFPAY | PROVIDERS: PCP Internal Medicine; Visit Provider Internal Medicine ==

== ENCOUNTER 2024-02-25 08:24 | Outpatient (AMB) | payer BC, SELFPAY ==
--- NOTE | 2024-02-25 08:24 | A.OFFVIS_ITS ---
Intake Visit Reasons: 4 month follow up Intake Note: Jeremias presents as a telehealth today for a 4 month follow up. CC: States that he is not having any concerns at this time. 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 He was well night before admission. He ate some fried food and shortly after noted abdominal distention, with nausea and several episodes of nonbloody, nonbilious emesis which resembled prior attacks of SBO. He denies fever, chills, shortness of breath, or chest pain. He said on average he gets one attack like this every 8-12 months. Since the humira increase he has felt his background symptoms are much better and he rarely takes tramadol or anti nausea medication. Not taking nsaids. CT of the abdomen and pelvis showed small bowel obstruction with transition point in the right pelvis, and reactive mesenteric lymph nodes. He was given IV fluids and piperacillin/tazobactam. He is non smoker. OTHER DATA: Adalimumab trough 11 (which is good) MRI abd/pelv 03/08/20 showed thickening of distal small bowel. Area of dilation and angulation. Area of right lower quadrant involving terminal ileum. Skip lesions of small bowel. MR enterography-- 11/07/19 which demonstrated multiple scattered areas of small intestinal inflammation. Compared to prior testing there were 4 more areas of active inflammation. There were no areas of stenosis. colonoscopy 2017-- Active Crohn's disease with an ulcerated stricture in the region of the distal ileum. Given his ongoing sx and imaging results my concern was that he had crohns which was not really controlled by humira and that he was not responsive to anti TNFs He was switched to entyvio eventually increased freq to q 4 weeks due to symptoms and low entyvio level and MRe 10/2021 with small bowel thickening unchanged to prior imaging (eval was limited as they couldnt get IV access) This has now been changed to skyriszi because he had another exacerbation of crohns with ongoing inflammation noted on imaging 08/2022 I performed colonoscopy 12/2022 ileocecal stricture--s/p dilation and kenalog injection polyp--adenoma internal hemorrhoids diverticular disease EGD: 10/02 gastritis esophagitis hiatal hernia barretts esophagus Path: barretts US 10/2023: 1/ splenomegaly, and fatty liver RECAP: he still has attacks occ with pain and discomfort in upper abdomen he takes pepto bismol which helps he is still taking skyrizi q 8 weeks appetite is good no fevers or chills EXAM: Relaxed A/P:Crohns disease with ongoing sx, on skyrizi s/p dilation of stricture, few bouts of epigastric pain and nausea, ?sub acute obstruction, ongoing crohns flar es, 2/ splenomegaly, related to crohns, 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 PLAN: 1/ Mr enterography, 2/ check skyrizi level and routine labs, might need to change or increase freq [facility] Medical History Obesity Swelling of knee joint, left Chronic pain syndrome Chronic abdominal pain Hyperlipidemia Stricture of small intestine LBBB (left bundle branch block) CAD (coronary artery disease) Paroxysmal atrial fibrillation Hypertension GERD without esophagitis History of paroxysmal atrial tachycardia Crohn's disease Surgical History Stented coronary artery Hx of endoscopy History of colonoscopy Family History Father Family history unknown Mother Hx of Crohn's disease Social History Household Members: Friend(s) Household Members Other:: 1 Housing: House Are you a primary healthcare science specialist to a significant other at home: No Do you presently have visiting nurse or other home services: No Alcohol intake: never Patient Tobacco Use Status: Former Tobacco user e-Cigarette/Vaping Use: Never Used Second Hand Smoke Exposure: No Advance Directives Date on File: 08/16/22 service: Yes Current occupational status: employed Cognitive needs: No Hearing needs: No Vision needs: No Telehealth Telehealth Telehealth Platform: [employer] Location of provider rendering services: practice address Location of patient: address on file Patient Identification confirmed using: Name, : Yes Telehealth method: video Patient verbally consented to treatment: Yes Patient verbally consented to billing insurance company: Yes Patient informed of any privacy concerns related to visit: Yes Minutes spent on Phone/Video with Pt.: 10 Assessment & Plan Assessment & Plan (1) Crohn's disease: Code(s): K50.90 - Crohn's disease, unspecified, without complications Category: Medical Plan: see above (2) Exacerbation of Crohn's disease: Code(s): K50.90 - Crohn's disease, unspecified, without complications Category: Medical Plan: see above Orders: Orders Prom[employer] Anser UST Today K50.90 - Crohn's disease, unspecified, without complications MR abdomen wo/w con Today K50.90 - Crohn's disease, unspecified, without complications MR pelvis wo/w con Today K50.90 - Crohn's disease, unspecified, without complications Complete Blood Count Auto Diff Today K50.90 - Crohn's disease, unspecified, without complications T Spot TB Today K50.90 - Crohn's disease, unspecified, without complications Comprehensive Met. Panel Today K50.90 - Crohn's disease, unspecified, without complications, K75.81 - Nonalcoholic steatohepatitis (JEREZ) C Reactive Protein Today K50.90 - Crohn's disease, unspecified, without complications Coding Level of Care Code Tele Est Pt Level 3 (67555) Diagnoses Crohn's disease K50.90 Exacerbation of Crohn's disease K50.90
== END 2024-02-25 10:00 | disposition home or self-care (01) ==
LOC: HO.HGI 08:24
PROVIDERS: PCP Internal Medicine; Visit Provider Internal Medicine Gastroenterology
DX: K50.90 Crohn's disease, unspecified, without complications (principal)
CPT/HCPCS: 99213

== ENCOUNTER → 2024-02-25 08:24 | Outpatient (BNVA) | payer BC, SELFPAY | PROVIDERS: PCP Internal Medicine; Visit Provider Internal Medicine Gastroenterology ==

== ENCOUNTER 2024-03-21 09:21 | Outpatient (REF) | payer BC, SELFPAY | END 2024-03-21 09:22 | disposition home or self-care (01) | LOC: HO.MRI 09:21 | PROVIDERS: PCP Internal Medicine; Visit Provider Internal Medicine Gastroenterology | DX: Z13.89 Encounter for screening for other disorder (principal) ==

== ENCOUNTER 2024-05-30 08:51 | Outpatient (AMB) | payer BC, SELFPAY ==
[2024-05-30 08:58] VITALS: BP 128/88; PULSE 65; O2SAT 97; BMI 31.2
--- NOTE | 2024-05-30 08:58 | A.OFFPC_ITS ---
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 Accompanied by: Self / Same As Patient Allergies No Known Allergies Allergy (Mild, Verified 05/30/24 09:01) none Medication List - Last Reconciled 06/02/24 by Oscar Blanton MD amlodipine 2.5 mg PO DAILY atorvastatin 80 mg PO DAILY duloxetine 60 mg PO DAILY esomeprazole magnesium 40 mg PO DAILY hydroxyzine HCl 25 mg PO DAILY PRN metoprolol succinate ER 50 mg PO BID nitroglycerin 0.4 mg sublingual Q5M PRN promethazine 25 mg PO DAILY PRN risankizumab-rzaa (Skyrizi) 360 mg (2.4 mL) subcut .8 weeks 56 days zolpidem 10 mg PO BEDTIME PRN 30 days Tobacco use date assessed: 05/30/24 Dental Screening Dental Screen Date: 05/30/24 Did you have a dental visit in the last 12 months?: Yes Did you have a dental problem in the last 6 months where you did not have access to dental care?: No Was dental information given to patient?: Patient has dentist HPI physical HPI Details hypertension and hyperlipidemia on rx; doing well [facility] Medical History (Updated 06/02/24 @ 09:42 by Oscar Blanton MD) Hyperlipidemia Obesity Swelling of knee joint, left Chronic pain syndrome Chronic abdominal pain Stricture of small intestine LBBB (left bundle branch block) CAD (coronary artery disease) Paroxysmal atrial fibrillation Hypertension GERD without esophagitis History of paroxysmal atrial tachycardia Crohn's disease Surgical History Stented coronary artery Hx of endoscopy History of colonoscopy Family History Father Family history unknown Mother Hx of Crohn's disease Social History Household Members: Friend(s) Household Members Other:: 1 Housing: House Are you a primary certified social workers in health care to a significant other at home: No Do you presently have visiting nurse or other home services: No Alcohol intake: never Patient Tobacco Use Status: Former Tobacco user e-Cigarette/Vaping Use: Never Used Second Hand Smoke Exposure: No Advance Directives Date on File: 08/16/22 service: Yes Current occupational status: employed Cognitive needs: No Hearing needs: No Vision needs: No Questionnaire PHQ-9 Over the last 2 weeks, how often have you been bothered by any of the following problems? 1. Little interest or pleasure in doing things: several days 2. Feeling down, depressed, or hopeless: several days 3. Trouble falling or staying asleep, or sleeping too much: more than half the days 4. Feeling tired or having little energy: several days 5. Poor appetite or overeating: not at all 6. Feeling bad about yourself - or that you are a failure or have let yourself or your family down: several days 7. Trouble concentrating on things, such as reading the newspaper or watching television: several days 8. Moving or speaking so slowly that other people could have noticed. Or the o pposite - being so fidgety or restless that you have been moving around a lot more than usual: not at all 9. Thoughts that you would be better off or of hurting yourself in some way: not at all Total score: 7 Depression Screening Interpretation: Positive Depression Screening Done: Yes 41588 - PHQ-9 Billing: Yes Source: Developed by Drs. Satish Gaston, Erika Lara, Dano Art and colleagues, with an educational corrie from [employer]. Thrive Questionnaire Date Thrive assessed: 05/30/24 I am a: Patient What is your living situation today?: I have a steady place to live Within the past 12 months, did the food you bought not last and you didn't have the money to get more?: Never true Within the past 12 months, did you worry whether your food would run out before you got money to buy more?: Never true Do you have trouble paying for medicines?: I choose not to answer this question Do you have trouble getting transportation to medical appointments?: No Do you have trouble paying your heating and electricity bill?: I choose not to answer this question Do you have trouble taking care of your child, family member or friend?: No Do you have trouble with day-to-day activities such as bathing, preparing meals, shopping, managing finances, etc.?: No Are you currently unemployed and looking for a job?: No Are you interested in more education?: Yes Please select the resources that you would like help with: Job search/training Currently or been in a relationship where the following occur: No concerns reported THRIVE Score: 0 AUDIT C Alcohol Use Questionnaire (AUDIT-C) 1. How often do you have a drink containing alcohol?: Never 3. How often do you have six or more drinks on one occasion?: Never Total Score: 0 NICOLÁS-7 AMB Questionnaire NICOLÁS-7 Date NICOLÁS - 7 assessed: 05/30/24 Feeling nervous, anxious, or on edge: 1 = Several days Not being able to stop or control worryin = Several days Worrying too much about different things: 1 = Several days Trouble relaxin = Several days Being so restless that it is hard to sit still: 1 = Several days Becoming easily annoyed or irritable: 1 = Several days Feeling afraid as if something awful might happen: 0 = Not at all Total NICOLÁS-7 score (0-4 normal; 5-9 mild; 10-14 moderate; 15-21 severe): 6 Source: Developed by Drs. Satish Gaston, Erika Lara, Dano Art and colleagues, with an educational corrie from [employer]. Review of Systems Const Denies chills, Denies fatigue, Denies headache(s) and Denies weight loss Eyes Denies change in vision, Denies diplopia and Denies eye pain ENT Denies vertigo, Denies dizziness, Denies headache(s) and Denies nasal discharge Card Denies chest pain, Denies rapid heart rate and Denies dyspnea on exertion Resp Denies chest congestion, Denies cough, Denies pain with cough and Denies dyspnea on exertion GI Denies abdominal pain, Denies hematochezia and Denies change in bowel habits Musc Denies myalgias, Denies arthralgias and Denies joint swelling Skin/Breast Denies lesions and Denies unusual bruising Neuro Denies vertigo, Denies dizziness, Denies headache(s) and Denies focal weakness Endo Denies fatigue Physical exam (Primary Care) Vital Signs: Last Vital Signs Pulse 65 05/30/24 08:58 BP 128/88 05/30/24 08:58 Pulse Ox 97 05/30/24 08:58 Oxygen Delivery Method Room Air 05/30/24 08:58 BMI result Body Mass Index 31.2 Tobacco/Smoking Status: Tobacco use Status Tobacco use date assessed 05/30/24 05/30/24 09:03 Patient Tobacco Use Status Former Tobacco user 05/30/24 09:03 Tobacco use type 03/01/22 09:40 e-Cigarette/Vaping Use Never Used 05/30/24 09:03 PHQ-9: PHQ-9 Score PHQ-9: Total score 7 05/30/24 09:03 Depression Screening Interpretation: Positive Thrive Assessment: Date of Thrive Assessment Date Thrive assessed 05/30/24 05/30/24 09:03 Currently or been in a relationship where the following occur: No concerns reported Const General: cooperative, healthy appearing and no acute distress Orientation/consciousness: oriented to person, oriented to place and oriented to time HENMT Head: Yes normal to inspection, Yes normocephalic and Yes atraumatic Mouth: Normal oral and palatal mucosa present and tongue normal Throat: Yes posterior oropharynx normal and Yes uvula midline Eyes General: appearance normal, both eyes and all related structures Neck Neck: Yes normal visual inspection, Yes full ROM and Yes no lymphadenopathy Thyroid: Thyroid normal Carotids: normal carotid upstroke Chest Chest palpation & inspection: normal inspection of the chest Resp Effort & Inspection: normal respiratory effort and able to speak in complete sentences Auscultation: clear to auscultation bilaterally Cardio Jugular venous distension: no JVD Palpation: normal PMI Rate: regular rate Rhythm: regular rhythm Heart sounds: S1 normal heart sound present and S2 normal heart sound present GI Inspection: Yes normal to inspection Palpation (GI): Soft to palpation and No hepatosplenomegaly present Auscultation: normal bowel sounds General: Yes no CVA tenderness Back/Spine/Pelvis Back: no CVA tenderness Skin General skin exam: no rashes or lesions noted Neuro General: oriented to person, oriented to place and oriented to time Extrem General: Yes normal to inspection and Yes full ROM Coding Level of Care Code Est Pt Prev Care 40-64y(94733) Diagnoses Physical exam Z00.00 Hypertension I10 Hyperlipidemia E78.5 Additional Codes PHQ-9 - 39780 - PHQ-9 Billing: Yes ([id number]) Assessment & Plan Assessment & Plan (1) Physical exam: Code(s): Z00.00 - Encounter for general adult medical examination without abnormal findings Category: Medical Plan: stable; do labs (2) Hypertension: Code(s): I10 - Essential (primary) hypertension Category: Medical Plan: stale; same rx (3) Hyperlipidemia: Code(s): E78.5 - Hyperlipidemia, unspecified Category: Medical Plan: stable; same rx Orders: Orders Comprehensive Wall. Panel Fast 05/30/24 Z13.9 - Encounter for screening, unspecified XR cervical spine 2V 05/30/24 M54.2 - Cervicalgia XR lumbar spine 2-3V 05/30/24 M54.9 - Dorsalgia, unspecified Thyroid Stimulating Hormone Today Z13.29 - Encounter for screening for other suspected endocrine disorder Comprehensive Wall. Panel Fast Today Z13.9 - Encounter for screening, unsp ecified Lipid Panel 05/30/24 Z13.220 - Encounter for screening for lipoid disorders Complete Blood Count Auto Diff 05/30/24 Z13.0 - Encounter for screening for diseases of the blood and blood-forming organs and certain disorders involving the immune mechanism Thyroid Stimulating Hormone 05/30/24 Z13.29 - Encounter for screening for other suspected endocrine disorder Lipid Panel Today Z13.220 - Encounter for screening for lipoid disorders Complete Blood Count Auto Diff Today Z13.0 - Encounter for screening for diseases of the blood and blood-forming organs and certain disorders involving the immune mechanism
--- OUTSIDE RECORDS SUMMARY | 2024-05-30 09:03 | XMS_ITS | Encounter Summary ---
Author Name [facility] [place] [facility] [place] Address [address] [place] [address] Care Team Providers Care Audiology Technician Name Role Phone KEENAN HAMILTON Primary Care Provider Unavailabl e Insurance Providers: All historical and current Section Date Range: From patient's date of to the date document was created. This section includes the names of all active insurance providers for the patient. Insurance Provider Type of Coverage Plan Name Start of Policy Coverage End of Policy Coverage Group Number Member ID Insurance Provider's Telephone Number Policy Knight's Name Patient's Relationship to Policy Knight [facility] SCH L DEPT Dec 10, 2023 [id number] [phone] BARBARA NAIR PATIENT [place] [facility] Dec 10, 2023 [id number] BARBARA NAIR PATIENT [employer] POINT OF SERVICE [facility] Dec 09, 2016 [id number] BARBARA NAIR PATIENT [employer] BEHAVIORAL HEALTH MENTAL HEALTH [facility] Dec 09, 2016 [id number] BARBARA NAIR PATIENT [employer] PHARMACY PRESCRIPT ION [facility] Dec 09, 2016 [id number] [phone] BARBARA NAIR PATIENT Selected Encounter This section includes the information on record at [place] for the Encounter. Date/Time Encounter Type Encounter Description Reason Pro vider Source October 11, 2023 12:00 AM Outpatient Encounter EVENT (HISTORICAL) IHE Encounter Template Text not used by [place] Plan of Treatment: Future Appointments (+ 6 months) and Future Tests (+/- 45 days) The Plan of Treatment section includes future care activities for the patient [facility] [place] [facility] This section includes future appointments and future orders which are active, pending or scheduled. Future Appointments This section includes appointments that were scheduled to occur 6 months from the date of the Encounter, up to a maximum of 20 appointments. The data comes from all [place] treatment facilities. Appointment Date/Time Appointment Type Appointme nt Facility Name Feb 25, 2024 09:30 AM AMBULATORY - PSYCHIATRY [facility] Vital Signs: All taken on the encounter date This section contains inpatient and outpatient Vital Signs collected on the date of the Encounter. Date/Time Temperature Pulse Blood Pressure Respiratory Rate SP02 Pain Height Weight Body Mass Index Source October 11, 2023 08:37 AM 136/84 [facility] [employer] [facility] October 11, 2023 08:23 AM 168/[facility] October 11, 2023 08:13 AM 98.4 73 16 95 3 68 218.5 33 [facility] Social History: Smoking Status (Most current) and Tobacco Use (All prior to encounter date) This section includes the most current, and the historical, smoking and tobacco- related health factors from the [place] facility where the Encounter took place. Current Smoking Status This section includes the most current smoking, or tobacco-related health factor, from the [place] facility where the Encounter took place. Date/Time Current Smoking Status Comment Facil ity October 11, 2023 08:30 AM VA-TOBACCO FORMER USER [facility] [employer] [facility] Tobacco Use History This section includes a history of the smoking, or tobacco-related health factors, that were collected on or before the date of the Encounter. The data comes from the [place] facility where the Encounter took place. Date/Time Smoking Status/Tobacco Use Comment F acility October 11, 2023 08:30 AM [place]-TOBACCO QUIT 15 YRS OR MORE [facility] [employer] [facility] May 12, 2022 09:00 AM VA-TOBACCO FORMER USER [facility] May 12, 2022 09:00 AM VA-TOBACCO QUIT 15 YRS OR MORE [facility] May 13, 2021 11:00 AM VA-TOBACCO FORMER USER [facility] May 13, 2021 11:00 AM VA-TOBACCO QUIT 15 YRS OR MORE [facility] Apr 29, 2020 11:00 AM VA-TOBACCO FORMER USER [facility] Apr 29, 2020 11:00 AM VA-TOBACCO QUIT 15 YRS OR MORE [facility] [place] Mar 01, 2018 10:36 AM VA-TOBACCO NEVER USED [facility] [place] [facility] Feb 25, 2018 08:54 AM QUIT TOBACCO USE > 7 YEARS AGO 1989 [place] [facility] [place] [facility] Apr 24, 2002 09:38 AM CURRENT SMOKER [place] [facility] [place] May 13, 2001 09:48 AM HISTORY OF SMOKING [facility] [place] [facility] May 13, 2001 09:48 [facility]
--- OUTSIDE RECORDS SUMMARY | 2024-05-30 09:03 | XMS_ITS | Continuity of Care Document ---
Author Name [facility] Organization [facility] Care Team Providers Care Crisis Clinician Name Role Phone [facility] Unavailable Unavailable Problems Combined list of problems from Department of Defense and Veterans Affairs facilities. It does not include entries that were removed or entered in error. Problem Status Onset Date Problem Type Date of Resolution Comments Source History of colonoscopy Active 05/23/20 18 Condition Jul 17, 2019 Entered By: SHANTA CORNEJO Comment: Colonoscopy [facility] 05/23/2018 Dr Cain no change in active inflammation at the ilealcecal region (Crohns Disease) [facility] Anxiety Active Condition [facility] Bacterial UTI (urinary tract infection) Active Condition Jul 01, 2019 Entered By: REHANA VEGA Comment: 02/2019 - KLEBSIELLA PNEUMONIAE [facility] Coronary artery disease Active Condition Feb 14, 2019 Entered By: REHANA VEGA Comment: NON [facility] Specialist - [facility] Reese 2018 Entered By: REHANA VEGA Comment: Stent x 2Sep 2018 Entered By: REHANA VEGA Comment: MED Clopidogrel / Metoprolol/ pravastin [facility] Crohn disease Active Condition Feb Entered By: REHANA VEGA Comment: NON [place] GI- DR Deric [place] 2018 Entered By: REHANA VEGA Comment: Hospital - NOVEMBER 2018 ( [facility]) [facility] Esophageal reflux Active Condition [facility] Hyperlipidemia Active Condition [facility] Hypertension Active Condition [facility] Hypnotic or anxiolytic dependence Active Condition [facility] Insomnia Active Condition Feb 14 19 Entered By: REHANA VEGA Comment: med: zolpidem [facility] [place] Labile blood pressure Active Condition May 21, 2022 Entered By: SANJEEV FERNANDEZ Comment: Managed by [facility] Pain of right knee region Active Condition Feb 14, 2019 Entered By: REHANA VEGA Comment: [facility] Recurrent major depression Active Condition [facility] Under care of multiple providers Active Condition Feb 14, 2019 Entered By: REHANA VEGA Comment: NON [place] PCP - DR Deric POWELL ( [facility]) - scheduled 02/2019Sep 2018 Entered By: REHANA VEGA Comment: Cardiolgy - DR Reese 2018 Entered By: REHANA VEGA Comment: LULA Melgar 2019 Entered By: REHANA VEGA Comment: Urology -[place] ( urgent visit ) - for prostate [facility] [place] Inactive Condition 02/14/[address] [facility] TOBACCO USE DISORDER Inactive Condition 02/14/[address] [facility] Diagnosis: ICD-10-CM F33.1 Major depressive disorder, recurrent, moderate Active Diagnosis [facility] Diagnosis: ICD-10-CM F41.9 Anxiety disorder, unspecified Active Diagnosis [facility] Medications Combined list of outpatient medications from Department of Defense and Veterans Affairs facilities.Medications provided include 1) outpatient medications from the last 15 months, and 2) patient-reported medications. Medication Details Route Status Patient Instructions Prescription Expires Prescription Number Last Dispense Date Ordering Provider Order Date Order Qty Source AMLODIPINE BESYLATE 2.5MG TAB TAKE ONE TABLET BY MOUTH EVERY EVENING ORAL ACTIVE RA JESUS FERNANDEZ 2021 [facility] DULOXETINE HCL 30MG CAP,EC TAKE ONE CAPSULE BY MOUTH ONCE DAILY ANXIETY TO TAKE 30MG IN ADDITION TO 60MG FOR TOTAL 90MG DAILY ORAL DISCONT INUED BY DAVID Barton 10/08/2024 [id number] Keisha CABRERA E 2023 90 [facility] DULOXETINE HCL 60MG CAP,EC TAKE ONE CAPSULE BY MOUTH ONCE DAILY ORAL ACTIVE 10/08/2024 [id number] 4 Keisha CABRERA E 2023 90 [facility] DULOXETINE HCL 60MG CAP,EC TAKE ONE CAPSULE BY MOUTH ONCE DAILY ORAL DISCONT INUED 04/05/2024 [id number] 4 Keisha CABRERA E 2022 90 [facility] HYDROXYZINE HCL 25MG TAB TAKE ONE TABLET BY MOUTH ONCE DAILY NEEDED ANXIETY ORAL ACTIVE 10/08/2024 [id number] 4 Keisha CABRERA E 2023 90 [facility] HYDROXYZINE HCL 25MG TAB TAKE ONE TABLET BY MOUTH ONCE DAILY NEEDED ANXIETY ORAL DISCONT INUED 04/05/2024 [id number] 4 Keisha CABRERA E 2022 90 [facility] ISOSORBIDE MONONITRATE 30MG TAB,SA TAKE ONE TABLET BY MOUTH EVERY MORNING ORAL ACTIVE RA JESUS FERNANDEZ 2021 [facility] LORAZEPAM 1MG TAB TAKE ONE TABLET BY MOUTH ONCE DAILY NEEDED PANIC ATTACKS ORAL ACTIVE 08/27/2024 [id number] 4 Keisha CABRERA E 2023 10 [facility] METOPROLOL TARTRATE 50MG TAB TAKE ONE TABLET BY MOUTH TWICE DAILY ORAL ACTIVE RA JESUS FERNANDEZ 2021 [facility] OMEPRAZOLE CAP,EC TAKE BY MOUTH EVERY MORNING 30 MINUTES BEFORE BREAKFAS T ORAL ACTIVE RA JESUS FERNANDEZ 2017 [facility] OTHER CAP/TAB TAKE IV MONTHLY ACTIVE Mariusz CORREA 2021 [facility] PRAVASTATIN NA 80MG TAB TAKE ONE TABLET BY MOUTH AT BEDTIME ORAL ACTIVE ANA HAMILTON 2023 [facility] PROMETHAZIN E HCL TAB TAKE BY MOUTH PRN ORAL ACTIVE RA JESUS FERNANDEZ 2017 [facility] TRAMADOL HCL TAB TAKE BY MOUTH TWICE DAILY ORAL ACTIVE RA JESUS FERNANDEZ 2017 [facility] ZOLPIDEM TARTRATE TAB TAKE BY MOUTH AT BEDTIME ORAL ACTIVE RA JESUS FERNANDEZ 2017 [facility] Immunizations Combined list of available immunizations from the Department of Defense and Veterans Affairs facilities. Immunization Series Date Given Administered By Site Reaction Lot Number CVX Code Drug Seo Associate Status Comments Source COVID-19 (PFIZER), MRNA, LNP-S, BIVALENT BOOSTER, PF, 30 MCG/0.3 ML DOSE 1 2021 300 complet ed [facility] INFLUENZA, UNSPECIFIED FORMULATION 2021 88 complet ed [facility] COVID-19 (MODERNA), MRNA, LNP-S, PF, 100 MCG OR 50 MCG DOSE 3 2020 207 complet ed MOD; [id number]; 2 [facility] ZOSTER RECOMBINANT 2 2020 187 complet ed [facility] INFLUENZA, UNSPECIFIED FORMULATION 2020 88 complet ed [facility] ZOSTER RECOMBINANT 1 2020 187 complet ed [facility] PNEUMOCOCCAL POLYSACCHARID E PPV23 2020 33 complet ed [facility] TDAP 2020 115 complet ed [facility] COVID-19 (PFIZER), MRNA, LNP-S, PF, 30 MCG/0.3 ML DOSE 2 2020 208 complet ed PFR; [id number]; 1 [facility] COVID-19 (PFIZER), MRNA, LNP-S, PF, 30 MCG/0.3 ML DOSE 1 2020 208 complet ed PFR; [id number]; 1 [facility] INFLUENZA, INJECTABLE, QUADRIVALENT, PRESERVATIVE FREE 2019 150 complet ed Partner: [facility]. Administe red by: DOMENICA MCKINLEY (JHK=[id number]). Partner 0 Lot#: [id number] Mfr: SANOFI; Dosage: 0.5 [facility] INFLUENZA, INJECTABLE, QUADRIVALENT 2018 158 complet ed Partner: [facility]. Administe red by: DOMENICA MCKINLEY (IVG=[id number] [id number]). Partner 0 Mfr: SEQIRUS; Dosage: 0.5 [facility] INFLUENZA, SEASONAL, INJECTABLE 2018 141 complet ed [facility] INFLUENZA, SEASONAL, INJECTABLE 2017 141 complet ed [facility] the [facility] FLU,3 YRS (HISTORICAL) 2001 KAYLI CORREA 88 complet ed [facility] FLU,3 YRS (HISTORICAL) 2000 CAIT BRUCE 88 complet ed [facility] FLU,3 YRS (HISTORICAL) 1999 GAYATHRI CHILEL 88 complet ed [facility] FLU,3 YRS (HISTORICAL) 1998 GAYATHRI CHILEL 88 complet ed [facility] INFLUENZA, UNSPECIFIED FORMULATION 1997 AMNA ARROYO RET F 88 complet ed [facility] Vital Signs Combined list of inpatient and outpatient Vital Signs from Department of Defense and Veterans Affairs, ranging from 12 months to all on record, depending upon the facility. Vital Sign Value Date Comments Source PULSE OXIMETRY 95 10/11/2023 08:13:14 [facility] WEIGHT 218.5 10/11/2023 08:13:14 [facility] BMI 33kg/m2 10/11/2023 08:13:14 [facility] PAIN 3 10/11/2023 08:13:14 [facility] HEIGHT 68 10/11/2023 08:13:14 [facility] TEMPERATURE 98.4 10/11/2023 08:13:14 [facility] PULSE 73 10/11/2023 08:13:14 [facility] RESPIRATION 16 10/11/2023 08:13:14 [facility] Encounters Combined list of: 1) Encounters from Department of Veterans Affairs facilities going back up to thelast 18 months. 2) Encounters from the Department of Defense facilities going back up to 280 months. Location Location Details Encounter Type Encounter Number Reason For Visit Attending Provider ADM Date DC Date Status Disposition Source [facility] OFFICE O/P EST LOW 20-29 MIN [id number] Diagnos is: ICD-10- CM F33.1 Major depress chayito disorde r, recurre nt, moderat e
ALICIA CABRERA SSICA E 01/01 [facility] OFFICE O/P EST MOD 30-39 MIN [id number] Diagnos is: ICD-10- CM F33.1 Major depress chayito disorde r, recurre nt, moderat e
ALICIA CABRERA SSICA E 02/[address] [facility] Outpatient Encounter [id number] 04/05 [facility] OFF[facility] O/P EST LOW 20 MIN [id number] Diagnos is: ICD-10- CM F41.9 Anxiety disorde r, unspeci fied
ALICIA CABRERA SSICA E 07/02 [facility] En[facility] [id number] 07/16 [facility] En[facility] [id number] 09/30 [facility] OFF[facility] O/P EST MOD 30 MIN [id number] Diagnos is: ICD-10- CM F41.9 Anxiety disorde r, unspeci fied
ALICIA CABRERA SSICA E 10/07 [facility] En[facility] [id number] 10/10 [facility] OFF[facility] O/P EST SF 10 MIN [id number] Diagnos is: ICD-10- CM F41.9 Anxiety disorde r, unspeci fied
ROXANNE HAMILTON RD 10/10 [facility] En[facility] [id number] 12/05 [facility] En[facility] [id number] 02/05 [facility] En[facility] [id number] 02/05 [facility] [place] [place] [facility] OFFICE O/P EST MOD 30 MIN [id number] Diagnos is: ICD-10- CM F33.1 Major depress chayito disorde r, recurre nt, moderat e
CABRERAALICIA SSICA E 02/24 [facility] Outpatient Encounter [id number] 02/25 [place] [facility] [place] [facility] [place] [facility] Outpatient Encounter [id number] 05/26 [facility] [place] [facility] Social History Combined list of available smoking, tobacco, and other social history from Department of Defense and Veterans Affairs facilities. Social History Type Response Date Comment Sour e Tobacco smoking status NHIS [place]AC[place] FORMER USER 10/11/2023 [place] [facility] [place] [facility] [place] [facility] [place] [facility] History of tobacco use [place]-TOBACCO QUIT 15 YRS OR MORE 05/12/2022 [place] [facility] [place] [facility] History of tobacco use [place]-TO[place]ACCO FORMER USER 05/13/2021 [place] [facility] [place] [facility] History of tobacco use [place]-TO[place]ACCO FORMER USER 04/29/2020 [place] [facility] [facility] History of tobacco use [place]-TO[place]ACCO NEVER USED 03/01/2018 [place] [facility] [place] [facility] History of tobacco use QUIT TOBACCO USE > 7 YEARS AGO 02/25/20181989 [place] [facility] [facility] History of tobacco use CURRENT SMOKER 04/24/2002 [place] [facility] [facility] History of tobacco use NON-TOBACCO USER 05/13/2001 [facility] [place] [facility] Plan of Care List of future care activities from Department of Veterans Affairs facilities. Additional future care activities may be listed in the Assessment and Plan section. Date/Time Care Activity Care Activity Detail Facili ty 06/10/2024 AMBULATORY - PSYCHIATRY [facility] 06/27/2024 AMBULAT[facility] - MEDICINE [facility] 10/10/2024 AMBULAT[facility] - MEDICINE [facility]
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
--- OUTSIDE RECORDS SUMMARY | 2024-05-30 09:03 | XMS_ITS | Encounter Summary ---
Author Name [place] Organization [place] Address [address] [place] [address] Care Team Providers Care Branch Services Manager Name Role Phone KEENAN HAMILTON Primary Care [...] Knight's Name Patient's Relationship to Policy Knight [facility] ORGANIZAT ION [facility] DEPT Dec 10, 2023 [id number] BARBARA NAIR PATIENT [place] PRESCRIPT ION [facility] Dec 10, 2023 [id number] BARBARA NAIR PATIENT [employer] POINT OF SERVICE [facility] Dec 09, 2016 [id number] BARBARA NAIR PATIENT [employer] BEHAVIORAL HEALTH MENTAL HEALTH [facility] Dec 09, 2016 [id number] BARBARA NAIR PATIENT [employer] PHARMACY PRESCRIPT ION [facility] Dec 09, 2016 [id number] BARBARA NAIR PATIENT Selected Encounter This section includes the information on record at [place] for the Encounter. Date/Time Encounter Type Encounter Description Reason Pro vider Source Feb 06, 2024 11:12 AM Outpatient Encounter OPTOMETRY IHE Encounter Template Text not used by [place] Plan of Treatment: Future Appointments (+ 6 months) and Future Tests (+/- 45 days) The Plan of Treatment section includes future care activities for the patient from all [place] treatmentfacilities. This section includes future appointments and future orders which are active, pending or scheduled. Future Appointments This section includes appointments that were scheduled to occur 6 months from the date of the Encounter, up to a maximum of 20 appointments. The data comes from all [place] treatment facilities. Appointment Date/Time Appointment Type Appointme nt Facility Name Feb 25, 2024 09:30 AM AMBULATORY - PSYCHIATRY [place] [facility] [place] [place] [facility] May 26, 2024 09:30 AM AMBULATORY - PSYCHIATRY [place] [facility] [place] [facility] Jun 10, 2024 09:00 AM AMBULATORY - PSYCHIATRY [place] [facility] [place] [facility] Jun 27, 2024 10:30 AM AMBULATORY - MEDICINE [place] [facility] Social History: Smoking Status (Most current) and Tobacco Use (All prior to encounter date) This section includes the most current, and the historical, smoking and tobacco- related health factors from the [place] facility where the Encounter took place. Current Smoking Status This section includes the most current smoking, or tobacco-related health factor, from the [place] facility where the Encounter took place. Date/Time Current Smoking Status Comment Facil ity October 11, 2023 08:30 AM [facility] [place] [facility] Tobacco Use History This section includes a history of the smoking, or tobacco-related health factors, that were collected on or before the date of the Encounter. The data comes from the [place] facility where the Encounter took place. Date/Time Smoking Status/Tobacco Use Comment F acility October 11, 2023 08:30 AM VA-TOBACCO QUIT 15 YRS OR MORE [place] [facility] [place] [facility] May 12, 2022 09:00 AM VA-TOBACCO FORMER USER [place] [facility] [place] [facility] May 12, 2022 09:00 AM VA-TOBACCO QUIT 15 YRS OR MORE [place] [facility] [place] [facility] May 13, 2021 11:00 AM VA-TOBACCO FORMER USER [place] [facility] [place] [facility] May 13, 2021 11:00 AM VA-TOBACCO QUIT 15 YRS OR MORE [place] [facility] [place] [facility] Apr 29, 2020 11:00 AM VA-TOBACCO FORMER USER [place] [facility] [place] [facility] Apr 29, 2020 11:00 AM VA-TOBACCO QUIT 15 YRS OR MORE [place] [facility] [place] [facility] Mar 01, 2018 10:36 AM VA-TOBACCO NEVER USED [place] CNTRL [place] [facility] Feb 25, 2018 08:54 AM QUIT TOBACCO USE > 7 YEARS AGO 1989 [place] CNTRL [place] [facility] Apr 24, 2002 09:38 AM CURRENT SMOKER [place] C NTRL [place] [facility] May 13, 2001 09:48 AM HISTORY OF SMOKING [place] CNTRL [place] [facility] May 13, 2001 09:48 AM [facility]AC[facility] Encounter Notes: All associated encounter notes This section contains the clinical notes associated to the Encounter. Date/Time Encounter Note(s) Provider Source Feb 06, 2024 11:12 AM TELEPHONE ENCOUNTE R NOTE: LOCAL TITLE: TELEPHONE NOTE/SPECIALTY CLINIC STANDARD TITLE: TELEPHONE ENCOUNTER NOTE DATE OF NOTE: FEB 06, 2024@11:12 ENTRY DATE: FEB 06, 2024@11:12:52 AUTHOR: ORALIA JAMIL EXP COSIGNER: URGENCY: STATUS: COMPLETED TELEPHONE NOTE/SPECIALTY CLINIC Has ADDENDA [place] called stating he broke his glasses and he would like to get a replacement pair. is scheduled for a 2 yr follow up in 09/02/2024. Veterans phone number and address on file have been confirmed. /cameron/ ORALIA JAMIL SERVICE ORDER TAKER Signed: 02/06/2024 11:14 Receipt Acknowledged By: 02/06/2024 11:40 /es/ TOMY RIVERA OPTOMETRY TECH 02/06/2024 12:35 /es/ MATTEO CHAVIRA [facility] 02/06/2024 11:25 /es/ Jessica Aguilar Optometry Health Postdoctoral Scientist 02/06/2024 11:17 /es/ NATASHA MCKEON OD Health Education Aide 02/06/2024 ADDENDUM STATUS: COMPLETED ok to reorder, pt may not be eligible for new glasses in August though /cameron/ NATASHA MCKEON OD Health Education Aide Signed: 02/06/2024 11:17 ORALIA JAMIL [facility]L [facility]
--- OUTSIDE RECORDS SUMMARY | 2024-05-30 09:03 | XMS_ITS | Encounter Summary ---
Author Name [place] Address [address] [place] [address] Care Team Providers Care Manager Regional Name Role Phone KEENAN HAMILTON Primary Care [...] Member ID Insurance Provider's Telephone Number Policy Kinght's Name Patient's Relationship to Policy Knight [facility] ORGANIZAT ION [facility] DEPT Dec 10, 2023 [id number] BARBARA NAIR PATIENT [facility] PRESCRIPT ION [facility] Dec 10, 2023 [id number] [phone] BARBARA NAIR PATIENT [employer] POINT OF SERVICE [facility] Dec 09, 2016 [id number] BARBARA NAIR PATIENT [employer] BEHAVIORAL HEALTH [facility]AL [facility] Dec 09, 2016 [id number] BARBARA NAIR PATIENT [employer] PHARMACY PRESCRIPT ION [facility] Dec 09, 2016 [id number] [phone] BARBARA NAIR PATIENT Selected Encounter This section includes the information on record at [place] for the Encounter. Date/Time Encounter Type Encounter Description Reason Pro vider Source Jul 16, 2023 01:42 PM Outpatient Encounter ADMIN PAT ACTIVTIES (DWIGHTCT) IHE Encounter Template Text not used by [place] Plan of Treatment: Future Appointments (+ 6 months) and Future Tests (+/- 45 days) The Plan of Treatment section includes future care activities for the patient from all [place] treatmentfacilities. This section includes future appointments and future orders which are active, pending or scheduled. Future Appointments This section includes appointments that were scheduled to occur 6 months from the date of the Encounter, up to a maximum of 20 appointments. The data comes from all [place] treatment facilities. Appointment Date/Time Appointment Type Appointme nt Facility Name October 11, 2023 08:30 AM AMBULATORY - MEDICINE [place] [facility] [facility] Social History: Smoking Status (Most current) and Tobacco Use (All prior to encounter date) This section includes the most current, and the historical, smoking and tobacco- related health factors from the [facility] facility where the Encounter took place. Current Smoking Status This section includes the most current smoking, or tobacco-related health factor, from the [facility] facility where the Encounter took place. Date/Time Current Smoking Status Comment Facil ity May 12, 2022 09:00 AM VA-TOBACCO FORMER USER [place] [facility] [place] [facility] Tobacco Use History This section includes a history of the smoking, or tobacco-related health factors, that were collected on or before the date of the Encounter. The data comes from the [place] facility where the Encounter took place. Date/Time Smoking Status/Tobacco Use Comment F acility May 12, 2022 09:00 AM VA-TOBACCO QUIT 15 YRS OR MORE [place] [facility] [place] [facility] May 13, 2021 11:00 AM VA-TOBACCO FORMER USER [place] [facility] [place] [facility] May 13, 2021 11:00 AM VA-TOBACCO QUIT 15 YRS OR MORE [place] [facility] [place] [facility] Apr 29, 2020 11:00 AM VA-TOBACCO FORMER USER VA [facility] [place] [facility] Apr 29, 2020 11:00 AM VA-TOBACCO QUIT 15 YRS OR MORE [place] [facility] [place] [facility] Mar 01, 2018 10:36 AM VA-TOBACCO NEVER USED [place] CN[facility] [place] [facility] Feb 25, 2018 08:54 AM QUIT TOBACCO USE > 7 YEARS AGO 1989 [place] [facility] [place] [facility] Apr 24, 2002 09:38 AM CURRENT SMOKER [place] C NTRL [facility] [facility] May 13, 2001 09:48 AM HISTORY OF SMOKING [place] CNTRL [facility] [place] [facility] May 13, 2001 09:48 AM NON-TOBACCO [facility] Encounter Notes: All associated encounter notes This section contains the clinical notes associated to the Encounter. Date/Time Encounter Note(s) Provider Source Jul 16, 2023 01:42 PM TELEHEALTH CONSULT : LOCAL TITLE: CONSULT REPORT/TELEHEALTH STANDARD TITLE: TELEHEALTH CONSULT DATE OF NOTE: JUL 16, 2023@13:42 ENTRY DATE: JUL 16, 2023@13:42:15 AUTHOR: BO GALINDO EXP COSIGNER: URGENCY: STATUS: COMPLETED OCCHD information has been relayed to [place] for further assistance /cameron/ BO GALINDO CHEMISTRY QUALITY CONTROL ANALYST TELEHEALTH CLINICAL LOBSTER CATCHER Signed: 07/16/2023 13:42 BO GALINDO [facility] ([id number])
--- OUTSIDE RECORDS SUMMARY | 2024-05-30 09:03 | XMS_ITS | Encounter Summary ---
Author Name [place] Address [address] [place] [address] Care Team Providers Care Armhole Presser Name Role Phone KEENAN HAMILTON Primary Care [...] Knight's Name Patient's Relationship to Policy Knight [facility] ORGANIZAT ION [facility] L DEPT Dec 10, 2023 [id number] BARBARA NAIR PATIENT [place] PRESCRIPT ION [facility] Dec 10, 2023 [id number] BARBARA NAIR PATIENT [employer]IG[employer] POINT OF SERVICE [facility] Dec 09, 2016 [id number] [phone] BARBARA NAIR PATIENT [employer]IGNA BEHAVIORAL HEALTH MENTAL HE[facility] Dec 09, 2016 [id number] BARBARA NAIR PATIENT [employer] PHARMACY PRESCRIPT ION [facility] Dec 09, 2016 [id number] BARBARA NAIR PATIENT Selected Encounter This section includes the information on record at [place] for the Encounter. Date/Time Encounter Type Encounter Description Reason Pro vider Source Dec 06, 2023 11:16 AM Outpatient Encounter OPTOMETRY IHE Encounter Template Text not used by [place] Plan of Treatment: Future Appointments (+ 6 months) and Future Tests (+/- 45 days) The Plan of Treatment section includes future care activities for the patient from all [place] [facility] This section includes future appointments and future orders which are active, pending or scheduled. Future Appointments This section includes appointments that were scheduled to occur 6 months from the date of the Encounter, up to a maximum of 20 appointments. The data comes from all [place] treatment facilities. Appointment Date/Time Appointment Type Appointme nt Facility Name Feb 25, 2024 09:30 AM AMBULATORY - PSYCHIATRY [place] [facility] [facility] May 26, 2024 09:30 AM AMBULATORY - PSYCHIATRY [place] [facility] [place] [facility] Social History: Smoking Status (Most current) and Tobacco Use (All prior to encounter date) This section includes the most current, and the historical, smoking and tobacco- related health factors from the [place] facility where the Encounter took place. Current Smoking Status This section includes the most current smoking, or tobacco-related health factor, from the [place] facility where the Encounter took place. Date/Time Current Smoking Status Comment Facil ity October 11, 2023 08:30 AM VA-TOBACCO FORMER USER [place] CNTR [place] [facility] Tobacco Use History This section includes a history of the smoking, or tobacco-related health factors, that were collected on or before the date of the Encounter. The data comes from the [place] facility where the Encounter took place. Date/Time Smoking Status/Tobacco Use Comment F acility October 11, 2023 08:30 AM VA-TOBACCO QUIT 15 YRS OR MORE [place] [facility] [facility] May 12, 2022 09:00 AM VA-TOBACCO FORMER USER [place] [facility] [place] [facility] May 12, 2022 09:00 AM VA-TOBACCO QUIT 15 YRS OR MORE [place] [facility] [facility] May 13, 2021 11:00 AM VA-TOBACCO FORMER USER [place] [facility] [place] [facility] May 13, 2021 11:00 AM VA-TOBACCO QUIT 15 YRS OR MORE [place] [facility] [facility] Apr 29, 2020 11:00 AM VA-TOBACCO FORMER USER [place] [facility] [facility] Apr 29, 2020 11:00 AM VA-TOBACCO QUIT 15 YRS OR MORE [place] [facility] [facility] Mar 01, 2018 10:36 AM VA-TOBACCO NEVER USED [place] CN[facility] [facility] Feb 25, 2018 08:54 AM QUIT TOBACCO USE > 7 YEARS AGO 1989 [place] [facility] [facility] Apr 24, 2002 09:38 AM CURRENT SMOKER [place] C NTRL [facility] [facility] May 13, 2001 09:48 AM HISTORY OF SMOKING [place] CN[facility] [facility] May 13, 2001 09:48 AM NON-TOBACCO USER [facility] Encounter Notes: All associated encounter notes This section contains the clinical notes associated to the Encounter. Date/Time Encounter Note(s) Provider Source Dec 06, 2023 11:16 AM ADMINISTRATIVE NOTE: LOCAL TITLE: ADMINISTRATIVE NOTE STANDARD TITLE: ADMINISTRATIVE NOTE DATE OF NOTE: DEC 06, 2023@11:16 ENTRY DATE: DEC 06, 2023@11:17 AUTHOR: TRENA BAHENA EXP COSIGNER: URGENCY: STATUS: COMPLETED ADMINISTRATIVE NOTE Has ADDENDA Patient is seen in [x] [facility] [] [facility] [] [facility] [] [facility] [place] leaving message on [facility] Call Center voicemail wanting to: [] Speak to provider (name): Concern: xx Schedule a new appointment/ reschedule missed appt.: [] Cancelling an existing appt. [] Other: Clinic: ([place]) [xx] Optometry Vet [xx] would like [] does not need [] did not specify if they wanted a call back regarding this matter. Call back phone number left on confirmed same as phone contact on file: /cameron/ JAILENE CARRASQUILLO PHYSICAL THERAPIST Signed: 12/06/2023 11:18 Receipt Acknowledged By: 12/06/2023 11:30 /kathleen TORRES ADVANCED INTERVENTION SPECIALIST 12/06/2023 11:26 /kathleen ESCOBEDO ADVANCED INTERVENTION SPECIALIST 12/06/2023 ADDENDUM STATUS: COMPLETED LVM to c/b /es/ DAMASO ESCOBEDO ADVANCED INTERVENTION SPECIALIST Signed: 12/06/2023 11:27 TRENA BAHENA CNTRL W[facility]
--- OUTSIDE RECORDS SUMMARY | 2024-05-30 09:03 | XMS_ITS | Encounter Summary ---
Author Name [facility] [place] Organization [place] Address [address] [place] [address] Care Team Providers Care Assembler Latches And Springs Name Role Phone KEENAN HAMILTON Primary Care [...] Name Patient's Relationship to Policy Knight [facility] ORGANIZAT ION [facility] L DEPT Dec 10, 2023 [id number] [phone] BARBARA NAIR PATIENT [facility] PRESCRIPT ION [facility] Dec 10, 2023 [id number] [phone] BARBARA NAIR PATIENT [employer] POINT OF SERVICE [facility] Dec 09, 2016 [id number] [phone] BARBARA NAIR PATIENT [facility] BEHAVIORAL HEALTH MENTAL HEALTH [facility] Dec 09, 2016 [id number] BARBARA NAIR PATIENT [employer] PHARMACY PRESCRIPT ION [facility] Dec 09, 2016 [id number] BARBARA NAIR PATIENT Selected Encounter This section includes the information on record at [place] for the Encounter. Date/Time Encounter Type Encounter Description Reason Provider Source Oct 08, 2023 09:30 AM OFFICE O/P EST MOD 30 MIN [facility] - IND ICD-10-CM F41.9 Anxiety disorder, unspecified RDORIGO CABRERA [facility] Encounter Template Text not used by [place] Assessments - Encounter Diagnoses This section includes the primary and secondary diagnoses documented for the Encounter. Date/Time Primary/Secondary Diagnosis Diagnosis Name Provider Source Oct 08, 2023 01:04 PM PRIMARY Anxiety disorder, unspecified RODRIGO CABRERA [facility] Plan of Treatment: Future Appointments (+ 6 months) and Future Tests (+/- 45 days) The Plan of Treatment section includes future care activities for the patient from all [place] [facility]. This section includes future appointments and future orders which are active, pending or scheduled. Future Appointments This section includes appointments that were scheduled to occur 6 months from the date of the Encounter, up to a maximum of 20 appointments. The data comes from all [place] treatment facilities. Appointment Date/Time Appointment Type Appointme nt Facility Name October 11, 2023 08:30 AM [facility] Feb 25, 2024 09:30 AM [facility] Social History: Smoking Status (Most current) and Tobacco Use (All prior to encounter date) This section includes the most current, and the historical, smoking and tobacco- related health factors from the [place] facility where the Encounter took place. Current Smoking Status This section includes the most current smoking, or tobacco-related health factor, from the [place] facility where the Encounter took place. Date/Time Current Smoking Status Comment Facil ity May 12, 2022 09:00 AM HI-TOBACCO QUIT 15 YRS OR [facility] Tobacco Use History This section includes a history of the smoking, or tobacco-related health factors, that were collected on or before the date of the Encounter. The data comes from the [place] facility where the Encounter took place. Date/Time Smoking Status/Tobacco Use Comment F acility May 12, 2022 09:00 AM HI-TOBACCO QUIT 15 YRS OR MORE [facility] May 13, 2021 11:00 AM HI-TOBACCO FORMER USER VA [facility] [place] [facility] May 13, 2021 11:00 AM VA-TOBACCO QUIT 15 YRS OR MORE [place] [facility] [place] [facility] Apr 29, 2020 11:00 AM VA-TOBACCO FORMER USER [place] [facility] [place] [facility] Apr 29, 2020 11:00 AM VA-TOBACCO QUIT 15 YRS OR MORE [facility] Mar 01, 2018 10:36 AM VA-TOBACCO NEVER USED HI [facility] Feb 25, 2018 08:54 AM QUIT TOBACCO USE > 7 YEARS AGO 1989 [facility] Apr 24, 2002 09:38 AM CURRENT SMOKER HI C N[facility]L [facility] May 13, 2001 09:48 AM HISTORY OF SMOKING HI [facility]TR [facility] May 13, 2001 09:48 AM NON-TOBACCO USER [facility] Encounter Notes: All associated encounter notes This section contains the clinical notes associated to the Encounter. Date/Time Encounter Note(s) Provider Source Oct 08, 2023 10:03 AM MEDICATION MGT NOTE: LOCAL TITLE: AFTER VISIT SUMMARY STANDARD TITLE: MEDICATION MGT NOTE DICT DATE: OCT 08, 2023@10:03:09 ENTRY DATE: OCT 08, 2023@10:03:09 DICTATED BY: JELANI CABRERA COSIGNER: URGENCY: STATUS: COMPLETED The patient was provided with a copy of an after-visit summary at the conclusion of the visit. The after-visit summary includes information pertaining to the patient's encounter, including diagnoses, vital signs, medications, and new orders, as well as a list of any upcoming appointments and information regarding the patient's ongoing care. The patient's medications were reviewed with the patient by the provider and were provided to the patient as an updated list of medications. The patient was instructed to inform the provider of any medication changes or discrepancies that were noted. Otherwise, the patient was instructed to continue the medications as prescribed. A copy of the after-visit summary provided to the patient is available in [employer]. 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 Was hospitalized 2 months ago. Also has new onset episodes of feeling cold and clammy, stomach tightness with sharp pain, and has to lay down. Relieved by Rolaids. An endoscope last week showed no pathology. Uses zolpidem every night but gets only like 4-5 hours, sometimes has initial insomnia. Energy in the day is pretty good. 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 Mood is pretty good. Enjoys time with GF. Had sexual dysfunction prior to duloxetine (low libido) but it is not a major issue currently. CURRENT MEDICATIONS Active Outpatient Medications (including Supplies): DULOXETINE HCL 60MG EC CAP TAKE ONE [...] Recurrent major depression F33.1 11/28/2018 [facility] NORIEGA Hypnotic or anxiolytic dependence R 10/11/2018 JAVIER GLASGOW Crohn disease K50.919 02/14/2019 REHANA VEGA Hypertension I10. 03/01/2018 JULIA FERNANDEZ Hyperlipidemia E78.4 03/01/2018 JULIA FERNANDEZ Esophageal reflux R69. 06/20/2021 MIKEY PARRA Anxiety F41.9 06/20/2021 MIKEY PARRA BMI: 32.0 SUBSTANCE USE: Alcohol: Drank heavily in past. None for 20 years MJ: Tried it but it made me more nervous and made me eat too much. Tobacco: Smoked in the [employer]. Quit 30+ yrs ago. 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 Girlfriend: Nubia DIAGNOSIS I. Anxiety DIFFERENTIAL DIAGNOSIS NICOLÁS Social Anxiety Disorder r/o PTSD r/o ADHD r/o Anxiety due to medical causes PLAN INCREASE duloxetine 90 mg daily- for mood and anxiety; may help reduce pain Can use hydroxyzine to 25mg at bedtime Continue psychotherapy with Dr. Santizo for management of anxiety and insomnia -consider switching zolpidem to improve sleep quality. Cassi is reluctant to stop zolpidem but will consult with his pain management MD, who rx's the zolpidem. REFILLS/COVERAGE duloxetine and hydroxyzine to be sent by mail FOLLOW UP IN CLINIC Cassi prefers mid-February but will call with any questions/concerns. He has my [place] cell phone. TIME SPENT FACE TO FACE: 30m TOTAL TIME INCLUDING CHART REVIEW AND DOCUMENTATION:35m SUICDE RISK ASSESSMENT: RISK ASSESSMENT: Suicide/Homicide Risk [...] this VA (local) and dispensed from another VA or DoD facility (remote) as well as [...] provider. Problem List was reviewed and updated. /cameron/ JELANI CABRERA PSYCHIATRIST Signed: 10/08/2023 13:04 JELANI CABRERA [place] [facility]
--- OUTSIDE RECORDS SUMMARY | 2024-05-30 09:03 | XMS_ITS | Encounter Summary ---
Author Name [place] Address [address] [place] [address] Care Team Providers Care Welding Setter Name Role Phone KEENAN HAMILTON Primary Care [...] Knight's Name Patient's Relationship to Policy Knight [facility] ORGANIZAT ION [facility] L DEPT Dec 10, 2023 [id number] [phone] BARBARA NAIR PATIENT [facility] PRESCRIPT ION [facility] Dec 10, 2023 [id number] BARBARA NAIR PATIENT [employer]NA POINT OF SERVICE [facility] Dec 09, 2016 [id number] BARBARA NAIR PATIENT [facility] BEHAVIORAL HEALTH MENTAL HEALTH [facility] Dec 09, 2016 [id number] BARBARA NAIR PATIENT [employer] PHARMACY PRESCRIPT ION [facility] Dec 09, 2016 [id number] [phone] BARBARA NAIR PATIENT Selected Encounter This section includes the information on record at [place] for the Encounter. Date/Time Encounter Type Encounter Description Reason Pro vider Source Oct 01, 2023 12:58 PM Outpatient Encounter PRIMARY CARE/MEDICINE IHE Encounter Template Text not used by [place] Plan of Treatment: Future Appointments (+ 6 months) and Future Tests (+/- 45 days) The Plan of Treatment section includes future care activities for the patient from all [place] [facility]. This section includes future appointments and future orders which are active, pending or scheduled. Future Appointments This section includes appointments that were scheduled to occur 6 months from the date of the Encounter, up to a maximum of 20 appointments. The data comes from all [place] treatment facilities. Appointment Date/Time Appointment Type Appointme nt Facility Name October 11, 2023 08:30 AM AMBULATORY - MEDICINE [place] [facility] Feb 25, 2024 09:30 AM AMBULATORY - [facility]CHIATRY [place] [facility] Social History: Smoking Status (Most current) [...] Facil ity May 12, 2022 09:00 AM [place]-TOBACCO QUIT 15 YRS OR MORE [facility] [place] [facility] Tobacco Use History This section includes a history of the smoking, or tobacco-related health factors, that were collected on or before the date of the Encounter. The data comes from the [place] facility where the Encounter took place. Date/Time Smoking Status/Tobacco Use Comment F acility May 12, 2022 09:00 AM VA-TOBACCO QUIT 15 YRS OR MORE [place] [facility] [place] [facility] May 13, 2021 11:00 AM VA-TOBACCO FORMER USER [place] [facility] [place] [facility] May 13, 2021 11:00 AM VA-TOBACCO QUIT 15 YRS OR MORE [place] [facility] [place] [facility] Apr 29, 2020 11:00 AM VA-TOBACCO FORMER USER [place] [facility] [place] [facility] Apr 29, 2020 11:00 AM VA-TOBACCO QUIT 15 YRS OR MORE [place] [facility] [place] [facility] Mar 01, 2018 10:36 AM VA-TOBACCO NEVER USED [place] CNTRL [place] [facility] Feb 25, 2018 08:54 AM QUIT TOBACCO USE > 7 YEARS AGO 1989 [place] [facility] [place] [facility] Apr 24, 2002 09:38 AM CURRENT SMOKER [place] C NTRL [place] [facility] May 13, 2001 09:48 AM HISTORY OF SMOKING [place] [facility] May 13, 2001 09:48 AM NON-TOBACCO USER [facility] Encounter Notes: All associated encounter notes This section contains the clinical notes associated to the Encounter. Date/Time Encounter Note(s) Provider Source Oct 01, 2023 12:58 PM ADMINISTRATIVE NOTE: LOCAL TITLE: ADMINISTRATIVE NOTE STANDARD TITLE: ADMINISTRATIVE NOTE DATE OF NOTE: OCT 01, 2023@12:58 ENTRY DATE: OCT 01, 2023@12:58:08 AUTHOR: HARRY ORTIZ EXP COSIGNER: URGENCY: STATUS: COMPLETED Reminder call for your upcoming Primary Care Appointment and the need for preparations prior to your upcoming appt. [X] Location in [address] [ ] Fasting labs [ ] Lab work within 30 days [ ] Urine [ ] No Preparation Action taken: [X] Called , left voice message Sep [ ] Called , unable to leave voice mail [ ] Spoke to /care technician to remind them of upcoming appt/preparations Upcoming Appointments: 10/08/2023 09:30 CWM/NO/VVC/MHC/ANTHONY 10/12/2023 10:00 CWM/NO/PACT 2 /es/ HARRY ORTIZ AMSA Signed: 10/01/2023 12:58 HARRY ORTIZ [facility]
--- OUTSIDE RECORDS SUMMARY | 2024-05-30 09:03 | XMS_ITS ---
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 Name Role Phone SMITH HOPKINS Primary Care Provider Unavailabl e Insurance Providers: [...] Name Patient's Relationship to Policy Knight [facility] DEPT Dec 10, 2023 [id number] BARBARA NAIR PATIENT [place] PRESCRIPT ION [facility] Dec 10, 2023 [id number] [phone] BARBARA NAIR PATIENT [employer] PO[employer] [facility]ICE [place] Dec 09, 2016 [id number] [phone] BARBARA NAIR PATIENT [employer] [facility]IORAL [facility] [place] Dec 09, 2016 [id number] BARBARA NAIR PATIENT [employer] PHARMAC[facility] PRESCRIPT ION [place] Dec 09, 2016 [id number] BARBARA NAIR PATIENT Selected Encounter This section includes the information on record at [place] for the Encounter. Date/Time Encounter Type Encounter Description Reason Provider Source October 11, 2023 08:30 AM OFFICE O/P EST SF 10 MIN PRIMARY CARE/MEDICINE ICD-10-CM F41.9 Anxiety disorder, unspecified SMITH HOPKINS [facility] Encounter Template Text not used by [place] Assessments - Encounter Diagnoses This section includes the primary and secondary diagnoses documented for the Encounter. Date/Time Primary/Secondary Diagnosis Diagnosis Name Provider Source October 11, 2023 08:46 AM PRIMARY Anxiety disorder, unspecified SMITH HOPKINS [facility] Plan of Treatment: Future Appointments (+ 6 months) and Future Tests (+/- 45 days) The Plan of Treatment section includes future care activities for the patient from all [place] [facility]. This section includes future appointments and future orders which are active, pending or scheduled. Future Appointments This section includes appointments that were scheduled to occur 6 months from the date of the Encounter, up to a maximum of 20 appointments. The data comes from all [place] treatment facilities. Appointment Date/Time Appointment Type Appointme nt Facility Name Feb 25, 2024 09:30 AM AMBULATORY - PSYCHIATRY [facility] Vital Signs: All taken on the encounter date This section contains inpatient and outpatient Vital Signs collected on the date of the Encounter. Date/Time Temperature Pulse Blood Pressure Respiratory Rate SP02 Pain Height Weight Body Mass Index Source October 11, 2023 08:37 AM 136/84 [facility] October 11, 2023 08:23 AM 168/88 [facility] October 11, 2023 08:13 AM 98.4 73 16 95 3 68 218.5 33 [facility] Social History: Smoking Status (Most current) and Tobacco Use (All prior to encounter date) This section includes the most current, and the historical, smoking and tobacco- related health factors from the [place] facility where the Encounter took place. Current Smoking Status This section includes the most current smoking, or tobacco-related health factor, from the [place] facility where the Encounter took place. Date/Time Current Smoking Status Comment Devon combs October 11, 2023 08:30 AM VA-TOBACCO QUIT 15 YRS OR MORE [facility] Tobacco Use History This section includes a history of the smoking, or tobacco-related health factors, that were collected on or before the date of the Encounter. The data comes from the [place] facility where the Encounter took place. Date/Time Smoking Status/Tobacco Use Comment F acility October 11, 2023 08:30 AM VA-TOBACCO QUIT 15 YRS OR MORE [place] [facility] [place] [facility] May 12, 2022 09:00 AM VA-TOBACCO FORMER USER [facility] [place] [facility] May 12, 2022 09:00 AM VA-TOBACCO QUIT 15 YRS OR MORE [facility] [place] [facility] May 13, 2021 11:00 AM VA-TOBACCO FORMER USER [facility] [place] [facility] May 13, 2021 11:00 AM VA-TOBACCO QUIT 15 YRS OR MORE [place] [facility] [place] [facility] Apr 29, 2020 11:00 AM VA-TOBACCO FORMER USER [place] [facility] [facility] Apr 29, 2020 11:00 AM VA-TOBACCO QUIT 15 YRS OR MORE [place] [facility] [place] [facility] Mar 01, 2018 10:36 AM VA-TOBACCO NEVER USED [place] [facility] [place] [facility] Feb 25, 2018 08:54 AM QUIT TOBACCO USE > 7 YEARS AGO 1989 [place] [facility] [place] [facility] Apr 24, 2002 09:38 AM CURRENT SMOKER [place] [place] [facility] May 13, 2001 09:48 AM HISTORY OF SMOKING [place] [facility] [place] [facility] May 13, 2001 09:48 AM NON-TOBACCO USER [place] [facility] [facility] Encounter Notes: All associated encounter notes This section contains the clinical notes associated to the Encounter. Date/Time Encounter Note(s) Provider Source October 11, 2023 08:41 AM PHYSICIAN NOTE: LOCAL TITLE: MD NOTE STANDARD TITLE: PHYSICIAN NOTE DATE OF NOTE: OCTOBER 11, 2023@08:41 ENTRY DATE: OCTOBER 11, 2023@08:41:21 AUTHOR: SMITH HOPKINS EXP COSIGNER: URGENCY: STATUS: COMPLETED Patient Name: BARBARA NAIR VITALS: Patient temperature: 98.4 F [36.9 C] (10/11/2023 08:13) Blood pressure: 136/84 (10/11/2023 08:37) Patient height: 68 in [172.7 cm] (10/11/2023 08:13) Patient weight: 218.5 lb [99.11 kg] (10/11/2023 08:13) Patient BMI: BMI: 33.3 Patient pulse: 73 (10/11/2023 08:13) Patient respiration: 16 (10/11/2023 08:13) Patient Pulse Oximetry: 95% (10/11/2023 08:13) Pain Ratin (10/11/2023 08:13) Active [facility] Medications: Active Outpatient Medications (including Supplies): Active Outpatient Medications Status 1) DULOXETINE HCL 30MG EC CAP TAKE ONE CAPSULE BY MOUTH ACTIVE ONCE DAILY ANXIETY TO TAKE 30MG IN ADDITION TO 60MG FOR TOTAL 90MG DAILY 2) DULOXETINE HCL 60MG EC CAP TAKE ONE CAPSULE BY MOUTH ACTIVE ONCE DAILY 3) HYDROXYZINE HCL 25MG TAB TAKE ONE TABLET BY MOUTH ACTIVE (S) ONCE DAILY NEEDED ANXIETY Active Non-VA Medications Status 1) Non-VA AMLODIPINE BESYLATE 2.5MG TAB 2.5MG BY MOUTH ACTIVE EVERY EVENING 2) Non-VA ISOSORBIDE MONONITRATE 30MG SA TAB 30MG BY ACTIVE MOUTH EVERY MORNING 3) Non-VA METOPROLOL TARTRATE 50MG TAB 50MG BY MOUTH ACTIVE TWICE DAILY 4) Non-VA OMEPRAZOLE CAP,EC BY MOUTH EVERY MORNING 30 ACTIVE MINUTES BEFORE BREAKFAST 5) Non-VA OTHER CAP/TAB MONTHLY ACTIVE 6) Non-VA PRAVASTATIN TAB BY MOUTH ACTIVE 7) Non-VA PROMETHAZINE HCL TAB BY MOUTH NEEDED ACTIVE 8) Non-VA TRAMADOL HCL TAB BY MOUTH TWICE DAILY ACTIVE 9) Non-VA ZOLPIDEM TARTRATE TAB BY MOUTH AT BEDTIME ACTIVE 12 Total Medications Remote Medications: No Active 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 Shields [place] only for mental health History of present illness Patient followed at mental health clinic for anxiety. Takes medication which she feels is helpful. Feels well today with no complaints. Review of systems No chest pain or dyspnea No abdominal pain No trouble urinating No fever or chills No cough Physical examination Well-developed well-nourished male no acute distress Coronary no murmur Lungs clear Mucous membranes moist Assessment and plan: 1. Anxiety: Followed by mental health Plan: Continue above Follow-up 1 year Patient is well laboratory testing from private PCP, frequent ECG from cardiology Dr. Aguirre. PTSD Screening: PC-PTSD-5 A PTSD screening test (PC-PTSD-5) was negative (score=0). IN THE PAST MONTH, have you ever had any experience that was so frightening, horrible or traumatic. For example: A serious accident or fire a physical or sexual assault or abuse An earthquake or flood A war Seeing someone be killed or seriously injured Having a loved one through homicide or suicide 1. Have you ever experienced this kind of event? NO 2. Had nightmares about the event(s) or thought about the event(s) when you did not want to? Response not required due to responses to other questions. 3. Tried hard not to think about the event(s) or went out of your way to avoid situations that reminded you of the event(s)? Response not required due to responses to other questions. 4. Been constantly on guard, watchful, or easily startled? Response not required due to responses to other questions. 5. [place] numb or detached from people, activities, or your surroundings? Response not required due to responses to other questions. 6. [place] guilty or unable to stop blaming yourself or others for the event(s) or any problems the event(s) may have caused? Response not required due to responses to other questions. BMI>30/>24.99 High Risk: At this visit, the health risks of obesity were reviewed and discussed with the , and the benefits of a weight management treatment program, such as [facility]! was discussed and offered to the [place]. After discussing the health risks of being overweight or obese and providing information about available weight management treatment, and offering a referral to [facility] or another weight management treatment program outside the [facility], the patient DECLINES REFERRAL to [facility] or any other weight management treatment program at this time. Medication Reconciliation: Outpatient: Has the patient been taking medications as documented in the EMLR? YES: The patient has been taking medications as documented in the EMLR. Essential Medication List for Review used to complete this medication reconciliation. INCLUDED IN THIS LIST: Alphabetical list of active outpatient prescriptions dispensed from this [place] (local) and dispensed from another VA or [...] whether with a VA or non-VA provider. Colonoscopy GAP Reminder: Recommendations are needed in the clinical reminder system following the patient's most recent colorectal cancer screening/surveillance test (Colonoscopy, Sigmoidoscopy or CT Colonography) Prior/outside colonoscopy results: Crohn's disease, verbal from patient, [facility], Dr. Hadley Date: June 11, 2022 Colonoscopy reminder set 5 years from OCTOBER 11, 2023. /cameron/ Smith Hopkins MD Staff Physician Signed: 10/11/2023 08:46 SMITH HOPKINS [place] [facility] [place] [facility] October 11, 2023 08:18 AM PREVENTIVE MEDICIN E NURSING NOTE: LOCAL TITLE: CLINICAL REMINDERS/NURSING STANDARD TITLE: PREVENTIVE MEDICINE NURSING NOTE DATE OF NOTE: OCTOBER 11, 2023@08:18 ENTRY DATE: OCTOBER 11, 2023@08:18:12 AUTHOR: ANUJ ALBRIGHTIGNER: URGENCY: STATUS: COMPLETED Alcohol Use Screen (AUDIT-C): Alcohol Screen: SCREEN FOR ALCOHOL (AUDIT-C) An alcohol screening test (AUDIT-C) was negative (score=0). 1. How often did you have a drink containing alcohol in the past year? Consider a drink to be a 12 ounce can or bottle of regular beer, 8 ounces of malt liquor, a 5 ounce glass of table wine, or a 1.5 ounce shot of liquor (like scotch, gin, or vodka). Never 2. How many drinks containing alcohol did you have on a typical day when you were drinking in the past year? Response not required due to responses to other questions. 3. How often did you have six or more drinks on one occasion in the past year? Response not required due to responses to other questions. Tobacco Use Screening: The patient is a former tobacco user. The patient quit fifteen or more years ago. Homelessness/Food Insecurity Screen: In the past 2 months, have you been living in stable housing that you own, rent, or stay in as part of a household? Yes - Living in stable housing. Are you worried or concerned that in the next 2 months you may NOT have stable housing that you own, rent, or stay in as part of a household? No - Not worried about housing near future The [place] reports the following: Within the past 12 months, you worried whether your food would run out before you got money to buy more. Never true Within the past 12 months, the food you bought just didn't last and you didn't have money to get more. Never true Advance Directive Screen MH AD: Patient has an up-to-date Advance Directive at an outside, non-va facility and was asked to forward a copy to his/her clinician. Sexual Orientation: The patient thinks of their sexual orientation as: Straight or Heterosexual /es/ ANUJ ALBRIGHT LPN LPN Signed: 10/11/2023 08:22 ANUJ ALBRIGHT [place] [facility]
--- OUTSIDE RECORDS SUMMARY | 2024-05-30 09:04 | XMS_ITS ---
Author Name [facility] [place] Address [address] [place] [address] Care Team Providers Care Coding Spec Name Role Phone KEENAN HAMILTON Primary Care [...] Knight's Name Patient's Relationship to Policy Knight [facility]GAN[facility] SCH L DEPT Dec 10, 2023 [id number] [phone] BARBARA NAIR PATIENT [place] PRESCRIPT ION [facility] Dec 10, 2023 [id number] BARBARA NAIR PATIENT [employer] POINT OF SERVICE [facility] Dec 09, 2016 [id number] BARBARA NAIR PATIENT [employer] BEHAVIORAL HEALTH MENTAL HEALTH [facility] Dec 09, 2016 [id number] BARBARA NAIR PATIENT [employer] PHARMACY PRESCRIPT ION [facility] Dec 09, 2016 [id number] BARBARA NAIR PATIENT Selected Encounter This section includes the information on record at [place] for the Encounter. Date/Time Encounter Type Encounter Description Reason Pro vider Source May 26, 2024 09:30 AM Outpatient Encounter [facility] Encounter Template Text not used by [place] Plan of Treatment: Future Appointments (+ 6 months) and Future Tests (+/- 45 days) The Plan of Treatment section includes future care activities for the patient from all [place] [facility]. This section includes future appointments and future orders which are active, pending or scheduled. Future Appointments This section includes appointments that were scheduled to occur 6 months from the date of the Encounter, up to a maximum of 20 appointments. The data comes from all [place] treatment facilities. Appointment Date/Time Appointment Type Appointme nt Facility Name Jun 10, 2024 09:00 AM AMBULAT[facility] Jun 27, 2024 10:30 AM AMBULATORY - MEDICINE [facility] [place] [facility] October 10, 2024 08:30 AM AMBULATORY - MEDICINE [facility] Social History: Smoking Status (Most current) and Tobacco Use (All prior to encounter date) This section includes the most current, and the historical, smoking and tobacco- related health factors from the [place] facility where the Encounter took place. Current Smoking Status This section includes the most current smoking, or tobacco-related health factor, from the [place] facility where the Encounter took place. Date/Time Current Smoking Status Comment Facil ity October 11, 2023 08:30 AM ID-TOBACCO QUIT 15 YRS OR MORE [facility] Tobacco Use History This section includes a history of the smoking, or tobacco-related health factors, that were collected on or before the date of the Encounter. The data comes from the [place] facility where the Encounter took place. Date/Time Smoking Status/Tobacco Use Comment F acility October 11, 2023 08:30 AM ID-TOBACCO QUIT 15 YRS OR MORE ID [facility] [place] [facility] May 12, 2022 09:00 AM VA-TOBACCO FORMER USER ID [facility] [place] [facility] May 12, 2022 09:00 AM ID-TOBACCO QUIT 15 YRS OR MORE ID [facility] [place] [facility] May 13, 2021 11:00 AM VA-TOBACCO FORMER USER ID [facility] [place] [facility] May 13, 2021 11:00 AM VA-TOBACCO QUIT 15 YRS OR MORE [facility] [place] [facility] Apr 29, 2020 11:00 AM VA-TOBACCO FORMER USER ID [facility] [place] [facility] Apr 29, 2020 11:00 AM VA-TOBACCO QUIT 15 YRS OR MORE ID [facility] [place] [facility] Mar 01, 2018 10:36 AM VA-TOBACCO NEVER USED ID [facility] [place] [facility] Feb 25, 2018 08:54 AM QUIT TOBACCO USE > 7 YEARS AGO 1989 ID [facility] [place] [facility] Apr 24, 2002 09:38 AM CURRENT SMOKER ID [facility] May 13, 2001 09:48 AM HISTORY OF SMOKING ID [facility] May 13, 2001 09:48 [facility] Encounter Notes: All associated encounter notes This section contains the clinical notes associated to the Encounter. Date/Time Encounter Note(s) Provider Source May 26, 2024 09:43 AM CLERICAL NOTE: LOCAL TITLE: APPOINTMENT NO SHOW STANDARD TITLE: CLERICAL NOTE DATE OF NOTE: MAY 26, 2024@09:43 ENTRY DATE: MAY 26, 2024@09:43:41 AUTHOR: JELANI CABRERA COSIGNER: URGENCY: STATUS: COMPLETED Patient Name: BARBARA NAIR Patient SSN: [id number] Date and time of Appointment No show : 05/26/24 09:30 PATIENT PHONE - PHONE NUMBER [CELLULAR] - Patient's medical record was reviewed. Follow-up actions were determined and initiated: Please check/complete as applies: [X]Telephoned Directly [ ]Re-scheduled for next available appt [ ]Sent a N0-show letter ( must call for appointment) [ ]Other (Emergent/Overbook, etc.): Additional Comments: Vet did not connect/arrive at the appointment time. Called vet and he had a flat tire along the road and had forgotten the appt. A truck was just arriving to help. denied any acute needs. Let him know we would call back to reschedule. Future Clinic Visits 06/27/2024 10:30 CWM/NO/OPTOMETRY 1 AM 10/10/2024 08:30 CWM/NO/PACT 2 /es/ JELANI CABRERA PSYCHIATRIST Signed: 05/26/2024 09:44 JELANI CABRERA [facility]
--- OUTSIDE RECORDS SUMMARY | 2024-05-30 09:04 | XMS_ITS ---
Author Name [facility] [place] Organization [place] Address [address] [place] [address] Care Team Providers Care Shipyard Helper Name Role Phone KEENAN HAMILTON Primary Care [...] Policy Knight [facility] DE[facility] Dec 10, 2023 [id number] [phone] BARBARA NAIR PATIENT [facility] PRESCRIPT ION [facility] Dec 10, 2023 [id number] BARBARA NAIR PATIENT [employer] POINT OF SERVICE [facility] Dec 09, 2016 [id number] BARBARA NAIR PATIENT [employer] BEHAVIORAL HEALTH MENTAL HEALTH [facility] Dec 09, 2016 [id number] BARBARA NAIR PATIENT [employer] PHARMACY PRESCRIPT ION [facility] Dec 09, 2016 [id number] BARBARA NAIR PATIENT Selected Encounter This section includes the information on record at [place] for the Encounter. Date/Time Encounter Type Encounter Description Reason Provider Source Feb 25, 2024 09:30 AM OFFICE O/P EST MOD 30 MIN [facility] - IND ICD-10-CM F33.1 Major depressive disorder, recurrent, moderate VARGAS,ALICIANILESHIC A E E Encounter Template Text not used by [place] Assessments - Encounter Diagnoses This section includes the primary and secondary diagnoses documented for the Encounter. Date/Time Primary/Secondary Diagnosis Diagnosis Name Provider Source Feb 25, 2024 11:41 AM PRIMARY Major depressive disorder, recurrent, moderate VARGAS,SYMONEIC A E [facility] Feb 25, 2024 11:41 AM SECONDARY Anxiety disorder, unspecified VARGAS,ALICIASSIC A E [facility] Plan of Treatment: Future Appointments (+ 6 months) and Future Tests (+/- 45 days) The Plan of Treatment section includes future care activities for the patient from all [place] [facility] [place]. This section includes future appointments and future orders which are active, pending or scheduled. Future Appointments This section includes appointments that were scheduled to occur 6 months from the date of the Encounter, up to a maximum of 20 appointments. The data comes from all [place] treatment facilities. Appointment Date/Time Appointment Type Appointme nt Facility Name May 26, 2024 09:30 AM AMBULATORY - PSYCHIATRY [facility] Jun 10, 2024 09:00 AM [facility] Jun 27, 2024 10:30 AM AMBULATORY - MEDICINE [facility] Social History: Smoking Status (Most current) and Tobacco Use (All prior to encounter date) This section includes the most current, and the historical, smoking and tobacco- related health factors from the [place] facility where the Encounter took place. Current Smoking Status This section includes the most current smoking, or tobacco-related health factor, from the [place] facility where the Encounter took place. Date/Time Current Smoking Status Comment Facil ity October 11, 2023 08:30 AM VA-TOBACCO FOR[facility] USER [facility] Tobacco Use History This section includes a history of the smoking, or tobacco-related health factors, that were collected on or before the date of the Encounter. The data comes from the [place] facility where the Encounter took place. Date/Time Smoking Status/Tobacco Use Comment F acesme October 11, 2023 08:30 AM VA-TOBACCO QUIT 15 YRS OR MORE [facility] [place] [facility] May 12, 2022 09:00 AM VA-TOBACCO FORMER USER [facility] [place] [facility] May 12, 2022 09:00 AM VA-TOBACCO QUIT 15 YRS OR MORE [facility] [place] [facility] May 13, 2021 11:00 AM VA-TOBACCO FORMER USER [facility] [place] [facility] May 13, 2021 11:00 AM VA-TOBACCO QUIT 15 YRS OR MORE [facility] [place] [facility] Apr 29, 2020 11:00 AM VA-TOBACCO FORMER USER [facility] [place] [facility] Apr 29, 2020 11:00 AM VA-TOBACCO QUIT 15 YRS OR MORE [facility] [place] [facility] Mar 01, 2018 10:36 AM VA-TOBACCO NEVER USED [place] [facility] [place] [facility] Feb 25, 2018 08:54 AM QUIT TOBACCO USE > 7 YEARS AGO 1989 [place] [facility] [place] [facility] Apr 24, 2002 09:38 AM CURRENT SMOKER [place] C [facility] [place] [facility] May 13, 2001 09:48 AM HISTORY OF SMOKING [place] [facility] [place] [facility] May 13, 2001 09:48 AM NON-TOBACCO USER [place] [facility] [facility] Encounter Notes: All associated encounter notes This section contains the clinical notes associated to the Encounter. Date/Time Encounter Note(s) Provider Source Feb 28, 2024 08:32 AM ACCOUNTING OF DISCLOSURES NOTE: LOCAL TITLE: STATE PRESCRIPTION DRUG MONITORING PROGRAM STANDARD TITLE: ACCOUNTING OF DISCLOSURES NOTE DATE OF NOTE: FEB 28, 2024@08:32:38 ENTRY DATE: FEB 28, 2024@08:32:38 AUTHOR: JELANI VARGAS EXP COSIGNER: URGENCY: STATUS: COMPLETED This PDMP query was submitted by Jelani Vargas The clinical justification for this PDMP query is to review controlled substances prescribed outside of the [facility], and any additional information that may become available, as an important component of standard clinical care, and in accordance with [facility] policy. Patient information was shared with the PDMP Appriss [place]. No prescription(s) for controlled substances outside the [facility] were found in the last 90 days. /cameron/ JELANI VARGAS PSYCHIATRIST Signed: 02/28/2024 08:32 JELANI VARGAS [facility] [place] [facility] Feb 26, 2024 08:26 AM ADDENDUM: LOCAL TITLE: Addendum STANDARD TITLE: ADDENDUM DATE OF NOTE: FEB 26, 2024@08:26:11 ENTRY DATE: FEB 26, 2024@08:26:11 AUTHOR: CHANCE FINNEGAN COSIGNER: URGENCY: STATUS: COMPLETED If this is a patient in [facility] clinic, the library services coordinator should probably be a MH RN up there /cameron/ CHANCE FINNEGAN Registered Nurse Signed: 02/26/2024 08:27 Receipt Acknowledged By: 02/26/2024 09:17 /kathleen MONTALVO MSN, RN [facility]IC REGISTERED NURSE --- Original Document --- 02/25/24 TREATMENT PLAN: TREATMENT PLAN - Feb, @ 04:29PM Visit Date: Feb, @ 09:30 - CWM/NO/VVC/IVY/ANTHONY MAINTENANCE SUPERVISOR 2ND SHIFT: CHANCE FINNEGAN / [facility] Jennifer TEAM MEMBERS: JELANI VARGAS: PSYCHIATRIST TREATMENT PLAN: Problem: depression Goal: euthymia Objective: PHQ9<6 Projected Target Date: 05/04/2023 Intervention: Psychopharm, psychotherapy Providers: JELANI VARGAS Time Frame: One time every 2 months for 4 months Treating Specialty: Mental Health Clinic Renewal Date: 01/01/2024 Entered Treatment: 01/01/2023 @ 05:27PM Anticipated Discharge: None Actual Discharge: None /kathleen VARGAS PSYCHIATRIST Signed: 02/25/2024 16:29 Receipt Acknowledged By: 02/26/2024 08:27 /kathleen FINNEGAN Registered Nurse CHANCE FINNEGAN [place] [facility] [facility] Feb 25, 2024 04:29 PM MENTAL HEALTH TREATMENT PLAN NOTE: LOCAL TITLE: MH TREATMENT PLAN STANDARD TITLE: MENTAL HEALTH TREATMENT PLAN NOTE DATE OF NOTE: FEB 25, 2024@16:29:24 ENTRY DATE: FEB 25, 2024@16:29:32 AUTHOR: JELANI VARGAS EXP COSIGNER: URGENCY: STATUS: COMPLETED MH TREATMENT PLAN Has ADDENDA MH TREATMENT PLAN - Feb, @ 04:29PM Visit Date: Feb, @ 09:30 - CWM/NO/VVC/MHC/ANTHONY MH MAINTENANCE SUPERVISOR 2ND SHIFT: CHANCE FINNEGAN / CHAKA Rodriguez TEAM MEMBERS: JELANI VARGAS: PSYCHIATRIST TREATMENT PLAN: Problem: depression Goal: euthymia Objective: PHQ9<6 Projected Target Date: 05/04/2023 Intervention: Psychopharm, psychotherapy Providers: JELANI VARGAS Time Frame: One time every 2 months for 4 months Treating Specialty: Mental Health Clinic Renewal Date: 01/01/2024 Entered Treatment: 01/01/2023 @ 05:27PM Anticipated Discharge: None Actual Discharge: None /cameron/ JELANI VARGAS PSYCHIATRIST Signed: 02/25/2024 16:29 Receipt Acknowledged By: 02/26/2024 08:27 /kathleen FINNEGAN Registered Nurse 02/26/2024 ADDENDUM STATUS: COMPLETED If this is a patient in [facility] clinic, the library services coordinator should probably be a MH RN up there /kathleen FINNEGAN Registered Nurse Signed: 02/26/2024 08:27 Receipt Acknowledged By: * AWAITING SIGNATURE * HARRY MONTALVO JESSICA E [place] [facility] [place] [facility] Feb 25, 2024 09:52 AM PSYCHIATRY NOTE: LOCAL TITLE: PSYCHIATRY NOTE STANDARD TITLE: PSYCHIATRY NOTE DATE OF NOTE: FEB 25, 2024@09:52 ENTRY DATE: FEB 25, 2024@09:52:48 AUTHOR: JELANI VARGAS EXP COSIGNER: URGENCY: STATUS: COMPLETED PSYCHIATRY FOLLOW UP VISIT BARBARA NAIR is a 63yo MARITAL STATUS - NEVER 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 Reports feeling well overall, though struggling with Crohn's. Did have 3 panic attacks over the summer. He ended up leaving his vacation early due to one. Takes hydroxyzine for panic attacks but is it not so helpful. Sleeping ok. 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 03/01/2018 JULIA FERNANDEZ Hyperlipidemia E78.4 03/01/2018 FERNANDEZJULIA Esophageal reflux R69. 06/20/2021 MIKEY PARRA Anxiety F41.9 06/20/2021 MIKEY PARRA BMI: 33.3 SUBSTANCE USE: Alcohol: Drank heavily in past. [...] to try to sleep without it bupropion: katelin 02/2023 2 week trial at 100mg alprazolam-worked well for panic MENTAL STATUS EXAM: Awake, alert, cooperative, well groomed, large abdominal girth, BMI 32. Glasses. 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 reviewed risks including sedation imbalance, risk of abuse. -cont duloxetine 60mg--vet prefers to stay at this dose Can use hydroxyzine to 25mg at bedtime -consider switching zolpidem to improve sleep quality. Vet is reluctant to stop zolpidem but will consult with his pain management MD, who rx's the zolpidem. TIME SPENT FACE TO FACE: 30m TOTAL [...] provider. Problem List was reviewed and updated. Suicide Screen: C-SSRS Screening [place]-Suicide Severity Rating Scale (C-SSRS Screener) 1. Over the past month, have you wished you were or wished you could go to sleep and not wake up? No 2. Over the past month, have you had any actual thoughts of killing yourself? No 3. Over the past month, have you been thinking about how you might do this? Response not required due to responses to other questions. 4. Over the past month, have you had these thoughts and had some intention of acting on them? Response not required due to responses to other questions. 5. Over the past month, have you started to work out or worked out the details of how to kill yourself? Response not required due to responses to other questions. 6. If yes, at any time in the past month did you intend to carry out this plan? Response not required due to responses to other questions. 7. In your lifetime, have you ever done anything, started to do anything, or prepared to do anything to end your life (for example, collected pills, obtained a gun, gave away valuables, went to the roof but didn't jump)? No 8. If YES, was this within the past 3 months? Response not required due to responses to other questions. /cameron/ JELANI VARGAS PSYCHIATRIST Signed: 02/25/2024 11:41 JELANI VARGAS [facility]
--- OUTSIDE RECORDS SUMMARY | 2024-05-30 09:04 | XMS_ITS ---
Author Name [place] Address [address] [place] [address] Care Team Providers Care Cash Crop Farmer Name Role Phone KEENAN HAMILTON Primary Care [...] Knight's Name Patient's Relationship to Policy Knight [facility] CE ORGANIZAT ION [facility] DEPT Dec 10, 2023 [id number] BARBARA NAIR PATIENT [place] PRESCRIPT ION [facility] Dec 10, 2023 [id number] [phone] BARBARA NAIR PATIENT [employer] POINT OF SERVICE [facility] Dec 09, 2016 [id number] [phone] BARBARA NAIR PATIENT [employer] BEHAVIORAL HEALTH MENTAL HEALTH [facility] Dec 09, 2016 [id number] BARBARA NAIR PATIENT [employer] PHARMACY PRESCRIPT ION [facility] Dec 09, 2016 [id number] [phone] BARBARA NAIR PATIENT Selected Encounter This section includes the information on record at [place] for the Encounter. Date/Time Encounter Type Encounter Description Reason Pro vider Source Feb 26, 2024 09:17 AM Outpatient Encounter MENTAL HEALTH CLINIC - [facility] Encounter Template Text not used by [place] Plan of Treatment: Future Appointments (+ 6 months) and Future Tests (+/- 45 days) The Plan of Treatment section includes future care activities for the patient from all [place] [facility] This section includes future appointments and future orders which are active, pending or scheduled. Future Appointments This section includes appointments that were scheduled to occur 6 months from the date of the Encounter, up to a maximum of 20 appointments. The data comes from all [place] treatment facilities. Appointment Date/Time Appointment Type Appointme nt Facility Name May 26, 2024 09:30 AM AMBULATORY - [facility] Jun 10, 2024 09:00 AM AMBULATORY - PSYCHIATRY [place] [facility] [place] [facility] Jun 27, 2024 10:30 AM [facility] Social History: Smoking Status (Most current) and Tobacco Use (All prior to encounter date) This section includes the most current, and the historical, smoking and tobacco- related health factors from the [place] facility where the Encounter took place. Current Smoking Status This section includes the most current smoking, or tobacco-related health factor, from the [place] facility where the Encounter took place. Date/Time Current Smoking Status Comment Facil ity October 11, 2023 08:30 AM [place]-TOBACCO QUIT 15 YRS OR MORE [facility] Tobacco Use History This section includes a history of the smoking, or tobacco-related health factors, that were collected on or before the date of the Encounter. The data comes from the [place] facility where the Encounter took place. Date/Time Smoking Status/Tobacco Use Comment F acility October 11, 2023 08:30 AM VT-TOBACCO QUIT 15 YRS OR MORE [place] [facility] [facility] May 12, 2022 09:00 AM VA-TOBACCO FORMER USER [place] [facility] [facility] May 12, 2022 09:00 AM VA-TOBACCO QUIT 15 YRS OR MORE [place] [facility] [facility] May 13, 2021 11:00 AM VA-TOBACCO FORMER USER [place] [facility] [facility] May 13, 2021 11:00 AM VA-TOBACCO QUIT 15 YRS OR MORE [place] [facility] [facility] Apr 29, 2020 11:00 AM VA-TOBACCO FORMER USER [place] [facility] [facility] Apr 29, 2020 11:00 AM VA-TOBACCO QUIT 15 YRS OR MORE [place] [facility] [place] [facility] Mar 01, 2018 10:36 AM VA-TOBACCO NEVER USED [place] [facility] [place] [facility] Feb 25, 2018 08:54 AM QUIT TOBACCO USE > 7 YEARS AGO 1989 [place] [facility] [place] [facility] Apr 24, 2002 09:38 AM CURRENT SMOKER [place] C [facility] [place] [facility] May 13, 2001 09:48 AM HISTORY OF SMOKING [place] [facility] [place] [facility] May 13, 2001 09:48 AM NON-TOBACCO USER [facility] Encounter Notes: All associated encounter notes This section contains the clinical notes associated to the Encounter. Date/Time Encounter Note(s) Provider Source Feb 26, 2024 09:17 AM MENTAL HEALTH NOTE : LOCAL TITLE: [facility] CC ASSIGNMENT STANDARD TITLE: MENTAL HEALTH NOTE DATE OF NOTE: FEB 26, 2024@09:17 ENTRY DATE: FEB 26, 2024@09:18:32 AUTHOR: HARRY MONTALVO EXP COSIGNER: URGENCY: STATUS: COMPLETED Mental Health Steel Heater Assignment Reassignment The 's current Mental Health Steel Heater (MHTC) is: Treatment Team: [facility] Steel Heater: CHANCE FINNEGAN Office [phone] Pager: Digital Pager: This note documents the REASSIGNMENT of the [facility]' Mental Health Steel Heater (MHTC) on Feb. New MHTC name: ARAM Acosta RN MHTC Contact Information: [phone] This [facility]'s existing MHTC was reassigned due to: Previous MHTC requested due to 's home clinic ([facility] C: Dario Vargas /cameron/ HARRY CHIU, RN MENTAL HEALTH CLINIC REGISTERED NURSE Signed: 02/26/2024 09:20 Receipt Acknowledged By: 02/26/2024 09:42 /es/ CHANCE FINNEGAN Registered Nurse 02/28/2024 16:59 /es/ JELANI VARGAS PSYCHIATRIST HARRY MONTALVO [facility]
--- OUTSIDE RECORDS SUMMARY | 2024-05-30 09:04 | XMS_ITS | Encounter Summary ---
Author Name Department [place] Organization [place] Address [address] [place] [address] Care Team Providers Care Hide Paster Name Role Phone KEENAN HAMILTON Primary Care [...] Knight's Name Patient's Relationship to Policy Knight [facility] ORGANIZAT ION [facility] DEPT Dec 10, 2023 [id number] [phone] BARBARA NAIR PATIENT [place] PRESCRIPT ION [facility] Dec 10, 2023 [id number] BARBARA NAIR PATIENT [employer] POINT OF SERVICE [facility] Dec 09, 2016 [id number] BARBARA NAIR PATIENT [facility] BEHAVIORAL HEALTH MENTAL HEALTH [facility] Dec 09, 2016 [id number] BARBARA NAIR PATIENT [employer] PHARMACY PRESCRIPT ION [facility] Dec 09, 2016 [id number] BARBARA NAIR PATIENT Selected Encounter This section includes the information on record at [place] for the Encounter. Date/Time Encounter Type Encounter Description Reason Pro vider Source Feb 06, 2024 11:24 AM Outpatient Encounter OPTOMETRY IHE Encounter Template Text not used by [place] Plan of Treatment: Future Appointments (+ 6 months) and Future Tests (+/- 45 days) The Plan of Treatment section includes future care activities for the patient from all [place] treatmentfacilities. This section includes future appointments and future orders which are active, pending or scheduled. Future Appointments This section includes appointments that were scheduled to occur 6 months from the date of the Encounter, up to a maximum of 20 appointments. The data comes from all [place] treatment facilities. Appointment Date/Time Appointment Type Appointme nt Facility Name Feb 25, 2024 09:30 AM AMBULATORY - PSYCHIATRY [place] [facility] [place] [facility] May 26, 2024 09:30 AM AMBULATORY - PSYCHIATRY [place] [facility] [place] [facility] Jun 10, 2024 09:00 AM AMBULATORY - PSYCHIATRY [place] [facility] [place] [facility] Jun 27, 2024 10:30 AM AMBULATORY - MEDIC[facility] Social History: Smoking Status (Most current) and Tobacco Use (All prior to encounter date) This section includes the most current, and the historical, smoking and tobacco- related health factors from the [place] facility where the Encounter took place. Current Smoking Status This section includes the most current smoking, or tobacco-related health factor, from the [place] facility where the Encounter took place. Date/Time Current Smoking Status Comment Facil ity October 11, 2023 08:30 AM VA-TOBACCO [facility] [place] [facility] Tobacco Use History This section includes a history of the smoking, or tobacco-related health factors, that were collected on or before the date of the Encounter. The data comes from the [place] facility where the Encounter took place. Date/Time Smoking Status/Tobacco Use Comment F acility October 11, 2023 08:30 AM VA-TOBACCO QUIT 15 YRS OR MORE [place] [facility] [place] [facility] May 12, 2022 09:00 AM VA-TOBACCO FORMER USER [place] [facility] [place] [facility] May 12, 2022 09:00 AM VA-TOBACCO QUIT 15 YRS OR MORE [place] [facility] [place] [facility] May 13, 2021 11:00 AM VA-TOBACCO FORMER USER [place] [facility] [place] [facility] May 13, 2021 11:00 AM VA-TOBACCO QUIT 15 YRS OR MORE [place] [facility] [place] [facility] Apr 29, 2020 11:00 AM VA-TOBACCO FORMER USER [place] [facility] [place] [facility] Apr 29, 2020 11:00 AM VA-TOBACCO QUIT 15 YRS OR MORE [place] [facility] [place] [facility] Mar 01, 2018 10:36 AM VA-TOBACCO NEVER USED [place] [facility] [place] [facility] Feb 25, 2018 08:54 AM QUIT TOBACCO USE > 7 YEARS AGO 1989 [place] [facility] [place] [facility] Apr 24, 2002 09:38 AM CURRENT SMOKER DE [place] [facility] May 13, 2001 09:48 AM HISTORY OF SMOKING [place] [facility] [place] [facility] May 13, 2001 09:48 AM NON-TOBACCO [facility] Encounter Notes: All associated encounter notes This section contains the clinical notes associated to the Encounter. Date/Time Encounter Note(s) Provider Source Feb 06, 2024 11:24 AM OPTOMETRY NOTE: LOCAL TITLE: OPTOMETRY NOTE STANDARD TITLE: OPTOMETRY NOTE DATE OF NOTE: FEB 06, 2024@11:24 ENTRY DATE: FEB 06, 2024@11:24:55 AUTHOR: SAE MONTANEZ EXP COSIGNER: URGENCY: STATUS: COMPLETED OPT HT ordered patient 1 time yearly replacement pair of eyeglasses as requested d/t lost pair, unrepairable/not under warranty, or scratched lenses. Approved by provider. /cameron/ Sae Montanez Optometry Health Case Work Aide Signed: 02/06/2024 11:25 SAE MONTANEZ [facility]
== END 2024-05-30 09:19 | disposition home or self-care (01) ==
PROVIDERS: PCP Internal Medicine; Visit Provider Internal Medicine
DX: Z00.00 Encounter for general adult medical examination without abnormal findings (principal); I10 Essential (primary) hypertension; E78.5 Hyperlipidemia, unspecified

== ENCOUNTER 2024-05-30 08:51 | Outpatient (REF) | payer BC, SELFPAY ==
--- NOTE | ~2024-05-30 | XR_ITS ---
EXAMINATION: XR CERVICAL SPINE; XR LUMBAR SPINE CLINICAL INFORMATION: Cervicalgia M54.2. M54.9 - Dorsalgia, unspecified. COMPARISON: CT Abdomen pelvis with IV contrast 07/25/2023 TECHNIQUE: 3 images of cervical spine and 3 images of lumbar spine. FINDINGS: Cervical spine: Normal vertebral body height and alignment. Degenerative changes with disc space narrowing and osteophyte formation is seen at C5/6 and C6/7. Posterior facet joint arthropathy is seen from C5 through T1 bilaterally. Lumbar spine: Normal vertebral body height and alignment. Degenerative changes with minimal disc space narrowing and osteophyte formation is seen at L3/4, L4/5. Moderate posterior facet joint arthropathy is seen from L3 through S1. XR/XR lumbar spine 2-3V IMPRESSION: Degenerative changes as described above. Electronically signed by: Alfredo Negro MD 07/10/2024 10:24 AM [facility]
--- NOTE | ~2024-05-30 | XR_ITS ---
EXAMINATION: XR CERVICAL SPINE; XR LUMBAR SPINE CLINICAL INFORMATION: Cervicalgia M54.2. M54.9 - Dorsalgia, unspecified. COMPARISON: CT Abdomen pelvis with IV contrast 07/25/2023 TECHNIQUE: 3 images of cervical spine and 3 images of lumbar spine. FINDINGS: Cervical spine: Normal vertebral body height and alignment. Degenerative changes with disc space narrowing and osteophyte formation is seen at C5/6 and C6/7. Posterior facet joint arthropathy is seen from C5 through T1 bilaterally. Lumbar spine: Normal vertebral body height and alignment. Degenerative changes with minimal disc space narrowing and osteophyte formation is seen at L3/4, L4/5. Moderate posterior facet joint arthropathy is seen from L3 through S1. XR/XR cervical spine 2V IMPRESSION: Degenerative changes as described above. Electronically signed by: Alfredo Negro MD 07/10/2024 10:24 AM [facility] [place] [place]
--- OUTSIDE RECORDS SUMMARY | 2024-05-30 09:25 | XMS_ITS | Continuity of Care Document ---
Author Name [facility] Organization [facility] Care Team Providers Care Expense Analyst Name Role Phone [facility] Unavailable Unavailable Problems Combined list of problems from Department of Defense and Veterans Affairs facilities. It does not include entries that were removed or entered in error. Problem Status Onset Date Problem Type Date of Resolution Comments Source History of colonoscopy Active 05/23/20 18 Condition Jul 17, 2019 Entered By: SHANTA CORNEJO Comment: Colonoscopy [facility] [employer] 05/23/2018 Dr Cain no change in active [...] Feb Entered By: REHANA VEGA Comment: NON [place] GI- DR Deric [place] 2018 Entered By: REHANA VEGA Comment: Hospital - NOVEMBER 2018 ( [facility]ophageal reflux Active Condition [facility] Hyperlipidemia Active Condition [facility] Hypertension Active Condition [facility] Hypnotic or anxiolytic dependence Active Condition [facility] Insomnia Active Condition Feb 14 19 Entered By: REHANA VEGA Comment: med: zolpidem [facility] [place] [facility] Labile blood pressure Active Condition May 21, 2022 Entered By: SANJEEV FERNANDEZ Comment: [facility] Pain of right knee region Active Condition Feb 14, 2019 Entered By: REHANA VEGA Comment[facility] Rec[facility] major depression [facility] Under care of multiple providers Active Condition Feb 14, 2019 Entered By: REHANA VEGA Comment: NON [place] PCP - DR Deric POWELL ( [facility]) - scheduled 02/2019Sep 2018 Entered By: REHANA VEGA Comment: Cardiolgy - DR Reese 2018 Entered By: REHANA VEGA Comment: LULA Melgar 2019 Entered By: REHANA VEGA Comment: [place] -[place] ( urgent visit ) - for prostate [facility] LUMBAGO Inactive Condition 02/14/2019 [facility] TOBACCO USE DISORDER Inactive Condition 02/14/2019 [facility] Diagnosis: ICD-10-CM F33.1 Major depressive disorder, recurrent, moderate Active Diagnosis [facility] Diagnosis: ICD-10-CM F41.9 Anxiety disorder, unspecified Active Diagnosis [facility] Medications Combined list of outpatient medications [...] EVENING ORAL ACTIVE RA JESUS FERNANDEZ 2021 [facility] DULOXETINE HCL 30MG CAP,EC TAKE ONE CAPSULE BY MOUTH ONCE DAILY ANXIETY TO TAKE 30MG IN ADDITION TO 60MG FOR TOTAL 90MG DAILY ORAL DISCONT INUED BY DAVID Barton 10/08/2024 [id number] Keisha CABRERA E 2023 90 [facility] DULOXETINE HCL 60MG CAP,EC TAKE ONE CAPSULE BY MOUTH ONCE DAILY ORAL ACTIVE 10/08/2024 [id number] 4 Keisha CABRERA E 2023 90 [facility] DULOXETINE HCL 60MG CAP,EC TAKE ONE CAPSULE BY MOUTH ONCE DAILY ORAL DISCONT INUED 04/05/2024 [id number] 4 Keisha CABRERA E 2022 90 [facility] HYDROXYZINE HCL 25MG TAB TAKE ONE TABLET BY MOUTH ONCE DAILY NEEDED ANXIETY ORAL ACTIVE 10/08/2024 [id number] 4 Keisha CABRERA E 2023 90 [facility] HYDROXYZINE HCL 25MG TAB TAKE ONE TABLET BY MOUTH ONCE DAILY NEEDED ANXIETY ORAL DISCONT INUED 04/05/2024 [id number] 4 Keisha CABRERA E 2022 90 [facility] ISOSORBIDE MONONITRATE 30MG TAB,SA TAKE ONE TABLET BY MOUTH EVERY MORNING ORAL ACTIVE RA JESUS FERNANDEZ [address] [facility] LORAZEPAM 1MG TAB TAKE ONE TABLET BY MOUTH ONCE DAILY NEEDED PANIC ATTACKS ORAL ACTIVE 08/27/2024 [id number] 4 Keisha CABRERA E 2023 10 [facility] METOPROLOL TARTRATE 50MG TAB TAKE ONE TABLET BY MOUTH TWICE DAILY ORAL ACTIVE RA JESUS FERNANDEZ 2021 [facility] OMEPRAZOLE CAP,EC TAKE BY MOUTH EVERY MORNING 30 MINUTES BEFORE BREAKFAS T ORAL ACTIVE RA JESUS FERNANDEZ 2017 [facility] OTHER CAP/TAB TAKE IV MONTHLY ACTIVE Mariusz CORREA 2021 [facility] PRAVASTATIN NA [...] Site Reaction Lot Number CVX Code Drug Online Marketing Manager Status Comments Source COVID-19 (PFIZER), MRNA, LNP-S, BIVALENT BOOSTER, PF, 30 MCG/0.3 ML DOSE 1 2021 300 complet ed [facility] INFLUENZA, UNSPECIFIED FORMULATION 2021 88 complet ed [facility] COVID-19 (MODERNA), MRNA, LNP-S, PF, 100 MCG OR 50 MCG DOSE 3 2020 207 complet ed MOD; [id number]; 2 [facility] [...] DOSE 2 2020 208 complet ed PFR; [id number]; 1 [facility] COVID-19 (PFIZER), MRNA, LNP-S, PF, 30 MCG/0.3 ML DOSE 1 2020 208 complet ed PFR; [id number]; 1 [facility] INFLUENZA, INJECTABLE, QUADRIVALENT, PRESERVATIVE FREE 2019 150 complet ed Partner: [facility]. Administe red by: DOMENICA MCKINLEY (NUC=[id number]). Partner 0 Lot#: [id number] Mfr: SANOFI; Dosage: 0.5 [facility] INFLUENZA, INJECTABLE, QUADRIVALENT 2018 158 complet ed Partner: [facility]. Administe red by: DOMENICA MCKINLEY (TIV=[id number]). Partner 0 Mfr: SEQIRUS; Dosage: 0.5 [facility] INFLUENZA, SEASONAL, INJECTABLE 2018 141 complet ed [facility] INFLUENZA, SEASONAL, INJECTABLE 2017 141 complet ed [facility] FLU,3 [...] Disposition Source [facility] OFFICE O/P EST LOW 20-29 MIN [id number] Diagnos is: ICD-10- CM F33.1 Major depress chayito disorde r, recurre nt, moderat e
ALICIA CABRERA SSICA E 01/01 [facility] OFFICE O/P EST MOD 30-39 MIN [id number] Diagnos is: ICD-10- CM F33.1 Major depress chayito disorde r, recurre nt, moderat e
ALICIA CABRERA SSICA E 02/15 [facility] Outpatient Encounter [id number] 04/05 [facility] OFF[facility] O/P EST LOW 20 MIN [id number] Diagnos is: ICD-10- CM F41.9 Anxiety disorde r, unspeci fied
ALICIA CABRERA SSICA E 07/02 [facility] En[facility] [id number] 07/16 [facility] En[facility] [id number] 09/30 [facility] OFF[facility] O/P EST MOD 30 MIN [id number] Diagnos is: ICD-10- CM F41.9 Anxiety disorde r, unspeci fied
ALICIA CABRERA SSICA E 10/07 [facility] En[facility] [id number] 10/10 [facility] OFF[facility] O/P EST SF 10 MIN [id number] Diagnos is: ICD-10- CM F41.9 Anxiety disorde r, unspeci fied
ROXANNE HAMILTON RD 10/10 [facility] En[facility] [id number] 12/05 [facility] En[facility] [id number] 02/05 [facility] En[facility] [id number] 02/05 [facility] [place] [place] [facility] OFFICE O/P EST MOD 30 MIN [id number] Diagnos is: ICD-10- CM F33.1 Major depress chayito disorde r, recurre nt, moderat e
CABRERAALICIA SSICA E 02/24 [facility] [place] [place] Outpatient Encounter [id number] 02/25 [facility] [place] [facility] [place] [facility] Outpatient Encounter [id number] 05/26 [facility] [place] [facility] Social History Combined list of available smoking, tobacco, and other social history from Department of Defense and Veterans Affairs facilities. Social History Type Response Date Comment Sour e Tobacco smoking status NHIS [place]-TOBACCO FORMER USER 10/11/2023 [facility] [place] [facility] of [facility] OR MORE 10/11/2023 [facility] [place] [facility] History of tobacco use NC-TOBACCO QUIT 15 YRS OR MORE 05/12/2022 [facility] [place] [facility] History of tobacco use NC-TOBACCO FORMER USER 05/13/2021 [facility] [place] [facility] History of tobacco use NC-TOBACCO FORMER USER 04/29/2020 [facility] [place] [facility] History of tobacco use NC-TOBACCO NEVER USED 03/01/2018 [facility] [place] [facility] History of tobacco use QUIT TOBACCO USE > 7 YEARS AGO 02/25/20181989 [facility] [place] [facility] History of tobacco use CURRENT SMOKER 04/24/2002 [facility] [place] [facility] History of tobacco use NON-TOBACCO USER 05/13/2001 [facility] [place] [facility] Plan of Care List of future care activities from Department of Veterans Affairs facilities. Additional future care activities may be listed in the Assessment and Plan section. Date/Time Care Activity Care Activity Detail Facili ty 06/10/2024 AMBULATORY - PSYCHIATRY [facility] 06/27/2024 AMBULATORY - MEDICINE [facility] 10/10/2024 [facility]BULAT[facility] - [facility]IC[facility]
[2024-05-30 09:37] LABS: MANUAL DIFF FLAG NO
[2024-05-30 10:06] LABS: Basophils Percent Auto 0.3 % (0-2); Eosinophils Absolute Auto 0.1 X10*3/uL (0.0-0.4); Eosinophils Percent Auto 0.8 % (0-4); Hematocrit 44.9 % (42.0-52.0); Hemoglobin 15.4 g/dl (14.0-18.0); Imm Gran Abs Auto 0.01 X10*3/uL (0.00-0.03); Imm Gran Pct Auto 0.2 % (0.0-0.4); Lymphocytes Absolute Auto 1.6 X10*3/uL (1.2-4.9); Lymphocytes Percent Auto 24.8 % (20-40); Mean Corpuscular HGB Conc 34.3 g/dl (31.0-36.0); Mean Corpuscular Hemoglobin 30.9 pg (27.0-33.0); Mean Corpuscular Volume 90.2 fL (80.0-98.0); Mean Platelet Volume 8.7 fL (9.4-12.4); Monocytes Absolute Auto 0.6 X10*3/uL (0.1-1.2); Monocytes Percent Auto 10.1 % (2-11); Neutrophils Percent Auto 63.8 % (45-73); Platelet Count 240 X10*3/uL (160-400); Red Blood Count 4.98 X10*6/uL (4.60-5.80); Red Cell Distribution Width 12.7 % (11.0-16.0); White Blood Count 6.3 X10*3/uL (4.8-10.8)
[2024-05-30 11:00] LABS: Alanine Aminotransferase 32 U/L (0-40); Albumin Level 4.4 g/dL (3.5-5.0); Alkaline Phosphatase 67 U/L (39-117); Anion Gap 11 (12-20); Aspartate Amino Transferase 29 U/L (5-37); Bilirubin Total 0.7 mg/dL (0.0-1.0); Blood Urea Nitrogen 14 mg/dL (9-16); C Reactive Protein 0.32 mg/dL (< or = 0.50); Calcium 8.9 mg/dL (8.4-10.2); Carbon Dioxide 29 mmol/L (22-29); Chloride 108 mmol/L (96-108); Cholesterol 141 mg/dL (<200); Estimated Glomerular Filt Rate > 60; Glucose Fasting 94 mg/dL (60-99); HDL Cholesterol 33 mg/dL (>40); LDL Cholesterol Calculated 85 mg/dL (<100); Potassium 4.4 mmol/L (3.3-5.1); Sodium 144 mmol/L (135-145); Total Protein 7.5 g/dL (6.5-8.0); Triglycerides 116 mg/dL (<150)
[2024-05-30 11:17] LABS: Thyroid Stimulating Hormone 0.96 uIU/mL (0.32-4.0)
[2024-06-02 13:12] LABS: TS Negative Control Passed; TS Panel A 0; TS Panel B 0; TS Positive Control Passed; TSpotTB Negative (Negative)
== END 2024-05-30 08:52 | disposition home or self-care (01) ==
LOC: HO.XRAY 08:51
PROVIDERS: Internal Medicine Gastroenterology; PCP Internal Medicine; Visit Provider Internal Medicine
DX: Z00.00 Encounter for general adult medical examination without abnormal findings (principal); I10 Essential (primary) hypertension; E78.5 Hyperlipidemia, unspecified; M54.2 Cervicalgia; M54.9 Dorsalgia, unspecified; Z13.29 Encounter for screening for other suspected endocrine disorder; Z13.220 Encounter for screening for lipoid disorders; Z13.0 Encounter for screening for diseases of the blood and blood-forming organs and certain disorders involving the immune mechanism; K75.81 Nonalcoholic steatohepatitis (NASH); K50.90 Crohn's disease, unspecified, without complications
CPT/HCPCS: 36415; 72040; 72100; 80053; 80061; 80299; 82542; 84443; 85025; 86140; 86481; 96127

== ENCOUNTER 2024-06-25 12:23 | Outpatient (RCR) | payer BC, SELFPAY ==
[2024-06-25 12:38] VITALS: BP 129/93; PULSE 72; RESP 20; TEMP 36.6; O2SAT 96
[2024-06-25] MEDS: Ustekinumab 520 MG in 0.9 % Sodium Chloride 146 ML 250 MG IV (13:45)
== END 2024-06-25 15:00 | disposition home or self-care (01) ==
LOC: HO.INF 12:23
PROVIDERS: Visit Provider Internal Medicine Gastroenterology
DX: K50.90 Crohn's disease, unspecified, without complications (principal)
CPT/HCPCS: 96365; J3358

== ENCOUNTER 2024-08-11 09:05 | Outpatient (AMB) | payer BC, SELFPAY ==
--- NOTE | 2024-08-11 09:06 | MHC.OFFVIS ---
Intake Visit Reasons: 4 month follow MRI results Intake Note: Jeremias presents as a telehealth today - states that he was unable to do the MRI as he was unable to hold down the Contrrast two times. Allergies No Known Allergies Allergy (Mild, Verified 08/11/24 09:04) none HPI HPI 4 month follow MRI results: Details: 64-year-old male w/ hx of CAD< GERD, LBBB, a-fib and Crohn's disease,(Dx 2011) who I am seeing for f/u for crohns disease and SBO--w/ fibrostentoic disease RECAP: He had been seen as inpatient 10/2020 for obstruction, prior had also been seeing Dr werner Patient has had crohns disease for many years and is on humira q1wk after having multiple admissions for SBO and crohns flare ups with sub therapeutic adalimumab levels. He was well night before admission. He ate some fried food and shortly after noted abdominal distention, with nausea and several episodes of nonbloody, nonbilious emesis which resembled prior attacks of SBO. He denies fever, chills, shortness of breath, or chest pain. He said on average he gets one attack like this every 8-12 months. Since the humira increase he has felt his background symptoms are much better and he rarely takes tramadol or anti nausea medication. Not taking nsaids. CT of the abdomen and pelvis showed small bowel obstruction with transition point in the right pelvis, and reactive mesenteric lymph nodes. He was given IV fluids and piperacillin/tazobactam. He is non smoker. OTHER DATA: Adalimumab trough 11 (which is good) MRI abd/pelv 03/08/20 showed thickening of distal small bowel. Area of dilation and angulation. Area of right lower quadrant involving terminal ileum. Skip lesions of small bowel. MR enterography-- 11/07/19 which demonstrated multiple scattered areas of small intestinal inflammation. Compared to prior testing there were 4 more areas of active inflammation. There were no areas of stenosis. colonoscopy 2017-- Active Crohn's disease with an ulcerated stricture in the region of the distal ileum. Given his ongoing sx and imaging results my concern was that he had crohns which was not really controlled by humira and that he was not responsive to anti TNFs He was switched to entyvio eventually increased freq to q 4 weeks due to symptoms and low entyvio level and MRe 10/2021 with small bowel thickening unchanged to prior imaging (eval was limited as they couldnt get IV access) This has now been changed to skyriszi because he had another exacerbation of crohns with ongoing inflammation noted on imaging 08/2022 I performed colonoscopy 12/2022 ileocecal stricture--s/p dilation and kenalog injection polyp--adenoma internal hemorrhoids diverticular disease EGD: 10/02 gastritis esophagitis hiatal hernia barretts esophagus Path: barretts US 10/2023: 1/ splenomegaly, and fatty liver RECAP: He has on and off attacks, was good most of winter he was switched to stelara --just commenced --he was still having break thru attacks with skyrizi appetite is good no fevers or chills knees have been bothering him he was uanble to take contrast for MRe EXAM: Relaxed A/P: 1/ Crohns disease with ongoing sx, on skyrizi s/p dilation of stricture, few bouts of epigastric pain and nausea, ?sub acute obstruction, ongoing crohns flares, changed to skyrizi 2/ splenomegaly, related to crohns, 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 PLAN: 1/ cont stelara for the meantime 2/ recheck fecal lactoferrin in September 11/ will hold on repeat imaging right now COUNT INCLUDES [facility] Medical History (Updated 08/11/24 @ 10:43 by Krissy Hadley MD) Hyperlipidemia Obesity Swelling of knee joint, left Chronic pain syndrome Chronic abdominal pain Stricture of small intestine LBBB (left bundle branch block) CAD (coronary artery disease) Paroxysmal atrial fibrillation Hypertension GERD without esophagitis History of paroxysmal atrial tachycardia Crohn's disease Surgical History Stented coronary artery Hx of endoscopy History of colonoscopy Family History Father Family history unknown Mother Hx of Crohn's disease Social History Household Members: Friend(s) Household Members Other:: 1 Housing: House Are you a primary career and guidance counselor to a significant other at home: No Do you presently have visiting nurse or other home services: No Alcohol intake: never Patient Tobacco Use Status: Former Tobacco user e-Cigarette/Vaping Use: Never Used Second Hand Smoke Exposure: No Advance Directives Date on File: 08/16/22 service: Yes Current occupational status: employed Cognitive needs: No Hearing needs: No Vision needs: No Telehealth Telehealth Telehealth Platform: [employer] [facility] Location of provider rendering services: practice address Location of patient: address on file Patient Identification confirmed using: Name, : Yes Telehealth method: video Patient verbally consented to treatment: Yes Patient verbally consented to billing insurance company: Yes Patient informed of any privacy concerns related to visit: Yes Minutes spent on Phone/Video with Pt.: 12 Assessment & Plan Assessment & Plan (1) Exacerbation of Crohn's disease: Code(s): K50.90 - Crohn's disease, unspecified, without complications Category: Medical Qualifiers: Digestive disease complication type: unspecified complication Qualified Code(s): K50.919 - Crohn's disease, unspecified, with unspecified complications Plan: see above Orders: Orders Lactoferrin, Fecal, Quant. Today K51.50 - Left sided colitis without complications Coding Level of Care Code Tele Est Pt Level 3 (74321) Diagnoses Exacerbation of Crohn's disease with complication K50.919 Digestive disease complication type: unspecified complication
--- OUTSIDE RECORDS SUMMARY | 2024-08-11 09:46 | XMS_ITS | Encounter Summary ---
Author Organization [employer] Address [address] [place] [address] [address] [place] [address] Care Team Providers Care Business Executive Name Role Phone Unavailable Primary Care Provider Unavailabl e Encounter Details Date Type Department Care Team (Latest Contact Info) Description 03/23/2021 Abstract [facility] CONVERSIONS Dental, Provider, DDS Social History Tobacco Use Types Packs/Day Years Used Date Smoking Tobacco: Never Assessed Sex and Gender Information Value Date Recorded Sex Assigned at Male 04/10/2022 10:23 AM EDT Legal Sex Male 10:23 AM EDT Gender Identity Male 04/10/2022 10:23 AM EDT Sexual Orientation Straight 04/10/2022 10 :23 AM EDT documented as of this encounter Plan of Treatment Upcoming Encounters Date Type Department Care Team (Late st Contact Info) Description 10/20/2024 2:00 PM EDT Office Visit [facility] ADULT DENTAL [address] [place] [address] Ti Lassiter documented as of this encounter Visit Diagnoses Not on filedocumented in this encounter
--- OUTSIDE RECORDS SUMMARY | 2024-08-11 09:46 | XMS_ITS ---
Author Name [facility] Organization [facility] Address [address] [place] [address] Care Team Providers Care Waste Cotton Cleaner Name Role Phone KEENAN HAMILTON Primary Care [...] Member ID Insurance Provider's Telephone Number Policy Nkight's Name Patient's Relationship to Policy [facility]ON [facility] DEPT Dec 10, 2023 [id number] BARBARA NAIR PATIENT [place] PRESCRIPT ION [facility] Dec 10, 2023 [id number] BARBARA NAIR PATIENT Selected Encounter This section includes the information on record at [place] for the Encounter. Date/Time Encounter Type Encounter Description Reason Provider Source Jun 10, 2024 09:00 AM OFFICE O/P EST LOW 20 [facility] - IND ICD-10-CM F41.9 Anxiety disorder, unspecified RODRIGO CABRERA Mariusz Encounter Template Text not used by [place] Assessments - Encounter Diagnoses This section includes the primary and secondary diagnoses documented for the Encounter. Date/Time Primary/Secondary Diagnosis Diagnosis Name Provider Source Jun 12, 2024 02:31 PM PRIMARY Anxiety disorder, unspecified [facility]ODRIGO CABR[facility]A [facility] Plan of Treatment: Future Appointments (+ 6 months) and Future Tests (+/- 45 days) The Plan of Treatment section includes future care activities for the patient [facility] This section includes future appointments and future orders which are active, pending or scheduled. Future Appointments This section includes appointments that were scheduled to occur 6 months from the date of the Encounter, up to a maximum of 20 appointments. The data comes from all [facility] facilities. Appointment Date/Time Appointment Type Appointme nt Facility Name Jun 27, 2024 10:30 AM AMBULATORY [facility] Jun 27, 2024 11:30 AM [facility] Sep 01, 2024 02:00 PM [facility] October 10, 2024 08:30 AM [facility]BULATORY - MEDICINE [facility] Social History: Smoking Status (Most current) and [...] Facil ity October 11, 2023 08:30 AM [place]-TOBACCO QUIT 15 YRS OR MORE [facility] Tobacco Use History This section includes a history of the smoking, or tobacco-related health factors, that were collected on or before the date of the Encounter. The data comes from the [place] facility where the Encounter took place. Date/Time Smoking Status/Tobacco Use Comment F acility October 11, 2023 08:30 AM [place]-TOBACCO QUIT [facility] YRS OR [facility] May 12, 2022 09:00 AM VA-TOBACCO [facility] [place] [facility] May 12, 2022 09:00 AM VA-TOBACCO QUIT 15 YRS OR MORE [facility] May 13, 2021 11:00 AM VA-TOBACCO [facility] May 13, 2021 11:00 AM VA-TOBACCO QUIT 15 YRS OR MORE [facility] [place] [facility] Apr 29, 2020 11:00 AM VA-TOBACCO FORMER USER [place] [facility] [place] [facility] Apr 29, 2020 11:00 AM VA-TOBACCO QUIT 15 YRS OR MORE [facility] [place] [facility] Mar 01, 2018 10:36 AM VA-TOBACCO NEVER USED [place] [facility] [place] [facility] Feb 25, 2018 08:54 AM QUIT TOBACCO USE > 7 YEARS AGO 1989 [place] [facility] [place] [facility] Apr 24, 2002 09:38 AM CURRENT SMOKER HI [facility] May 13, 2001 09:48 AM HISTORY OF SMOKING [place] [facility] [place] [facility] May 13, 2001 09:48 AM NON-TOBACCO USER [facility] Encounter Notes: All associated encounter notes This section contains the clinical notes associated to the Encounter. 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 Had 1 panic attack--did not use the lorazepam. Stopped tramadol. Feels like the tramadol caused the panic attack--he worried about having his meds counted and feels this caused worry. He feels better being off them. Pain has been well managed from Crohns--is taking Skyrizi which feels helpful. Has been walking more. CURRENT MEDICATIONS Active Outpatient Medications (including Supplies): DULOXETINE HCL 60MG EC CAP TAKE ONE CAPSULE BY MOUTH ONCE ACTIVE DAILY Indication: GENERALIZED ANXIETY DISORDER HYDROXYZINE HCL 25MG TAB TAKE ONE TABLET BY MOUTH ONCE ACTIVE DAILY NEEDED Indication: ANXIETY LORAZEPAM 1MG TAB TAKE ONE TABLET BY MOUTH ONCE DAILY ACTIVE NEEDED Indication: PANIC ATTACKS Non-VA AMLODIPINE BESYLATE 2.5MG TAB 2.5MG BY MOUTH EVERY ACTIVE EVENING Non-VA ISOSORBIDE MONONITRATE 30MG SA TAB 30MG BY MOUTH ACTIVE EVERY MORNING Non-VA METOPROLOL TARTRATE 50MG TAB 50MG BY MOUTH TWICE ACTIVE DAILY Non-VA OMEPRAZOLE CAP,EC BY MOUTH EVERY MORNING 30 MINUTES ACTIVE BEFORE BREAKFAST Non-VA OTHER CAP/TAB MONTHLY ACTIVE Non-VA PRAVASTATIN NA 80MG TAB 80MG BY MOUTH AT BEDTIME ACTIVE Indication: FOR HIGH CHOLESTEROL Non-VA PROMETHAZINE HCL TAB BY MOUTH NEEDED ACTIVE Non-VA ZOLPIDEM TARTRATE TAB BY MOUTH AT BEDTIME ACTIVE 12 Total Medications SUPPLEMENTS: ALLERGIES: Patient has answered [facility] [...] to try to sleep without it bupropion: jessey 02/2023 2 week trial at 100mg alprazolam-worked well for panic MENTAL STATUS EXAM: Awake, alert, cooperative, well groomed, large abdominal girth, BMI 32. Glasses. 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 KUMAR Suicide Coordinator ? [phone], Ext. [phone]; Back-up Ext. [phone] Pleater of the Day(AOD), Gerald HEATH ? [phone], Ext. [phone] Introduction: Visit is being conducted by [facility]. [place] identified with 2 identifiers: [X] Full Name [X] Date of [ ] VA ID Card Emergency Plan: confirmed and/or provided the following information in case of emergency or technology failure. [place]'s present location and address for appointment: Located at home address as in CPRS 's emergency contact name and phone number: Emergency contact as per listed in chart [place] reported that location is private and safe: Yes Informed Consent: [place] informed of the risks and benefits of Telehealth video care. has the right to refuse video services. If refuses video visit, a [id number] visit will be scheduled. [place] verbalized consent for this video visit: Yes provided consent for any other persons present for visit: Yes If yes, who and relationship to patient: Secure visit: Visit was locked for security and privacy:Yes __ _ __ /cameron/ JELANI CABRERA PSYCHIATRIST Signed: 06/12/2024 14:31 JELANI CABRERA [facility] [place] [facility]
--- OUTSIDE RECORDS SUMMARY | 2024-08-11 09:46 | XMS_ITS | Encounter Summary ---
Author Organization [facility] Address [address] [place] [address] [address] [place] [address] Care Team Providers Care Electronics Processor Name Role Phone Unavailable Primary Care Provider Unavailabl e Reason for Visit * Reason Onset Date Comments case back from lab? 03/15/2023 Encounter Details Date Type Department Care Team (Late st Contact Info) Description 03/15/2023 Telephone [facility] ADULT DENTAL [address] [place] [address] Ermias Hopkins, DDS [address] [place], [place] [id number] case back from lab? Social History Tobacco Use Types Packs/Day Years Used Date Smoking Tobacco: Never Sex and Gender Information Value Date Recorded Sex Assigned at Male 04/10/2022 10:23 AM EDT Legal Sex Male 10:23 AM EDT Gender Identity Male 04/10/2022 10:23 AM EDT Sexual Orientation Straight 04/10/2022 10 :23 AM EDT documented as of this encounter Miscellaneous Notes * Telephone Encounter - Cristiana Fernandez - 03/15/2023 9:56 AM EDT Patient calling in to check in on status of plate if back from lab DR documented in this encounter Plan of Treatment Upcoming Encounters Date Type Department Care Team (Late st Contact Info) Description 10/20/2024 2:00 PM EDT Office Visit [facility] [address] [place] [address] Ti Lassiter documented as of this encounter Visit Diagnoses Not on filedocumented in this encounter
--- OUTSIDE RECORDS SUMMARY | 2024-08-11 09:46 | XMS_ITS ---
Author Name [facility] Organization [facility] Address [address] [place] [address] Care Team Providers Care Cap Inspector Name Role Phone KEENAN HAMILTON Primary Care [...] Knight's Name Patient's Relationship to Policy Knight [facility] CE ORGANIZAT ION [facility] DEPT Dec 10, 2023 [id number] [phone] [id number] [phone] BARBARA NAIR PATIENT CAREMARK PRESCRIPT ION [facility] Dec 10, 2023 [id number] BARBARA NAIR PATIENT Selected Encounter This section includes the information on record at NH for the Encounter. Date/Time Encounter Type Encounter Description Reason Provider Source Jun 27, 2024 10:30 AM COMPRE OPH EXAM EST PT 1/> OPTOMETRY ICD-10-CM H25.13 Age-related nuclear cataract, bilateral MERHAR,NATASHA B IHE Encounter Template Text not used by [place] Assessments - Encounter Diagnoses This section includes the primary and secondary diagnoses documented for the Encounter. Date/Time Primary/Secondary Diagnosis Diagnosis Name Provider Source Jun 27, 2024 05:03 PM PRIMARY Age-related nuclear cataract, bilateral MERHAR,NATASHA B [facility] [place] [facility] Jun 27, 2024 05:03 PM SECONDARY Benign neoplasm of right choroid MERHAR,NATASHA B [facility] [place] [facility] Jun 27, 2024 05:03 PM SECONDARY Hypermetropia, bilateral MERHAR,NATASHA B [facility] [place] [facility] Jun 27, 2024 05:03 PM SECONDARY Refractive amblyopia, right eye WALTHAR,NATASHA B [facility] Plan of Treatment: Future Appointments (+ 6 months) and Future Tests (+/- 45 days) The Plan of Treatment section includes future care activities for the patient [facility] This section includes future appointments and future orders which are active, pending or scheduled. Future Appointments This section includes appointments that were scheduled to occur 6 months from the date of the Encounter, up to a maximum of 20 appointments. The data comes from all [place] treatment facilities. Appointment Date/Time Appointment Type Appointme nt Facility Name Sep 01, 2024 02:00 PM [facility] October 10, 2024 08:30 AM [facility]UL[facility] - [facility]IC[facility] Social History: Smoking Status (Most current) and Tobacco Use (All prior to encounter date) This section includes the most current, and the historical, smoking and tobacco- related health factors from the VA facility where the Encounter took place. Current Smoking Status This section includes the most current smoking, or tobacco-related health factor, from the [place] facility where the Encounter took place. Date/Time Current Smoking Status Comment Facil ity October 11, 2023 08:30 AM [facility] Tobacco Use History This section includes a history of the smoking, or tobacco-related health factors, that were collected on or before the date of the Encounter. The data comes from the [place] facility where the Encounter took place. Date/Time Smoking Status/Tobacco Use Comment F acility October 11, 2023 08:30 AM VA-TOBACCO QUIT 15 YRS OR MORE [facility] May 12, 2022 09:00 AM [facility]AC[facility] May 12, 2022 09:00 AM VA-TOBACCO QUIT 15 YRS OR MORE [facility] [place] [facility] May 13, 2021 11:00 AM VA-TOBACCO FORMER USER [facility] [place] [facility] May 13, 2021 11:00 AM VA-TOBACCO QUIT 15 YRS OR MORE [facility] [place] [facility] Apr 29, 2020 11:00 AM VA-TOBACCO FORMER USER [facility] [place] [facility] Apr 29, 2020 11:00 AM VA-TOBACCO QUIT 15 YRS OR MORE [facility] [place] [facility] Mar 01, 2018 10:36 AM VA-TOBACCO NEVER USED [facility] [place] [facility] Feb 25, 2018 08:54 AM QUIT TOBACCO USE > 7 YEARS AGO 1989 [facility] [place] [facility] Apr 24, 2002 09:38 AM CURRENT SMOKER NH C [facility] [place] [facility] May 13, 2001 09:48 AM HISTORY OF SMOKING [facility] [place] [facility] May 13, 2001 09:48 AM NON-TOBACCO USER [facility] [place] [facility] Encounter Notes: All associated encounter notes This section contains the clinical notes associated to the Encounter. Date/Time Encounter Note(s) Provider Source Jun 27, 2024 08:03 AM OPTOMETRY NOTE: LOCAL TITLE: OPTOMETRY NOTE STANDARD TITLE: OPTOMETRY NOTE DATE OF NOTE: JUN 27, 2024@08:03 ENTRY DATE: JUN 27, 2024@08:03:17 AUTHOR: LUZMA SIMPSON EXP COSIGNER: NATASHA MCKEON URGENCY: STATUS: COMPLETED OPTOMETRY NOTE Has ADDENDA Active problems - Computerized Problem List is the source for the followin. Labile blood pressure 2. History of colonoscopy 3. Bacterial UTI (urinary tract infection) 4. Under care of multiple providers 5. Coronary artery disease 6. Insomnia 7. Pain of right knee region 8. Recurrent major depression 9. Hypnotic or anxiolytic dependence 10. Crohn disease 11. Hypertension 12. Hyperlipidemia 13. Esophageal reflux 14. Anxiety Active Outpatient Medications (including Supplies): Active Outpatient Medications Status = 1) DULOXETINE HCL 60MG EC CAP TAKE ONE CAPSULE BY MOUTH ONCE ACTIVE DAILY Indication: GENERALIZED ANXIETY DISORDER 2) HYDROXYZINE HCL 25MG TAB TAKE ONE TABLET BY MOUTH ONCE DAILY ACTIVE NEEDED Indication: ANXIETY 3) LORAZEPAM 1MG TAB TAKE ONE TABLET BY MOUTH ONCE DAILY ACTIVE NEEDED Indication: PANIC ATTACKS Active Non-VA Medications Status = 1) Non-VA AMLODIPINE BESYLATE 2.5MG TAB 2.5MG BY MOUTH EVERY ACTIVE EVENING 2) Non-VA ISOSORBIDE MONONITRATE 30MG SA TAB 30MG BY MOUTH ACTIVE EVERY MORNING 3) Non-VA METOPROLOL TARTRATE 50MG TAB 50MG BY MOUTH TWICE ACTIVE DAILY 4) Non-VA OMEPRAZOLE CAP,EC BY MOUTH EVERY MORNING 30 MINUTES ACTIVE BEFORE BREAKFAST 5) Non-VA OTHER CAP/TAB MONTHLY ACTIVE 6) Non-VA PRAVASTATIN NA 80MG TAB 80MG BY MOUTH AT BEDTIME ACTIVE Indication: FOR HIGH CHOLESTEROL 7) Non-VA PROMETHAZINE HCL TAB BY MOUTH NEEDED ACTIVE 8) Non-VA TRAMADOL HCL TAB BY MOUTH TWICE DAILY ACTIVE 9) Non-VA ZOLPIDEM TARTRATE TAB BY MOUTH AT BEDTIME ACTIVE 12 Total Medications Allergies: Patient has answered NKA All medications including those prescribed by outside VA's, community providers, and all OTC meds were reviewed and reconciled with patient to the best of their abilities. This 64 year old MALE is seen today for WENDY ADITI: 02/28/2022 Chief Complaint: reports OD vision has gotten worse. Left eye has stable vision OHx: 1. REFRACTIVE AMBLYOPIA 2. CATARACTS OU 3. REFRACTIVE ERROR OU Ocular Medications: (-) Pain: (-) MINA: (-) Diplopia: (-) Flashes: (-) Floaters: (-) Amaurosis Fugax/Tia's: (-) Eye Injury: (-) Eye Surgery: (-) TBI FOHx: (-) Glaucoma/ARMD/Blindness VITALS (most recent, as listed in the electronic record): B/P: 136/84 (10/11/2023 08:37) Pulse: 73 (10/11/2023 08:13) Temperature: 98.4 F [36.9 C] (10/11/2023 08:13) Weight: 218.5 lb [99.11 kg] (10/11/2023 08:13) Height: 68 in [172.7 cm] (10/11/2023 08:13) BMI: BMI: 33.3 PERTINENT LABS: HEMOGLOBIN A1C TREND Collection DT Spec HGBA1c 04/29/2020 10:20 BLOOD 5.6 04/09/1998 16:09 BLOOD 5.2 (-) Smoker/Length of Time/PPD: Current Rx with last BCVA: OD: +5.75-4.00 x 030 20/50-2 OS: +3.00-2.00 x 146 20/20 Add: +2.50 20/20- DVA ( )sc ( X )cc - phoropter OD: 20/60+2 NI OS: 20/ Pupils: PERRL (-)APD EOMs: SAFE OU, (-)Pain/Diplopia CVF (facial, peripheral): FTFC OU Subjective Refraction: OD:+5.75-4.00 x 030 20/ 60+2 OS:+3.25-2.00 x 146 20/ 20 Add: +2.50 20/ 20 All the above performed by student, reviewed by attending Anterior segment: Performed by student, repeated by attending * Lids: +1 MGD w/ irregular lid margins OU Conj: white and quiet OU Cornea: Arcus OU AC: D&Q OU Angles: 4x4 OU Iris: flat and clear OU Lens: +1 NSC OU Tonometry: Performed by student, reviewed by attending * [X ] GAT [ ] iCare Pt squeezing lids OD 17 mmHg OS 18 mmHg Time: Fundus exam: Dilated: XXXX Non dilated: Dilating Drops: 1GTT 1 % Tropicamide OU & 1GTT 2.5% Phenylephrine OU (Pt. ed. on side effects, dilation warning given and verbal consent obtained) Patient advised not to drive if they feel they have any symptoms which could affect their ability to drive safely. Patient advised not to engage in any activities which could put themselves or others at risk if they feel they have any symptoms which could affect their ability to perform those activities safely. Performed by student, repeated by attending * Poor fixation in slit lamp OD >OS Vit: clear OU PVD C/D: 0.20 OD, 0.20 OS Macula: flat and clear OU PPole: OD: 1 nevus abutting the disc, 1 nevus temporal to th fovea and 1 nevus nasal to disc OS clear A/V: 2/3 Vessels: normal caliber OU Periph: flat and intact (-)holes, tears, detachments 360 OU Assessment/Plan: 1.Early Nuclear sclerotic Cataracts OU - Pt. ed. on findings - cataracts are not visually significant - surgery is not necessary at this time - Ed. on importance of UV protection and on symptoms of glare - Monitor 2. Choroidal Nevi OD - 3 Nevi OD - 1 abutting the disc superior nasal 3/4 DD - 1 Nasal to disc 1/2 DD - 1 temporal to fovea 1 DD in size - In 2019 1 nevi noted OD near disc - Pt. ed on finding - Fundus Photos acquired today - Monitor 3. Refractive/ Strabismic amblyopia OD - Pt reports patching an eye as a chils and always having poor vision OD - Stable vision OD - Pt eso w/o correction, esentially ortho w/ correction - Monitor 4. High Hyperopia and presbyopia OU - Pt. ed. on todays findings - Ordering duplicate frames for PAL - Monitor Return to Clinic 1 year for CEE or earlier PRN /es/ LUZMA SIMPSON OPTOMETRY STUDENT Signed: 06/27/2024 13:19 /es/ NATASHA MCKEON OD Class B Truck Driver Cosigned: 06/27/2024 17:04 06/27/2024 ADDENDUM STATUS: COMPLETED The optometry design engineering intern participated in this exam, I saw this in conjunction with the optometry student. The entrance tests and refraction were performed by the student and reviewed by me. I personally met with the patient, confirmed the history, complaints and the student's findings, and performed slit lamp and fundus evaluation as indicated. I reviewed and agree with the stated findings, assessment and plan. I have added/edited the documentation to reflect my exam findings and changes to the assessment and plan. patient offered and declined printed medication list Medication Reconciliation: Outpatient: Has the patient been [...] whether with a VA or non-VA provider. JLV Link Data on this list may not be complete. Please check JLV. Allergies/ADRs (Tool #5) FACILITY ALLERGY/ADR -------- No Remote Allergy/ADR Data available for this patient [facility] [place] [facility] No Known Allergies Med [facility] [place] (Tool #1) INCLUDED IN THIS LIST: Alphabetical list of active outpatient prescriptions dispensed from this NH (local) and dispensed from another [place] or [facility] facility (remote) as well as inpatient orders (local pending and active), local clinic medications, locally documented non-VA medications, and local prescriptions that have or been discontinued in the past 90 days. Non-VA Meds Last Documented On: October 11, 2023 NOTE The display of VA prescriptions dispensed from another NH or [facility] facility (remote) is limited to active outpatient prescription entries matched to National Drug File at the originating site and may not include some items such as investigational drugs, compounds, etc. NOT INCLUDED IN THIS LIST: Medications self-entered by the patient into personal health records (i.e. [employer]) are NOT included in this list. Non-VA medications documented outside this NH, remote inpatient orders (regardless of status) and remote clinic medications are NOT included in this list. The patient and provider must always discuss medications the patient is taking, regardless of where the medication was dispensed or obtained. Non-VA AMLODIPINE BESYLATE 2.5MG TAB TAKE ONE TABLET BY MOUTH EVERY EVENING Medication prescribed by Non-VA provider. OUTPT DULOXETINE HCL 60MG EC CAP (Status = Discontinued) TAKE ONE CAPSULE BY MOUTH ONCE DAILY Rx# [id number] Last Released: 02/07/24 Qty/Days Supply: Rx Expiration Date: 10/08/24 Refills Remainin Indication: GENERALIZED ANXIETY DISORDER OUTPT DULOXETINE HCL 60MG EC CAP (Status = Active) TAKE ONE CAPSULE BY MOUTH ONCE DAILY Rx# [id number] Last Released: 06/18/24 Qty/Days Supply: Rx Expiration Date: 06/11/25 Refills Remainin Indication: GENERALIZED ANXIETY DISORDER OUTPT HYDROXYZINE HCL 25MG TAB (Status = Active) TAKE ONE TABLET BY MOUTH ONCE DAILY NEEDED ANXIETY Rx# [id number] Last Released: 02/07/24 Qty/Days Supply: Rx Expiration Date: 10/08/24 Refills Remainin Indication: ANXIETY Non-VA ISOSORBIDE MONONITRATE 30MG SA TAB TAKE ONE TABLET BY MOUTH EVERY MORNING Medication prescribed by Non-VA provider. OUTPT LORAZEPAM 1MG TAB (Status = Active) TAKE ONE TABLET BY MOUTH ONCE DAILY NEEDED PANIC ATTACKS Rx# [id number] Last Released: 03/03/24 Qty/Days Supply: 03/20 Rx Expiration Date: 08/27/24 Refills Remainin Indication: PANIC ATTACKS Non-VA METOPROLOL TARTRATE 50MG TAB TAKE ONE TABLET BY MOUTH TWICE DAILY Non-VA medication not recommended by VA provider. Medication prescribed by Non-VA provider. Non-VA OMEPRAZOLE CAP,EC TAKE BY MOUTH EVERY MORNING 30 MINUTES BEFORE BREAKFAST Non-VA medication not recommended by VA provider. Non-VA OTHER CAP/TAB TAKE IV MONTHLY Medication prescribed by Non-VA provider. ENTYVIO INFUSION Non-VA PRAVASTATIN NA 80MG TAB TAKE ONE TABLET BY MOUTH AT BEDTIME Patient wants to buy from Non-VA pharmacy. Medication prescribed by Non-VA provider. Indication: FOR HIGH CHOLESTEROL Non-VA PROMETHAZINE HCL TAB TAKE BY MOUTH NEEDED Non-VA medication not recommended by VA provider. Non-VA TRAMADOL HCL TAB TAKE BY MOUTH TWICE DAILY Non-VA medication not recommended by VA provider. Non-VA ZOLPIDEM TARTRATE TAB TAKE BY MOUTH AT BEDTIME Non-VA medication not recommended by VA provider. SUPPLIES /cameron/ NATASHA MCKEON OD Class B Truck Driver Signed: 06/27/2024 17:04 LUZMA SIMPSON CNTRKj WATT
--- OUTSIDE RECORDS SUMMARY | 2024-08-11 09:46 | XMS_ITS | Encounter Summary ---
Author Organization [employer] Address [address] [place] [address] [address] [place] [address] Care Team Providers Care Phlebotomist Medical Lab Assistant Name Role Phone Unavailable Primary Care Provider Unavailabl e Encounter Details Date Type Department Care Team (Latest Contact Info) Description 04/11/2022 Abstract [facility] CONVERSIONS Dental, Provider, DDS Social History Tobacco [...] Description 10/20/2024 2:00 PM EDT Office Visit [facility] [address] [place] [address] Ti Lassiter documented as of this encounter Visit Diagnoses Not on filedocumented in this encounter
--- OUTSIDE RECORDS SUMMARY | 2024-08-11 09:47 | XMS_ITS | Continuity of Care Document ---
Author Name [facility] Organization [facility] Care Team Providers Care Locator Specialist Name Role Phone [facility] Unavailable Unavailable Problems Combined list of problems from Department of Defense and Veterans Affairs facilities. It does not include entries that were removed or entered in error. Problem Status Onset Date Problem Type Date of Resolution Comments Source History of colonoscopy Active 05/23/20 18 Condition Jul 17, 2019 Entered By: SHANTA CORNEJO Comment: Colonoscopy [facility] 05/23/2018 Dr Cain no change in active [...] Feb Entered By: REHANA VEGA Comment: NON [place] GI- DR Deric [place] 2018 Entered By: REHANA VEGA Comment: Hospital - NOVEMBER 2018 ( [facility] [place] Esophageal reflux Active Condition [facility] Hyperlipidemia Active Condition [facility] Hypertension Active Condition [facility] Hypnotic or anxiolytic dependence Active Condition [facility] Insomnia Active Condition Feb 14 19 Entered By: REHANA VEGA Comment: med: zolpidem [facility] Labile blood pressure Active Condition May 21, 2022 Entered By: SANJEEV FERNANDEZ Comment: Managed by [facility] [place] [facility] Pain of right knee region Active Condition Feb 14, 2019 Entered By: REHANA VEGA Comment: [facility] [facility] Recurrent major depression Active Condition [facility] [place] [facility] Under care of multiple providers Active Condition Feb 14, 2019 Entered By: REHANA VEGA Comment: NON [facility] PCP - DR Deric POWELL ( [facility]) - scheduled 02/2019Sep 2018 Entered By: REHANA VEGA Comment: Cardiolgy - DR Reese 2018 Entered By: REHANA VEGA Comment: LULA Melgar 2019 Entered By: REHANA VEGA Comment: Urology -Jessie ( urgent visit ) - for prostate [facility] [place] [facility] LUMBAGO Inactive Condition 02/14/2019 [facility] [place] [facility] TOBACCO USE DISORDER Inactive Condition 02/14/2019 [facility] Diagnosis: ICD-10-CM Z46.0 Encounter for fit/adjst of spectacles and contact lenses Active Diagnosis [place] [facility] Diagnosis: ICD-10-CM 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 [facility] Diagnosis: ICD-10-CM H25.13 Age-related nuclear cataract, bilateral Active Diagnosis [facility] [place] Diagnosis: ICD-10-CM F41.9 Anxiety disorder, unspecified Active Diagnosis [facility] Diagnosis: ICD-10-CM F33.1 Major depressive disorder, recurrent, moderate Active Diagnosis [facility] [place] [facility] Medications Combined list of outpatient medications from [...] EVENING ORAL ACTIVE RA JESUS FERNANDEZ 2021 [facility] DICLOFENAC NA 1% GEL,TOP APPLY 2 GRAMS TOPICALL Y THREE TIMES DAILY NEEDED FOR JOINT PAIN FOR LEFT ELBOW PAIN TOPICA L ACTIVE 08/09/2025 [id number] ANA HAMILTON D 2024 100 [facility] DULOXETINE HCL 30MG CAP,EC TAKE ONE CAPSULE BY MOUTH ONCE DAILY ANXIETY TO TAKE 30MG IN ADDITION TO 60MG FOR TOTAL 90MG DAILY ORAL DISCONT INUED BY PROVIDE R 10/08/2024 [id number] 4 Keisha CABRERA E 2023 90 [facility] DULOX[facility]CL 60MG CAP,EC TAKE ONE CAPSULE BY MOUTH ONCE DAILY ORAL ACTIVE 06/11/2025 [id number] 4 Keisha CABRERA E 2023 90 [facility] DULOXETINE HCL 60MG CAP,EC TAKE ONE CAPSULE BY MOUTH ONCE DAILY ORAL DISCONT INUED 10/08/2024 [id number] 4 Keisha CABRERA E 2023 90 [facility] DULOXETINE HCL 60MG CAP,EC TAKE ONE CAPSULE BY MOUTH ONCE DAILY ORAL DISCONT INUED 04/05/2024 [id number] 4 Keisha CABRERA E 2022 90 [facility] HYDROXYZINE HCL 25MG TAB TAKE ONE TABLET BY MOUTH ONCE DAILY NEEDED ANXIETY ORAL ACTIVE 10/08/2024 [id number] 4 Keisha CABRERA E 2023 90 [facility] HYDROXYZINE HCL 25MG TAB TAKE ONE TABLET BY MOUTH ONCE DAILY NEEDED ANXIETY ORAL DISCONT INUED 04/05/2024 [id number] 4 Keisha CABRERA E 2022 90 [facility] ISOSORBIDE MONONITRATE 30MG TAB,SA TAKE ONE TABLET BY MOUTH EVERY MORNING ORAL ACTIVE RA JESUS FERNANDEZ 2021 [facility] LORAZEPAM 1MG TAB TAKE ONE TABLET BY MOUTH ONCE DAILY NEEDED PANIC ATTACKS ORAL ACTIVE 08/27/2024 [id number] 4 Keisha CABRERA 2023 10 [facility] METOPROLOL TARTRATE 50MG TAB TAKE ONE TABLET BY MOUTH TWICE DAILY ORAL ACTIVE RA JESSU FERNANDEZ 2021 [facility] OMEPRAZOLE CAP,EC TAKE BY MOUTH EVERY MORNING 30 MINUTES BEFORE BREAKFAS T ORAL ACTIVE RA JESUS FERNANDEZ 2017 [facility] OTHER CAP/TAB TAKE IV MONTHLY ACTIVE Mariusz CORREA 2021 [facility] PRAVASTATIN NA 80MG TAB TAKE ONE TABLET BY MOUTH AT BEDTIME ORAL ACTIVE ANA HAMILTON 2023 [facility] PROMETHAZIN E HCL TAB TAKE BY MOUTH PRN ORAL ACTIVE RA JESUS FERNANDEZ 2017 [facility] TRAMADOL HCL TAB TAKE BY MOUTH TWICE DAILY ORAL ACTIVE RA JESUS FERNANDEZ 2017 [facility] ZOLPIDEM TARTRATE TAB TAKE BY MOUTH AT BEDTIME ORAL ACTIVE RA JESUS FERNANDEZ 2017 [facility] Immunizations Combined list of available immunizations from the Department of Defense and Veterans Affairs facilities. Immunization Series Date Given Administered By Site Reaction Lot Number CVX Code Drug Animal Biologist Status Comments Source COVID-19 (Fangdd), MRNA, LNP-S, BIVALENT BOOSTER, PF, 30 MCG/0.3 ML DOSE 1 2021 300 complet ed [facility] INFLUENZA, UNSPECIFIED FORMULATION 2021 88 complet ed [facility] COVID-19 (MODERNA), MRNA, LNP-S, PF, 100 MCG OR 50 MCG DOSE 3 2020 207 complet ed MOD; [id number]; 2 [facility] [...] DOSE 2 2020 208 complet ed PFR; [id number]; 1 [facility] COVID-19 (PFIZER), MRNA, LNP-S, PF, 30 MCG/0.3 ML DOSE 1 2020 208 complet ed PFR; [id number]; 1 [facility] INFLUENZA, INJECTABLE, QUADRIVALENT, PRESERVATIVE FREE 2019 150 complet ed [facility] Administe red by: DOMENICA MCKINLEY (WTH=[phone]). Partner 0 Lot#: [id number] Mfr: SANOFI; Dosage: 0.5 [facility] INFLUENZA, INJECTABLE, QUADRIVALENT 2018 158 complet ed Partner: [facility]. Administe red by: DOMENICA MCKINLEY (XQP=[phone]). Partner 0 Mfr: SEQIRUS; Dosage: 0.5 [facility] INFLUENZA, SEASONAL, INJECTABLE 2018 141 complet ed [facility] INFLUENZA, SEASONAL, INJECTABLE 2017 141 complet ed [facility] E [facility] FLU,3 YRS (HISTORICAL) 2001 KAYLI CORREA J 88 complet ed [facility] [place] [facility] BMI 33 kg/m2 10/11/2023 08:13:14 [facility] [place] [...] from Department of Veterans Affairs facilities going backup to the last 18 months, not all VA inpatient encounters are included; 2) Encounters from the Department of Defense facilities going backup to 280 months. Location Location Details Encounter Type Encounter Number Reason For Visit Attending Provider ADM Date DC Date Status Disposition Source [facility] OFF[facility] O/P EST MOD 30-39 MIN [id number] Diagnos is: ICD-10- CM F33.1 Major depress chayito disorde r, recurre nt, moderat e ALICIA CABRERA SSICA E 02/15 [facility] Outpatient Encounter [id number] 04/05 [facility] OFFICE O/P EST LOW 20 MIN [id number] Diagnos is: ICD-10- CM F41.9 Anxiety disorde r, unspeci ALICIA Li SSICA E 07/02 [facility] Outpatient Encounter [id number] 07/16 [facility] Outpatient Encounter [id number] 09/30 [facility] OFFICE O/P EST MOD 30 MIN [id number] Diagnos is: ICD-10- CM F41.9 Anxiety disorde r, unspeci ALICIA Li SSICA E 10/07 [facility] Outpatient Encounter [id number] 10/10 [facility] OFFICE O/P EST SF 10 MIN [id number] Diagnos is: ICD-10- CM F41.9 Anxiety disorde r, unspeci ROXANNE Restrepo RD 10/10 [facility] En[facility] [id number] 12/05 [facility] En[facility] [id number] 1.02/05 [facility] En[facility] [id number] 1.02/05 [facility] OFFICE O/P EST MOD 30 MIN [id number] 1. Diagnos is: ICD-10- CM F33.1 Major depress chayito disorde r, recurre nt, moderat e ALICIA CABRERA SSICA E 02/24 [facility] Outpatient Encounter [id number] 02/25 [facility] Outpatient Encounter [id number] [facility] OFFICE O/P EST LOW 20 MIN [id number] Diagnos is: ICD-10- CM F41.9 Anxiety disorde r, unspeci ALICIA Li SSICA E 06/10 [facility] COMPRE OPH EXAM EST PT 1/ [id number] Diagnos is: ICD-10- CM H25.13 Age-rel ated nuclear catarac t, bilater al MERHAR,KERRI H B 06/27 [facility] FUNDUS PHOTOGRAPH Y W/I&R [id number] Diagnos is: ICD-10- CM D31.31 Benign neoplas m of right choroid KERRI MCKEON H B 06/27 [facility] FIT SPECTACLES MULTIFOCAL [id number] Diagnos is: ICD-10- CM Z46.0 Encount er for fit/adj st of spectac les and contact lenses KERRI MCKEON H B 07/01 [place] [facility] [place] [facility] [place] [facility] Outpatient Encounter [id number] 08/08 [place] [facility] [place] [facility] Social History Combined list of available smoking, tobacco, and other social history from Department of Defense and Veterans Affairs facilities. Social History Type Response Date Comment [facility] e Tobacco smoking status [facility]-TOBACCO QUIT 15 YRS OR MORE 10/11/2023 [place] [facility] [place] [facility] History of tobacco use [place]-TOBACCO FORMER USER 10/11/2023 [place] [facility] [place] [facility] History of tobacco use [place]-TOBACCO FORMER USER 05/12/2022 [place] [facility] [place] [facility] History of tobacco use [place]-TOBACCO QUIT 15 YRS OR MORE 05/13/2021 [place] [facility] [place] [facility] History of tobacco use [place]-TOBACCO FORMER USER 04/29/2020 [place] [facility] [place] [facility] History of tobacco use [place]-TOBACCO NEVER USED 03/01/2018 [place] [facility] [place] [facility] History of tobacco use QUIT TOBACCO USE > 7 YEARS AGO 02/25/20181989 [place] [facility] [place] [facility] History of tobacco use CURRENT SMOKER 04/24/2002 [place] [facility] [place] [facility] History of tobacco use NON-TOBACCO USER 05/13/2001 [place] [facility] [place] [facility] Plan of Care List of future care activities from Department of Veterans Affairs facilities. Additional future care activities may be listed in the Assessment and Plan section. Date/Time Care Activity Care Activity Detail Facili ty 09/01/2024 AMBULATORY - PSYCHIATRY [facility] 10/10/2024 AMBULATORY - MEDICINE AMBULATORY - MEDICI NE [facility]
--- OUTSIDE RECORDS SUMMARY | 2024-08-11 09:47 | XMS_ITS ---
Author Name [facility] [place] [facility] Address [address] [place] [address] Care Team Providers Care Reweaver Name Role Phone KEENAN HAMILTON Primary Care [...] Name Patient's Relationship to Policy [facility] DEPT Dec 10, 2023 [id number] BARBARA NAIR PATIENT [facility] Dec 10, 2023 [id number] BARBARA NAIR PATIENT Selected Encounter This section includes the information on record at [place] for the Encounter. Date/Time Encounter Type Encounter Description Reason Pro vider Source May 26, 2024 09:30 AM Outpatient Encounter [facility] Encounter Template Text not used by [place] Plan of Treatment: Future Appointments (+ 6 months) and Future Tests (+/- 45 days) The Plan of Treatment section includes future care activities for the patient from all VA treatmentfacilities. This section includes future appointments and future orders which are active, pending or scheduled. Future Appointments This section includes appointments that were scheduled to occur 6 months from the date of the Encounter, up to a maximum of 20 appointments. The data comes from all [place] treatment facilities. Appointment Date/Time Appointment Type Appointme nt Facility Name Jun 10, 2024 09:00 AM AMBULATORY [facility]ATRY [facility] [place] [facility] Jun 27, 2024 10:30 AM [place] [facility] [place] [facility] Jun 27, 2024 11:30 AM [place] [facility] [place] [facility] Sep 01, 2024 02:00 PM AMBULATORY - PS[place]IATRY [place] [facility] [place] [facility] October 10, 2024 08:30 AM [place] [facility] [place] [facility] Social History: Smoking Status (Most current) and Tobacco Use (All prior to encounter date) This section includes the most current, and the historical, smoking and tobacco- related health factors from the [place] facility where the Encounter took place. Current Smoking Status This section includes the most current smoking, or tobacco-related health factor, from the [place] facility where the Encounter took place. Date/Time Current Smoking Status Comment Facil ity October 11, 2023 08:30 AM [place]-TOBACCO FORMER US[place] [facility] [place] [facility] Tobacco Use History This section includes a history of the smoking, or tobacco-related health factors, that were collected on or before the date of the Encounter. The data comes from the [place] facility where the Encounter took place. Date/Time Smoking Status/Tobacco Use Comment F acility October 11, 2023 08:30 AM VA-TOBACCO QUIT 15 YRS OR MORE [facility] [place] [facility] May 12, 2022 09:00 AM VA-TOBACCO FORMER USER [facility] [place] [facility] May 12, 2022 09:00 AM VA-TOBACCO QUIT 15 YRS OR MORE [facility] [place] [facility] May 13, 2021 11:00 AM VA-TOBACCO FORMER USER [facility] [place] [facility] May 13, 2021 11:00 AM VA-TOBACCO QUIT 15 YRS OR MORE [facility] [place] [facility] Apr 29, 2020 11:00 AM VA-TOBACCO FORMER USER [place] [facility] [place] [facility] Apr 29, 2020 11:00 AM VA-TOBACCO QUIT 15 YRS OR MORE [facility] [place] [facility] Mar 01, 2018 10:36 AM VA-TOBACCO NEVER USED [place] [facility] [place] [facility] Feb 25, 2018 08:54 AM QUIT TOBACCO USE > 7 YEARS AGO 1989 [place] [facility] [place] [facility] Apr 24, 2002 09:38 AM CURRENT SMOKER [place] [facility] [place] [facility] May 13, 2001 09:48 AM HISTORY OF SMOKING [place] [facility] [place] [facility] May 13, 2001 09:48 AM NON-TOBACCO USER [place] [facility] Encounter Notes: All associated encounter notes This section contains the clinical notes associated to the Encounter. Date/Time Encounter Note(s) Provider Source May 26, 2024 09:43 AM CLERICAL NOTE: LOCAL TITLE: APPOINTMENT NO SHOW STANDARD TITLE: CLERICAL NOTE DATE OF NOTE: MAY 26, 2024@09:43 ENTRY DATE: MAY 26, 2024@09:43:41 AUTHOR: JELANI CABRERA COSIGNER: URGENCY: STATUS: COMPLETED APPOINTMENT NO SHOW Has ADDENDA Patient Name: BARBARA NAIR Patient SSN: [id number] Date and time of Appointment No show [...] /es/ JELANI CABRERA PSYCHIATRIST Signed: 05/26/2024 09:44 Receipt Acknowledged By: 07/16/2024 13:49 /cameron/ MADHAV CEJA [employer] DES[employer] 07/15/2024 ADDENDUM STATUS: COMPLETED Please cancel visit--already rescheduled. thanks~ /es/ JELANI CABRERA PSYCHIATRIST Signed: 07/15/2024 16:25 JELANI CABRERA [facility] [place] [facility]
--- OUTSIDE RECORDS SUMMARY | 2024-08-11 09:47 | XMS_ITS ---
Author Name [facility] [place] Organization [place] Address [address] [place] [address] Care Team Providers Care Data Integrity Specialist Name Role Phone SMITH HOPKINS Primary Care [...] Knight's Name Patient's Relationship to Policy Knight [facility] ORGAN[facility]ON [facility] DE[facility] Dec 10, 2023 [id number] BARBARA NAIR PATIENT [place] PRESCRIPT ION [facility] Dec 10, 2023 [id number] BARBARA NAIR PATIENT Selected Encounter This section includes the information on record at [place] for the Encounter. Date/Time Encounter Type Encounter Description Reason Pro vider Source Aug 08, 2024 05:26 PM Outpatient Encounter ADMIN PAT ACTIVTIES (MASNONCT) IHE Encounter Template Text not used by [place] Plan of Treatment: Future Appointments (+ 6 [...] 20 appointments. The data comes from all [place] treatment facilities. Appointment Date/Time Appointment Type Appointme nt Facility Name Sep 01, 2024 02:00 PM AMBULATORY - [place] [facility] [place] [facility] October 10, 2024 08:30 AM [facility] [place] [facility] Social History: Smoking Status (Most current) and Tobacco Use (All prior to encounter date) This section includes the most current, and the historical, smoking and tobacco- related health factors from the [place] facility where the Encounter took place. Current Smoking Status This section includes the most current smoking, or tobacco-related health factor, from the [place] facility where the Encounter took place. Date/Time Current Smoking Status Comment Facil ity October 11, 2023 08:30 AM VA-TOBACCO FORMER USER [place] [facility] [place] [facility] Tobacco Use History This section includes a history of the smoking, or tobacco-related health factors, that were collected on or before the date of the Encounter. The data comes from the [place] facility where the Encounter took place. Date/Time Smoking Status/Tobacco Use Comment F acility October 11, 2023 08:30 AM VA-TOBACCO QUIT 15 YRS OR MORE [place] [facility] [place] [facility] May 12, 2022 09:00 AM VA-TOBACCO FORMER USER [place] [facility] [place] [facility] May 12, 2022 09:00 AM VA-TOBACCO QUIT 15 YRS OR MORE [place] [facility] [place] [facility] May 13, 2021 11:00 AM VA-TOBACCO FORMER USER [place] [facility] [place] [facility] May 13, 2021 11:00 AM VA-TOBACCO QUIT 15 YRS OR MORE [place] [facility] [place] [facility] Apr 29, 2020 11:00 AM VA-TOBACCO FORMER USER [place] [facility] [place] [facility] Apr 29, 2020 11:00 AM VA-TOBACCO QUIT 15 YRS OR MORE [place] [facility] [place] [facility] Mar 01, 2018 10:36 AM VA-TOBACCO NEVER USED [place] [facility] [place] [facility] Feb 25, 2018 08:54 AM QUIT TOBACCO USE > 7 YEARS AGO 1989 [place] [facility] [place] [facility] Apr 24, 2002 09:38 AM [facility] May 13, 2001 09:48 AM HISTORY OF SMOKING [facility] May 13, 2001 09:48 AM NON-TOBACCO USER [facility] Encounter Notes: All associated encounter notes This section contains the clinical notes associated to the Encounter. Date/Time Encounter Note(s) Provider Source Aug 08, 2024 05:28 PM PHARMACY NOTE: LOCAL TITLE: V1 PHARMACY CUSTOMER CARE MEDICATION RENEWAL STANDARD TITLE: PHARMACY NOTE DATE OF NOTE: AUG 08, 2024@17:28 ENTRY DATE: AUG 08, 2024@17:28:26 AUTHOR: BILL CHACON EXP COSIGNER: URGENCY: STATUS: COMPLETED Date: Jul Division: [place] Pt referred by Pharmacy Call Center for medication renewal: Non-controlled/maintenan ce medication Medications requested: [id number] HYDROXYZINE HCL 25MG TAB Defer to specialty clinic To be mailed . Please review and renew if appropriate. *This note was generated by [employer] Pharmacy Customer Care. If you have any questions or need assistance, do not contact this author. Please refer all questions to your local, on-site pharmacy departments. /cameron/ BILL CHACON CPhT Network Engineer, [place]/Pharmacy Customer Care Signed: 08/08/2024 17:28 Receipt Acknowledged By: * AWAITING SIGNATURE * JELANI CABRERA AMBER L [facility] Aug 08, 2024 05:26 PM PHARMACY NOTE: LOCAL TITLE: V1 PHARMACY CUSTOMER CARE MEDICATION RENEWAL STANDARD TITLE: PHARMACY NOTE DATE OF NOTE: AUG 08, 2024@17:26 ENTRY DATE: AUG 08, 2024@17:26:47 AUTHOR: BILL CHACON EXP COSIGNER: URGENCY: STATUS: COMPLETED V1 PHARMACY CUSTOMER CARE MEDICATION RENEWAL Has ADDENDA Date: Jul Division: [facility] referred by Pharmacy Call Center for medication renewal: Non-controlled/maintenan ce medication Medications requested: [id number] DICLOFENAC NA 1% TOP GEL This medication is long . It was last released 12/21/2022, but the requested to renew it. The [place] can be reached at to discuss if needed. Please review. Defer to primary care provider To be mailed . Please review and renew if appropriate. *This note was generated by [facility] [facility] Pharmacy Customer Care. If you have any questions or need assistance, do not contact this author. Please refer all questions to your local, on-site pharmacy departments. /cameron/ BILL CHACON CPhT Network Engineer, [place]/Pharmacy Customer Care Signed: 08/08/2024 17:28 Receipt Acknowledged By: 08/11/2024 08:16 /cameron/ Susu Benjamin RN, BSN Primary Care 08/08/2024 17:40 /cameron/ Smith Hopkins MD Staff Physician 08/08/2024 ADDENDUM STATUS: COMPLETED Done. /cameron/ Smith Hopkins MD Staff Physician Signed: 08/08/2024 17:40 BILL CHACON [place] [facility]
--- OUTSIDE RECORDS SUMMARY | 2024-08-11 09:47 | XMS_ITS ---
Author Name [facility] [place] Address [address] [place] [address] Care Team Providers Care Assistant Corporate Controller Name Role Phone KEENAN HAMILTON Primary Care [...] Knight's Name Patient's Relationship to Policy Knight [facility] DEPT Dec 10, 2023 [id number] BARBARA NAIR PATIENT [place] PRESCRIPT ION [facility] Dec 10, 2023 [id number] [phone] BARBARA NAIR PATIENT Selected Encounter This section includes the information on record at [place] for the Encounter. 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 Date/Time Primary/Secondary Diagnosis Diagnosis Name Provider Source Jun 27, 2024 05:02 PM PRIMARY Benign neoplasm of right choroid MERHAR,NATASHA B [place] [facility] [place] [facility] Plan of Treatment: Future Appointments (+ 6 months) and Future Tests (+/- 45 days) The Plan of Treatment section includes future care activities for the [facility] [place] [facility] This section includes future appointments [...] 01, 2024 02:00 PM AMBULATORY - PSYCHIATRY [place] [facility] [place] [facility] October 10, 2024 08:30 AM AMBULATORY - MEDICINE [facility] Social History: Smoking Status (Most current) and Tobacco Use (All prior to encounter date) This section includes the most current, and the historical, smoking and tobacco- related health factors from the [place] facility where the Encounter took place. Current Smoking Status This section includes the most current smoking, or tobacco-related health factor, from the [place] facility where the Encounter took place. Date/Time Current Smoking Status Comment Facil ity October 11, 2023 08:30 AM [facility] Tobacco Use History This section includes a history of the smoking, or tobacco-related health factors, that were collected on or before the date of the Encounter. The data comes from the [place] facility where the Encounter took place. Date/Time Smoking Status/Tobacco Use Comment F acility October 11, 2023 08:30 AM VA-TOBACCO QUIT 15 YRS OR MORE [place] [facility] [place] [facility] May 12, 2022 09:00 AM VA-TOBACCO FORMER USER [place] [facility] [place] [facility] May 12, 2022 09:00 AM VA-TOBACCO QUIT 15 YRS OR MORE [place] [facility] [place] [facility] May 13, 2021 11:00 AM VA-TOBACCO FORMER USER [place] [facility] [place] [facility] May 13, 2021 11:00 AM VA-TOBACCO QUIT 15 YRS OR MORE [place] [facility] [place] [facility] Apr 29, 2020 11:00 AM VA-TOBACCO FORMER USER [place] [facility] [place] [facility] Apr 29, 2020 11:00 AM VA-TOBACCO QUIT 15 YRS OR MORE [place] [facility] [place] [facility] Mar 01, 2018 10:36 AM VA-TOBACCO NEVER USED [place] [facility] [place] [facility] Feb 25, 2018 08:54 AM QUIT TOBACCO USE > 7 YEARS AGO 1989 [place] [facility] [place] [facility] Apr 24, 2002 09:38 AM CURRENT SMOKER [place] C [facility] [place] [facility] May 13, 2001 09:48 AM HISTORY OF SMOKING [place] [facility] [place] [facility] May 13, 2001 09:48 AM NON-TOBACCO USER [facility] Encounter Notes: All associated encounter notes This section contains the clinical notes associated to the Encounter. 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 The vasculature is of normal caliber. Macula is clear. 1 abutting the disc superior nasal 3/4 DD 1 Nasal to disc 1/2 DD 1 temporal to fovea 1 DD in size OS: optic disc shows normal cupping with distinct margins and healthy rim tissue. The vasculature is of normal caliber. Macula is clear. A/P: Choroidal Nevi OD - In 2019 1 nevi noted OD near disc - Pt. ed on finding - Fundus Photos acquired today - Monitor /cameron/ LUZMA SIMPSON OPTOMETRY STUDENT Signed: 06/27/2024 13:20 /cameron/ NATASHA MCKEON OD Basket Turner Cosigned: 06/27/2024 17:02 06/27/2024 ADDENDUM STATUS: COMPLETED The optometry intelligence intern participated in this exam, I saw this in conjunction with the optometry student. The visual images were captured by the optometry health computer aided design technician. Results of testing assessed by the student and reviewed by myself. I agree with the stated findings, assessment and plan. I have added/edited the documentation to reflect my exam findings and changes to the assessment and plan. /cameron/ NATASHA MCKEON OD Basket Turner Signed: 06/27/2024 17:03 LUZMA SIMPSON [place] [facility]
--- OUTSIDE RECORDS SUMMARY | 2024-08-11 09:47 | XMS_ITS | Clinical Summary ---
Author Organization [employer] Address [address] [place] [address] [address] [place] [address] Care Team Providers Care Departmental Buyer Name Role Phone Unavailable Primary Care Provider Unavailabl e Allergies No known active allergies Medications adalimumab (Humira Pen) 40 MG/0.4ML Pen-injector Kit pen-injector 0 Active adalimumab (Humira Pen-CD/UC/HS Starter) 80 MG/0.8ML Pen-injector Kit pen-injector Inject under the skin. Active amLODIPine (Norvasc) 2.5 MG tablet Take 2.5 mg by mouth in the morning. 2 Active amLODIPine (Norvasc) 5 MG tablet Take 5 mg by mouth in the morning. 2 Active Aspirin Low Dose 81 MG EC tablet Take 81 mg by mouth in the morning. 2 Active atorvastatin (Lipitor) 80 MG tablet Take 80 mg by mouth in the morning. 2 Active BinaxNOW COVID-19 Ag Home Test kit TEST DIRECTED TODAY 2 Active ezetimibe (Zetia) 10 MG tablet Take 10 mg by mouth in the morning. 0 Active fluocinonide (Lidex) 0.05 % ointment 2 Active isosorbide mononitrate ER (Imdur) 30 MG 24 hr tablet Take 30 mg by mouth in the morning. 2 Active ketorolac (Toradol) 10 MG tablet TAKE 1 TABLET BY MOUTH EVERY 6 HOURS FOR 5 DAYS NEEDED FOR PAIN 2 Active metoprolol succinate XL (Toprol-XL) 100 MG 24 hr tablet Take 100 mg by mouth in the morning. 2 Active metoprolol succinate XL (Toprol-XL) 50 MG 24 hr tablet Take 50 mg by mouth in the morning and at bedtime. 2 Active metoprolol tartrate (Lopressor) 25 MG tablet Take by mouth. Activ e nitroglycerin (Nitrostat) 0.4 MG SL tablet DISSOLVE 1 TABLET UNDER THE TONGUE EVERY 5 MINUTES NEEDED FOR CHEST PAIN DO NOT EXCEED 3 DOSES PER EPISODE 2 Active omeprazole (PriLOSEC) [address] capsule Take 40 mg by mouth in the morning. 2 Active permethrin (Elimite) 5 % cream APPLY TOPICALLY TO ENTIRE BODY FROM NECK DOWN AT NIGHT AND WASH OFF IN AM THEN REPEAT IN ONE WEEK 2 Active pravastatin (Pravachol) 80 MG tablet Take 1 tablet by mouth in the morning. Active predniSONE (Deltasone) 20 MG tablet TAKE 2 TABLETS BY MOUTH EVERY DAY IN THE MORNING WITH FOOD FOR 4 DAYS 2 Active promethazine (Phenergan) 25 MG tablet TAKE 1 TABLET BY MOUTH DAILY NEEDED FOR NAUSEA OR VOMITING 2 Active traMADol (Ultram) 50 MG tablet TAKE 1 TABLET BY MOUTH TWICE DAILY FOR PAIN 2 Active zolpidem (Ambien) 10 MG tablet Take 10 mg by mouth if needed at bedtime. 2 Active metoprolol succinate XL (Toprol-XL) 50 MG 24 hr tablet TAKE 1 TABLET BY MOUTH AT BEDTIME 2 Active hydrOXYzine HCl (Atarax) 25 MG tablet 25 mg. 4 Active Skyrizi 360 MG/2.4ML solution cartridge 4 Active DULoxetine (Cymbalta) [address] capsule 4 Active esomeprazole (NexIUM) [address] capsule Take 40 mg by mouth Once per day. 4 Active LORazepam (Ativan) 1 MG tablet Take 1 mg by mouth. 4 Active Active Problems Problem Noted Date Diagnosed Date Anxiety 01/03/2024 Coronary artery disease 01/03/2024 Overview (01/03/2024): Feb 14, 2019 Entered By: REHANA VEGA Comment: NON [facility] Specialist - DR Reese 2018 Entered By: REHANA VEGA Comment: Stent x 2Sep 2018 Entered By: REHANA VEGA Comment: MED Clopidogrel / Metoprolol/ pravastin Crohn's disease 01/03/2024 Overview (01/03/2024): Feb 14, 2019 Entered By: REHANA VEGA Comment: NON [facility] GI- DR Deric [place] 2018 Entered By: REHANA VEGA Comment: Hospital - NOVEMBER 2018 ( [facility]) Crohn's disease, unspecified , with unspecified complications 01/03/2024 Hyperlipidemia 01/03/2024 Hypertension 01/03/2024 Impacted cerumen, bilateral 01/03/2024 Insomnia 01/03/2024 Overview (01/03/2024): Feb 14, 2019 Entered By: REHANA VEGA Comment: med: zolpidem Labile blood pressure 01/03/2024 Overview (01/03/2024): May 21, 2022 Entered By: JULIA FERNANDEZ Comment: Managed by [facility] Major depressive disorder, recurrent, moderate 0 01/03/2024 Patient under care of multiple providers 024 Overview (01/03/2024): Feb 14, 2019 Entered By: REHANA VEGA Comment: NON [facility] PCP - DR Deric POWELL ( [facility]) - scheduled 02/2019Sep 2018 Entered By: REHANA VEGA Comment: Cardiolgy - DR VELAZQUEZela 2018 Entered By: REHANA VEGA Comment: GI - Donya Melgar 2019 Entered By: REHANA VEGA Comment: Urology -[place] ( urgent visit ) - for prostate Recurrent major depression 01/03/2024 Right knee pain 01/03/2024 Overview (01/03/2024): Feb 14, 2019 Entered By: REHANA VEGA Comment: xRAY DONE - [facility] Urinary tract bacterial infections 01/03/2024 Overview (01/03/2024): Jul 01, 2019 Entered By: REHANA VEGA Comment: 02/2019 - KLEBSIELLA PNEUMONIAE History of colonoscopy 05/23/2018 Overview (01/03/2024): Jul 17, 2019 Entered By: SHANTA CORNEJO Comment: Colonoscopy [facility] 05/23/2018 Dr Cain no change in active inflammation at the ilealcecal region (Crohns Disease) Social History Tobacco Use Types Packs/Day Years Used Date Smoking Tobacco: Never Smokeless Tobacco: Never Tobacco Cessation:Counseling Given: Not Answered Sex and Gender Information Value Date Recorded Sex Assigned at Male 04/10/2022 10:23 AM EDT Legal Sex Male 10:23 AM EDT Gender Identity Male 04/10/2022 10:23 AM EDT Sexual Orientation Straight 04/10/2022 10 :23 AM EDT Last Filed Vital Signs Vital Sign Reading Time Taken Comments Blood Pressure 122/70 04/22/2024 10:39 AM EST Pulse 66 04/22/2024 10:39 AM EST Temperature - - Respiratory Rate - - Oxygen Saturation - - Inhaled Oxygen Concentration - - Weight - - Height - - Body Mass Index - - Plan of Treatment Upcoming Encounters Date Type Department Care Team (Late st Contact Info) Description 10/20/2024 2:00 PM EDT Office Visit [facility] [address] [place] [id number] [address] Lassiter Health Maintenance Due Date Last Done Comments CT Colonography 1961 Colonoscopy 1961 Colorectal Cancer Screening 1961 Dental X-Ray: Bitewings 1961 Dental X-Ray: Full Mouth 1961 Depression Screening 1961 FIT DNA/Cologuard 1961 FIT 1961 FOBT 1961 HIV Screening 1961 Lipid Panel 1961 SDOH Screening 1961 Sigmoidoscopy 1961 Alcohol/Substance Use Screening 1973 Hepatitis C Screening 1979 RSV Patients and Patients Aged 60 years or older (1 - Risk 60-74 years 1-dose series) 2021 Pneumococcal Vaccine: 50+ Years (2 of 2 - PCV) 11/10/2021 11/10/2020, 06/02/2013, 11/27/2011 Pneumococcal Vaccine: Pediatrics (0 to 5 Years) and At-Risk Patients (6 to 49) Years) (2 of 2 - PCV) 11/10/2021 11/10/2020, 06/02/2013, 11/27/2011 Dental Oral Exam 04/14/2024 10/12/2023 Dental Prophylaxis 10/21/2024 04/22/2024, 10/12/2023 Tobacco Screening 04/22/2025 04/22/2024 DTaP/Tdap/Td Vaccines (2 - Td or Tdap) 11/10/2030 11/10/2020 Zoster Vaccines Completed 03/30/2021, 12/20/2020 Influenza Vaccine Completed 01/19/2024, , 02/21/2022, Additional history exists COVID-19 Vaccine Completed 03/11/2024, 07/2023, 02/21/2022, Additional history exists HIB Vaccines Aged Out No longer eligi ble based on patient's age to complete this topic HPV Vaccines Aged Out No longer eligi ble based on patient's age to complete this topic Hepatitis A Vaccines Aged Out No long er eligible based on patient's age to complete this topic Hepatitis B Vaccines Aged Out No long er eligible based on patient's age to complete this topic IPV Vaccines Aged Out No longer eligi ble based on patient's age to complete this topic Meningococcal Vaccine Aged Out No desire mario eligible based on patient's age to complete this topic RSV under 20 months Aged Out No longe r eligible based on patient's age to complete this topic Rotavirus Vaccines Aged Out No longer eligible based on patient's age to complete this topic Procedures Procedure Name Priority Date/Time Associated Diagnosis Comments PROPHYLAXIS - ADULT Routine 04/22/2024 1 1:00 AM EST PERIODIC ORAL EVALUATION - ESTABLISHED PATIENT Routine 10/12/2023 10:00 AM EDT from Last 3 Months or Most Recently Relevant to Health Maintenance Insurance [place] - [employer] [place]
== END 2024-08-11 12:37 | disposition home or self-care (01) ==
LOC: HO.HGI 09:05
PROVIDERS: PCP Internal Medicine; Visit Provider Internal Medicine Gastroenterology
DX: K50.919 Crohn's disease, unspecified, with unspecified complications (principal)
CPT/HCPCS: 99213

== ENCOUNTER → 2024-11-10 10:44 | Outpatient (REF) | payer BC, SELFPAY ==
--- NOTE | 2024-11-10 10:49 | CA_ITS ---
Transthoracic Echocardiogram Patient (Last, First, Middle): Jeremias Montelongo P Gender: Male Date of : 1960 Age: 64 Procedure Date: 11/10/2024 Procedure Type: Transthoracic Echocardiogram Location: OP Height: 172.72 cm Weight: 95.26 kg BSA: 2.09 m2 Heart Rate: bpm BP: 128 / 88 mmHg Corporate Specialist: AUGUSTINA Referring MD: Chay Guzmán MD Symptoms: I77.89 - Other specified disorders of arteries and arterioles Study Quality: Fair ECG Rhythm: Sinus Conclusions: - The left ventricular systolic function is low normal. The calculated ejection fraction is 54% by biplane method. - There is severe septal asymmetric hypertrophy. - No obvious valvular pathology seen on this study. - There is mild dilatation of the ascending aorta measuring 4.00 cm. Findings Left Ventricle Normal left ventricular cavity size. There is mildly increased left ventricular wall thickness. The left ventricular systolic function is low normal. The calculated ejection fraction is 54% by biplane method. There is no evidence of regional wall motion abnormalities. There is paradoxical septal motion consistent with a left bundle branch block. Evidence suggests grade I (mild) diastolic dysfunction. There is severe septal asymmetric hypertrophy. Right Ventricle Normal right ventricular cavity size. There is low normal right ventricular systolic function. Atria Both atria are normal in size. Aortic Valve There is a normal trileaflet aortic valve. There is mild calcification of the aortic valve. There is no aortic valve stenosis. There is no aortic valve regurgitation. Mitral Valve There is mild mitral annular calcification. There is trace mitral valve regurgitation. There is no mitral valve stenosis. Pulmonic Valve The pulmonic valve is likely normal. Tricuspid Valve There is trace tricuspid valve regurgitation. There is no evidence of pulmonary hypertension. Great Vessels The aortic arch is normal in size. There is mild dilatation of the ascending aorta measuring 4.00 cm. Venous The inferior vena cava is normal in size and collapses greater than 50% with inspiration. Pericardium/Pleural There is no evidence of pericardial effusion. Prior Study Comparison No significant change compared to prior study dated: 09/19/2023. Recommendations, Care & Conclusions No obvious valvular pathology seen on this study. Measurements 2D Linear Measurements IVSd: 1.59 0.6-0.9/0.6-1.0 cm LVIDd: 4.89 3.9-5.3/4.2-5.9 cm LVIDd Index: 2.34 2.4-3.2/2.2-3.1 cm/m2 LVIDs: 3.37 2.0-3.6 cm LVPWd: 1.12 0.7-1.1 cm LA Diam: 4.30 2.7-3.8/3.0-4.0 cm LAIDs Index: 2.06 1.5-2.3 cm/m2 LV Mass: 334.93 67-162/88-224 g LV Mass Index: 160.25 43-95/49-115 g/m2 LVOT Diam: 2.10 3.0+(-)1.3 cm 2D Systolic Function EF 4C: 54.30 >55% EF 2C: 54.60 >55% EF BiP: 54.40 >55% Mitral Valve MV Pk E: 0.53 MV PK A: 0.78 MV Decel Time: 188.00 E/A: 0.70 E'Lateral: 5.55 E'Medial: 5.00 E/E' Med: 10.50 E/E' Lat: 9.50 PHT: 55.00 MVA PHT: 4.00 Decel Gosper: 2.80 Aortic Valve AoV Pk Eduardo: 1.47 AoV Mn Eduardo: 1.16 AoV VTI: 0.30 AoV Pk Grad: 9.00 Aov Mn Grad: 6.00 ANGI Cont.VTI: 3.27 LVOT LVOT Pk Eduardo: 1.36 LVOT Mn Eduardo: 0.91 LVOT VTI: 0.28 LVOT Pk Grad: 7.00 LVOT Mn Grad: 4.00 LVOT Diam: 2.10 LVOT Area: 3.46 Diastolic Function MV Pk E: 0.53 MV Pk A: 0.78 E/A: 0.70 E'Medial: 5.00 E/E' Med: 10.50 E' Laterial: 5.55 E/E' Lat: 9.50 Right Ventricle TAPSE (mm): 20.40 TVS' Eduardo: 9.46 Tricuspid Valve TR Pk Eduardo: 2.35 TR Pk Grad: 22.00 RA Press: 3.00 RVSP: 25.00 Great Vessels Aorta Sinus of Valsalva: 3.98 2.0-3.[address] Ridge: 3.08 1.7-3.4 cm Ao Asc: 4.00 2.1-3.4 cm Ao Arch: 3.40 Updated in Other Vendor System with Status of Final Steven Willingham MD electronically signed on 11/11/2024 3:12:31 PM with status of Final
== END ==
LOC: HO.CARD 10:44
PROVIDERS: Visit Provider Internal Medicine Cardiovascular Disease
DX: I77.89 Other specified disorders of arteries and arterioles (principal)
CPT/HCPCS: 93306

== ENCOUNTER → 2024-11-10 10:49 | Outpatient (BNV) | payer BC, SELFPAY | PROVIDERS: Visit Provider Internal Medicine | DX: I42.2 Other hypertrophic cardiomyopathy (principal); I51.89 Other ill-defined heart diseases; I35.8 Other nonrheumatic aortic valve disorders; I34.81 Nonrheumatic mitral (valve) annulus calcification | CPT/HCPCS: 93306 ==

== ENCOUNTER 2024-11-24 14:15 | Outpatient (AMB) | payer BC, SELFPAY ==
--- NOTE | 2024-11-24 14:26 | A.OFFPC_ITS ---
Vital Signs 11/24/24 14:27 Height 5 ft 8 in Weight 213 lb 2 oz BMI 32.4 BP 130/90 H Blood Pressure Location Lt brachial Position Sitting Respiration 16 Pulse 78 Pulse Source Pulse Oximeter Temp 97.1 F Temp Source Temporal Artery Scan Pulse Oximetry (%) 95 Oxygen Delivery Method Room Air Intake Visit Reasons: MAKAYLA DR Blanton Bezel Cutter Required: No Accompanied by: Self / Same As Patient Allergies No Known Allergies Allergy (Mild, Verified 11/24/24 14:36) none Medication List - Last Reconciled 11/24/24 by WESLEY Silver amlodipine 2.5 mg PO DAILY atorvastatin 80 mg PO DAILY duloxetine 60 mg PO DAILY esomeprazole magnesium 40 mg PO DAILY hydroxyzine HCl 25 mg PO DAILY PRN metoprolol succinate ER 50 mg PO BID nitroglycerin 0.4 mg sublingual Q5M PRN omeprazole 40 mg PO DAILY promethazine 25 mg PO DAILY PRN ustekinumab (Stelara) 90 mg subcut Q12W zolpidem 10 mg PO BEDTIME PRN 30 days Tobacco use date assessed: 11/24/24 Dental Screening Dental Screen Date: 11/24/24 Did you have a dental visit in the last 12 months?: Yes Did you have a dental problem in the last 6 months where you did not have access to dental care?: No Was dental information given to patient?: Patient has dentist HPI MAKAYLA DR Blanton HPI Details The patient is a 64-year-old male presenting for transition of care from Dr. Blanton. Also, follow-up for multiple chronic conditions, including coronary artery disease, Crohn?s disease, and insomnia. The patient has a history of coronary artery disease and has undergone placement of two stents. He reports periodic chest pain, particularly when performing activities such as ascending stairs after consuming a large meal, although episodes are infrequent and resolve without nitroglycerin, which he uses sporadically. 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 For Crohn?s disease, the patient describes experiencing intermittent abdominal pain, characterized by sharpness and rated as 4 to 5 on a pain scale. The pain exacerbates with food intake and is managed with Tylenol. He has lived with this condition since age 51 and is managed by a resource engineer with biannual visits. The patient mentions frequent anemia episodes, treated with iron supplements, which are correlated with lethargy. Regarding insomnia, the patient has been taking Zolpidem for 12 years and reports difficulty with pharmacy logistics, with preferences to fill prescriptions at [facility] for convenience. He also mentions past use of duloxetine and hydroxyzine for depression and [facility] but is not currently on them. These medications were switched to other medications but he does not remember the names of the medications. We will update his chart when the information is available. He is currently being treated with Stelara for his Crohn's disease and intermittently uses Tylenol. Anxiety and the patient is managed by the [facility]. Blood pressure was slightly elevated, reports that he had drunk coffee close to the appointment. He will be following up with his ice skating instructor next month [facility] Medical History Hyperlipidemia Obesity Swelling of knee joint, left Chronic pain syndrome Chronic abdominal pain Stricture of small intestine LBBB (left bundle branch block) CAD (coronary artery disease) Paroxysmal atrial fibrillation Hypertension GERD without esophagitis History of paroxysmal atrial tachycardia Crohn's disease Surgical History Stented coronary artery Hx of endoscopy History of colonoscopy Family History Father Family history unknown Mother Hx of Crohn's disease Social History Household Members: Friend(s) Household Members Other:: 1 Housing: House Are you a primary child care centre director to a significant other at home: No Do you presently have visiting nurse or other home services: No Alcohol intake: never Patient Tobacco Use Status: Former Tobacco user e-Cigarette/Vaping Use: Never Used Second Hand Smoke Exposure: No Advance Directives Date on File: 08/16/22 service: Yes Current occupational status: employed Cognitive needs: No Hearing needs: No Vision needs: No Questionnaire PHQ-9 Over the last 2 weeks, how often have you been bothered by any of the following problems? 1. Little interest or pleasure in doing things: more than half the days 2. Feeling down, depressed, or hopeless: more than half the days 3. Trouble falling or staying asleep, or sleeping too much: more than half the days 4. Feeling tired or having little energy: more than half the days 5. Poor appetite or overeating: more than half the days 6. Feeling bad about yourself - or that you are a failure or have let yourself or your family down: more than half the days 7. Trouble concentrating on things, such as reading the newspaper or watching television: several days 8. Moving or speaking so slowly that other people could have noticed. Or the opposite - being so fidgety or restless that you have been moving around a lot more than usual: not at all 9. Thoughts that you would be better off or of hurting yourself in some way: several days Total score: 14 Depression Screening Interpretation: Positive Depression Screening Done: Yes 67344 - PHQ-9 Billing: Yes Source: Developed by Drs. Satish Gaston, Erika Lara, Dano Art and colleagues, with an educational corrie from [employer]. Thrive Questionnaire Date Thrive assessed: 11/24/24 I am a: Patient What is your living situation today?: I have a steady place to live Within the past 12 months, did the food you bought not last and you didn't have the money to get more?: Never true Within the past 12 months, did you worry whether your food would run out before you got money to buy more?: Never true Do you have trouble paying for medicines?: No Do you have trouble getting transportation to medical appointments?: No Do you have trouble paying your heating and electricity bill?: No Do you have trouble taking care of your child, family member or friend?: No Do you have trouble with day-to-day activities such as bathing, preparing meals, shopping, managing finances, etc.?: No Are you currently unemployed and looking for a job?: No Are you interested in more education?: No Please select the resources that you would like help with: None Currently or been in a relationship where the following occur: No concerns reported THRIVE Score: 0 AUDIT C Alcohol Use Questionnaire (AUDIT-C) 1. How often do you have a drink containing alcohol?: Never 3. How often do you have six or more drinks on one occasion?: Never Total Score: 0 NICOLÁS-7 AMB Questionnaire NICOLÁS-7 Date NICOLÁS - 7 assessed: 11/24/24 Feeling nervous, anxious, or on edge: 1 = Several days Not being able to stop or control worryin = Several days Worrying too much about different things: 2 = More than half the days Trouble relaxin = Several days Being so restless that it is hard to sit still: 0 = Not at all Becoming easily annoyed or irritable: 0 = Not at all Feeling afraid as if something awful might happen: 0 = Not at all Total NICOLÁS-7 score (0-4 normal; 5-9 mild; 10-14 moderate; 15-21 severe): 5 Source: Developed by Drs. Satish Gaston, Erika Lara, Dano Art and colleagues, with an educational corrie from [employer]. NICOLÁS-7 Assessment Billing NICOLÁS-7 Assessment Tool: NICOLÁS-7 Assessment 87429 Review of Systems Const Denies headache(s) and Reports other (difficulty sleeping) Eyes Denies loss of vision ENT Denies vertigo, Denies dizziness, Denies headache(s) and Denies sore throat Card Reports chest pain with activity (intermittently that resolves with rest), Denies leg edema and Denies lightheadedness Resp Denies cough, Denies hemoptysis and Denies wheezing GI Reports abdominal pain (sharp intermittent abdominal pain), Denies melena, Denies constipation, Denies diarrhea and Denies vomiting Denies dysuria, Denies urinary frequency and Denies urinary urgency Musc Denies arthralgias, Denies joint swelling, Denies numbness and Denies tingling Skin/Breast Denies lesions and Denies rash Neuro Denies Abnormal speech present, Denies behavioral changes, Denies vertigo, Denies dizziness, Denies headache(s), Denies loss of vision, Denies memory loss, Denies numbness and Denies tingling Psych Reports anxiety, Denies behavioral changes, Reports depression, Denies memory loss, Denies panic attacks and Reports other (insomnia) Chandan/Lymph Denies easy bleeding and Denies easy bruising Aller/Immun Denies wheezing Physical exam (Primary Care) Vital Signs: Last Vital Signs Temp 97.1 F 11/24/24 14:27 Pulse 78 11/24/24 14:27 Resp 16 11/24/24 14:27 BP 130/90 H 11/24/24 14:27 Pulse Ox 95 11/24/24 14:27 Oxygen Delivery Method Room Air 11/24/24 14:27 BMI result Body Mass Index 32.4 Tobacco/Smoking Status: Tobacco use Status Tobacco use date assessed 11/24/24 11/24/24 14:32 Patient Tobacco Use Status Former Tobacco user 11/24/24 14:27 Tobacco use type 03/01/22 09:40 e-Cigarette/Vaping Use Never Used 11/24/24 14:27 PHQ-9: PHQ-9 Score PHQ-9: Total score 14 11/25/24 05:38 Depression Screening Interpretation: Positive Thrive Assessment: Date of Thrive Assessment Date Thrive assessed 11/24/24 11/24/24 14:32 Currently or been in a relationship where the following occur: No concerns reported Const General: healthy appearing, no acute distress, alert and awake Nutritional Appearance: well nourished Orientation/consciousness: oriented to person, oriented to place and oriented to time HENMT Ears: TM's normal bilaterally General nose exam: Normal nasal mucous membranes and turbinates present Eyes Conjunctivae: conjunctivae normal Sclerae: sclerae normal Pupils: Equal, round and reactive pupils present Neck Neck: Yes no lymphadenopathy and Yes no JVD Thyroid: Thyroid normal Carotids: no bruits Resp Effort & Inspection: normal respiratory effort and not tachypneic Auscultation: no crackles, no rales, no rhonchi and no wheezes Cardio Rate: regular rate Rhythm: regular rhythm Heart sounds: no murmurs and normal S1 and S2 GI Palpation (GI): Soft to palpation, nontender, no hepatomegaly and no splenomegaly Auscultation: normal bowel sounds Skin General skin exam: no rashes or lesions noted and dry skin Neuro General: oriented to person, oriented to place and oriented to time Cranial nerves: Yes Equal, round and reactive pupils present Speech: No Abnormal speech present Gait exam (Neuro): Normal gait present Motor exam (neuro): no tremor noted Extrem Right upper extremity: full ROM Left upper extremity: full ROM Right lower extremity: full ROM; no edema Left lower extremity: full ROM; no edema Psych Mental Status: mental status grossly normal Speech and movement: Normal speech and movement present Affect: normal affect Attitude: cooperative Thought process: Normal thought process present Coding Level of Care Code Est Pt Level 4 (97296) Diagnoses Crohn's disease with complication, unspecified gastrointestinal tract location K50.919 Digestive disease complication type: unspecified complication Gastrointestinal tract location: unspecified location Exertional angina I20.8 Class 1 obesity with serious comorbidity and body mass index (BMI) of 32.0 to 32.9 in adult, unspecified obesity type E66.811; Z68.32 Body mass index: BMI 32.0-32.9 Obesity classification: adult class 1 (BMI 30 - 34.9) Obesity type: unspecified obesity type Serious obesity comorbidity presence: with serious comorbidity Hyperlipidemia, unspecified hyperlipidemia type E78.5 Hyperlipidemia type: unspecified Paroxysmal atrial fibrillation I48.0 Coronary artery disease of [place] heart with stable angina pectoris, unspecified vessel or lesion type I25.118 Associated angina: with stable angina Coronary Disease-Associated Artery/Lesion type: unspecified vessel or lesion type [place] vs. transplanted heart: [place] heart Hypertension, unspecified type I10 Hypertension type: unspecified GERD without esophagitis K21.9 Additional Codes NICOLÁS-7 Assessment Billing - NICOLÁS-7 Assessment Tool: NICOLÁS-7 Assessment 36931 ([id number]) PHQ-9 - 66082 - PHQ-9 Billing: Yes ([id number]) Time Spent (min) 38 Assessment & Plan Assessment & Plan (1) Crohn's disease: Code(s): K50.90 - Crohn's disease, unspecified, without complications Category: Medical Qualifiers: Digestive disease complication type: unspecified complication Gastr ointestinal tract location: unspecified location Qualified Code(s): K50.919 - Crohn's disease, unspecified, with unspecified complications Plan: Intermittent abdominal pain Continue Stelara 90 mg subQ Q 12 week Continue Tylenol OTC as needed Follow up with GI as scheduled (2) Exertional angina: Code(s): I20.8 - Other forms of angina pectoris Category: Medical Plan: Resolves with rest Has not use nitroglycerin in a while We will refill nitroglycerin due to expiration (3) Obesity: Code(s): E66.9 - Obesity, unspecified Category: Medical Qualifiers: Body mass index: BMI 32.0-32.9 Obesity classification: adult class 1 (BMI 30 - 34.9) Obesity type: unspecified obesity type Serious obesity comorbidity presence: with serious comorbidity Qualified Code(s): E66.811 - Obesity, class 1; Z68.32 - Body mass index [BMI] 32.0-32.9, adult Plan: Discussed lifestyle modifications including dietary changes and physical activity (4) Hyperlipidemia: Code(s): E78.5 - Hyperlipidemia, unspecified Category: Medical Qualifiers: Hyperlipidemia type: unspecified Qualified Code(s): E78.5 - Hyperlipidemia, unspecified Plan: tri 116, t-chol 141, ldl 85, hdl 33 Discussed lifestyle modifications including dietary changes and physical activity Continue atorvastatin 80 mg daily encouraged omega-3/coq10 (5) Paroxysmal atrial fibrillation: Code(s): I48.0 - Paroxysmal atrial fibrillation Category: Medical Plan: sinus rhythm in office Continue metoprolol succinate ER 50 mg b.i.d. Follow up with Cardiology as scheduled (6) CAD (coronary artery disease): Comment: follows with [facility] Code(s): I25.10 - Atherosclerotic heart disease of [place] coronary artery without angina pectoris Category: Medical Qualifiers: Associated angina: with stable angina Coronary Disease-Associated Artery/Lesion type: unspecified vessel or lesion type [place] vs. transplanted heart: [place] heart Qualified Code(s): I25.118 - Atherosclerotic heart disease of [place] coronary artery with other forms of angina pectoris Plan: Intermittent stable anginal pain that resolves with rest Continue metoprolol succinate 50 mg b.i.d., amlodipine 2.5 mg daily, atorvastatin 80 mg daily Follow up with Cardiology as scheduled (7) Hypertension: Code(s): I10 - Essential (primary) hypertension Category: Medical Qualifiers: Hypertension type: unspecified Qualified Code(s): I10 - Essential (primary) hypertension Plan: Blood pressure slightly above goal in office Reports having coffee before appointment Reinforced low-salt diet Continue metoprolol succinate 50 mg b.i.d., amlodipine 2.5 mg daily (8) GERD without esophagitis: Code(s): K21.9 - Gastro-esophageal reflux disease without esophagitis Category: Medical Plan: Do not eat meals or drink carbonated beverages within 3 hr of bedtime Decrease the amount of fried, fatty, and spicy foods to decrease gastric acid production Raise the head of the bed using 4 to 6-inch blocks, especially if nocturnal symptoms are present Lose weight if indicated; avoid tight-fitting clothing, especially around the waist Avoid foods that relax the Lower esophageal sphincter (chocolate, peppermint, high-fat foods etc.,) Continue esomeprazole magnesium 40 mg daily Orders: Orders Complete Blood Count Auto Diff 11/24/24 E66.9 - Obesity, unspecified, E78.5 - Hyperlipidemia, unspecified, I10 - Essential (primary) hypertension, I25.10 - Atherosclerotic heart disease of [place] coronary artery without angina pectoris, I44.7 - Left bundle-branch block, unspecified, I48.0 - Paroxysmal atrial fibrillation, K21.9 - Gastro-esophageal reflux disease without esophagitis, K50.90 - Crohn's disease, unspecified, without complications, K50.919 - Crohn's disease, unspecified, with unspecified complications, R09.89 - Other specified symptoms and signs involving the circulatory and respiratory systems, R10.84 - Generalized abdominal pain Lipid Panel 11/24/24 E66.9 - Obesity, unspecified, E78.5 - Hyperlipidemia, unspecified, I10 - Essential (primary) hypertension, I25.10 - Atherosclerotic heart disease of [place] coronary artery without angina pectoris, I44.7 - Left bundle-branch block, unspecified, I48.0 - Paroxysmal atrial fibrillation, K21.9 - Gastro-esophageal reflux disease without esophagitis, K50.90 - Crohn's disease, unspecified, without complications, K50.919 - Crohn's disease, unspecified, with unspecified complications, R09.89 - Other specified symptoms and signs involving the circulatory and respiratory systems, R10.84 - Generalized abdominal pain UA CC w/rflx Micro + Cult 11/24/24 E66.9 - Obesity, unspecified, E78.5 - Hyperlipidemia, unspecified, I10 - Essential (primary) hypertension, I25.10 - Atherosclerotic heart disease of [place] coronary artery without angina pectoris, I44.7 - Left bundle-branch block, unspecified, I48.0 - Paroxysmal atrial fibrillation, K21.9 - Gastro-esophageal reflux disease without esophagitis, K50.90 - Crohn's disease, unspecified, without complications, K50.919 - Crohn's disease, unspecified, with unspecified complications, R09.89 - Other specified symptoms and signs involving the circulatory and respiratory systems, R10.84 - Generalized abdominal pain Comprehensive [place]. Panel Fast 11/24/24 E66.9 - Obesity, unspecified, E78.5 - Hyperlipidemia, unspecified, I10 - Essential (primary) hypertension, I25.10 - Atherosclerotic heart disease of [place] coronary artery without angina pectoris, I44.7 - Left bundle-branch block, unspecified, I48.0 - Paroxysmal atrial fibrillation, K21.9 - Gastro-esophageal reflux disease without esophagitis, K50.90 - Crohn's disease, unspecified, without complications, K50.919 - Crohn's disease, unspecified, with unspecified complications, R09.89 - Other specified symptoms and signs involving the circulatory and respiratory systems, R10.84 - Generalized abdominal pain TSH reflex Free T4 11/24/24 E66.9 - Obesity, unspecified, E78.5 - Hyperlipidemia, unspecified, I10 - Essential (primary) hypertension, I25.10 - Atherosclerotic heart disease of [place] coronary artery without angina pectoris, I44.7 - Left bundle-branch block, unspecified, I48.0 - Paroxysmal atrial fibrillation, K21.9 - Gastro-esophageal reflux disease without esophagitis, K50.90 - Crohn's disease, unspecified, without complications, K50.919 - Crohn's disease, unspecified, with unspecified complications, R09.89 - Other specified symptoms and signs involving the circulatory and respiratory systems, R10.84 - Generalized abdominal pain Vitamin D 25-OH Total 11/24/24 E66.9 - Obesity, unspecified, E78.5 - Hyperlipidemia, unspecified, I10 - Essential (primary) hypertension, I25.10 - Atherosclerotic heart disease of [place] coronary artery without angina pectoris, I44.7 - Left bundle-branch block, unspecified, I48.0 - Paroxysmal atrial fibrillation, K21.9 - Gastro-esophageal reflux disease without esophagitis, K50.90 - Crohn's disease, unspecified, without complications, K50.919 - Crohn's disease, unspecified, with unspecified complications, R09.89 - Other specified symptoms and signs involving the circulatory and respiratory systems, R10.84 - Generalized abdominal pain Medications: Refilled metoprolol succinate ER 50 mg PO BID 180 tabs 3RF amlodipine 2.5 mg PO DAILY 90 tabs 3RF nitroglycerin every 5 min as needed for chest pain, do not exceed 3 doses per episode 0.4 mg sublingual Q5M PRN 25 tabs 1RF chest pain
[2024-11-24 14:27] VITALS: BP 130/90; PULSE 78; RESP 16; TEMP 36.2; O2SAT 95; BMI 32.4
--- OUTSIDE RECORDS SUMMARY | 2024-11-24 16:00 | XMS_ITS | Encounter Summary ---
Author Name [place] Address [address] [place] [id number] Care Team Providers Care Net Programmer Name Role Phone KEENAN HAMILTON Primary Care [...] Knight [facility] ORGANIZAT ION [facility] DEPT Dec 10, 2023 [id number] [phone] [id number] [phone] BARBARA NAIR PATIENT [place] PRESCRIPT ION [facility] Dec 10, 2023 [id number] [phone] BARBARA NAIR PATIENT Selected Encounter This section includes the information on record at [place] for the Encounter. Date/Time Encounter Type Encounter Description Reason Provider Source October 31, 2024 01:00 PM Outpatient Encounter AUDIOLOGY ICD-10-CM Z02.89 Encounter for other administrative examinations TONYA PA Mariusz Encounter Template Text not used by [place] Assessments - Encounter Diagnoses This section includes the primary and secondary diagnoses documented for the Encounter. Date/Time Primary/Secondary Diagnosis Diagnosis Name Provider Source October 31, 2024 01:47 PM PRIMARY Encounter for other administrative examinations TONYA PA [facility] October 31, 2024 01:47 PM SECONDARY Impacted cerumen, left ear TONYA PA [facility] Plan of Treatment: Future Appointments (+ 6 months) and Future Tests (+/- 45 days) The Plan of Treatment section includes future care activities for the patient from [facility] [place] [facility] This section includes future appointments and future orders which are active, pending or scheduled. Future Appointments This section includes appointments that were scheduled to occur 6 months from the date of the Encounter, up to a maximum of 20 appointments. The data comes from all [place] treatment facilities. Appointment Date/Time Appointment Type Appointme nt Facility Name Nov 11, 2024 11:00 AM AMBULATORY - MEDICINE [facility] Nov 12, 2024 01:00 PM AMBULATORY - MEDICINE [facility] Nov 12, 2024 02:00 PM AMBULATORY - REHAB MEDICIN E [facility] Nov 18, 2024 02:00 PM AMBULATORY - PSYCHIATRY [facility] Dec 10, 2024 01:00 PM AMBULATORY - REHAB MEDICIN E [facility] Dec 29, 2024 02:30 PM AMBULATORY - PSYCHIATRY [facility] Social History: Smoking Status (Most current) and Tobacco Use (All prior to encounter date) This section includes the most current, and the historical, smoking and tobacco- related health factors from the [place] facility where the Encounter took place. Current Smoking Status This section includes the most current smoking, or tobacco-related health factor, from the [place] facility where the Encounter took place. Date/Time Current Smoking Status Comment Facil ity October 10, 2024 03:00 PM [place]-TOBACCO NEVER U SED CIGARETTES [facility] Tobacco Use History This section includes a history of the smoking, or tobacco-related health factors, that were collected on or before the date of the Encounter. The data comes from the [place] facility where the Encounter took place. Date/Time Smoking Status/Tobacco Use Comment F acility October 10, 2024 03:00 PM [place]-TOBACCO NEVER U SED OTHER TYPE [facility] October 11, 2023 08:30 AM VA-TOBACCO FORMER USER [facility] [place] [facility] October 11, 2023 08:30 AM VA-TOBACCO QUIT 15 YRS OR MORE [facility] [place] [facility] May 12, 2022 09:00 AM VA-TOBACCO FORMER USER [facility] [place] [facility] May 12, 2022 09:00 AM VA-TOBACCO QUIT 15 YRS OR MORE [facility] [place] [facility] May 13, 2021 11:00 AM VA-TOBACCO FORMER USER [facility] [place] [facility] May 13, 2021 11:00 AM VA-TOBACCO QUIT 15 YRS OR MORE [facility] [place] [facility] Apr 29, 2020 11:00 AM VA-TOBACCO FORMER USER [facility] [place] [facility] Apr 29, 2020 11:00 AM VA-TOBACCO QUIT 15 YRS OR MORE [place] [facility] [place] [facility] Mar 01, 2018 10:36 AM VA-TOBACCO NEVER USED [place] [facility] [place] [facility] Feb 25, 2018 08:54 AM QUIT TOBACCO USE > 7 YEARS AGO 1989 [place] [facility] [place] [facility] Apr 24, 2002 09:38 AM CURRENT SMOKER [place] [facility] [place] [facility] May 13, 2001 09:48 AM HISTORY OF SMOKING [place] [facility] [place] [facility] May 13, 2001 09:48 AM NON-TOBACCO USER [place] [facility] [place] [facility] Advance Directives: All historical and current Section Date Range: From patient's date of to the date document was created. This section includes ALL of a patient's completed or amended [place] Advance and Rescinded Directives. The entries below indicate that a directive exists for the patient, but an actual copy is not included with this document. The data comes from all [place] facilities. Date Advance Directives Provider Source October 10, 2024 ADVANCE DIRECTIVE DAVID QUINONEZ [place] [facility] [place] [facility] Encounter Notes: All associated encounter notes This section contains the clinical notes associated to the Encounter. Date/Time Encounter Note(s) Provider Source October 31, 2024 01:38 PM AUDIOLOGY E & M NO TE: [facility] TITLE: AUDIOLOGY CLINIC STANDARD TITLE: AUDIOLOGY E & M NOTE DATE OF NOTE: OCTOBER 31, 2024@13:38 ENTRY DATE: OCTOBER 31, 2024@13:38:09 AUTHOR: MILAD PA COSIGNER: URGENCY: STATUS: COMPLETED Dx: Occluding cerumen, left ear was scheduled for a compensation and pension exam today. Otoscopy revealed a moderate amount of cerumen in the right ear, and occluding cerumen in the left ear. Type As tympanogram was obtained for the right ear, type B FLAT tympanogram was obtained for the left ear. An attempt was made to remove the wax from 's left ear via curette, however the wax is deep and very hard. was advised to contact his PCP to schedule an appointment for cerumen management. Due to occluding cerumen in the left ear, testing could not be completed today. Will alert C&P department to please contact to re-schedule a C&P appointment once his ears are clear of wax. 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 what? He reports he is interested in pursuing amplification now. [place] reports constant tinnitus in both ears, which he states began last year. Please note, reported tinnitus in 2018. He denies any occupational or recreational noise exposure. /cameron/ Sana Stone, [facility]-A Sonar Technician Signed: 10/31/2024 13:48 Receipt Acknowledged By: 11/04/2024 12:09 /kathleen CROWE PRESS OFFBEARER 11/04/2024 06:49 /cameron/ Mena Hagan Lead Behavioral Intervention Specialist MILAD PA [facility]
== END 2024-11-24 15:05 | disposition home or self-care (01) ==
LOC: HO.HMCH 14:16
DX: I48.0 Paroxysmal atrial fibrillation (principal); K50.919 Crohn's disease, unspecified, with unspecified complications; E66.811 Obesity, class 1; Z68.32 Body mass index [BMI] 32.0-32.9, adult; I20.89 Other forms of angina pectoris; I25.118 Atherosclerotic heart disease of native coronary artery with other forms of angina pectoris; I10 Essential (primary) hypertension; K21.9 Gastro-esophageal reflux disease without esophagitis

== ENCOUNTER → 2024-11-24 14:15 | Outpatient (BNVA) | payer BC, SELFPAY | DX: I48.0 Paroxysmal atrial fibrillation (principal); G47.00 Insomnia, unspecified; F32.A Depression, unspecified; F41.9 Anxiety disorder, unspecified; K50.919 Crohn's disease, unspecified, with unspecified complications; E66.811 Obesity, class 1; Z68.32 Body mass index [BMI] 32.0-32.9, adult; E78.5 Hyperlipidemia, unspecified; I25.118 Atherosclerotic heart disease of native coronary artery with other forms of angina pectoris; I10 Essential (primary) hypertension; K21.9 Gastro-esophageal reflux disease without esophagitis | CPT/HCPCS: 96127 ==

== ENCOUNTER 2024-12-15 12:23 | Outpatient (AMB) | payer BC, SELFPAY ==
[2024-12-15 12:32] VITALS: BP 120/80; PULSE 74; BMI 32.8
--- NOTE | 2024-12-15 12:32 | MHC.OFFVIS ---
Vital Signs 12/15/24 12:32 Height 5 ft 8 in Weight 216 lb 0.848 oz BMI 32.8 BP 120/80 Blood Pressure Location Lt brachial Position Sitting Pulse 74 Intake Visit Reasons: r/s 12/01/24 1 yr followup w/ekg Intake Note: 1 year follow-up with ekg feeling good Allergies No Known Allergies Allergy (Mild, Verified 11/24/24 14:36) none Medication List - Last Reconciled 12/15/24 by Chay Guzmán MD amlodipine 2.5 mg PO DAILY atorvastatin 80 mg PO DAILY duloxetine 60 mg PO DAILY hydroxyzine HCl 25 mg PO DAILY PRN metoprolol succinate ER 50 mg PO BID nitroglycerin 0.4 mg sublingual Q5M PRN omeprazole 40 mg PO DAILY promethazine 25 mg PO DAILY PRN ustekinumab (Stelara) 90 mg subcut Q12W zolpidem 10 mg PO BEDTIME PRN 30 days HPI Comments Details: Jeremias comes for follow-up. He has been doing well from cardiac perspective. He said when he walks up after particularly heavy meal up a flight of stairs he would get a little anginal syndrome otherwise he has been doing well. He has not had any anginal symptoms with regular physical activity. He has not had any prolonged palpitation irregular heartbeat. No bleeding issues. He said he has Crohn's disease much better controlled new medications. Recent echocardiogram shows low normal LV ejection fraction 54% with mildly dilated ascending aorta. [facility] Medical History Hyperlipidemia Obesity Swelling of knee joint, left Chronic pain syndrome Chronic abdominal pain Stricture of small intestine LBBB (left bundle branch block) CAD (coronary artery disease) Paroxysmal atrial fibrillation Hypertension GERD without esophagitis History of paroxysmal atrial tachycardia Crohn's disease Surgical History Stented coronary artery Hx of endoscopy History of colonoscopy Family History Father Family history unknown Mother Hx of Crohn's disease Social History Household Members: Friend(s) Household Members Other:: 1 Housing: House Are you a primary care transitions nurse to a significant other at home: No Do you presently have visiting nurse or other home services: No Alcohol intake: never Patient Tobacco Use Status: Former Tobacco user e-Cigarette/Vaping Use: Never Used Second Hand Smoke Exposure: No Advance Directives Date on File: 08/16/22 service: Yes Current occupational status: employed Cognitive needs: No Hearing needs: No Vision needs: No Review of Systems Const Denies chills, Denies fatigue, Denies fever(s), Denies frequent falls, Denies weakness, Denies weight gain and Denies weight loss ENT Denies dizziness Card Denies chest pain, Denies leg edema, Denies lightheadedness, Denies palpitations, Denies dyspnea, Denies dyspnea on exertion, Denies orthopnea and Denies other (loss of consciousness) Resp Denies cough, Denies dyspnea and Denies dyspnea on exertion GI Denies hematochezia and Denies change in stool character Musc Denies abnormal gait, Denies muscle weakness, Denies numbness, Denies radiating pain into limb and Denies tingling Neuro Denies abnormal gait, Denies dizziness, Denies frequent falls, Denies numbness, Denies tingling and Denies weakness Endo Denies fatigue and Denies palpitations Physical Exam Vital Signs: Last Vital Signs Pulse 74 12/15/24 12:32 BP 120/80 12/15/24 12:32 BMI result Body Mass Index 32.8 Const General: cooperative, comfortable, no acute distress, alert, awake and anxious Nutritional Appearance: obese Orientation/consciousness: patient oriented x3 Limitations: no limitations Neck Neck: Yes trachea midline, Yes supple and Yes no JVD Resp Effort & Inspection: normal respiratory effort Auscultation: clear to auscultation bilaterally Cardio Jugular venous distension: no JVD Palpation: normal PMI Rate: regular rate Rhythm: regular rhythm Heart sounds: S1 normal heart sound present and S2 normal heart sound present Skin General skin exam: no rashes or lesions noted Neuro General: patient oriented x3 and no focal motor deficits Extrem General: Yes no clubbing, cyanosis or edema Psych Appearance: grossly normal Office Procedures EKG Details: EKG shows normal sinus rhythm with left bundle-branch block [id number], Complete Assessment & Plan Assessment & Plan (1) CAD (coronary artery disease): Comment: follows with [facility] Code(s): I25.10 - Atherosclerotic heart disease of cahto coronary artery without angina pectoris Category: Medical Qualifiers: Coronary Disease-Associated Artery/Lesion type: unspecified vessel or lesion type [place] vs. transplanted heart: cahto heart Associated angina: with stable angina Qualified Code(s): I25.118 - Atherosclerotic heart disease of cahto coronary artery with other forms of angina pectoris Plan: Premature atherosclerosis with CAD with stenting in 2010 with no recurrent concerning symptoms. He does get anginal symptoms after heavy meal. Otherwise no anginal symptoms. Continue current dual antianginal therapy with amlodipine as well as metoprolol. No further workup is indicated. Continue high-intensity statin therapy with target goal LDL less than 70 mg/dL. He is currently not on any antiplatelet or anticoagulation due to his Crohn's disease and bleeding issues. Risks associated with this was discussed. He understands. (2) Paroxysmal atrial fibrillation: Code(s): I48.0 - Paroxysmal atrial fibrillation Category: Medical Plan: Paroxysmal atrial fibrillation which has remained suppressed. Continue metoprolol therapy. Avoidance of stimulants was discussed. Ideally indicate oral anticoagulation therapy although he says he has not tolerated this is well due to his Crohn's disease. Risk associated with this with thromboembolic complication was discussed. (3) LBBB (left bundle branch block): Code(s): I44.7 - Left bundle-branch block, unspecified Category: Medical Plan: Chronic left bundle-branch block. Stable. No symptoms related to it. LV ejection fraction is marginally low at 54% but remained stable. No signs or symptoms of heart failure. No particular interventions recommended. (4) Enlarged thoracic aorta: Code(s): I77.89 - Other specified disorders of arteries and arterioles Category: Medical Plan: Mildly enlarged thoracic aorta without any symptoms. Continue aggressive vascular risk factor modifications above. Advised to avoid sudden strenuous isometric exercise. Follow-up echocardiogram in 1 year's time. Will follow up in the clinic in 1 year's time, sooner p.r.n.. Thank you for allowing me to partake in his care Coding Level of Care Code Est Pt Level 4 (48482) Complex EM visit Add On G2211 Diagnoses Coronary artery disease of cahto heart with stable angina pectoris, unspecified vessel or lesion type I25.118 Coronary Disease-Associated Artery/Lesion type: unspecified vessel or lesion type [place] vs. transplanted heart: cahto heart Associated angina: with stable angina Paroxysmal atrial fibrillation I48.0 LBBB (left bundle branch block) I44.7 Enlarged thoracic aorta I77.89 CPT Codes EKG - CPT: 22328-[id number], Complete ([id number])
== END 2024-12-15 12:56 | disposition home or self-care (01) ==
LOC: HO.HCS 12:24
PROVIDERS: Visit Provider Internal Medicine Cardiovascular Disease
DX: I25.118 Atherosclerotic heart disease of native coronary artery with other forms of angina pectoris (principal); I48.0 Paroxysmal atrial fibrillation; I44.7 Left bundle-branch block, unspecified; I77.89 Other specified disorders of arteries and arterioles
CPT/HCPCS: 93010; 99214

== ENCOUNTER → 2024-12-15 12:23 | Outpatient (BNVA) | payer BC, SELFPAY | PROVIDERS: Visit Provider Internal Medicine Cardiovascular Disease | DX: I77.89 Other specified disorders of arteries and arterioles (principal); I44.7 Left bundle-branch block, unspecified; I48.0 Paroxysmal atrial fibrillation; I25.118 Atherosclerotic heart disease of native coronary artery with other forms of angina pectoris; Z95.5 Presence of coronary angioplasty implant and graft; I10 Essential (primary) hypertension | CPT/HCPCS: 93005 ==

== ENCOUNTER 2024-12-22 10:27 | Outpatient (AMB) | payer BC, SELFPAY ==
--- OUTSIDE RECORDS SUMMARY | 2024-12-17 10:06 | XMS_ITS ---
Author Name [place] Address [address] [place] [address] Care Team Providers Care Research Quality Assurance Specialist Name Role Phone KEENAN HAMILTON Primary Care [...] Knight's Name Patient's Relationship to Policy Knight [facility] ORGANIZAT ION [facility] L DEPT Dec 10, 2023 [id number] [phone] [id number] BARBARA NAIR PATIENT [place] PRESCRIPT ION [facility] Dec 10, 2023 [id number] [phone] BARBARA NAIR PATIENT Selected Encounter This section includes the information on record at [place] for the Encounter. Date/Time Encounter Type Encounter Description Reason Pro vider Source Dec 17, 2024 02:06 PM Outpatient Encounter ADMIN PAT ACTIVTIES (MASNONCT) IHE Encounter Template Text not used by [place] Plan of Treatment: Future Appointments (+ 6 [...] 20 appointments. The data comes from all [place] treatment facilities. Appointment Date/Time Appointment Type Appointme nt Facility Name Dec 19, 2024 02:00 PM AMBULATORY - RE[place]AB MEDICIN [place] [facility] [place] [facility] Dec 29, 2024 02:30 PM AMBULATORY - PSYCHIATRY [facility] [place] [facility] Social History: Smoking Status (Most current) and Tobacco Use (All prior to encounter date) This section includes the most current, and the historical, smoking and tobacco- related health factors from the [place] facility where the Encounter took place. Current Smoking Status This section includes the most current smoking, or tobacco-related health factor, from the [place] facility where the Encounter took place. Date/Time Current Smoking Status Comment Facil ity October 10, 2024 03:00 PM VA-TOBACCO NEVER U SED CIGARETTES [place] [facility] Tobacco Use History This section includes a history of the smoking, or tobacco-related health factors, that were collected on or before the date of the Encounter. The data comes from the [place] facility where the Encounter took place. Date/Time Smoking Status/Tobacco Use Comment F acility October 10, 2024 03:00 PM VA-TOBACCO NEVER U SED OTHER TYPE [place] [facility] [place] [facility] October 11, 2023 08:30 AM VA-TOBACCO FORMER USER [facility] [place] [facility] October 11, 2023 08:30 AM VA-TOBACCO QUIT 15 YRS OR MORE [facility] [place] [facility] May 12, 2022 09:00 AM VA-TOBACCO FORMER USER [facility] [place] [facility] May 12, 2022 09:00 AM VA-TOBACCO QUIT 15 YRS OR MORE [facility] [place] [facility] May 13, 2021 11:00 AM VA-TOBACCO FORMER USER [facility] [place] [facility] May 13, 2021 11:00 AM VA-TOBACCO QUIT 15 YRS OR MORE [facility] [place] [facility] Apr 29, 2020 11:00 AM VA-TOBACCO FORMER USER [facility] [place] [facility] Apr 29, 2020 11:00 AM VA-TOBACCO QUIT 15 YRS OR MORE [facility] [place] [facility] Mar 01, 2018 10:36 AM VA-TOBACCO NEVER USED [facility] [place] [facility] Feb 25, 2018 08:54 AM QUIT TOBACCO USE > 7 YEARS AGO 1989 [place] [facility] [place] [facility] Apr 24, 2002 09:38 AM [facility]RENT [facility] May 13, 2001 09:48 AM [facility] May 13, 2001 09:48 AM [facility]BACCO [facility] Advance Directives: All historical and current Section Date Range: From patient's date of to the date document was created. This section includes ALL of a patient's completed or amended [place] Advance and Rescinded Directives. The entries below indicate that a directive exists for the patient, but an actual copy is not included with this document. The data comes from all [place] facilities. Date Advance Directives Provider Source October 10, 2024 ADVANCE DIRECTIVE [facility]ID [facility]ONEZ [facility] Encounter Notes: All associated encounter notes This section contains the clinical notes associated to the Encounter. Date/Time Encounter Note(s) Provider Source Dec 17, 2024 02:06 PM PHARMACY NOTE: LOCAL TITLE: PHARMACY CUSTOMER CARE MEDICATION RENEWAL STANDARD TITLE: PHARMACY NOTE DATE OF NOTE: DEC 17, 2024@14:06 ENTRY DATE: DEC 17, 2024@14:06:34 AUTHOR: TOMMY CASILLAS EXP COSIGNER: URGENCY: STATUS: COMPLETED Date: Dec Division: [facility] referred by Pharmacy Call Center for medication renewal: Non-controlled/maintenanc e medication , Controlled substance Medications requested: [id number] ALPRAZOLAM 0.5MG TAB [id number] NORTRIPTYLINE HCL 50MG CAP Defer to specialty clinic To be mailed . Please review and renew if appropriate. *This note was generated by [facility]/[place] Pharmacy Customer Care. If you have any questions or need assistance, do not contact this author. Please refer all questions to your local, on-site pharmacy departments. /kathleen CASILLAS Saxophone Assembler, [place]/Pharmacy Customer Care Signed: 12/17/2024 14:07 Receipt Acknowledged By: 12/18/2024 13:31 /es/ JELANI CABRERA PSYCHIATRIST TOMMY CASILLAS [facility]
--- NOTE | 2024-12-22 10:27 | MHC.OFFVIS ---
Intake Visit Reasons: 4 mo crohns Intake Note: Jeremias presents as a telehealth today for a 4 month follow up for Crohns. CC: States that he is not having any concerns at this time. Allergies No Known Allergies Allergy (Mild, Verified 11/24/24 14:36) none HPI HPI 4 mo crohns: Details: 64-year-old male w/ hx of CAD< GERD, LBBB, a-fib and Crohn's disease,(Dx 2012) who I am calling for f/u for crohns disease and SBO--w/ fibrostentoic disease RECAP: He had been seen as inpatient 10/2020 for obstruction, prior had also been seeing Dr werner Patient has had crohns disease for many years and is on humira q1wk after having multiple admissions for SBO and crohns flare ups with sub therapeutic adalimumab levels. He was well night before admission. He ate some fried food and shortly after noted abdominal distention, with nausea and several episodes of nonbloody, nonbilious emesis which resembled prior attacks of SBO. He denies fever, chills, shortness of breath, or chest pain. He said on average he gets one attack like this every 8-12 months. Since the humira increase he has felt his background symptoms are much better and he rarely takes tramadol or anti nausea medication. Not taking nsaids. CT of the abdomen and pelvis showed small bowel obstruction with transition point in the right pelvis, and reactive mesenteric lymph nodes. He was given IV fluids and piperacillin/tazobactam. He is non smoker. OTHER DATA: Adalimumab trough 11 (which is good) MRI abd/pelv 03/08/20 showed thickening of distal small bowel. Area of dilation and angulation. Area of right lower quadrant involving terminal ileum. Skip lesions of small bowel. MR enterography-- 11/07/19 which demonstrated multiple scattered areas of small intestinal inflammation. Compared to prior testing there were 4 more areas of active inflammation. There were no areas of stenosis. colonoscopy 2017-- Active Crohn's disease with an ulcerated stricture in the region of the distal ileum. Given his ongoing sx and imaging results my concern was that he had crohns which was not really controlled by humira and that he was not responsive to anti TNFs He was switched to entyvio eventually increased freq to q 4 weeks due to symptoms and low entyvio level and MRe 10/2021 with small bowel thickening unchanged to prior imaging (eval was limited as they couldnt get IV access) This has now been changed to skyriszi because he had another exacerbation of crohns with ongoing inflammation noted on imaging 08/2022 I performed colonoscopy 12/2022 ileocecal stricture--s/p dilation and kenalog injection polyp--adenoma internal hemorrhoids diverticular disease EGD: 10/02 gastritis esophagitis hiatal hernia barretts esophagus Path: barretts US 10/2023: 1/ splenomegaly, and fatty liver RECAP: He is happy with stelera been on for 6 months minimal pain appetite good no melena, no rectal bleeding going to toilet 1-2 times day, solids A/P: 1/ Crohns disease with ongoing sx, on skyrizi s/p dilation of stricture, few bouts of epigastric pain and nausea, ?sub acute obstruction, ongoing crohns flares, changed to stelara 2/ splenomegaly, related to crohns, 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 PLAN: 1/ cont stelara for the meantime 2/ recheck fecal lactoferrin now 3/ will hold on repeat imaging right now [facility] Medical History Hyperlipidemia Obesity Swelling of knee joint, left Chronic pain syndrome Chronic abdominal pain Stricture of small intestine LBBB (left bundle branch block) CAD (coronary artery disease) Paroxysmal atrial fibrillation Hypertension GERD without esophagitis History of paroxysmal atrial tachycardia Crohn's disease Surgical History Stented coronary artery Hx of endoscopy History of colonoscopy Family History Father Family history unknown Mother Hx of Crohn's disease Social History Household Members: Friend(s) Household Members Other:: 1 Housing: House Are you a primary health care liaison to a significant other at home: No Do you presently have visiting nurse or other home services: No Alcohol intake: never Patient Tobacco Use Status: Former Tobacco user e-Cigarette/Vaping Use: Never Used Second Hand Smoke Exposure: No Advance Directives Date on File: 08/16/22 service: Yes Current occupational status: employed Cognitive needs: No Hearing needs: No Vision needs: No Telehealth Telehealth Telehealth Platform: Telephone Location of provider rendering services: practice address Location of patient: address on file Patient Identification confirmed using: Name, : Yes Telehealth method: voice only Patient verbally consented to treatment: Yes Patient verbally consented to billing insurance company: Yes Patient informed of any privacy concerns related to visit: Yes Minutes spent on Phone/Video with Pt.: 6 Assessment & Plan Assessment & Plan (1) Crohn's disease: Code(s): K50.90 - Crohn's disease, unspecified, without complications Category: Medical Qualifiers: Digestive disease complication type: unspecified complication Gastrointestinal tract location: unspecified location Qualified Code(s): K50.919 - Crohn's disease, unspecified, with unspecified complications Plan: as above Orders: Orders C Reactive Protein Today K50.919 - Crohn's disease, unspecified, with unspecified complications Coding Level of Care Code Tele Est Pt Level 3 (46236) Diagnoses Crohn's disease with complication, unspecified gastrointestinal tract location K50.919 Digestive disease complication type: unspecified complication Gastrointestinal tract location: unspecified location
== END 2024-12-22 11:57 | disposition home or self-care (01) ==
LOC: HO.HGI 10:27
PROVIDERS: Visit Provider Internal Medicine Gastroenterology
DX: K50.919 Crohn's disease, unspecified, with unspecified complications (principal)
CPT/HCPCS: 99213

== ENCOUNTER 2024-12-23 08:06 | Outpatient (REF) | payer BC, SELFPAY ==
[2024-12-23 08:34] LABS: MANUAL DIFF FLAG NO
[2024-12-23 08:52] LABS: Hematocrit 44.1 % (42.0-52.0); Hemoglobin 15.3 g/dl (14.0-18.0); Imm Gran Abs Auto 0.01 X10*3/uL (0.00-0.03); Imm Gran Pct Auto 0.1 % (0.0-0.4); Lymphocytes Absolute Auto 1.9 X10*3/uL (1.2-4.9); Mean Corpuscular HGB Conc 34.7 g/dl (31.0-36.0); Mean Corpuscular Hemoglobin 31.0 pg (27.0-33.0); Mean Corpuscular Volume 89.5 fL (80.0-98.0); NRBC Abs Auto 0.000 X10*3/uL (0.0-0.012); NRBC Pct Auto 0.0 /100WBC (0.0-0.2); Platelet Count 234 X10*3/uL (160-400); Red Blood Count 4.93 X10*6/uL (4.60-5.80); White Blood Count 6.7 X10*3/uL (4.8-10.8)
[2024-12-23 09:22] LABS: Alanine Aminotransferase 28 U/L (0-40); Albumin Level 4.4 g/dL (3.5-5.0); Alkaline Phosphatase 73 U/L (39-117); Anion Gap 11 (12-20); Aspartate Amino Transferase 25 U/L (5-37); Blood Urea Nitrogen 12 mg/dL (9-16); Calcium 8.9 mg/dL (8.4-10.2); Carbon Dioxide 29 mmol/L (22-29); Chloride 107 mmol/L (96-108); Cholesterol 156 mg/dL (<200); Estimated Glomerular Filt Rate > 60; HDL Cholesterol 32 mg/dL (>40); Potassium 3.7 mmol/L (3.3-5.1); Sodium 143 mmol/L (135-145); Total Protein 7.1 g/dL (6.5-8.0); Triglycerides 120 mg/dL (<150)
[2024-12-23 09:42] LABS: Thyroid Stimulating Hormone 1.66 uIU/mL (0.32-4.0)
[2024-12-23 10:19] LABS: Appearance Urine Clear; Glucose Urine UA Negative (Negative); PH 6.0 (5.0-9.0); Specific Gravity - Urine 1.015 (1.005-1.025)
[2024-12-26 20:57] LABS: Lactoferrin, Fecal, Quant. 19.10 mcg/mL (<7.25)
== END 2024-12-23 08:07 | disposition home or self-care (01) ==
LOC: HO.LAB 08:06
PROVIDERS: Absent Provider Internal Medicine Gastroenterology
DX: R10.84 Generalized abdominal pain (principal); K50.919 Crohn's disease, unspecified, with unspecified complications; Z13.29 Encounter for screening for other suspected endocrine disorder; E78.5 Hyperlipidemia, unspecified; R09.89 Other specified symptoms and signs involving the circulatory and respiratory systems; E66.9 Obesity, unspecified; K50.90 Crohn's disease, unspecified, without complications; I48.0 Paroxysmal atrial fibrillation; I25.10 Atherosclerotic heart disease of native coronary artery without angina pectoris; I44.7 Left bundle-branch block, unspecified; K21.9 Gastro-esophageal reflux disease without esophagitis; I10 Essential (primary) hypertension; Z13.0 Encounter for screening for diseases of the blood and blood-forming organs and certain disorders involving the immune mechanism
CPT/HCPCS: 36415; 80053; 80061; 81003; 82306; 83631; 84443; 85025; 86140

== ENCOUNTER 2025-05-18 10:32 | Outpatient (REF) | payer BC, OTHER, SELFPAY ==
[2025-05-18 12:14] LABS: Appearance Urine Clear; Glucose Urine UA Negative (Negative); PH 6.5 (5.0-9.0); Specific Gravity - Urine 1.020 (1.005-1.025)
== END 2025-05-18 10:33 | disposition home or self-care (01) ==
LOC: HO.LAB 10:32
PROVIDERS: Visit Provider Physician Assistant
DX: Z12.5 Encounter for screening for malignant neoplasm of prostate (principal); R30.0 Dysuria; R97.20 Elevated prostate specific antigen [PSA]; N40.1 Benign prostatic hyperplasia with lower urinary tract symptoms
CPT/HCPCS: 36415; 81003; 84153

== ENCOUNTER 2025-05-18 10:32 | Outpatient (AMB) | payer BC, SELFPAY ==
--- NOTE | 2025-05-18 10:38 | A.OFFPC_ITS ---
Vital Signs 05/18/25 10:39 Height 5 ft 8 in Weight 213 lb 6 oz BMI 32.4 BP 140/80 H Blood Pressure Location Lt brachial Position Sitting Pulse 82 Pulse Source Pulse Oximeter Temp 97.1 F Temp Source Temporal Artery Scan Pulse Oximetry (%) 98 Oxygen Delivery Method Room Air Intake Visit Reasons: Prostate Problems Intake Note: Patient is here to follow up on Prostate problems Fmd Teacher Required: No Acoustic Intelligence Specialist: Not Required per policy Accompanied by: Self / Same As Patient Allergies No Known Allergies Allergy (Mild, Verified 05/18/25 10:58) none Medication List - Last Reconciled 05/18/25 by Praveen Macias PA-C alprazolam mg PO amlodipine 2.5 mg PO DAILY atorvastatin 80 mg PO DAILY metoprolol succinate ER 50 mg PO BID nitroglycerin 0.4 mg sublingual Q5M PRN nortriptyline 50 mg PO BEDTIME omeprazole 40 mg PO DAILY promethazine 25 mg PO DAILY PRN ustekinumab (Stelara) 90 mg subcut Q12W zolpidem 10 mg PO BEDTIME PRN 30 days Tobacco use date assessed: 05/18/25 Fall risk assessment: No Falls in past year Last assessed Fall Risk: 05/18/25 Dental Screening Dental Screen Date: 11/24/24 HPI Prostate Problems HPI Details The patient is a 65 year old male presenting with urinary symptoms, including post-micturition dribbling and urinary frequency. He has a known history of an enlarged prostate, identified during a prior colonoscopy. The post-micturition dribbling has been present for a while but has worsened over the last few months. Recently, during a vacation, he experienced an episode of significant urinary frequency and urgency, needing to urinate as often as every hour. His past medical history is significant for heart disease, for which he has two cardiac stents and takes blood pressure medication. He also has Crohn's disease. About five to six years ago, he had microscopic hematuria which was evaluated with a cystoscopy and determined to be benign. The patient experiences chronic, intermittent abdominal pain which is sometimes worse after urination, but it can be managed with exercise, pain cream, or Tylenol. He has no known family history of prostate cancer. His last blood work was done in December, approximately 10 months ago, but it is unclear if a PSA was checked at that time. [facility] Medical History Hyperlipidemia Obesity Swelling of knee joint, left Chronic pain syndrome Chronic abdominal pain Stricture of small intestine LBBB (left bundle branch block) CAD (coronary artery disease) Paroxysmal atrial fibrillation Hypertension GERD without esophagitis History of paroxysmal atrial tachycardia Crohn's disease Surgical History Stented coronary artery Hx of endoscopy History of colonoscopy Family History (Updated 05/18/25 @ 10:43 by AVANI Spivey) Father Family history unknown Substance use disorder Mother Hx of Crohn's disease Other Mental health disorder Social History Household Members: Friend(s) Household Members Other:: 1 Housing: House Are you a primary care advocate to a significant other at home: No Do you presently have visiting nurse or other home services: No Alcohol intake: never Patient Tobacco Use Status: Former Tobacco user e-Cigarette/Vaping Use: Never Used Second Hand Smoke Exposure: Yes Advance Directives Date on File: 08/16/22 service: Yes Current occupational status: employed Cognitive needs: No Hearing needs: No Vision needs: Yes (Glasses) Questionnaire Thrive Questionnaire Date Thrive assessed: 11/24/24 I am a: Patient What is your living situation today?: I have a steady place to live Within the past 12 months, did the food you bought not last and you didn't have the money to get more?: Never true Within the past 12 months, did you worry whether your food would run out before you got money to buy more?: Never true Do you have trouble paying for medicines?: No Do you have trouble getting transportation to medical appointments?: No Do you have trouble paying your heating and electricity bill?: No Do you have trouble taking care of your child, family member or friend?: No Do you have trouble with day-to-day activities such as bathing, preparing meals, shopping, managing finances, etc.?: No Are you currently unemployed and looking for a job?: No Are you interested in more education?: No Please select the resources that you would like help with: None Currently or been in a relationship where the following occur: No concerns reported THRIVE Score: 0 AUDIT C Alcohol Use Questionnaire (AUDIT-C) 3. How often do you have six or more drinks on one occasion?: Never Total Score: 0 NICOLÁS-7 AMB Questionnaire NICOLÁS-7 Date NICOLÁS - 7 assessed: 11/24/24 Source: Developed by Drs. Satish Gaston, Erika Lara, Dano Art and colleagues, with an educational corrie from [employer]. Review of Systems Const Denies headache(s) Eyes Denies loss of vision ENT Denies vertigo, Denies dizziness, Denies headache(s) and Denies sore throat Card Denies chest pain, Denies leg edema and Denies lightheadedness Resp Denies cough, Denies hemoptysis and Denies wheezing GI Denies abdominal pain, Denies melena, Denies constipation, Denies diarrhea and Denies vomiting Denies dysuria, Denies urinary frequency, Reports urinary incontinence and Denies urinary urgency Musc Denies arthralgias, Denies joint swelling, Denies numbness and Denies tingling Neuro Denies Abnormal speech present, Denies behavioral changes, Denies vertigo, Denies dizziness, Denies headache(s), Denies loss of vision, Denies memory loss, Denies numbness and Denies tingling Psych Denies anxiety, Denies behavioral changes, Denies depression, Denies memory loss and Denies panic attacks Chandan/Lymph Denies easy bleeding and Denies easy bruising Aller/Immun Denies wheezing Physical exam (Primary Care) Vital Signs: Last Vital Signs Temp 97.1 F 05/18/25 10:39 Pulse 82 05/18/25 10:39 BP 140/80 H 05/18/25 10:39 Pulse Ox 98 05/18/25 10:39 Oxygen Delivery Method Room Air 05/18/25 10:39 BMI result Body Mass Index 32.4 Tobacco/Smoking Status: Tobacco use Status Tobacco use date assessed 05/18/25 05/18/25 10:44 Patient Tobacco Use Status Former Tobacco user 05/18/25 10:44 Tobacco use type 03/01/22 09:40 e-Cigarette/Vaping Use Never Used 05/18/25 10:44 Thrive Assessment: Date of Thrive Assessment Date Thrive assessed 11/24/24 05/18/25 10:44 Currently or been in a relationship where the following occur: No concerns reported Const General: healthy appearing, no acute distress, alert and awake Nutritional Appearance: well nourished Orientation/consciousness: oriented to person, oriented to place and oriented to time HENMT Ears: TM's normal bilaterally General nose exam: Normal nasal mucous membranes and turbinates present Eyes Conjunctivae: conjunctivae normal Sclerae: sclerae normal Pupils: Equal, round and reactive pupils present Neck Neck: Yes no lymphadenopathy and Yes no JVD Thyroid: Thyroid normal Carotids: no bruits Resp Effort & Inspection: normal respiratory effort and not tachypneic Auscultation: no crackles, no rales, no rhonchi and no wheezes Cardio Rate: regular rate Rhythm: regular rhythm Heart sounds: no murmurs and normal S1 and S2 GI Palpation (GI): Soft to palpation, nontender, no hepatomegaly and no splenomegaly Auscultation: normal bowel sounds Skin General skin exam: no rashes or lesions noted and dry skin Neuro General: oriented to person, oriented to place and oriented to time Cranial nerves: Yes Equal, round and reactive pupils present Speech: No Abnormal speech present Gait exam (Neuro): Normal gait present Motor exam (neuro): no tremor noted Extrem Right upper extremity: full ROM Left upper extremity: full ROM Right lower extremity: full ROM; no edema Left lower extremity: full ROM; no edema Psych Mental Status: mental status grossly normal Speech and movement: Normal speech and movement present Affect: normal affect Attitude: cooperative Thought process: Normal thought process present Coding Level of Care Code Est Pt Level 3 (16146) Diagnoses BPH with elevated PSA and lower urinary tract symptoms N40.1; R97.20 Assessment & Plan Assessment & Plan (1) BPH with elevated PSA and lower urinary tract symptoms: Code(s): N40.1 - Benign prostatic hyperplasia with lower urinary tract symptoms; R97.20 - Elevated prostate specific antigen [PSA] Category: Medical Plan: To address the patient's worsening urinary symptoms secondary to benign prostatic hyperplasia, a two-medication approach will be initiated. He will be prescribed tamsulosin (Flomax) 0.4 mg daily to improve urinary stream and b ladder emptying. In addition, finasteride will be prescribed to be taken daily for long-term reduction of prostate size. The patient was counseled that tamsulosin may lower his blood pressure and to be aware of any dizziness, particularly given his history of heart disease and use of antihypertensive medication. For further evaluation, a urinalysis and a Prostate-Specific Antigen (PSA) blood test are ordered. The urinalysis will serve to rule out infection and check for microscopic hematuria given his history. The PSA test is being done as a screening measure, and the patient understands that it can be elevated for several reasons, including BPH, infection, or cancer. No changes were made to the management of his Crohn's disease or chronic abdominal pain. Orders: Orders UA CC w/rflx Micro + Cult Today N40.1 - Benign prostatic hyperplasia with lower urinary tract symptoms, R30.0 - Dysuria, R97.20 - Elevated prostate specific antigen [PSA] Prostate Specific Antigen Scr Today N40.1 - Benign prostatic hyperplasia with lower urinary tract symptoms, R97.20 - Elevated prostate specific antigen [PSA], Z12.5 - Encounter for screening for malignant neoplasm of prostate Medications: New tamsulosin 0.4 mg PO DAILY 30 caps 1RF 30 days N40.1 - Benign prostatic hyperplasia with lower urinary tract symptoms, R97.20 - Elevated prostate specific antigen [PSA] finasteride 5 mg PO DAILY 90 tabs 1RF 90 days N40.1 - Benign prostatic hyperplasia with lower urinary tract symptoms, R97.20 - Elevated prostate specific antigen [PSA]
[2025-05-18 10:39] VITALS: BP 140/80; PULSE 82; TEMP 36.2; O2SAT 98; BMI 32.4
== END 2025-05-18 11:16 | disposition home or self-care (01) ==
LOC: HO.HMCH 10:32
PROVIDERS: Visit Provider Physician Assistant
DX: N40.1 Benign prostatic hyperplasia with lower urinary tract symptoms (principal); R97.20 Elevated prostate specific antigen [PSA]